=== PATIENT | female | born 1995 | race African-American/Black ===

== ENCOUNTER → 2024-01-22 | Outpatient (CLI) | payer MEDICAID, SELFPAY ==
[2024-01-22 17:54] LABS: Bacteria 0 SEEN /hpf (None Seen); Red Blood Cells-Urine 0 SEEN /hpf (0-5)
[2024-01-22 18:07] LABS: Color, Urine Yellow (Yellow); Glucose, Dipstick Normal (Normal); Ketone-Dipstick Negative (Negative); Leukocyte Esterase-Dipstick 25 /ul (Negative); Nitrite-Dipstick Negative (Negative); Occult Blood-Urine Negative /ul (Negative); Protein-Dipstick 15 mg/dl (Negative); Urine Bilirubin Dipstick Negative (Negative); Urine Clarity Clear (Clear); Urine Urobilinogen Normal (Normal)
[2024-01-22 18:15] LABS: Mucous, Urine 2+ /hpf (<or=2+); Squamous Epithelial Cells - UA 0-5 SEEN /hpf (5-10); White Blood Cells 0-5 SEEN /hpf (0-5)
== END | disposition home or self-care (01) ==
PROVIDERS: Visit Provider Physician Assistant
DX: R30.0 Dysuria (principal)
CPT/HCPCS: 81001; 87086; 87088

== ENCOUNTER 2025-06-19 15:16 | Outpatient (CLI) | payer MEDICAID, SELFPAY ==
--- OUTSIDE RECORDS SUMMARY | 2025-06-19 15:30 | XMS RPT_ITS | CCD ---
Author Organization [facility] Care Team Providers Care Forensic Investigator Name Role Phone Timothy Bajwa MD Primary Care Provider Joe Franklin Attending Unavailable Joe Franklin Attending Unavailable Timothy Bajwa MD Primary Care Provider Podlogar [employer].Char TOMPKINS Unavailable Jeevan Lopez MD Primary Care Provider Haagen [employer].Valerie TOMPKINS Unavailable Suppan [employer].Michelle TOMPKINS Unavailable Podlogar [employer].Char TOMPKINS Unavailable JEEVAN LOPEZ Primary Care Unavailable MIKALA BAEZ Referring Unavailable JEEVAN LOPEZ Primary Care Unavailable SELF Referring Unavailable VALORIE MEZA Attending Unavail able JEEVAN LOPEZ Primary Care Unavailable KAVYA AMEZQUITA Attending Unavailable MIKALA BAEZ Referring Unavailable JEEVAN LOPEZ Primary Care Unavailable MIKALA BAEZ Referring Unavailable JEEVAN LOPEZ Primary Care Unavailable KAVYA AMEZQUITA Referring Unavailable JEEVAN LOPEZ Primary Care Unavailable MIKALA BAEZ Referring Unavailable JEEVAN LOPEZ Primary Care Unavailable MIKALA BAEZ Referring Unavailable JEEVAN LOPEZ Primary Care Unavailable MIKALA BAEZ Attending Unavailable JEEVAN LOPEZ Primary Care Unavailable KAVYA AMEZQUITA Attending Unavailable MIKALA BAEZ Referring Unavailable JEEVAN LOPEZ Attending Unavailable TIMOTHY BAJWA Primary Care Unavailab GIANA Watts Attending Unavailable TIMOTHY BAJWA Primary Care Unavailab le VALORIE MEZA Referring Unavail able JEEVAN LOPEZ Attending Unavailable TIMOTHY BAJWA Primary Care Unavailab JEEVAN Serrano J Primary Care Unavailable JEEVAN LOPEZ Referring Unavailable JEEVAN LOPEZ Primary Care Unavailable MIKALA BAEZ Referring Unavailable JEEVAN LOPEZ Primary Care Unavailable KAVYA AMEZQUITA Referring Unavailable JOHNJEEVAN Denton Primary Care Unavailable MIKALA BAEZ Referring Unavailable TENA CRUZ Attending Unavailable JEEVAN LOPEZ Primary Care Unavailable JAXON MIKALA Referring Unavailable JEEVAN LOPEZ Primary Care Unavailable MIKALA BAEZ Referring Unavailable TIMOTHY BAJWA Attending Unavailab TIMOTHY Ramey Primary Care Unavailab TIMOTHY Ramey Primary Care Unavailab KACIE Estes Referring Unavailable TIMOTHY BAJWA Primary Care Unavailab TIMOTHY Ramey Primary Care Unavailab olson Allergies Allergy Classification Reported Allergen(s) Allergy Type Date of Onset Reaction(s) Facility (20 sources) Melon; Translations: [MELON] Drug Allergy 05-09-2016 Itching [facility] Work Phone: (20 sources) Tomatoes; Translations: [TOMATOES] Food Allergy 05-09-2016 Itching [facility] Work Phone: (1 source) Melon Drug allergy (disorder) 01-22-2024 [facility] Repository (1 source) tomato allergenic extract Drug Allergy 01-22-2024 [facility] Repository Medications Current Medications Medication Drug Class(es) Dates Sig (Normalized) Sig (Original) acyclovir 400 mg oral tablet (20 sources) Herpesvirus Nucleoside Analog DNA Polymerase Inhibitor, Herpes Simplex Virus Nucleoside Analog DNA Polymerase Inhibitor, Herpes Zoster Virus Nucleoside Analog DNA Polymerase Inhibitor Start: 01-09-2022 End: 12-19-2024 take 1 tablet by mouth twice daily acyclovir (ZOVIRAX) 400 mg tablet Indications: Recurrent cold sores Take 1 tablet by mouth two times a day. 60 tablet 11 12/19/2024 Active Comment on above: Take 1 tablet by elidia twice daily. amoxicillin 875 mg / clavulanate 125 mg oral tablet (2 sources) Penicillin-class Antibacterial Start: 01-23-2025 End: 02-02-2025 take 1 tablet by mouth twice daily amoxicillin-clavu lanate potassium (AUGMENTIN) 875-125 mg per tablet Take 1 tablet by mouth two times a day for 10 days. 20 tablet 01/23/2025 02/02/2025 Active aspirin 81 mg delayed release oral tablet (12 sources) Platelet Aggregation Inhibitor, Nonsteroidal Anti-inflammatory Drug Start: 03-15-2025 take 1 tablet by mouth once daily aspirin, enteric coated (ECOTRIN LOW STRENGTH) 81 mg EC tablet Indications: Less than 8 weeks gestation of (HCC) Take 1 tablet by mouth once daily. 90 tablet 3 03/15/2025 Active betamethasone 0.5 mg/ml / clotrimazole 10 mg/ml topical cream (2 sources) Azole Antifungal, Corticosteroid Start: 02-09-2025 End: 03-11-2025 clotrimazole-beta methasone (LOTRISONE) cream Indications: Vaginal irritation Apply 1 application to affected area two times a day. 30 g 1 02/09/2025 03/11/2025 Active doxycycline monohydrate 100 mg oral tablet (3 sources) Tetracycline-class Drug Start: 01-31-2025 End: 02-10-2025 take 1 tablet by mouth twice daily doxycycline monohydrate 100 mg tablet Indications: Bronchitis Take 1 tablet by mouth two times a day for 10 days. 20 tablet 01/31/2025 02/10/2025 Active Start: 12-19-2024 End: 12-26-2024 take 1 tablet by mouth twice daily doxycycline monohydrate 100 mg tablet Indications: Bronchitis Take 1 tablet by mouth two times a day for 7 days. 14 tablet 12/19/2024 12/26/2024 Active fluconazole 150 mg oral tablet (1 source) Azole Antifungal Start: 02-12-2025 End: 02-13-2025 take 1 tablet by mouth once daily fluconazole (DIFLUCAN) 150 mg tablet Take 1 tablet by mouth once daily for 1 day. 1 tablet 02/12/2025 02/13/2025 Active Inhalational Spacing Device (1 source) Start: 12-03-2024 End: 12-03-2024 Inhalational Spacing Device Indications: Acute cough 1 Device one time only for 1 dose. 1 Each 12/03/2024 12/03/2024 Active loratadine 10 mg oral tablet (5 sources) loratadine (CLAR ITIN) 10 mg tablet Take 10 mg by mouth as needed. Active magnesium oxide 420 mg oral tablet (2 sources) Start: 06-15-2025 take 1 tablet by mouth once daily magnesium oxide 420 mg tablet Take 1 tablet by mouth once daily. 100 tablet 1 06/15/2025 Active PNV no.95/ferrous fum/folic ac ( ORAL) (12 sources) PNV no.95/ferrou s fum/folic ac ( ORAL) Take by mouth. Active predniSONE 20 mg oral tablet (2 sources) Start: 01-27-2025 End: 02-01-2025 take 1 tablet by mouth once daily predniSONE (DELTASONE) 20 mg tablet Take 1 tablet by mouth once daily for 5 days. 5 tablet 01/27/2025 02/01/2025 Active prochlorperazine 10 mg oral tablet (4 sources) Phenothiazine Start: 05-19-2025 take 1 tablet by mouth every six hours as needed prochlorperazine (COMPAZINE) 10 mg tablet Take 1 tablet by mouth every 6 hours as needed (nausea). 30 tablet 1 05/19/2025 Active Completed/Discontinued Medications Medication Drug Class(es) Dates Sig (Normalized) Sig (Original) [id number] 200 actuat albuterol 0.09 mg/actuat metered dose inhaler (11 sources) beta2-Adrenergic Agonist Start: 12-03-2024 End: 03-15-2025 take 2 puff(s) by inhalation every six hours as needed for wheezing albuterol HFA (PROVENTIL HFA, VENTOLIN HFA) 90 mcg/actuation inhaler Indications: Acute cough Inhale 2 Puffs as instructed every 6 hours as needed for wheezing/shortness of breath. 1 Each 12/03/2024 03/15/2025 Discontinued (Course of therapy completed) benzonatate 100 mg oral capsule (2 sources) Non-narcotic Antitussive Start: 12-07-2024 End: 12-22-2024 take 1 capsule by mouth every eight hours as needed for cough benzonatate (TESSALON PERLE) 100 mg capsule Indications: Bronchitis Take 1 capsule by mouth every 8 hours as needed for cough for up to 15 days. 30 capsule 12/07/2024 12/10/2024 Discontinued (Course of therapy completed) brompheniramine maleate 0.4 mg/ml / dextromethorphan hydrobromide 2 mg/ml / pseudoephedrine hydrochloride 6 mg/ml oral solution (4 sources) alpha-Adrenergic Agonist, Uncompetitive [id number]-Z-asparta te Receptor Antagonist, Sigma-1 Agonist Start: 12-03-2024 End: 12-19-2024 take 5 mL by mouth four times daily as needed Brompheniramine-Pse udoeph-DM (BROMFED DM) 2-30-10 mg/5 mL syrup Indications: Acute cough Take 5 mL by mouth four times a day as needed. 120 mL 12/03/2024 12/19/2024 Discontinued (Other) drospirenone / Ethinyl Estradiol (20 sources) Progestin, Estrogen Start: 12-05-2022 End: 03-15-2025 take 1 tablet by mouth once daily in the evening Drospirenone-Ethiny l Estradiol (NADER, 28,) 3-0.02 mg per tablet Indications: Surveillance for control, oral contraceptives TAKE 1 TABLET BY MOUTH ONCE DAILY. 84 tablet 4 05/17/2023 2:02 PM EDT 12/05/2022 03/15/2025 Discontinued (Discontinued by Patient) Start: 12-05-2022 take 1 tablet by elidia th once daily in the evening Drospirenone-Ethinyl Estradiol (NADER, 28,) 3-0.02 mg per tablet Indications: Surveillance for control, oral contraceptives TAKE 1 TABLET BY MOUTH ONCE DAILY. 84 tablet 4 05/17/2023 2:02 PM EDT 12/05/2022 Active Start: 12-05-2022 take 1 tablet by elidia th once daily Drospirenone-Ethinyl Estradiol (NADER, 28,) 3-0.02 mg per tablet Indications: Surveillance for control, oral contraceptives TAKE 1 TABLET BY MOUTH ONCE DAILY. 84 tablet 4 12/05/2022 Active Start: 12-05-2022 End: 12-05-2023 take 1 tablet by mouth once daily Drospirenone-Ethinyl Estradiol (NADER, 28,) 3-0.02 mg per tablet Indications: Surveillance for control, oral contraceptives TAKE 1 TABLET BY MOUTH ONCE DAILY. 84 tablet 4 12/05/2022 12/05/2023 Active Start: 11-23-2022 End: 12-04-2022 take 1 tablet by mouth once daily Drospirenone-Ethinyl Estradiol (NADER, 28,) 3-0.02 mg per tablet Indications: Surveillance for control, oral contraceptives TAKE 1 TABLET BY MOUTH ONCE DAILY. 84 tablet 4 11/23/2022 12/04/2022 Discontinued Start: 11-23-2022 End: 11-23-2023 take 1 tablet by mouth once daily Drospirenone-Ethinyl Estradiol (NADER, 28,) 3-0.02 mg per tablet Indications: Surveillance for control, oral contraceptives TAKE 1 TABLET BY MOUTH ONCE DAILY. 84 tablet 4 11/23/2022 11/23/2023 Active Start: 11-14-2021 End: 11-23-2022 take 1 tablet by mouth once daily Drospirenone-Ethinyl Estradiol (Nimesh DOE,) 3-0.02 mg per tablet Indications: Surveillance for control, oral contraceptives TAKE 1 TABLET BY MOUTH ONCE DAILY. 84 tablet 4 11/14/2021 11/23/2022 Discontinued Start: 11-14-2021 End: 11-28-2022 take 1 tablet by mouth once daily Drospirenone-Ethinyl Estradiol (Nimesh DOE,) 3-0.02 mg per tablet Indications: Surveillance for control, oral contraceptives TAKE 1 TABLET BY MOUTH ONCE DAILY. 84 tablet 4 11/14/2021 11/28/2022 Active Start: 11-14-2021 End: 11-14-2022 take 1 tablet by mouth once daily Drospirenone-Ethinyl Estradiol (Nimesh DOE,) 3-0.02 mg per tablet Indications: Surveillance for control, oral contraceptives TAKE 1 TABLET BY MOUTH ONCE DAILY. 84 tablet 4 11/14/2021 11/14/2022 Active Comment on above: TAKE 1 TABLET BY ELIDIA TH ONCE DAILY. Problems Active Problems Problem Classification Problem Date Documented Date Episodic/Chronic Anxiety disorders (20 sources) Mixed anxiety and depressive disorder; Translations: [Other specified anxiety disorders] Onset: 01-09-2022 Chronic Contraceptive and procreative management (2 sources) Oral contraception; Translations: [Encounter for surveillance of contraceptive pills] Episodic Immunizations and screening for infectious disease (5 sources) Needs influenza immunization; Translations: [Encounter for immunization] Episodic Other female genital disorders (1 source) Vaginal irritation; Translations: [Other specified noninflammatory disorders of vagina] 02-09-2025 Episodic Other injuries and conditions due to external causes (2 sources) Injury of right knee; Translations: [Unspecified injury of right lower leg, initial encounter] Episodic Other injuries and conditions due to external causes (3 sources) Closed injury of head; Translations: [Unspecified injury of head, initial encounter] Episodic Other lower respiratory disease (2 sources) Cough; Translations: [Acute cough] 12-03-2024 Episodic Other and delivery including normal (20 sources) Normal ; Translations: [Encounter for supervision of normal first , first trimester] Onset: 03-15-2025 03-15-2025 Episodic Other screening for suspected conditions (not mental disorders or infectious disease) (3 sources) Cancer cervix screening status; Translations: [Encounter for screening for malignant neoplasm of cervix] Episodic Other upper respiratory infections (3 sources) Sore throat symptom; Translations: [Acute pharyngitis, unspecified] Episodic Residual codes; unclassified (1 source) Other specified personal risk factors, not elsewhere classified; Translations: [Other specified personal history presenting hazards to health] Episodic Residual codes; unclassified (3 sources) Gestation period, 8 weeks 03-15-2025 Episodic Residual codes; unclassified (2 sources) First trimester ; Translations: [Less than 8 weeks gestation of ] 03-15-2025 Episodic Residual codes; unclassified (2 sources) Gestation period, 12 weeks; Translations: [12 weeks gestation of ] 04-19-2025 Episodic Residual codes; unclassified (1 source) Gestation period, 16 weeks; Translations: [16 weeks gestation of ] 05-19-2025 Episodic Residual codes; unclassified (1 source) Gestation period, 20 weeks; Translations: [20 weeks gestation of ] 06-15-2025 Episodic Residual codes; unclassified (1 source) 20 weeks gestation of ; Translations: [20 weeks gestation of (HCC)] Onset: 06-15-2025 Episodic Residual codes; unclassified (1 source) Less than 8 weeks gestation of ; Translations: [Less than 8 weeks gestation of (HCC)] Onset: 06-15-2025 Episodic Residual codes; unclassified (1 source) 16 weeks gestation of ; Translations: [16 weeks gestation of (HCC)] Onset: 05-19-2025 Episodic Residual codes; unclassified (1 source) 12 weeks gestation of ; Translations: [12 weeks gestation of ([facility])] Onset: 04-19-2025 Episodic Residual codes; unclassified (1 source) 8 weeks gestation of ; Translations: [8 weeks gestation of ([facility])] Onset: 03-23-2025 Episodic Spondylosis; intervertebral disc disorders; other back problems (5 sources) Neck pain; Translations: [Cervicalgia] Episodic Unclassified (1 source) Acute candidiasis of vulva and vagina; Translations: [Acute candidiasis of vulva and vagina] Onset: 01-30-2024 Unclassified (1 source) Acute cough; Translations: [Acute cough] Onset: 12-03-2024 Past or Other Problems Problem Classification Problem Date Documented Date Episodic/Chronic Chronic obstructive pulmonary disease and bronchiectasis (3 sources) Bronchitis; Translations: [Bronchitis, not specified as acute or chronic] Onset: 12-19-2024 12-07-2024 Episodic Fever of unknown origin (2 sources) Fever; Translations: [Fever, unspecified] Onset: 02-08-2025 02-08-2025 Episodic Genitourinary symptoms and ill-defined conditions (17 sources) Dysuria; Translations: [Bacteriuria] Onset: 01-30-2024 03-17-2025 Episodic Hemorrhage during ; abruptio placenta; placenta previa (16 sources) Threatened miscarriage; Translations: [Threatened ] Onset: 03-15-2025 Resolved: 04-19-2025 03-15-2025 Episodic Mood disorders (20 sources) Recurrent major depression in partial remission; Translations: [Major depressive disorder, recurrent, in partial remission] Onset: 04-17-2019 Resolved: 03-15-2025 04-17-2019 Chronic Other infections; including parasitic (14 sources) H/O: viral illness; Translations: [Personal history of other infectious and parasitic diseases] Onset: 03-15-2025 03-15-2025 Episodic Residual codes; unclassified (14 sources) History of induced termination of ; Translations: [Other specified postprocedural states] Onset: 03-15-2025 03-15-2025 Episodic Viral infection (20 sources) Recurrent herpes simplex labialis; Translations: [Herpesviral vesicular dermatitis] Onset: 12-19-2024 Episodic Results Test Name Value Interpretation Reference Range Facil ity Examination level ultrasound on 06-15-2025 Indication Standard anatomic survey Impression The patient is referred for a standard anatomic survey. - Single, live, intrauterine . - biometry is consistent with the established gestational age. - No malformations were visualized on a complete standard anatomic survey. - The amniotic fluid volume is normal amount. - The placenta is anterior, fundal. - The Transabdominal cervical length measures 34.6 mm with no evidence of funneling or other dynamic changes. - Not all structural malformations can be detected by ultrasound examination. Recommendations Additional follow-up as clinically indicated. Maternal Assessment Height 165 cm Height (ft) 5 ft Height (in) 5 in Physical Exam Initial weight (lb) 135 lb Initial BMI 22.47 kg/m Maternal assessment other: 2 Para 0 REMOTE READ Method Transabdominal ultrasound examination. View: Suboptimal view: limited by position Wong . Number of fetuses: 1 Dating LMP on: 01/13/2025 GA by LMP 21 w + 6 d ESPERANZA by LMP: 10/20/2025 GA by prior assessment 20 w + 1 d ESPERANZA by prior assessment: 11/01/2025 Ultrasound examination on: 06/15/2025 GA by U/S based upon: AC, BPD, Femur, HC GA by U/S 20 w + 2 d ESPERANZA by U/S: 10/31/2025 Assigned: based on stated ESPERANZA, selected on 06/15/2025 Assigned GA 20 w + 1 d Assigned ESPERANZA: 11/01/2025 General Evaluation Cardiac activity present. FHR 149 bpm. movements: present. Presentation: breech Placenta: Placental site: anterior, fundal Umbilical cord: Cord vessels: 3 vessel cord Amniotic fluid: Amount of AF: normal amount. MVP 5.0 cm Growth Overview Exam date GA BPD (mm) HC (mm) AC (mm) FL (mm) HL (mm) EFW (g) 06/15/2025 20w 1d 45 27% 175.2 46% 157.5 69% 33.8 79% 31.7 70% 366 71% Biometry Standard BPD 45.0 mm 19w 4d 27% Hadlock OFD 63.6 mm 20w 2d 81% Nicolaides HC 175.2 mm 20w 0d 46% Felisa Cerebellum tr 21.9 mm 20w 4d 86% Hill Nuchal fold 3.3 mm AC 157.5 mm 20w 6d 69% Hadlock Femur 33.8 mm 20w 6d 79% Felisa Humerus 31.7 mm 20w 4d 70% Felisa EFW 366 g 20w 4d 71% Hadlock EFW (lb) 0 lb EFW (oz) 13 oz EFW by: Hadlock (HC-AC-FL) Extended Buckle Assembler 7.0 mm CM 4.3 mm 26% Nicolaides Extremities / Bony Struc FL / HC 0.19 61% Hadlock Other Structures FHR 149 bpm Anatomy Cranium: normal Lateral ventricles: normal Choroid plexus: normal Midline falx: normal Cavum septi pellucidi: normal Cerebellum: normal Cisterna magna: normal Head / Neck Vermis: Normal but not required for a standard anatomy exam Neck: Normal but not required for a standard anatomy exam Nuchal fold: Normal but not required for a standard anatomy exam Lips: normal Profile: Normal but not required for a standard anatomy exam Nose: Normal but not required for a standard anatomy exam Face Maxilla: Normal but not required for a standard anatomy exam Mandible: Normal but not required for a standard anatomy exam Orbits: Normal but not required for a standard anatomy exam Lens: Normal but not required for a standard anatomy exam 4-chamber view: normal RVOT view: normal LVOT view: normal 3-vessel view: normal 2-[id number] view: normal Heart / Thorax Situs: situs solitus (normal) Aortic arch view: Normal but not required for a standard anatomy exam SVC: Normal but not required for a standard anatomy exam IVC: Normal but not required for a standard anatomy exam Cardiac axis: normal Rt lung: Normal but not required for a standard anatomy exam Lt lung: Normal but not required for a standard anatomy exam Diaphragm: normal Cord insertion: normal Stomach: normal Kidneys: normal Bladder: normal Genitals: normal Abdomen Abdom. wall: normal Cervical spine: normal Thoracic spine: normal Lumbar spine: normal Sacral spine: normal Arms: normal Legs: normal Rt upper arm: normal Rt forearm: normal Rt hand: normal Rt fingers: normal Lt upper arm: normal Lt forearm: normal Lt hand: normal Lt fingers: normal Rt upper leg: normal Rt lower leg: normal Rt foot: normal Lt upper leg: normal Lt lower leg: normal Lt foot: normal sex: female Wants to know sex: yes Maternal Structures Uterus / Cervix Uterus: Visualized Cervix: Visualized Approach: Transabdominal Cervical length 34.6 mm Other: Patient declined transvaginal ultrasound for cervical length. Ovaries / Tubes / Adnexa Rt ovary: Not visualized Lt ovary: Visualized Performed By: Leida Alvarado RDMS, RVT Read By: Tiffanie Dyson M.D. MATERNAL MEDICINE [facility] Radiology Study observation (narrative) [facility] Examination level ultrasound on 04-19-2025 Indication First trimester anatomic survey Impression The patient is referred for a first trimester anatomy scan including nuchal translucency measurement as clinically indicated. - Single, live, intrauterine . - [place] rump length measurement is consistent with the established gestational age. - A qualitative screen of the nuchal translucency and other anatomic structures was unremarkable on a complete first trimester anatomic assessment. - Not all structural malformations can be detected by ultrasound examination. Maternal Structures: Right Ovary: Size 21 mm x 19 mm x 11 mm Left Ovary: Size 20 mm x 19 mm x 16 mm Recommendations - An anatomic survey at 18-20 weeks is recommended given no identified risk factors. Maternal Assessment Height 165 cm Height (ft) 5 ft Height (in) 5 in Physical Exam Initial weight (lb) 135 lb Initial BMI 22.47 kg/m Maternal assessment other: 2 Para 0 REMOTE READ Method Transabdominal ultrasound examination Wong . Number of fetuses: 1 Dating LMP on: 01/13/2025 GA by LMP 13 w + 5 d ESPERANZA by LMP: 10/20/2025 GA by prior assessment 12 w + 0 d ESPERANZA by prior assessment: 11/01/2025 Ultrasound examination on: 04/19/2025 GA by U/S based upon: CRL GA by U/S 12 w + 4 d ESPERANZA by U/S: 10/28/2025 Assigned: based on stated ESPERANZA, selected on 04/19/2025 Assigned GA 12 w + 0 d Assigned ESPERANZA: 11/01/2025 General Evaluation Cardiac activity present Placenta: anterior Cord vessels: 3 vessel cord Amniotic fluid: normal amount Biometry Standard FHR 148 bpm CRL 61.8 mm 12w 4d 83% Hadlock First Trimester Anatomy Calvarium: normal Falx cerebri: normal Choroid plexus: normal Profile: normal Nasal bone: normal Retronasal triangle: normal Maxilla: normal Mandible: normal Nuchal translucency: Unremarkable Situs: normal Cardiac position: normal Cardiac axis: normal 4-chamber view: normal 4-chamber view with color: normal [id number] view: normal Abdominal cord insertion: normal Stomach: normal Kidneys: normal Bladder: normal Color doppler of perivesical umbilical arteries: normal Vertebral alignment: normal Arms: normal Hands: normal Legs: normal Feet: normal Maternal Structures Uterus / Cervix Uterus: Visualized Uterus length 105 mm Uterus width 111 mm Uterus height 94 mm Uterus Vol 577.1 cm Ovaries / Tubes / Adnexa Rt ovary: Visualized Rt ovary D1 21 mm Rt ovary D2 19 mm Rt ovary D3 11 mm Rt ovary Vol 2.3 cm Lt ovary: Visualized Lt ovary D1 20 mm Lt ovary D2 19 mm Lt ovary D3 16 mm Lt ovary Vol 3.3 cm Performed By: Leida Alvarado RDMS, RVT Read By: Nanci Anthony M.D. MATERNAL MEDICINE [facility] Radiology Study observation (narrative) [facility] HGB ELECTROPHORESIS FOR EVAL (LAB ORDER)on 04-19-2025 Hemoglobin A (Bld) [Mass fraction] 96.9 % Normal 96.2-98.0 [facility] Comment on above: Order Comment: Speci men Type: SWAB Ordering Facility: [facility] Address: [address] [place] [address] Performed By: #### T RVAMP, 45309-2 #### [facility] CLIA [id number] [address] [place] [address] [place] Hemoglobin A2 (Bld) [Mass fraction] 3.1 % Normal 2.0-3.1 [facility] Comment on above: Order Comment: Speci men Type: SWAB Ordering Facility: [facility] Address: [address] [place] [address] Performed By: #### T RVAMP, [id number] #### [facility] CLIA [id number] [address] [place] [address] [place] Hemoglobin Unsp Elph (Bld) [Mass fraction] Normal [facility] Comment on above: Order Comment: Speci men Type: SWAB Ordering Facility: [facility] Address: [address] [place] [address] Performed By: #### T RVAMP, 10441-8 #### [facility] CLIA [id number] [address] [place] [address] [place] HGB EVALUATION CASCADE INTER John 04-19-2025 Hemoglobin pattern (Bld) [Interp] Reviewed by Christopher Coello MD Normal [facility] Comment on above: Order Comment: Speci men Type: SWAB Ordering Facility: [facility] Address: [address] [place] [address] Performed By: #### T RVAMP, 66106-6 #### [facility] CLIA [id number] [address] [place] [address] [place] INTERPRETATION (HGB EVAL) Normal [facility] Comment on above: Order Comment: Speci men Type: SWAB Ordering Facility: [facility] Address: [address] [place] [address] Result Comment: Hemo globins were analyzed by capillary electrophoresis and CBC red cell parameters were reviewed. No abnormal hemoglobin is identified. There is normal hemoglobin capillary electrophoresis pattern. Performed By: #### T RVAMP, 48884-7 #### [facility] CLIA [id number] [address] [place] [address] [place] [id number] PLUSon 04-19-2025 Cell-free DNA./Cell-free DNA.total Dosage of chromosome-specific cfDNA (cfDNA) [Molar fraction] 30% Normal [facility] Comment on above: Order Comment: Speci men Type: SWAB Ordering Facility: [facility] Address: [address] [place] [address] Performed By: #### T RVAMP, 03279-1 #### [facility] CLIA [id number] [address] [place] [address] [place] Chr 13+18+21+X+Y aneuploidy Dosage of chromosome-specific cfDNA Ql (cfDNA) Negative Normal [facility] Comment on above: Order Comment: Speci men Type: SWAB Ordering Facility: [facility] Address: [address] [place] [address] Performed By: #### T RVAMP, 73874-1 #### [facility] CLIA [id number] [address] [place] [address] OF [place] Chr 21 trisomy Dosage of chromosome-specific cfDNA Ql (cfDNA) Negative Normal [facility] Comment on above: Order Comment: Speci men Type: SWAB Ordering Facility: [facility] Address: [address] [place] [address] Performed By: #### T RVAMP, 20969-9 #### [facility] CLIA [id number] [address] [place] [address] [place] Chr X and Y aneuploidy risk Sequencing Ql (cfDNA) [Interp] Not detected Normal [facility] Comment on above: Order Comment: Speci men Type: SWAB Ordering Facility: [facility] Address: [address] [place] [address] Result Comment: Not Detected Not Detected Performed By: #### T RVAMP, 38291-3 #### [facility] CLIA [id number] [address] [place] [address] [place] Citation David (Reference lab test) Comment Normal [facility] Comment on above: Order Comment: Speci men Type: SWAB Ordering Facility: [facility] Address: [address] [place] [address] Result Comment: 1. P jamel VALDES, et al. Chandrika Med. 2012;14(3):296-305. 2. Ryan RICE et al. Prenat Diag. 2013;33(6):591-597. 3. Boubacar C, et al. Clin Chem. 2015 Apr;61(4):608-616. 4. Gary VALDES et al. Chandrika Med. 2011;13(11):913-920. 5. ACOG/SM[facility] Practice Bulletin No. 226, Sep 2020. Performed By: #### T RVAMP, 54915-1 #### [facility] CLIA [id number] [address] [place], [place] [address] [place] Gestational age Estimated from conception date Wong Normal [facility] Comment on above: Order Comment: Speci men Type: SWAB Ordering Facility: [facility] Address: [address] [place] [address] Performed By: #### T RVAMP, 06489-4 #### [facility] CLIA [id number] [address] [place] [address] [place] GESTATIONALAGE AGE > OR = 9W Yes Normal [facility] Comment on above: Order Comment: Speci men Type: SWAB Ordering Facility: [facility] Address: [address] [place] [address] Performed By: #### T RVAMP, 16591-0 #### [facility] CLIA [id number] [address] [place] [address] [place] Laboratory comment David (Report) Comment Normal [facility] Comment on above: Order Comment: Speci men Type: SWAB Ordering Facility: [facility] Address: [address] [place] [address] Result Comment: The MaterniT(R) 21 PLUS laboratory-developed test (LDT) analyzes circulating cell-free DNA from a maternal blood sample. This test is used for screening purposes and not diagnostic. Clinical correlation is recommended. Validation data on twin pregnancies is limited and the ability of this test to detect aneuploidy in higher multiple gestations has not yet been validated. Performed By: #### T RVAMP, 08049-7 #### [facility] CLIA [id number] [address] [place], [place] [address] [place] director of financial planning name Nom (Provider) Comment Normal [facility] Comment on above: Order Comment: Speci men Type: SWAB Ordering Facility: [facility] Address: [address] [place] [address] Result Comment: This specimen showed an expected representation of chromosome 21, 18 and 13 material. Clinical correlation is suggested. Comment Wesley Elizabeth MD, PhD, Director, [employer] Performed By: #### T RVAMP, 31801-3 #### [facility] CLIA [id number] [address] [place], [place] [address] [place] LIMITATIONS OF THE TEST Comment Normal [facility] Comment on above: Order Comment: Speci men Type: SWAB Ordering Facility: [facility] Address: [address] [place] [address] Result Comment: Bradford stephen the results of these tests are highly reliable, discordant results, including inaccurate sex prediction, may occur due to placental, maternal, or mosaicism or neoplasm; vanishing twin; prior maternal organ transplant; or other causes. These tests are screening tests and not diagnostic; they do not replace the accuracy and precision of diagnosis with CVS or amniocentesis. A patient with a positive test result should be referred for genetic counseling and offered invasive diagnosis for confirmation of test results.[5] The results of this testing, including the benefits and limitations, should be discussed with a qualified healthcare provider. management decisions, including termination of the , should not be based on the results of these tests alone. The healthcare provider is responsible for the use of this information in the management of their patient. Sex chromosomal aneuploidies are not reportable for known multiple gestations. A negative result does not ensure an unaffected nor does it exclude the possibility of other chromosomal abnormalities or defects which are not a part of these tests. An uninformative result may be reported, the causes of which may include, but are not limited to, insufficient sequencing coverage, noise or artifacts in the region, amplification or sequencing bias, or insufficient fraction. These tests are not intended to identify pregnancies at risk for neural tube defects or ventral wall defects. Testing for whole chromosome abnormalities (including sex chromosomes) and for subchromosomal abnormalities could lead to the potential discovery of both and maternal genomic abnormalities that could have major, minor, or no, clinical significance. Evaluating the significance of a positive or a non-reportable result may involve both invasive testing and additional studies on the mother. Such investigations may lead to a diagnosis of maternal chromosomal or subchromosomal abnormalities, which on occasion may be associated with benign or malignant maternal neoplasms. These tests may not accurately identify triploidy, balanced rearrangements, or the precise location of subchromosomal duplications or deletions; these may be detected by diagnosis with CVS or amniocentesis. The ability to report results may be impacted by maternal BMI, maternal weight, maternal systemic lupus erythematosus (SLE) and/or by certain pharmaceutical agents such as low molecular weight heparin (for example: Lovenox(R), Xaparin(R), Clexane(R) and Fragmin(R)). Performed By: #### T RVAMP, 55384-1 #### [facility] CLIA [id number] [address] [place] [address] Monosomy X risk Dosage of chromosome-specific cfDNA Ql (Plasma cell-free+WBC DNA) [Interp] Not detected Normal [facility] Comment on above: Order Comment: Kris means Type: SWAB Ordering Facility: [facility] Address: [address] [place] [address] Performed By: #### T RVAMP, 48352-1 #### [facility] CLIA [id number] [address] [place] [address] NEGATIVE PREDICTIVE VALUE Note Normal [facility] Comment on above: Order Comment: Kris means Type: SWAB Ordering Facility: [facility] Address: [address] [place] [address] Result Comment: The Negative Predictive Value (NPV) for trisomy 21, 18, and 13 is greater than 99%. The NPV for SCA and ESS cannot be calculated as SCA and ESS are only reported when an abnormality is detected. Performed By: #### T RVAMP, 71090-7 #### [facility] CLIA [id number] [address] [place] [address] PERFORMANCE CHARACTERISTICS Note Normal [facility] Comment on above: Order Comment: Kris means Type: SWAB Ordering Facility: [facility] Address: [address] [place] [address] Result Comment: ! Sex ! Accuracy: 99.4% ! ! ! ! Region (associated syndrome) ! Est. Sens# ! Est. Spec ! ! ! ! Trisomy 21 (Down Syndrome) ! 99.1% ! 99.9% ! ! ! ! Trisomy 18 (Hickey Syndrome) ! >99.9% ! 99.6% ! ! ! ! Trisomy 13 (Patau Syndrome) ! 91.7% ! 99.7% ! ! ! ! Sex Chromosome Aneuploidies## ! 96.2% ! 99.7% ! ! ! * As reported in [facility] database nstd37 [https://www.ncbi.nlm.nih.gov/dbvar/studies/nstd37/ ] # Estimated Sensitivity. Sensitivity estimated across the observed size distribution of each syndrome [per [employer] database nstd37] and across the range of fractions observed in routine clinical NIPT. Actual sensitivity can also be influenced by other factors such as the size of the event, total sequence counts, amplification bias, or sequence bias. ## Wong gestation only. Performed By: #### T RVAMP, 46859-5 #### [facility] CLIA [id number] [address] [place] [address] [place] [facility] POSITIVE PREDICTIVE VALUE N/A Normal [facility] Comment on above: Order Comment: Speci men Type: SWAB Ordering Facility: [facility] Address: [address] [place] [address] Performed By: #### T RVAMP, 15517-8 #### [facility] CLIA [id number] [address] [place] [address] Reference Lab Test Method Comment Normal [facility] Comment on above: Order Comment: Speci men Type: SWAB Ordering Facility: [facility] Address: [address] [place] [address] Result Comment: See Notes Circulating cell-free DNA was purified from the plasma component of maternal blood. The extracted DNA was then converted into a genomic DNA library for aneuploidy analysis of chromosomes 21, 18, and 13 via next generation sequencing.[1] Optional findings based on the test order include sex chromosome aneuploidy (SCA)[2], and enhanced sequencing series (ESS)[3], which will only be reported on as an additional finding when an abnormality is detected. SCA testing includes information on X and Y representation, while ESS testing includes deletions in selected regions (22q, 15q, 11q, 8q, 5p, 4p, 1p) and trisomy of chromosomes 16 and 22. Performed By: #### T RVAMP, 26418-7 #### [facility] CLIA [id number] [address] [place], [place] [address] [place] Service comment (Unsp spec) [Interp] Comment Normal [facility] Comment on above: Order Comment: Speci men Type: SWAB Ordering Facility: [facility] Address: [address] [place] [address] Result Comment: See Notes [employer] is a subsidiary of [email or web address], using the brand [employer]. This test was developed and its performance characteristics determined by [employer]. It has not been cleared or approved by the Food and Drug Administration. This laboratory is certified under the Clinical Laboratory Improvement Amendments (CLIA) as qualified to perform high complexity clinical laboratory testing and accredited by the [employer] (CAP). If there is future clinical need for adding MaterniT GENOME testing, this specimen will be available until term. [facility] samples will not be retained beyond [address] [facility] patients will have to send a new sample for re-sequencing ([facility] Test Code: [id number]). Performed By: #### T RVAMP, 72420-1 #### [facility] CLIA [id number] [address] [place] [address] [place] Sex Dosage of chromosome-specific cfDNA Nom (cfDNA) Comment Normal [facility] Comment on above: Order Comment: Speci men Type: SWAB Ordering Facility: [facility] Address: [address] [place] [address] Result Comment: Cons istent with Female Performed By: #### T RVAMP, 38767-6 #### [facility] CLIA [id number] [address] [place] [address] [place] Test performance information David (Unsp spec) Comment Normal [facility] Comment on above: Order Comment: Speci men Type: SWAB Ordering Facility: [facility] Address: [address] [place] [address] Result Comment: The performance characteristics of the MaterniT(R) 21 PLUS laboratory-developed test (LDT) have been determined in a clinical validation study with women at increased risk for chromosomal aneuploidy.[1-4] Performed By: #### T RVAMP, 51751-6 #### [facility] CLIA [id number] [address] [place], [place] [address] [place] Trisomy 13 risk Dosage of chromosome-specific cfDNA Ql (cfDNA) [Interp] Negative Normal [facility] Comment on above: Order Comment: Speci men Type: SWAB Ordering Facility: [facility] Address: [address] [place] [address] Performed By: #### T RVAMP, 81961-0 #### [facility] CLIA [id number] [address] [place] [address] [place] Trisomy 18 risk Dosage of chromosome-specific cfDNA Ql (Plasma cell-free+WBC DNA) [Interp] Negative Normal [facility] Comment on above: Order Comment: Speci men Type: SWAB Ordering Facility: [facility] Address: [address] [place] [address] Performed By: #### T RVJEAN PAUL, 12957-8 #### [facility] CLIA [id number] [address] [place] [address] [place] RBC PARAMETERS FOR HB IDon 0 - Erythrocyte distribution width (RBC) [Ratio] 12.7 % Normal 11.5-15.0 [facility] Comment on above: Order Comment: Speci men Type: SWAB Ordering Facility: [facility] Address: [address] [place] [address] Performed By: #### T RVAMP, 34302-0 #### [facility] CLIA [id number] [address] [place] [address] [place] Hematocrit (Bld) [Volume fraction] 39.4 % Normal 36.0-46.0 [facility] Comment on above: Order Comment: Speci men Type: SWAB Ordering Facility: [facility] Address: [address] [place] [address] Performed By: #### T RVAMP, 61846-5 #### [facility] CLIA [id number] [address] [place] [address] [place] Hemoglobin (Bld) [Mass/Vol] 13.3 g/dL Normal 11.5-15.5 [facility] Comment on above: Order Comment: Speci men Type: SWAB Ordering Facility: [facility] Address: [address] [place] [address] Performed By: #### T RVAMP, 09075-3 #### [facility] CLIA [id number] [address] [place] [address] [place] MCH (RBC) [Entitic mass] 33.2 pg Normal 26.0-34.0 [facility] Comment on above: Order Comment: Speci men Type: SWAB Ordering Facility: [facility] Address: [address] [place] [address] Performed By: #### T RVAMP, 14571-6 #### [facility] CLIA [id number] [address] [place] [address] [place] MCHC (RBC) [Mass/Vol] 33.8 g/dL Normal 30.5-36.0 [facility] Comment on above: Order Comment: Speci men Type: SWAB Ordering Facility: [facility] Address: [address] [place] [address] Performed By: #### T RVAMP, 03000-4 #### [facility] CLIA [id number] [address] [place] [address] [place] MCV (RBC) [Entitic vol] 98.3 fL Normal 80.0-100.0 [facility] Comment on above: Order Comment: Speci men Type: SWAB Ordering Facility: [facility] Address: [address] [place] [address] Performed By: #### T RVAMP, 01189-8 #### [facility] CLIA [id number] [address] [place] [address] [place] RBC (Bld) [#/Vol] 4.01 10*6/uL Normal 3.90-5.20 [facility] Comment on above: Order Comment: Speci men Type: SWAB Ordering Facility: [facility] Address: [address] [place], [place] [address] Performed By: #### T RVAMP, 41372-1 #### [facility] CLIA [id number] [facility] [place] [address] [place] HGB ELECTROPHORESIS FOR EVAL (LAB ORDER)on 03-29-2025 Hemoglobin A (Bld) [Mass fraction] 97.0 % Normal 96.2-98.0 [facility] Comment on above: Order Comment: Speci men Type: BLOOD SPECIMENOrdering Facility: [facility] Address: [address] [place] [address] Performed By: #### L [id number], HGBELEV ####[facility] [id number] [place] [address] [place] Hemoglobin A2 (Bld) [Mass fraction] 3.0 % Normal 2.0-3.1 [facility] Comment on above: Order Comment: Speci men Type: BLOOD SPECIMENOrdering Facility: [facility] Address: [address] [place] [address] Performed By: #### L [id number], HGBELEV ####[facility] [id number] [place] [address] [place] Hemoglobin Unsp Elph (Bld) [Mass fraction] No abnormal hemoglobin identified. Normal No abnormal hemoglobin identified. [facility] Comment on above: Order Comment: Speci men Type: BLOOD SPECIMENOrdering Facility: [facility] Address: [address] [place] [address] Performed By: #### L [id number], HGBELEV ####[facility] [id number] [place] [address] [place] HGB EVALUATION CASCADE INTER John 03-29-2025 Hemoglobin pattern (Bld) [Interp] Reviewed by Cornelio Stephenson MD [facility] Comment on above: Order Comment: Speci men Type: BLOOD SPECIMENOrdering Facility: [facility] Address: [address] [place] [address] Performed By: #### L [id number], HGBELEV ####[facility] [id number] [place] [address] [place] INTERPRETATION (HGB EVAL) Hemoglobins were analyzed by capillary electrophoresis and CBC red cell parameters were reviewed. No abnormal hemoglobin is identified. There is a normal hemoglobin capillary electrophoresis pattern. Normal [facility] Comment on above: Order Comment: Speci men Type: BLOOD SPECIMENOrdering Facility: [facility] Address: [address] [place] [address] Performed By: #### L [id number], HGBELEV ####[facility] [id number] [place] [address] [place] RBC PARAMETERS FOR HB IDon 0 - Erythrocyte distribution width (RBC) [Ratio] 13.1 % Normal 11.5-15.0 [facility] Comment on above: Order Comment: Speci men Type: BLOOD SPECIMENOrdering Facility: [facility] Address: [address] [place] [address] Performed By: #### L [id number] ####[facility] [id number] [place] [address] [place] Hematocrit (Bld) [Volume fraction] 34.9 % Low 36.0-46.0 [facility] Comment on above: Order Comment: Speci men Type: BLOOD SPECIMENOrdering Facility: [facility] Address: [address] [place] [address] Performed By: #### L [id number] ####[facility] [id number] [place] [id number] [place] Hemoglobin (Bld) [Mass/Vol] 11.8 g/dL Normal 11.5-15.5 [facility] Comment on above: Order Comment: Speci men Type: BLOOD SPECIMENOrdering Facility: [facility] Address: [address] [place] [address] Performed By: #### L [id number] ####[facility] [id number] [place] [address] [place] MCH (RBC) [Entitic mass] 32.9 pg Normal 26.0-34.0 [facility] Comment on above: Order Comment: Speci men Type: BLOOD SPECIMENOrdering Facility: [facility] Address: [address] [place] [address] Performed By: #### L [id number] ####[facility] [id number] [place] [address] [place] MCHC (RBC) [Mass/Vol] 33.8 g/dL Normal 30.5-36.0 [facility] Comment on above: Order Comment: Speci men Type: BLOOD SPECIMENOrdering Facility: [facility] Address: [address] [place] [address] Performed By: #### L [id number] ####[facility] [id number] [place] [address] [place] MCV (RBC) [Entitic vol] 97.2 fL Normal 80.0-100.0 [facility] Comment on above: Order Comment: Speci men Type: BLOOD SPECIMENOrdering Facility: [facility] Address: [address] [place] [address] Performed By: #### L [id number] ####[facility] [id number] [place] [address] [place] RBC (Bld) [#/Vol] 3.59 10*6/uL Low 3.90-5.20 [facility] Comment on above: Order Comment: Speci men Type: BLOOD SPECIMENOrdering Facility: [facility] Address: [address] [place] [address] Performed By: #### L [id number] ####[facility] [id number] [place] [address] [place] B-HCG SerPl-aCncon 5 HCG.beta subunit Qn 831197.0 m[IU]/mL High <5.0 [facility] Comment on above: Order Comment: Speci men Type: SWAB Ordering Facility: [facility] Address: [address] [place] [address] Result Comment: KAMILA TITATIVE HCG NORMAL RANGES Weeks of Gestation (Weeks Since LMP) 3 Weeks (5.8-71.2 mIU/mL) 4 Weeks (9.5-750 mIU/mL) 5 Weeks (217-7138 mIU/mL) 6 Weeks (158-88870 mIU/mL) 7 Weeks (3697-377139 mIU/mL) 8 Weeks (56658-344089 mIU/mL) 9 Weeks (22178-691724 mIU/mL) 10 Weeks (73635-183847 mIU/mL) 12 Weeks (88276-618117 mIU/mL) Referenced to 4th IS of NIBSC Performed By: #### T RVAMP, 44413-0 #### [facility] CLIA [id number] [address] [place] [address] [place] B-HCG SerPl-aCncon 5 HCG.beta subunit Qn 500944.0 m[IU]/mL High <5.0 [facility] Comment on above: Order Comment: Speci men Type: SWAB Ordering Facility: [facility] Address: [address] [place] [address] Result Comment: KAMILA TITATIVE HCG NORMAL RANGES Weeks of Gestation (Weeks Since LMP) 3 Weeks (5.8-71.2 mIU/mL) 4 Weeks (9.5-750 mIU/mL) 5 Weeks (217-7138 mIU/mL) 6 Weeks (158-81321 mIU/mL) 7 Weeks (3697-365976 mIU/mL) 8 Weeks (21849-539946 mIU/mL) 9 Weeks (99088-248403 mIU/mL) 10 Weeks (51421-077267 mIU/mL) 12 Weeks (49696-514633 mIU/mL) Referenced to 4th IS of NIBSC Performed By: #### 3 6902-5 #### [facility] CLIA [id number] [address] [place] [address] [place] B-HCG SerPl-aCncon 5 HCG.beta subunit Qn 181746.0 m[IU]/mL High <5.0 [facility] Comment on above: Order Comment: Speci men Type: SWAB [facility]: [facility] [facility] Address: [address] [place] [address] Result Comment: KAMILA TITATIVE HCG NORMAL RANGES Weeks of Gestation (Weeks Since LMP) 3 Weeks (5.8-71.2 mIU/mL) 4 Weeks (9.5-750 mIU/mL) 5 Weeks (217-7138 mIU/mL) 6 Weeks (158-86743 mIU/mL) 7 Weeks (3697-063979 mIU/mL) 8 Weeks (77730-992216 mIU/mL) 9 Weeks (02275-060467 mIU/mL) 10 Weeks (16789-279469 mIU/mL) 12 Weeks (70508-625882 mIU/mL) Referenced to 4th IS of [facility] Performed By: #### 3 6902-5 #### [facility] CLIA [id number] [address] [place] [address] [place] B-HCG SerPl-aCncon 5 HCG.beta subunit Qn 928944.0 m[IU]/mL High <5.0 [facility] [place] [facility] Comment on above: Order Comment: Speci men Type: SWAB Ordering Facility: [facility] Address: [address] [place] [address] Result Comment: KAMILA TITATIVE HCG NORMAL RANGES Weeks of Gestation (Weeks Since LMP) 3 Weeks (5.8-71.2 mIU/mL) 4 Weeks (9.5-750 mIU/mL) 5 Weeks (217-7138 mIU/mL) 6 Weeks (158-58770 mIU/mL) 7 Weeks (3697-044557 mIU/mL) 8 Weeks (06980-287188 mIU/mL) 9 Weeks (04415-194882 mIU/mL) 10 Weeks (24449-607099 mIU/mL) 12 Weeks (97504-067228 mIU/mL) Referenced to 4th IS of [facility] Performed By: #### 3 6902-5 #### [facility] CLIA [id number] [address] [place] [address] [place] Bacteria Ur Culton Bacteria identified Cx Nom (U) ORGANISM ID: 1 <10,000 CFU/ml Streptococcus agalactiae (group b streptococcus) Insignificant colony count. No further workup. Normal [facility] [place] [facility] Comment on above: Performed By: #### 6 30-4 ####[facility] [id number] [address] [place] C. trachomatis+N. gonorrhoea e DNA ARIANA+probe Ql (Unsp spec)on 03-15-2025 C. trachomatis rRNA ARIANA+probe Ql (Unsp spec) Not detected Normal Not detected [facility] [place] [facility] Comment on above: Order Comment: Speci men Type: SWAB [facility]ing Facility: [facility] Address: [address] [place] [address] Performed By: #### T SALO, 23908-0 #### [facility] CLIA [id number] [address] [place] [address] OF [place] N. gonorrhoeae rRNA ARIANA+probe Ql (Unsp spec) Not detected Normal Not detected [facility] [place] [facility] Comment on above: Order Comment: Speci men Type: SWAB [facility]ing Facility: [facility] Address: [address] [place] [address] Performed By: #### T RVAMP, 61025-0 #### [facility] CLIA [id number] [address] [place] [address] [place] CBC W Auto Differential pane l (Bld)on 03-15-2025 Basophils (Bld) [#/Vol] 0.05 10*3/uL Normal <0.11 [facility] [place] [facility] Comment on above: Order Comment: Speci men Type: SWAB [facility]ing Facility: [facility] Address: [address] [place] [address] Performed By: #### T RVAMP, 97761-1 #### [facility] CLIA [id number] [address] [place] [address] [place] Basophils/100 WBC (Bld) 0.6 % Normal [facility] [place] [facility] Comment on above: Order Comment: Speci men Type: SWAB [facility]ing Facility: [facility] Address: [address] [place] [address] Performed By: #### T RVAMP, 44251-1 #### [facility] CLIA [id number] [address] [place] [address] [place] Differential cell count method Nom (Bld) Auto Normal [facility] [place] [facility] Comment on above: Order Comment: Speci men Type: SWAB [facility]ing Facility: [facility] Address: [address] [place] [address] Performed By: #### T RVAMP, 29922-2 #### [facility] CLIA [id number] [address] [place] [address] [place] Eosinophils (Bld) [#/Vol] 10*3/uL Normal <0.46 [facility] [place] [facility] Comment on above: Order Comment: Speci men Type: SWAB [facility]ing Facility: [facility] Address: [address] [place] [address] Performed By: #### T RVAMP, 22848-8 #### [facility] CLIA [id number] [address] [place] [address] [place] Eosinophils/100 WBC (Bld) 0.2 % Normal [facility] [place] [facility] Comment on above: Order Comment: Speci men Type: SWAB Ordering Facility: [facility] Address: [address] [place] [address] Performed By: #### T RVAMP, 43236-9 #### [facility] CLIA [id number] [address] [place] [address] [place] Erythrocyte distribution width (RBC) [Ratio] 13.3 % Normal 11.5-15.0 [facility] [place] [facility] Comment on above: Order Comment: Speci men Type: SWAB Ordering Facility: [facility] Address: [address] [place] [address] Performed By: #### T RVAMP, 85844-8 #### [facility] CLIA [id number] [address] [place] [address] [place] Hematocrit (Bld) [Volume fraction] 40.0 % Normal 36.0-46.0 [facility] Comment on above: Order Comment: Speci men Type: SWAB Ordering Facility: [facility] Address: [address] [place] [address] Performed By: #### T RVAMP, 05472-8 #### [facility] CLIA [id number] [address] [place] [address] [place] Hemoglobin (Bld) [Mass/Vol] 13.7 g/dL Normal 11.5-15.5 [facility] [place] [facility] Comment on above: Order Comment: Speci men Type: SWAB [facility]ing Facility: [facility] Address: [address] [place] [address] Performed By: #### T RVAMP, 36697-0 #### [facility] CLIA [id number] [address] [place] [address] [place] Immature granulocytes (Bld) [#/Vol] 10*3/uL Normal <0.10 [facility] [place] [facility] Comment on above: Order Comment: Speci men Type: SWAB [facility]ing Facility[facility] Address: [address] [place] [address] Performed By: #### T RVAMP, 64164-0 #### [facility] CLIA [id number] [address] [place] [address] [place] Immature granulocytes/100 WBC (Bld) 0.2 % Normal [facility] [place] [facility] Comment on above: Order Comment: Speci men Type: SWAB Ordering Facility: [facility] Address: [address] [place] [address] Performed By: #### T RVAMP, 43294-7 #### [facility] CLIA [id number] [address] [place] [address] [place] Lymphocytes (Bld) [#/Vol] 2.97 10*3/uL Normal 1.00-4.00 [facility] [place] [facility] Comment on above: Order Comment: Speci men Type: SWAB Ordering Facility: [facility] Address: [address] [place] [address] Performed By: #### T RVAMP, 33604-6 #### [facility] CLIA [id number] [address] [place] [address] [place] Lymphocytes/100 WBC (Bld) 33.6 % Normal [facility] [place] [facility] Comment on above: Order Comment: Speci men Type: SWAB Ordering Facility: [facility] Address: [address] [place] [address] Performed By: #### T RVAMP, 63841-7 #### [facility] CLIA [id number] [address] [place] [address] [place] MCH (RBC) [Entitic mass] 32.4 pg Normal 26.0-34.0 [facility] [place] [facility] Comment on above: Order Comment: Speci men Type: SWAB [facility] Facility: [facility] Address: [address] [place] [address] Performed By: #### T RVAMP, 06566-8 #### [facility] CLIA [id number] [address] [place] [address] [place] MCHC (RBC) [Mass/Vol] 34.3 g/dL Normal 30.5-36.0 [facility] Comment on above: Order Comment: Speci men Type: SWAB Ordering Facility: [facility] Address: [address] [place] [address] Performed By: #### T RVAMP, 67699-1 #### [facility] CLIA [id number] [address] [place] [address] [place] MCV (RBC) [Entitic vol] 94.6 fL Normal 80.0-100.0 [facility] [place] [facility] Comment on above: Order Comment: Speci men Type: SWAB [facility]ing Facility[facility] Address: [address] [place] [address] Performed By: #### T RVAMP, 57521-5 #### [facility] CLIA [id number] [address] [place] [address] [place] Monocytes (Bld) [#/Vol] 0.56 10*3/uL Normal <0.87 [facility] [place] [facility] Comment on above: Order Comment: Speci men Type: SWAB Ordering Facility: [facility] Address: [address] [place] [address] Performed By: #### T RVAMP, 68164-5 #### [facility] CLIA [id number] [address] [place] [address] [place] Monocytes/100 WBC (Bld) 6.3 % Normal [facility] [place] [facility] Comment on above: Order Comment: Speci men Type: SWAB Ordering Facility: [facility] Address: [address] [place] [address] Performed By: #### T RVAMP, 17423-8 #### [facility] CLIA [id number] [address] [place] [address] [place] Neutrophils (Bld) [#/Vol] 5.23 10*3/uL Normal 1.45-7.50 [facility] [place] [facility] Comment on above: Order Comment: Speci men Type: SWAB Ordering Facility: [facility] Address: [address] [place] [address] Performed By: #### T RVAMP, 82384-6 #### [facility] CLIA [id number] [address] [place] [address] [place] Neutrophils/100 WBC (Bld) 59.1 % Normal [facility] [place] [facility] Comment on above: Order Comment: Speci men Type: SWAB Ordering Facility: [facility] Address: [address] [place] [address] Performed By: #### T RVAMP, 54459-7 #### [facility] CLIA [id number] [address] [place] [address] [place] Nucleated RBC (Bld) [#/Vol] 10*3/uL Normal <0.01 [facility] [place] [facility] Comment on above: Order Comment: Speci men Type: SWAB Ordering Facility: [facility] Address: [address] [place] [address] Performed By: #### T RVAMP, 79239-5 #### [facility] CLIA [id number] [address] [place] [address] [place] Nucleated RBC/100 WBC (Bld) [Ratio] 0.0 /100 WBC Normal [facility] [place] [facility] Comment on above: Order Comment: Speci men Type: SWAB Ordering Facility: [facility] Address: [address] [place] [address] Performed By: #### T RVAMP, 54031-4 #### [facility] CLIA [id number] [address] [place] [address] [place] Platelet mean volume (Bld) [Entitic vol] 9.4 fL Normal 9.0-12.7 [facility] [place] [facility] Comment on above: Order Comment: Speci men Type: SWAB [facility] Address: [address] [place] [address] Performed By: #### T RVAMP, 26514-3 #### [facility] CLIA [id number] [address] [place] [address] [place] Platelets (Bld) [#/Vol] 308 10*3/uL Normal 150-400 [facility] [place] [facility] Comment on above: Order Comment: Speci men Type: SWAB Ordering Facility: [facility] Address: [address] [place] [address] Performed By: #### T RVAMP, 28711-7 #### [facility] CLIA [id number] [address] [place] [address] [place] RBC (Bld) [#/Vol] 4.23 10*6/uL Normal 3.90-5.20 [facility] Comment on above: Order Comment: Speci men Type: SWAB [facility]ing Facility: [facility] Address: [address] [place] [address] Performed By: #### T RVAMP, 82182-5 #### [facility] CLIA [id number] [address] [place] [address] [place] WBC (Bld) [#/Vol] 8.85 10*3/uL Normal 3.70-11.00 [facility] Comment on above: Order Comment: Speci men Type: SWAB Ordering Facility: [facility] Address: [address] [place] [address] Performed By: #### T RVAMP, 58672-3 #### [facility] CLIA [id number] [address] [place] [address] [place] HBV surface Ag Ql (S)on 03-02 Interpretation and review of laboratory results Normal [facility] HBV surface Ag Ser Qlon 03-02 HBV surface Ag Ql (S) Negative Normal Negative [facility] Comment on above: Order Comment: Speci men Type: BLOOD SPECIMENOrdering Facility: [facility] Address: [address] [place] [address] Performed By: #### 5 195-3, 32324-2, 67104-5 ####[facility] [id number] [place] [address] [place] HCV Ab Ql (S)on 03-15-2025 Interpretation and review of laboratory results Normal [facility] HCV Ab Ser Qlon 03-15-2025 HCV Ab Ql (S) Negative Normal Negative [facility] [place] [facility] Comment on above: Order Comment: Speci men Type: SWAB [facility]ing Facility: [facility] Address: [address] [place] [address] Result Comment: The result suggests no evidence of infection with Hepatitis C virus. Should recent infection be suspected, repeat testing may be considered 4-6 weeks after this draw. Performed By: #### 3 6902-5 #### [facility] CLIA [id number] [address] [place], [place] [address] [address] [place] HEPATITIS B SURFACE ANTIGENo n 03-15-2025 HBV surface Ag Ql (S) Negative Negative [facility] [place] [facility] HEPATITIS C ANTIBODY IA WITH CONFIRMATIONon 03-15-2025 HCV Ab Ql (S) Negative Negative [facility] Comment on above: The result suggests no evidence of infection with Hepatitis C virus. Should recent infection be suspected, repeat testing may be considered 4-6 weeks after this draw. HIV 1+2 Ab IA Qlon HIV 1 and 2 Ab IA.rapid Nom (S/P/Bld) [facility] Comment on above: Test not indicated. HIV 1+2 Ab+HIV1 p24 Ag IA Ql Non-Reactive Nonreactive [facility] HIV immunoassay testing algorithm interpretation (S/P/Bld) [Interp] [facility] Comment on above: No evidence of HIV-1 or HIV-2 infection. Should recent infection be suspected, repeat testing may be considered 2-3 weeks after this draw. [facility] Rev. Code 3701.243(E): This information has been disclosed to you from confidential records protected from disclosure by state law. You shall make no further disclosure of this information without the specific, written, and informed release of the individual to whom it pertains or as otherwise permitted by state law. A general authorization for the release of medical or other information is not sufficient for the purpose of the release of HIV test results or diagnoses. [facility] HIV 1 and 2 Ab IA.rapid Nom (S/P/Bld) Normal [facility] [place] [facility] Comment on above: Order Comment: Speci men Type: BLOOD SPECIMENOrdering Facility: [facility] Address: [address] [place] [address] Result Comment: Test not indicated. Performed By: #### 5 195-3, 72402-9, 68545-5 ####[facility] [id number] [place] [address] [place] HIV 1+2 Ab+HIV1 p24 Ag IA Ql Non-Reactive Normal Nonreactive [facility] [place] [facility] Comment on above: Order Comment: Speci men Type: BLOOD SPECIMENOrdering Facility: [facility] Address: [address] [place] [address] Performed By: #### 5 195-3, 94729-6, 90282-4 ####[facility] [id number] [place] [address] [place] HIV immunoassay testing algorithm interpretation (S/P/Bld) [Interp] Normal [facility] [place] [facility] Comment on above: Order Comment: Speci men Type: BLOOD SPECIMENOrdering Facility: [facility] Address: [address] [place] [address] Result Comment: No e vidence of HIV-1 or HIV-2 infection. Should recent infection be suspected, repeat testing may be considered 2-3 weeks after this draw. [place] Rev. Code 3701.243(E): This information has been disclosed to you from confidential records protected from disclosure by state law. ???You shall make no further disclosure of this information without the specific, written, and informed release of the individual to whom it pertains or as otherwise permitted by state law. A general authorization for the release of medical or other information is not sufficient for the purpose of the release of HIV test results or diagnoses. Performed By: #### 5 195-3, 33496-2, 38567-6 ####[facility] [id number] [place] [address] [place] HbA1c (Bld)on 03-15-2025 Average glucose Estimated from glycated hemoglobin (Bld) [Mass/Vol] 91 mg/dL Normal [facility] [place] [facility] Comment on above: Order Comment: Speci men Type: SWAB Ordering Facility: [facility] Address: [address] [place] [address] Result Comment: eAG: (Estimated average glucose) is a calculated value from HgbA1c and is nutrition representative of the average blood glucose level in the last 2-3 month period. Performed By: #### 3 6902-5 #### [facility] CLIA [id number] [address] [place] [address] [place] HbA1c (Bld) [Mass fraction] 4.8 % Normal 4.3-5.6 [facility] [place] [facility] Comment on above: Order Comment: Speci men Type: SWAB Ordering Facility: [facility] Address: [address] [place] [address] Result Comment: Amer [place] Diabetes Association guidelines indicate that patients with HgbA1c in the range 5.7-6.4% are at increased risk for development of diabetes, and intervention by lifestyle modification may be beneficial. HgbA1c greater or equal to 6.5% is considered diagnostic of diabetes. Performed By: #### 3 6902-5 #### [facility] CLIA [id number] [address] [place] [address] [place] PAP TESTon 03-15-2025 ADEQUACY Normal [facility] [place] [facility] Comment on above: Order Comment: Speci men Type: SWAB Ordering Facility[facility] Address: [address] [place] [address] Result Comment: Sati sfactory for interpretation. Transformation zone present Performed By: #### 3 6902-5 #### [facility] CLIA [id number] [address] [place] [address] [place] CASE REPORT Normal [facility] Comment on above: Order Comment: Speci men Type: SWAB Ordering Facility: [facility] Address: [address] [place] [address] Result Comment: Gyne cologic Cytology Report Case: [id number] Authorizing Provider: Mikala Baez APRN.CNM Collected: 03/15/2025 10:04 AM Ordering Location: OB/Gynecology Received: 03/15/2025 11:46 AM First Screen: Gmitro, Albaro, CT, ASCP Rescreen: Rachel Spicer, CT, ASCP Specimen: Pap Test, ThinPrep, Cervix Performed By: #### 3 6902-5 #### [facility] CLIA [id number] [address] [place] [address] [place] CLINICAL HISTORY, CYTOLOGY, EARLY YEARS TEACHER Routine Exam Normal [facility] Comment on above: Order Comment: Speci men Type: SWAB [facility]ing [facility] Address: [address] [place] [address] Performed By: #### 3 6902-5 #### [facility] CLIA [id number] [address] [place] [address] [place] FINAL PERFORMING LAB Normal [facility] Comment on above: Order Comment: Speci men Type: SWAB Ordering Facility: [facility] Address: [address] [place] [address] Result Comment: Tech nical component, beehive kiln charcoal burner screening performed at [facility], [address] [place] [address] CLIA# [id number] Diagnostic interpretation performed at [facility], [address] [place] [address] CLIA# [id number] Quality Associate: Isaias Elena M.D. Performed By: #### 3 6902-5 #### [facility] CLIA [id number] [address] [place] [address] [place] INTERPRETATION, CYTOLOGY, EARLY YEARS TEACHER Normal [facility] Comment on above: Order Comment: Speci men Type: SWAB [facility]ing Facility[facility] Address: [address] [place] [address] Result Comment: Nega tive for intraepithelial lesion or malignancy. at 1058 EDT Performed By: #### 3 6902-5 #### [facility] CLIA [id number] [address] [place] LMP 01/13/2025 Normal [facility] [place] [facility] Comment on above: Order Comment: Speci men Type: SWAB [facility]ing Facility[facility] Address: [address] [place] [address] Performed By: #### 3 6902-5 #### [facility] CLIA [id number] [address] [place] [address] [place] PAP DISCLAIMER COMMENT The Pap Smear is a screening test for cervical cancer. False negative results occur with all screening tests, emphasizing the need for rescreening at recommended intervals, and clinical correlation. Normal [facility] [place] [facility] Comment on above: Order Comment: Speci men Type: SWAB Ordering Facility: [facility] Address: [address] [place] [address] Performed By: #### 3 6902-5 #### [facility] CLIA [id number] [address] [place] [address] [place] PAP SHELL SIEVE OPERATOR COMMENT This specimen has been analyzed by the ThinPrep Imaging System, an automated imaging and review system, which assists the laboratory in evaluating cells on ThinPrep Pap tests. Following automated imaging, selected alvarenga from every slide are reviewed by a beehive kiln charcoal burner. Normal [facility] Comment on above: Order Comment: Speci men Type: SWAB Ordering Facility: [facility] Address: [address] [place] [address] Performed By: #### 3 6902-5 #### [facility] CLIA [id number] [address] [place] [address] [place] POC SENIOR INFORMATION SECURITY ARCHITECT ULTRASOUNDon 03-15-20 25 Indication Viability; confirm cardiac activity, Uncertain dates Impression Single intrauterine gestational sac, CRL indicates discrepancy from clinical dates, ESPERANZA based on today's ultrasound, cardiac activity is visualized Recommendations Follow up for repeat ultrasound in at least days to confirm viability Method Transvaginal ultrasound examination Wong . Number of embryos: 1 Dating LMP on: 01/13/2025 GA by LMP 8 w + 5 d ESPERANZA by LMP: 10/20/2025 Ultrasound examination on: 03/15/2025 GA by U/S based upon: CRL GA by U/S 7 w + 0 d ESPERANZA by U/S: 11/01/2025 Assigned: based on ultrasound (CRL), selected on 03/15/2025 Assigned GA 7 w + 0 d Assigned ESPERANZA: 11/01/2025 Biometry Standard CRL 9.3 mm 7w 0d 81% Hadlock Assessment Gestational sac: visualized Location: intrauterine Yolk sac: visualized Embryo: visualized CRL 9.3 mm 7w 0d 81% [place]lock Performed By: Mikala Baez CNM Read By: Mikala Baez CNM MATERNAL MEDICINE [facility] Radiology Study observation (narrative) [facility] RUBELLA IGG ANTIBODYOrdered By: Eva Hwang on 03-15-2025 Interpretation and review of laboratory results Normal [facility] Rubella IgG, Qual Positive Positive [facility] Comment on above: The result suggests recent or past exposure to Rubella virus or history of Rubella vaccination. Positive result may also be seen due to presence of passively-transferred antibodies. Please correlate with patient's history. [facility] RUBELLA IGG ANTIBODYon 03-15 RUBELLA IGG AB, QUAL Positive Normal Positive [facility] Comment on above: Order Comment: Speci men Type: SWAB [facility]ing Facility[facility] Address: [address] [place] [address] Result Comment: The result suggests recent or past exposure to Rubella virus or history of Rubella vaccination. Positive result may also be seen due to presence of passively-transferred antibodies. Please correlate with patient's history. Performed By: #### T RVAMP, 10793-3 #### [facility] CLIA [id number] [address] [place] [address] [place] Reagin and Treponema pallidu m IgG and IgM [Interp]on 03-15-2025 T. pallidum IgG+IgM IA Ql (S) Non-Reactive Nonreactive [facility] T. pallidum IgG+IgM IA Ql (S) Non-Reactive Normal Nonreactive [facility] Comment on above: Order Comment: Speci men Type: BLOOD SPECIMENOrdering Facility: [facility] Address: [address] [place] [address] Performed By: #### 5 195-3, 52522-8, 03031-5 ####[facility] [id number] [place] [address] [place] Reagin+T pallidum IgG+IgM Se rPl-Impon 03-15-2025 Reagin and Treponema pallidum IgG and IgM [Interp] Cannot exclude recent Treponemal infection if specimen collected within 7-10 days after appearance of suspect lesions or 2-3 weeks after an exposure. Clinical correlation is required. Normal [facility] Comment on above: Order Comment: Speci men Type: BLOOD SPECIMENOrdering Facility: [facility] Address: [address] [place] [address] Performed By: #### 5 195-3, 10720-0, 60471-0 ####[facility] [id number] [place] [address] [place] SYPHILIS TREPONEMAL W/REFLEX on 03-15-2025 Reagin and Treponema pallidum IgG and IgM [Interp] Cannot exclude recent Treponemal infection if specimen collected within 7-10 days after appearance of suspect lesions or 2-3 weeks after an exposure. Clinical correlation is required. [facility] TRICHOMONAS VAGINALIS NAATon 03-15-2025 T. vaginalis DNA ARIANA+probe Ql (Unsp spec) Not detected Normal Not detected [facility] Comment on above: Order Comment: Speci men Type: SWAB [facility] Address: [address] [place] [address] Performed By: #### T RVAMP, 79341-1 #### [facility] CLIA [id number] [address] [place] [address] [place] TYPE + SCREEN PRENATALon ABO group Nom (Bld) O [facility] Blood group antibody screen Ql Negative [facility] Rh Nom (Bld) Negative [facility] Type and Screen Expiration 03/18/2025 23:59 [facility] ABO O Normal [facility] Comment on above: Order Comment: Speci men Type: SWAB [facility] Address: [address] [place] [address] Performed By: #### 3 6902-5 #### [facility] CLIA [id number] [address] [place] [address] [place] Rh Nom (Bld) Negative Normal [facility] Comment on above: Order Comment: Speci men Type: SWAB [facility] Address: [address] [place] [address] Performed By: #### 3 6902-5 #### [facility] CLIA [id number] [address] [place] [address] [place] TYPE AND SCREEN EXPIRATION 03/18/2025 23:59 Normal [facility] Comment on above: Order Comment: Speci men Type: SWAB [facility] Address: [address] [place] [address] Performed By: #### 3 6902-5 #### [facility] CLIA [id number] [address] [place] [address] [place] CBC W Auto Differential pane l (Bld)on 02-08-2025 Basophils (Bld) [#/Vol] 10*3/uL Normal <0.11 [facility] Comment on above: Order Comment: Speci men Type: BLOOD SPECIMENOrdering Facility: [facility] Address: [address] [place] [address] Performed By: #### 5 7021-8 ####[facility] [id number] [place] [address] [place] Basophils/100 WBC (Bld) 0.4 % Normal [facility] Comment on above: Order Comment: Speci men Type: BLOOD SPECIMENOrdering Facility: [facility] Address: [address] [place] [address] Performed By: #### 5 7021-8 ####[facility] [id number] [address], [place] [address] [place] Differential cell count method Nom (Bld) Auto Normal [facility] Comment on above: Order Comment: Speci men Type: BLOOD SPECIMENOrdering Facility: [facility] Address: [address] [place] [address] Performed By: #### 5 7021-8 ####[facility] [id number] [address], [place] [address] [place] Eosinophils (Bld) [#/Vol] 0.08 10*3/uL Normal <0.46 [facility] Comment on above: Order Comment: Speci men Type: BLOOD SPECIMENOrdering Facility: [facility] Address: [address] [place] [address] Performed By: #### 5 7021-8 ####[facility] [id number] [address], [place] [address] [place] Eosinophils/100 WBC (Bld) 1.7 % Normal [facility] Comment on above: Order Comment: Speci men Type: BLOOD SPECIMENOrdering Facility: [facility] Address: [address] [place] [address] Performed By: #### 5 7021-8 ####[facility] [id number] [place] [address] [place] Erythrocyte distribution width (RBC) [Ratio] 12.6 % Normal 11.5-15.0 [facility] Comment on above: Order Comment: Speci men Type: BLOOD SPECIMENOrdering Facility: [facility] Address: [address] [place] [address] Performed By: #### 5 7021-8 ####[facility] [id number] [address], [facility] [place] Hematocrit (Bld) [Volume fraction] 41.0 % Normal 36.0-46.0 [facility] Comment on above: Order Comment: Speci men Type: BLOOD SPECIMENOrdering Facility: [facility] Address: [address] [place] [address] Performed By: #### 5 7021-8 ####[facility] [id number] [place] [id number] [place] Hemoglobin (Bld) [Mass/Vol] 13.5 g/dL Normal 11.5-15.5 [facility] Comment on above: Order Comment: Speci men Type: BLOOD SPECIMENOrdering Facility: [facility] Address: [address] [place] [address] Performed By: #### 5 7021-8 ####[facility] [id number] [place] [address] [place] Immature granulocytes (Bld) [#/Vol] 10*3/uL Normal <0.10 [facility] Comment on above: Order Comment: Speci men Type: BLOOD SPECIMENOrdering Facility: [facility] Address: [address] [place] [address] Performed By: #### 5 7021-8 ####[facility] [id number] [place] [address] [place] Immature granulocytes/100 WBC (Bld) 0.4 % Normal [facility] Comment on above: Order Comment: Speci men Type: BLOOD SPECIMENOrdering Facility: [facility] Address: [address] [place] [address] Performed By: #### 5 7021-8 ####[facility]IA [id number] [place] [id number] [place] Lymphocytes (Bld) [#/Vol] 2.06 10*3/uL Normal 1.00-4.00 [facility] Comment on above: Order Comment: Speci men Type: BLOOD SPECIMENOrdering Facility: [facility] Address: [address] [place] [address] Performed By: #### 5 7021-8 ####[facility]IA [id number] [place] [address] [place] Lymphocytes/100 WBC (Bld) 43.4 % Normal [facility] Comment on above: Order Comment: Speci men Type: BLOOD SPECIMENOrdering Facility: [facility] Address: [address] [place] [address] Performed By: #### 5 7021-8 ####[facility]IA [id number] [place] [address] [place] MCH (RBC) [Entitic mass] 31.6 pg Normal 26.0-34.0 [facility] Comment on above: Order Comment: Speci men Type: BLOOD SPECIMENOrdering Facility: [facility] Address: [address] [place] [address] Performed By: #### 5 7021-8 ####[facility]IA [id number] [place] [address] [place] MCHC (RBC) [Mass/Vol] 32.9 g/dL Normal 30.5-36.0 [facility] Comment on above: Order Comment: Speci men Type: BLOOD SPECIMENOrdering Facility: [facility] Address: [address] [place] [address] Performed By: #### 5 7021-8 ####[facility]IA [id number] [place] [address] [place] MCV (RBC) [Entitic vol] 96.0 fL Normal 80.0-100.0 [facility] Comment on above: Order Comment: Speci men Type: BLOOD SPECIMENOrdering Facility: [facility] Address: [address] [place] [address] Performed By: #### 5 7021-8 ####[facility]IA [id number] [place] [id number] [place] Monocytes (Bld) [#/Vol] 0.84 10*3/uL Normal <0.87 [facility] Comment on above: Order Comment: Speci men Type: BLOOD SPECIMENOrdering Facility: [facility] Address: [address] [place] [address] Performed By: #### 5 7021-8 ####[facility] [id number] [place] [id number] [place] Monocytes/100 WBC (Bld) 17.7 % Normal [facility] Comment on above: Order Comment: Speci men Type: BLOOD SPECIMENOrdering Facility: [facility] Address: [address] [place] [address] Performed By: #### 5 7021-8 ####[facility]IA [id number] [place] [address] [place] Neutrophils (Bld) [#/Vol] 1.73 10*3/uL Normal 1.45-7.50 [facility] Comment on above: Order Comment: Speci men Type: BLOOD SPECIMENOrdering Facility: [facility] Address: [address] [place] [address] Performed By: #### 5 7021-8 ####[facility] [id number] [place] [address] [place] Neutrophils/100 WBC (Bld) 36.4 % Normal [facility] Comment on above: Order Comment: Speci men Type: BLOOD SPECIMENOrdering Facility: [facility] Address: [address] [place] [address] Performed By: #### 5 7021-8 ####[facility] [id number] [place] [id number] [place] Nucleated RBC (Bld) [#/Vol] 10*3/uL Normal <0.01 [facility] Comment on above: Order Comment: Speci men Type: BLOOD SPECIMENOrdering Facility: [facility] Address: [address] [place] [address] Performed By: #### 5 7021-8 ####[facility]IA [id number] [address] [place] [address] [place] Nucleated RBC/100 WBC (Bld) [Ratio] 0.0 /100 WBC Normal [facility] Comment on above: Order Comment: Speci men Type: BLOOD SPECIMENOrdering Facility: [facility] Address: [address] [place] [address] Performed By: #### 5 7021-8 ####[facility]IA [id number] [address] [place] [address] [place] Platelet mean volume (Bld) [Entitic vol] 10.7 fL Normal 9.0-12.7 [facility] Comment on above: Order Comment: Speci men Type: BLOOD SPECIMENOrdering Facility: [facility] Address: [address] [place] [address] Performed By: #### 5 7021-8 ####[facility]IA [id number] [address], [place] [address] [place] Platelets (Bld) [#/Vol] 258 10*3/uL Normal 150-400 [facility] Comment on above: Order Comment: Speci men Type: BLOOD SPECIMENOrdering Facility: [facility] Address: [address] [place] [address] Performed By: #### 5 7021-8 ####[facility]IA [id number] [address] [place] [address] [place] RBC (Bld) [#/Vol] 4.27 10*6/uL Normal 3.90-5.20 [facility] Comment on above: Order Comment: Speci men Type: BLOOD SPECIMENOrdering Facility: [facility] Address: [address] [place] [address] Performed By: #### 5 7021-8 ####[facility] [id number] [address] [place] [address] [place] WBC (Bld) [#/Vol] 4.75 10*3/uL Normal 3.70-11.00 [facility] Comment on above: Order Comment: Speci men Type: BLOOD SPECIMENOrdering Facility: [facility] Address: [facility] [place] [address] Performed By: #### 5 7021-8 ####[facility]IA [id number] MICHAEL BARROW [address] [facility] CNPNon 02-08-2025 CNPN Telephone (FAMWS) MI ORTEZ ([id number]) 1995 F Date Time Provider Department 02/08/25 JEEVAN LOPEZ [facility] During your visit today, we recorded the following information about you: Jeevan Lopez MD 02/08/2025 9:48 AM Signed Was sick again over weekend. Will get labs. Allergies As of Date: 02/08/2025 Noted Allergy Reaction MELON 05/09/2016 9 - Itching TOMATOES 05/09/2016 9 - Itching Date Reviewed: 01/29/2025 Reviewed by: Leida Santo MA - Fully Assessed Reason for Visit: Patient Update [1234] Orders [681] Primary Visit Diagnosis:Fever, unspecified fever cause [R50.9] Order(s):COMPLETE BLOOD COUNT AND DIFFERENTIAL [SQCBCDIF] Order #: [id number] FUTURE COMPREHENSIVE METABOLIC PANEL [SQCMP] Order #: [id number] FUTURE Prescriptions as of 02/08/2025 - doxycycline monohydrate 100 mg tablet Take 1 tablet by mouth two times a day for 10 days. - acyclovir (ZOVIRAX) 400 mg tablet Take 1 tablet by mouth two times a day. - albuterol HFA (PROVENTIL HFA, VENTOLIN HFA) 90 mcg/actuation inhaler Inhale 2 Puffs as instructed every 6 hours as needed for wheezing/shortness of breath. - Drospirenone-Ethinyl Estradiol (NADER, Nimesh,) 3-0.02 mg per tablet TAKE 1 TABLET BY MOUTH ONCE DAILY. Problem List As Of Date 02/08/2025 Noted Resolved Depression, major, recurrent, in partial remiss*04/17/2019 Herpes labialis [B00.1] Generalized anxiety disorder [F41.1] 01/09/2022 Encounter Status:Closed by JEEVAN LOPEZ on 02/08/25 Normal [facility] Comprehensive metabolic 2000 panelon 02-08-2025 Albumin [Mass/Vol] 4.0 g/dL Normal 3.9-4.9 [facility] Comment on above: Order Comment: Speci men Type: SWAB [facility] Address: [address] [place] [address] Performed By: #### 3 6902-5 #### [facility] CLIA [id number] [address] [place] [address] [place] ALP [Catalytic activity/Vol] 108 U/L Normal 34-123 [facility] Comment on above: Order Comment: Speci men Type: SWAB [facility] Address: [address] [place] [address] Performed By: #### 3 6902-5 #### [facility] CLIA [id number] [address] [place] [address] [place] ALT [Catalytic activity/Vol] 15 U/L Normal 7-38 [facility] Comment on above: Order Comment: Speci men Type: SWAB [facility] Address: [address] [place] [address] Performed By: #### 3 6902-5 #### [facility] CLIA [id number] [address] [place] [address] [place] Anion gap [Moles/Vol] 9 mmol/L Normal 8-15 [facility] Comment on above: Order Comment: Speci men Type: SWAB [facility] Address: [address] [place] [address] Performed By: #### 3 6902-5 #### [facility] CLIA [id number] [address] [place] [address] [place] AST [Catalytic activity/Vol] 22 U/L Normal 13-35 [facility] Comment on above: Order Comment: Speci men Type: SWAB [facility] Address: [address] [place] [address] Performed By: #### 3 6902-5 #### [facility] CLIA [id number] [address] [place] [address] [place] Bilirubin [Mass/Vol] 0.4 mg/dL Normal 0.2-1.3 [facility] Comment on above: Order Comment: Speci men Type: SWAB [facility] Address: [address] [place] [address] Performed By: #### 3 6902-5 #### [facility] CLIA [id number] [address] [place] [address] [place] Calcium [Mass/Vol] 8.9 mg/dL Normal 8.5-10.2 [facility] Comment on above: Order Comment: Speci men Type: SWAB [facility] Address: [address] [place] [address] Performed By: #### 3 6902-5 #### [facility] CLIA [id number] [address] [place] [address] [place] Chloride [Moles/Vol] 105 mmol/L Normal 98-107 [facility] Comment on above: Order Comment: Speci men Type: SWAB [facility] Address: [address] [place] [address] Performed By: #### 3 6902-5 #### [facility] CLIA [id number] [address] [place] [address] [place] CO2 [Moles/Vol] 25 mmol/L Normal 22-30 [facility] Comment on above: Order Comment: Speci men Type: SWAB [facility] Address: [address] [place] [address] Performed By: #### 3 6902-5 #### [facility] CLIA [id number] [address] [place] [address] [place] Creatinine [Mass/Vol] 0.88 mg/dL Normal 0.58-0.96 [facility] Comment on above: Order Comment: Speci men Type: SWAB [facility] Address: [address] [place] [address] Performed By: #### 3 6902-5 #### [facility] CLIA [id number] [address] [place] [address] [place] Creatinine and Glomerular filtration rate.predicted panel (S/P/Bld) 93 mL/min/1.73m??? Normal >=60 [facility] Comment on above: Order Comment: Speci men Type: SWAB [facility] Address: [address] [place] [address] Result Comment: Francie mated Glomerular Filtration Rate (eGFR) is calculated using the 2020 CKD-EPI creatinine equation. This equation utilizes serum creatinine, sex, and age as parameters. The creatinine assay has traceable calibration to isotope dilution-mass spectrometry. Refer to KDIGO guidelines for clinical interpretation. In patients with unstable renal function, e.g. those with acute kidney injury, the eGFR may not accurately reflect actual GFR. Performed By: #### 3 6902-5 #### [facility] CLIA [id number] [address] [place] [address] [place] Glucose [Mass/Vol] 76 mg/dL Normal 74-99 [facility] Comment on above: Order Comment: Speci men Type: SWAB [facility] Address: [address] [place] [address] Result Comment: The [place] [employer] (ADA) provides guidance for cutoff values for fasting glucose and random glucose. The ADA defines fasting as no caloric intake for at least 8 hours. Fasting plasma glucose results between 100 to 125 mg/dL indicate increased risk for diabetes (prediabetes). Fasting plasma glucose results greater than or equal to 126 mg/dL meet the criteria for diagnosis of diabetes. In the absence of unequivocal hyperglycemia, results should be confirmed by repeat testing. In a patient with classic symptoms of hyperglycemia or hyperglycemic crisis, random plasma glucose results greater than or equal to 200 mg/dL meet the criteria for diagnosis of diabetes. Reference: Standards of Medical Care in Diabetes 2016, [place] [employer]. Diabetes Care. 2016.39(Suppl 1). Performed By: #### 3 6902-5 #### [facility] CLIA [id number] [address] [place] [address] [place] Potassium [Moles/Vol] 3.8 mmol/L Normal 3.7-5.1 [facility] Comment on above: Order Comment: Speci men Type: SWAB [facility] Address: [address] [place] [address] Performed By: #### 3 6902-5 #### [facility] CLIA [id number] [address] [place] [address] [place] Protein [Mass/Vol] 7.0 g/dL Normal 6.3-8.0 [facility] Comment on above: Order Comment: Speci men Type: SWAB [facility] Address: [address] [place] [address] Performed By: #### 3 6902-5 #### [facility] CLIA [id number] [address] [place] [address] [place] Sodium [Moles/Vol] 139 mmol/L Normal 136-144 [facility] Comment on above: Order Comment: Speci men Type: SWAB [facility] Address: [address] [place] [address] Performed By: #### 3 6902-5 #### [facility] CLIA [id number] [address] [place] [address] [place] Urea nitrogen [Mass/Vol] 15 mg/dL Normal 7-21 [facility] Comment on above: Order Comment: Speci men Type: SWAB [facility] Address: [address] [place] [address] Performed By: #### 3 6902-5 #### [facility] CLIA [id number] [address] [place] [address] [place] CNOVon 01-29-2025 CNOV Office Visit (FAMPWS) MI ORTEZ ([id number]) 1995 F Date Time Provider Department 01/29/25 3:40 PM [facility] your visit today, we recorded the following information about you: Temperature Pulse Blood pressure Weight 97.6 degrees 56/minute 112/72 59.9 kg Height 1.588 m Jeevan Lopez MD 01/29/2025 3:56 PM Signed Patient presents with: Illness HPI: Patient presents today for office visit for acute illness. Starting getting ill again on 01/14/25. Started out with tickle in throat. By next day 01/15/25 was super congested and coughing. Progressed with fever and body aches. Was given Augmentin on 01/21/25 Caused GI distress, stopped taking after about 3 days. Currently on Prednisone. Still coughing and congested but is significantly better. Ears feel plugged. Denies chest pain and shortness of breath. No wheezing. Discussed we could check for influenza but will not change course. Seen back in December for cough. See note: HPI: Patient presents today for office visit for cough. Has been sick with a cough since 11/27/24. Her parents tested positive for COVID over . Her covid test was negative. She got sick later but had stayed away from everyone who was ill. CXR was negative 12/03/24 Denies any other symptoms. Cough was dry at first then became productive. Is clear mucous. Has been green at times. Voice was hoarse from coughing. Caused a sore throat. No fever. Cough has been persistent since November. Has not lessened. Refers to her chest sounding wet when she coughs but not getting much mucus up. Has been taking OTC Delsym to suppress her cough because she coughs so hard she complains of rib pain. Taking Nyquil so she can sleep. Did have diarrhea but is now better. Failed bromphed and tessalon MEDICATIONS: Current Outpatient Medications Medication Sig predniSONE (DELTASONE) 20 mg tablet Take 1 tablet by mouth once daily for 5 days. amoxicillin-clavulan ate potassium (AUGMENTIN) 875-125 mg per tablet Take 1 tablet by mouth two times a day for 10 days. (Patient not taking: Reported on 01/29/2025) acyclovir (ZOVIRAX) 400 mg tablet Take 1 tablet by mouth two times a day. albuterol HFA (PROVENTIL HFA, VENTOLIN HFA) 90 mcg/actuation inhaler Inhale 2 Puffs as instructed every 6 hours as needed for wheezing/shortness of breath. (Patient not taking: Reported on 01/29/2025) Drospirenone-Ethinyl Estradiol (NADER, 28,) 3-0.02 mg per tablet TAKE 1 TABLET BY MOUTH ONCE DAILY. No current facility-administere d medications for this visit. ALLERGIES: ALLERGIES Allergen Reactions Melon Itching Tomatoes Itching PAST MEDICAL HISTORY Diagnosis Date Depressive disorder Generalized anxiety disorder Herpes labialis LGSIL on Pap smear of cervix 2017, 2018. Multiple joint pain Paronychia of toe Scoliosis mild PAST SURGICAL HISTORY Procedure Laterality Date TOOTH EXTRACTION 04/2019 FAMILY HISTORY Problem Relation Age of Onset No Known Problems Mother No Known Problems Father No Known Problems Brother No Known Problems Brother Ataxia Maternal Grandmother other (aortic aneurysm) Maternal Grandfather Diabetes Paternal Grandmother Hypertension Paternal Grandmother Diabetes Paternal Uncle Autism Brother Social History Tobacco Use Smoking status: Never Smokeless tobacco: Never Vaping Use Vaping status: Never Used Substance Use Topics Alcohol use: Yes Comment: rarely Drug use: No Reviewed current medications, allergies, past medical history, surgical history, family history and social history today. REVIEW OF SYSTEMS All other reviewed and negative other than HPI. VITALS: BP 112/72 Pulse (!) 56 Temp 36.4 ?C (97.6 ?F) Ht 158.8 cm (5' 2.5) Wt 59.9 kg (132 lb) LMP 12/04/2024 (Exact Date) SpO2 99% BMI 23.76 kg/m? Last 4 Encounter Wt Readings: Date: Wt: 01/29/2025 59.9 kg (132 lb) 12/31/2024 62.6 kg (138 lb) 12/19/2024 62.1 kg (137 lb) 12/07/2024 62.8 kg (138 lb 7.2 oz) PHYSICAL EXAMINATION: General appearance: Well appearing, alert, in no acute distress, well-hydrated, well nourished. Skin: Skin color, texture, turgor normal, no suspicious rashes or lesions Head: Normocephalic, no masses, lesions, tenderness or abnormalities Eyes: Anicteric sclera. Pupils are equally round and reactive to light. Extraocular movements are intact. Ears: External ears normal, canals clear Nose/Sinuses: Nares normal, septum midline, mucosa normal, no drainage or sinus tenderness Oropharynx: Lips, mucosa, and tongue normal, teeth and gums normal, oropharynx normal Neck: Negative findings: no adenopathy Lungs: Lungs clear to auscultation. No wheezing, rhonchi, rales Heart: RRR without murmur, gallop, or rubs. No ectopy Abdomen: Normal abdominal exam, Abdomen soft, non-tender. (more content not included)... Normal [facility] 01-27-2025 [facility] Telephone ([facility]) MI ORTEZ ([id number]) 1995 F Date Time Provider Department 01/27/25 JEEVAN LOPEZ During your visit today, we recorded the following information about you: Jeevan Lopez MD 01/27/2025 9:25 AM Signed Has been ill again. Had augmentin that she was using but is giving diarrhea. Likely may have been exposed to flu. Sees me Saturday. Will call in prednisone to cover units until then. Allergies As of Date: 01/27/2025 Noted Allergy Reaction MELON 05/09/2016 9 - Itching TOMATOES 05/09/2016 9 - Itching Date Reviewed: 12/31/2024 Reviewed by: Giana Arboleda MD - Fully Assessed Reason for Visit: Patient Update [1234] Order(s):predniSONE (DELTASONE) 20 mg tabletTake 1 tablet by mouth once daily for 5 days.Disp: 5 tabletRfl: 0 Prescriptions as of 01/27/2025 - predniSONE (DELTASONE) 20 mg tablet Take 1 tablet by mouth once daily for 5 days. - amoxicillin-clavulan ate potassium (AUGMENTIN) 875-125 mg per tablet Take 1 tablet by mouth two times a day for 10 days. - acyclovir (ZOVIRAX) 400 mg tablet Take 1 tablet by mouth two times a day. - albuterol HFA (PROVENTIL HFA, VENTOLIN HFA) 90 mcg/actuation inhaler Inhale 2 Puffs as instructed every 6 hours as needed for wheezing/shortness of breath. - Drospirenone-Ethinyl Estradiol (NADER, 28,) 3-0.02 mg per tablet TAKE 1 TABLET BY MOUTH ONCE DAILY. Problem List As Of Date 01/27/2025 Noted Resolved Depression, major, recurrent, in partial remiss*04/17/2019 Herpes labialis [B00.1] Generalized anxiety disorder [F41.1] 01/09/2022 Prescriptions ordered this encounter Disp Refills Start End PREDNISONE 20 MG TABLET 5 ta* 0 01/27/2025 02/01/2025 Route: ORAL Sig: Take 1 tablet by mouth once daily for 5 days. Encounter Status:Closed by JEEVAN LOPEZ on 01/27/25 [facility] C. trachomatis+N. gonorrhoea e DNA ARIANA+probe Ql (Unsp spec)on 12-31-2024 C. trachomatis rRNA ARIANA+probe Ql (Unsp spec) Not detected Normal Not detected [facility] Comment on above: Order Comment: Speci men Type: SWAB Ordering Facility: [facility] Address: [address] [place] [address] Performed By: #### 3 [id number] #### [facility] CLIA [id number] [address] [place] [address] OF [facility] N. gonorrhoeae rRNA ARIANA+probe Ql (Unsp spec) Not detected Normal Not detected [facility] Comment on above: Order Comment: Speci men Type: SWAB Ordering Facility: [facility] Address: [address] [place] [address] Performed By: #### 3 [id number] #### [facility] CLIA [id number] [address] [place] [address] OF [facility] CNOVon 12-31-2024 CNOV Office Visit (OBGYWM) ORTEZMI KUO ([id number]) 1995 F Date Time Provider Department 12/31/24 1:20 PM GIANA ARBOLEDA During your visit today, we recorded the following information about you: Blood pressure Weight Height Last Period 118/78 62.6 kg 1.588 m 12/04/24 Giana Arboleda MD 12/31/2024 3:07 PM Signed Mi is a 29 year old who presents for an annual gynecologic exam without complaints. 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 Declines BC. Still get period: Yes Bleeding amount bothersome: No Bleeding between periods: Yes Period symptoms: Acne; Cramps; Mood change; Pelvic pain Time with current partner: A year. control frequency: Never HPV vaccine: Yes; HPV:N/A Last pap smear: 11/23/2022 Normal History of abnormal pap: Yes, history of abnormal PAP smears Bothersome pelvic pain: No Last mammogram: never OB History T0 L0 SAB0 IAB0 Ectopic0 Multiple0 Live Births0 Comprehensive Advisor History LMP: 12/04/2024 (Exact Date), Having periods Age at Menarche: 16 Age at First : Age at Menopause: Comprehensive Advisor History Comments: Sexual Activity: Yes; Male Contraception: None Menstrual Tracking History Flowsheet Row Office Visit from 12/31/2024 in OB/Gynecology Appointment from 12/08/2024 in OB/Gynecology Period Cycle (Days) 5 5 Period Duration (Days) 5 5 Menstrual Flow Moderate Moderate PAST MEDICAL HISTORY Diagnosis Date Depressive disorder Generalized anxiety disorder Herpes labialis LGSIL on Pap smear of cervix 2018. Multiple joint pain Paronychia of toe Scoliosis mild PAST SURGICAL HISTORY Procedure Laterality Date TOOTH EXTRACTION 04/2019 FAMILY HISTORY Problem Relation Age of Onset No Known Problems Mother No Known Problems Father No Known Problems Brother No Known Problems Brother Ataxia Maternal Grandmother other (aortic aneurysm) Maternal Grandfather Diabetes Paternal Grandmother Hypertension Paternal Grandmother Diabetes Paternal Uncle Autism Brother SOCIAL HISTORY Social History Tobacco Use Smoking status: Never Smokeless tobacco: Never Vaping Use Vaping status: Never Used Substance Use Topics Alcohol use: Yes Comment: rarely Drug use: No REVIEW OF SYSTEMS Abdomen: No abdominal pain, nausea, vomiting, diarrhea, or constipation. No bloating, early satiety, indigestion, or increased flatulence. Bladder: No dysuria, gross hematuria, urinary frequency, urinary urgency, or incontinence. Breast: No breast lumps, nipple d/c, overlying skin changes, redness or skin retraction. Allergies and current medication updated:Yes SENSITIVE EXAM: The sensitive examination was discussed with the Patient or Patient's Authorized Architecture Analyst. As applicable, any other physician, advance practice provider, medical student, or other health professional student that will be observing or involved in the sensitive examination for educational or training purposes was discussed with the Patient or Authorized Architecture Analyst. The Patient or Authorized Architecture Analyst has agreed to proceed with the sensitive examination. (Sensitive examination includes inspection and/or palpation of the breasts, pelvis, prostate and anorectal regions). EXAM: BP 118/78 Ht 5' 2.5 (1.59m) Wt 138 lb (62.6kg) LMP 12/04/2024 BMI 24.82 kg/(m2). GENERAL: pleasant, female in no apparent distress HEENT: Normocephalic, atraumatic, mucus membranes moist, and no lesions NECK: Supple, full range of motion, no adenopathy, and thyroid normal DERMATOLOGY: Normal, without lesions, non-icteric, and non-hirsute BREAST: soft, non-tender, symmetric, no dominant mass, normal nipple-areolar complex, no lymphadenopathy, and no nipple discharge CHEST: Normal inspiratory effort ABDOMEN: soft, non-tender, and no masses PELVIC: external genitalia normal, normal Bartholin's glands, urethra, [place]'s glands, no vulvar lesions, no cervical lesions, good vaginal support, physiologic discharge present, normal appearing perineal body and perianal region BIMANUAL: uterus normal size, shape and consistency, no adnexal masses, and non-tender RECTOVAGINAL: deferred. NEURO: alert and oriented x3,exam grossly non-focal EXTREMITIES: normal ASSESSMENT/PLAN: 1) Health maintenance: Pap/HPV up to date. 2) Contraception: natural family planning. Contraceptive options reviewed and information provided. 3) STD screening: Accepted STD check for Gonorrhea and Chlamydia. 4) Follow up one year or sooner as needed Giana Arboleda MD Referring Provider: VALORIE MEZA [[id number]] Allergies As of Date: 12/31/2024 Noted Allergy Reaction MELON 05/09/2016 9 - Itching TOMATOES 05/09/2016 9 - Itching Date Reviewed: 12/31/2024 Reviewed by: Giana Arboleda MD - Fully Assessed Reason for Visit: Well Woman [[id number]] Primary Visi (more content not included)... Normal [facility] CNOVon 12-19-2024 CNOV Office Visit (FAMPWS) MI ORTEZ ([id number]) 1995 F Date Time Provider Department 12/19/24 11:40 AM JEEVAN LOPEZWS During your visit today, we recorded the following information about you: Temperature Pulse Blood pressure Weight 97.4 degrees 58/minute 104/62 62.1 kg Height 1.613 m Jeevan Lopez MD 12/19/2024 12:23 PM Signed Patient presents with: Cough HPI: Patient presents today for office visit for cough. Has been sick with a cough since 11/27/24. Her parents tested positive for COVID over darryl. Her covid test was negative. She got sick later but had stayed away from everyone who was ill. CXR was negative 12/03/24 Denies any other symptoms. Cough was dry at first then became productive. Is clear mucous. Has been green at times. Voice was hoarse from coughing. Caused a sore throat. No fever. Cough has been persistent since November. Has not lessened. Refers to her chest sounding wet when she coughs but not getting much mucus up. Has been taking OTC Delsym to suppress her cough because she coughs so hard she complains of rib pain. Taking Nyquil so she can sleep. Did have diarrhea but is now better. Failed bromphed and tessalon MEDICATIONS: Current Outpatient Medications Medication Sig albuterol HFA (PROVENTIL HFA, VENTOLIN HFA) 90 mcg/actuation inhaler Inhale 2 Puffs as instructed every 6 hours as needed for wheezing/shortness of breath. Drospirenone-Ethinyl Estradiol (NADER, 28,) 3-0.02 mg per tablet TAKE 1 TABLET BY MOUTH ONCE DAILY. acyclovir (ZOVIRAX) 400 mg tablet Take 1 tablet by mouth twice daily. Brompheniramine-Pseu doeph-DM (BROMFED DM) 2-30-10 mg/5 mL syrup Take 5 mL by mouth four times a day as needed. (Patient not taking: Reported on 12/19/2024) No current facility-administere d medications for this visit. ALLERGIES: ALLERGIES Allergen Reactions Melon Itching Tomatoes Itching PAST MEDICAL HISTORY Diagnosis Date Depressive disorder Generalized anxiety disorder Herpes labialis LGSIL on Pap smear of cervix 2017, 2018. Multiple joint pain Paronychia of toe Scoliosis mild PAST SURGICAL HISTORY Procedure Laterality Date TOOTH EXTRACTION 04/2019 FAMILY HISTORY Problem Relation Age of Onset No Known Problems Mother No Known Problems Father No Known Problems Brother No Known Problems Brother Ataxia Maternal Grandmother other (aortic aneurysm) Maternal Grandfather Diabetes Paternal Grandmother Hypertension Paternal Grandmother Diabetes Paternal Uncle Autism Brother Social History Tobacco Use Smoking status: Never Smokeless tobacco: Never Vaping Use Vaping status: Never Used Substance Use Topics Alcohol use: Yes Comment: rarely Drug use: No Reviewed current medications, allergies, past medical history, surgical history, family history and social history today. REVIEW OF SYSTEMS All other reviewed and negative other than HPI. VITALS: BP 104/62 Pulse (!) 58 Temp 36.3 ?C (97.4 ?F) Ht 161.3 cm (5' 3.5) Wt 62.1 kg (137 lb) LMP 12/04/2024 BMI 23.89 kg/m? Last 4 Encounter Wt Readings: Date: Wt: 12/19/2024 62.1 kg (137 lb) 12/07/2024 62.8 kg (138 lb 7.2 oz) 12/03/2024 63.4 kg (139 lb 12.4 oz) 11/23/2022 61.2 kg (135 lb) PHYSICAL EXAMINATION: General appearance: Well appearing, alert, in no acute distress, well-hydrated, well nourished. Skin: Skin color, texture, turgor normal, no suspicious rashes or lesions Head: Normocephalic, no masses, lesions, tenderness or abnormalities Eyes: Anicteric sclera. Pupils are equally round and reactive to light. Extraocular movements are intact. Ears: External ears normal, canals clear Nose/Sinuses: Nares normal, septum midline, mucosa normal, no drainage or sinus tenderness Oropharynx: Lips, mucosa, and tongue normal, teeth and gums normal, oropharynx normal Neck: Supple, no adenopath Lungs: Lungs clear to auscultation. No wheezing, rhonchi, rales Heart: RRR without murmur, gallop, or rubs. No ectopy Abdomen: Normal abdominal exam, Abdomen soft, non-tender. Bowel sounds normal. No masses, organomegaly Extremities: No deformities, edema, skin discoloration, clubbing or cyanosis. Good capillary refill. ASSESSMENT/PLAN: 1. Bronchitis - ICD9: 490, ICD10: J40 (primary diagnosis) - hold on further imaging. Continue delsym. Add doxycycline. Discussed risks and benefits of new medication with the patient. Advised them to call if any side effects or questions. Red flags for re-assessment reviewed with patient in detail. Call if symptoms worsen at all or if not better in one to two weeks Reviewed diagnosis and treatment options in detail. Questions were answered. Patient expressed understanding of treatment plan. 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 (more content not included)... Normal [facility] CNOVon 12-10-2024 CNOV Office Visit (FAMPWS) MI ORTEZ ([id number]) 1995 F Date Time Provider Department 12/10/24 11:20 AM TIMOTHY BAJWA During your visit today, we recorded the following information about you: Temperature Pulse Respiration Blood pressure 97.7 degrees 62/minute 16/minute 104/70 Timothy Bajwa MD 12/10/2024 1:41 PM Signed Chief Complaint Patient presents with: Cough: Over 2 weeks with difficulty expectorating phlegm. Reports green tinged when able to get it up. Chest Congestion Head Congestion: No sinus pain HPI Mi Ortez is a 29 year old female who presents here today for Above Complaints.. Patient evaluated in on 12/03 and 12/07 for complaint of acute cough, chest congestion, headache, and scratchy throat which staretd about 1 1/2-2 weeks ago. CXR negative on 12/03. Given rx for albuterol and bromfed at that appointment. Given rx for tessalon on 12/07. Today, she states that she no longer has a headache, but still has productive cough which is waking her up at night, chest congestion, chest pain with coughing, fatigue, and scratchy throat. Coughing still triggered with deep breaths and lying down. Tried the tessalon for cough without improvement. Still using bromfed occasionally and takes nyquil, mucinex and sudafed over the counter. Nothing seems to work better than another. Admits to post nasal drainage as well as nasal congestion, rhinorrhea which started yesterday. Had episode of post tussive emesis yesterday with mucous as well. Denies fever/chills, SOB, wheezing, myalgias, new loss of taste/smell, nausea, diarrhea. Mother and step dad were positive for COVID on darryl. Patient's initial COVID test was negative. Past medical history, appointments, medications, allergies reviewed. Previous Medical History PAST MEDICAL HISTORY Diagnosis Date Depressive disorder Generalized anxiety disorder Herpes labialis LGSIL on Pap smear of cervix 2017, 2018. Multiple joint pain Paronychia of toe Scoliosis mild Previous Surgical History PAST SURGICAL HISTORY Procedure Laterality Date TOOTH EXTRACTION 04/2019 Family History FAMILY HISTORY Problem Relation Age of Onset No Known Problems Mother No Known Problems Father No Known Problems Brother No Known Problems Brother Ataxia Maternal Grandmother other (aortic aneurysm) Maternal Grandfather Diabetes Paternal Grandmother Hypertension Paternal Grandmother Diabetes Paternal Uncle Autism Brother Patient Allergies ALLERGIES Allergen Reactions Melon Itching Tomatoes Itching Current Medications Current Outpatient Medications on File Prior to Visit Medication Sig Brompheniramine-Pseu doeph-DM (BROMFED DM) 2-30-10 mg/5 mL syrup Take 5 mL by mouth four times a day as needed. acyclovir (ZOVIRAX) 400 mg tablet Take 1 tablet by mouth twice daily. benzonatate (TESSALON PERLE) 100 mg capsule Take 1 capsule by mouth every 8 hours as needed for cough for up to 15 days. (Patient not taking: Reported on 12/10/2024) albuterol HFA (PROVENTIL HFA, VENTOLIN HFA) 90 mcg/actuation inhaler Inhale 2 Puffs as instructed every 6 hours as needed for wheezing/shortness of breath. Drospirenone-Ethinyl Estradiol (NADER, 28,) 3-0.02 mg per tablet TAKE 1 TABLET BY MOUTH ONCE DAILY. No current facility-administere d medications on file prior to visit. Social History Social History Tobacco Use Smoking status: Never Smokeless tobacco: Never Vaping Use Vaping status: Never Used Substance Use Topics Alcohol use: Yes Comment: rarely Drug use: No Review of Symptoms REVIEW OF SYSTEMS See HPI EXAM: BP 104/70 Pulse 62 Temp 36.5 ?C (97.7 ?F) Resp 16 LMP 12/04/2024 SpO2 99% General Appearance: Ill appearing, non toxic. Able to talk in complete sentences without SOB, wheezing or frequent coughing. Skin: Skin color, texture, turgor normal, no suspicious rashes or lesions. Head: Normocephalic, no masses, lesions, tenderness or abnormalities. Eyes: Anicteric sclera. Pupils are equally round and reactive to light. Extraocular movements are intact. . Ears: External ears normal, canals clear. Nose/Sinuses: Nares normal, septum midline, mucosa normal, no drainage or sinus tenderness. Oropharynx: Lips, mucosa, and tongue normal, teeth and gums normal, oropharynx normal. Neck: Supple, no adenopathy; thyroid symmetric, normal size, no bruits. Lungs: Lungs clear to auscultation. No wheezing, rhonchi, rales.. Heart: RRR without murmur, gallop, or rubs. No ectopy. Health Maintenance List Influenza Vaccine(1) due on 08/02/2024 Covid-19 Vaccine( season) due on 08/02/2024 Cervical Cancer Screening due on 11/23/2025 DTaP,Tdap,Td Vaccine(8 - Td or Tdap) due on 12/07/2030 Hepatitis B Vaccine Completed HPV Vaccine Completed Hepatitis C Screening Completed HIV Screening Co (more content not included)... Normal [facility] CNOVon 12-07-2024 CNOV Office Visit (UCTR) MI ORTEZ ([id number]) 1995 F Date Time Provider Department 12/07/24 10:30 AM JONNY IBARRA [facility] During your visit today, we recorded the following information about you: Temperature Pulse Respiration Blood pressure 98.2 degrees 66/minute 18/minute 122/80 Weight 62.8 kg Jonny Ibarra MD 12/07/2024 10:59 AM Signed Patient presents with: Cough: Cough, chest congestion, HEATH and scratchy throat x 10 days HPI: Feeling sick for 1 1/2 weeks. Negative CXR here 12/03/24. Her cough has not improved. Positive symptoms: Cough, deep breaths trigger coughing, Scratchy throat, Headache from coughing, some Nasal Congestion/Rhinorrhe a Negative symptoms: Wheezing, Sinus pressure, Fever, Chills, Body Aches, Nausea, Vomiting, Diarrhea, , OTC: Mucinex, Nyquil. Prescribed Bromfed and albuterol 12/03/2024. Negative home COVID test early in the illness. No past history of asthma. PAST MEDICAL HISTORY Diagnosis Date Depressive disorder Generalized anxiety disorder Herpes labialis LGSIL on Pap smear of cervix 2017, 2019. Multiple joint pain Paronychia of toe Scoliosis mild MEDICATIONS: Current Outpatient Medications Medication Sig Brompheniramine-Pseu doeph-DM (BROMFED DM) 2-30-10 mg/5 mL syrup Take 5 mL by mouth four times a day as needed. albuterol HFA (PROVENTIL HFA, VENTOLIN HFA) 90 mcg/actuation inhaler Inhale 2 Puffs as instructed every 6 hours as needed for wheezing/shortness of breath. Drospirenone-Ethinyl Estradiol (NADER, 28,) 3-0.02 mg per tablet TAKE 1 TABLET BY MOUTH ONCE DAILY. acyclovir (ZOVIRAX) 400 mg tablet Take 1 tablet by mouth twice daily. No current facility-administere d medications for this visit. ALLERGIES: ALLERGIES Allergen Reactions Melon Itching Tomatoes Itching VITALS: BP 122/80 Pulse 66 Temp 36.8 ?C (98.2 ?F) (Tympanic) Resp 18 Wt 62.8 kg (138 lb 7.2 oz) LMP 11/20/2022 SpO2 98% BMI 24.14 kg/m? PHYSICAL EXAM: GEN: mildly ill appearing HEENT: PERRL, EOMI, conjunctiva clear Ears: canals clear. TMs without erythema, bulge, or effusion Sinuses: non-tender frontal sinus, non-tender maxillary sinuses Throat: moist mucous membranes, mild erythema, no exudate Neck: supple, no thyromegaly, no lymphadenopathy HEART: regular rate, regular rhythm, no murmurs LUNGS: clear to auscultation, no wheezes or crackles, no increased WOB; tickling cough ASSESSMENT/PLAN: 1. Bronchitis - ICD9: 490, ICD10: J40 - suspect viral bronchitis. She is beyond the therapeutic window for antiviral treatment; viral testing deferred. - Discussed supportive care treatment with rest, cough medicine, and analgesia. Add - BENZONATATE 100 MG CAPSULE Follow up with worsening cough, worsening shortness of breath, increasing chest pain, or late onset fever. Jonny Ibarra MD Allergies As of Date: 12/07/2024 Noted Allergy Reaction MELON 05/09/2016 9 - Itching TOMATOES 05/09/2016 9 - Itching Date Reviewed: 12/07/2024 Reviewed by: Re Song LPN - Fully Assessed Reason for Visit: Cough [28] Cmt: Cough, chest congestion, HEATH and scratchy throat x 10 days Primary Visit Diagnosis:Bronchitis [J40] Order(s):benzonatate (TESSALON PERLE) 100 mg capsuleTake 1 capsule by mouth every 8 hours as needed for cough for up to 15 days.Disp: 30 capsuleRfl: 0 Prescriptions as of 12/07/2024 - benzonatate (TESSALON PERLE) 100 mg capsule Take 1 capsule by mouth every 8 hours as needed for cough for up to 15 days. - Brompheniramine-Pseu doeph-DM (BROMFED DM) 2-30-10 mg/5 mL syrup Take 5 mL by mouth four times a day as needed. - albuterol HFA (PROVENTIL HFA, VENTOLIN HFA) 90 mcg/actuation inhaler Inhale 2 Puffs as instructed every 6 hours as needed for wheezing/shortness of breath. - Drospirenone-Ethinyl Estradiol (NADER, 28,) 3-0.02 mg per tablet TAKE 1 TABLET BY MOUTH ONCE DAILY. - acyclovir (ZOVIRAX) 400 mg tablet Take 1 tablet by mouth twice daily. Problem List As Of Date 12/07/2024 Noted Resolved Depression, major, recurrent, in partial remiss*04/17/2019 Herpes labialis [B00.1] Generalized anxiety disorder [F41.1] 01/09/2022 Prescriptions ordered this encounter Disp Refills Start End BENZONATATE 100 MG CAPSULE 30 c* 0 12/07/2024 12/22/2024 Route: ORAL Sig: Take 1 capsule by mouth every 8 hours as needed for cough for up to 15 days. Level of Service: OFFICE/OUTPATIENT ESTABLISHED LOW MDM 20 MIN [07565] Encounter Status:Closed by JONNY IBARRA on 12/07/24 [facility] CNOVon 12-03-2024 CNOV Office Visit (UCWSTR) ORTEZRADHA KUOFARRAH Weaver ([id number]) 1995 F Date Time Provider Department 12/03/24 9:45 AM KACIE CRUZ [facility] During your visit today, we recorded the following information about you: Temperature Pulse Respiration Blood pressure 97.9 degrees 56/minute 18/minute 119/79 Weight 63.4 kg Kacie Cruz APRN.[employer]INGO CALLER 12/03/2024 10:59 AM Signed CC: Patient presents with: Cough: Chest congestion, HEATH x1 week HPI: Mi Ortez is a 29 year old female who presents to the office with complaint of chest congestion and cough, nonproductive for a week. Symptoms are staying the same. Associated symptoms includes headache. Denies fever, nausea, vomiting , and diarrhea. Treatments tried include nothing so far. with no relief of symptoms. Sick contacts: unknown. History of asthma, frequent episodes of bronchitis, chronic bronchitis, bronchiectasis or COPD: No Smoker: No Seasonal/environment al allergies: No The ROS is otherwise negative. The patient's pmh, medications, allergies, and past visits are reviewed. PHYSICAL EXAM: BP 119/79 Pulse (!) 56 Temp 36.6 ?C (97.9 ?F) Resp 18 Wt 63.4 kg (139 lb 12.4 oz) LMP 11/20/2022 SpO2 99% BMI 24.37 kg/m? General appearance: alert, cooperative, pleasant, in no acute distress Head: Normocephalic Eyes: EOM's intact, conjunctiva pink and moist, no icterus, sclera white, non-injected Ears: Right ear: External ear/canal- Normal, TM - clear with good landmarks. Left ear: External ear/canal- Normal, TM - clear with good landmarks Oropharynx:moist without lesions, No erythema, exudates or tonsillar hypertrophy. Heart: Negative. RRR without obvious murmur, gallop, or rubs. No ectopy. Lungs: clear to auscultation, without rales or wheeze, good air exchange PAST MEDICAL HISTORY Diagnosis Date Depressive disorder Generalized anxiety disorder Herpes labialis LGSIL on Pap smear of cervix 2017, 2018. Multiple joint pain Paronychia of toe Scoliosis mild PAST SURGICAL HISTORY Procedure Laterality Date TOOTH EXTRACTION 04/2019 ALLERGIES Melon and Tomatoes MEDICATIONS acyclovir (ZOVIRAX) 400 mg tablet Take 1 tablet by mouth twice daily. Drospirenone-Ethinyl Estradiol (NADER, 28,) 3-0.02 mg per tablet TAKE 1 TABLET BY MOUTH ONCE DAILY. FAMILY HISTORY Problem Relation Age of Onset No Known Problems Mother No Known Problems Father No Known Problems Brother No Known Problems Brother Ataxia Maternal Grandmother other (aortic aneurysm) Maternal Grandfather Diabetes Paternal Grandmother Hypertension Paternal Grandmother Diabetes Paternal Uncle Autism Brother Social History Tobacco Use Smoking status: Never Smokeless tobacco: Never Vaping Use Vaping status: Never Used Substance Use Topics Alcohol use: Yes Comment: rarely Drug use: No ASSESSMENT/PLAN: 1. Acute cough - ICD9: 786.2, ICD10: R05.1 - XR CHEST 2V FRONTAL/LAT * * * * Physician Interpretation * * * * EXAMINATION: CHEST RADIOGRAPH (2 VIEW FRONTAL AND LATERAL) CLINICAL HISTORY: Acute cough MQ: XC2_6 EXAM DATE/TIME: 12/03/2024 10:32 AM COMPARISON: No relevant prior studies available. RESULT: Lines, tubes, and devices: None. Lungs and pleura: No consolidation. No lung mass. No pleural effusion. No pneumothorax. Cardiomediastinal silhouette: Normal cardiomediastinal silhouette. Bones and soft tissues: Unremarkable. IMPRESSION IMPRESSION: No acute radiographic abnormality. Field Support Representative: SHARITA Transcribe Date/Time: Dec 03 2024 10:36A Dictated by : MUKUND WEBSTER MD ASSESSMENT/PLAN: 1. Acute cough - ICD9: 786.2, ICD10: R05.1 - XR CHEST 2V FRONTAL/LAT * * * * Physician Interpretation * * * * EXAMINATION: CHEST RADIOGRAPH (2 VIEW FRONTAL AND LATERAL) CLINICAL HISTORY: Acute cough MQ: XC2_6 EXAM DATE/TIME: 12/03/2024 10:32 AM COMPARISON: No relevant prior studies available. RESULT: Lines, tubes, and devices: None. Lungs and pleura: No consolidation. No lung mass. No pleural effusion. No pneumothorax. Cardiomediastinal silhouette: Normal cardiomediastinal silhouette. Bones and soft tissues: Unremarkable. IMPRESSION IMPRESSION: No acute radiographic abnormality. Field Support Representative: [facility] Transcribe Date/Time: Dec 03 2024 10:36A Dictated by : MUKUND WEBSTER MD - BROMPHENIRAMINE-PSEU DOEPHEDRINE-DM 2 MG-30 MG-10 MG/5 ML ORAL SYRUP - ALBUTEROL SULFATE HFA 90 MCG/ACTUATION AEROSOL INHALER - INHALATIONAL SPACING DEVICE Prescription instructions reviewed with patient as applicable. Potential red flag symptoms discussed with the patient. Reviewed appropriate action plan to take if red flag symptoms occur. Patient agreeable to treatment plan. Kacie Cruz APRN.BINGO CALLER Allergies As of Date: 12/03/2024 Noted Allergy Reaction MELON 05/09/2016 9 - Itching TOMATOES 05/09/2016 9 - Itching Date Reviewed: (more content not included)... Normal [facility] XR CHEST 2V FRONTAL/LATon XR CHEST 2V FRONTAL/LAT * * *Final Report* * * DATE OF EXAM: Dec 03 2024 10:32AM WOX [id number] - XR CHEST 2V FRONTAL/LAT / PROCEDURE REASON: Acute cough * * * * Physician Interpretation * * * * EXAMINATION: CHEST RADIOGRAPH (2 VIEW FRONTAL and LATERAL) CLINICAL HISTORY: Acute cough MQ: XC2_6 EXAM DATE/TIME: 12/03/2024 10:32 AM COMPARISON: No relevant prior studies available. RESULT: Lines, tubes, and devices: None. Lungs and pleura: No consolidation. No lung mass. No pleural effusion. No pneumothorax. Cardiomediastinal silhouette: Normal cardiomediastinal silhouette. Bones and soft tissues: Unremarkable. IMPRESSION: No acute radiographic abnormality. Field Support Representative: [facility] Transcribe Date/Time: Dec 03 2024 10:36A Dictated by : MUKUND WEBSTER MD This examination was interpreted and the report reviewed and electronically signed by: MUKUND WEBSTER MD on Dec 03 2024 10:36AM EST [id number] CN Normal [facility] XR Chest PA and Lateralon IMPRESSION: No acute radiographic abnormality. Field Support Representative: [facility] Transcribe Date/Time: Dec 03 2024 10:36A Dictated by : MUKUND WEBSTER MD This examination was interpreted and the report reviewed and electronically signed by: MUKUND WEBSTER MD on Dec 03 2024 10:36AM EST DIVISION OF RADIOLOGY * * *Final Report* * * DATE OF EXAM: Dec 03 2024 10:32AM WOX 5291 - XR CHEST 2V FRONTAL/LAT / PROCEDURE REASON: Acute cough * * * * Physician Interpretation * * * * EXAMINATION: CHEST RADIOGRAPH (2 VIEW FRONTAL & LATERAL) CLINICAL HISTORY: Acute cough MQ: XC2_6 EXAM DATE/TIME: 12/03/2024 10:32 AM COMPARISON: No relevant prior studies available. RESULT: Lines, tubes, and devices: None. Lungs and pleura: No consolidation. No lung mass. No pleural effusion. No pneumothorax. Cardiomediastinal silhouette: Normal cardiomediastinal silhouette. Bones and soft tissues: Unremarkable. DIVISION OF RADIOLOGY Provider, [facility] [place] - 12/03/2024 * * *Final Report* * * DATE OF EXAM: Dec 03 2024 10:32AM WOX 5291 - XR CHEST 2V FRONTAL/LAT / PROCEDURE REASON: Acute cough * * * * Physician Interpretation * * * * EXAMINATION: CHEST RADIOGRAPH (2 VIEW FRONTAL & LATERAL) CLINICAL HISTORY: Acute cough MQ: XC2_6 EXAM DATE/TIME: 12/03/2024 10:32 AM COMPARISON: No relevant prior studies available. RESULT: Lines, tubes, and devices: None. Lungs and pleura: No consolidation. No lung mass. No pleural effusion. No pneumothorax. Cardiomediastinal silhouette: Normal cardiomediastinal silhouette. Bones and soft tissues: Unremarkable. IMPRESSION IMPRESSION: No acute radiographic abnormality. Field Support Representative: [facility] Transcribe Date/Time: Dec 03 2024 10:36A Dictated by : MUKUND WEBSTER MD This examination was interpreted and the report reviewed and electronically signed by: MUKUND WEBSTER MD on Dec 03 2024 10:36AM EST [facility] Radiology Study observation (narrative) [facility] XR Chest PA and LateralOrder ed By: [facility]cf Provider on 12-03-2024 [facility] Urine Cultureon 01-24-2024 [facility] Mixed Gram Positive Organisms [place] Count 11,000-25,000 MIXC Mixed contaminants. Submit a new specimen if indicated. Normal [facility] Comment on above: Performed By: #### M 100.2200, L400.0001 #### [facility] [address] [place], [place], [address] Urgent Care Visit Reporton 0 01-22-2024 Urgent Care Visit Report [facility] [address], [address] [place], [place] [address] OFFICE VISIT Date of Service: 01/22/24 MR#: [id number] Acct: [id number] Name: MI ORTEZ Rep #: [id number] : 1995 Provider: DENA Agrawal Age/Sex: 28/F Location: [facility] Status: Signed Intake Vital Signs 01/22/24 15:10 Height 5 ft 4 in Weight: 141 lb BMI 24.2 BP 124/80 H Blood Pressure Location Lt brachial Position Sitting Respiration 16 Pulse 64 Pulse Source Monitor Temp 98.4 F Temp Source Temporal Pulse Oximetry (%) 98 Oxygen Delivery Method room air Intake Visit Reasons: CONCERN FOR YEAST INFECTION Chief Complaint: Vaginal area discharge, itcing; dysuria Onion Tier Required: No Accompanied by: Self Allergies melon Allergy (Verified 01/22/24 15:12) Itching tomato Allergy (Verified 01/22/24 15:12) Itching Medications Lactobacillus acidophilus (Acidophilus capsule) 10 mg PO DAILY 01/22/24 [History Confirmed 01/22/24] acyclovir 200 mg capsule 200 mg PO TID PRN 01/22/24 [History Confirmed 01/22/24] fluconazole 200 mg tablet 200 mg PO DAILY #1 TAB 01/22/24 [Rx Confirmed 01/22/24] PFSH Medical History (Updated 01/22/24 @ 15:35 by Joe Lindo PA, PA) Vaginal candidiasis Social History (Updated 01/22/24 @ 15:10 by Kavya Penaloza) Smoking Status: Never smoker alcohol intake: never HPI HPI Chief Complaint: Vaginal area discharge, itcing; dysuria Details: MI ORTEZ, is a 28 F who presents to the office today for initial evaluation 3 to 4-day history of progressive worsening vaginal pruritus with thick curdy white discharge. Patient notes using new soap for YOVANNY care stating she feels as what exacerbated her symptoms. She has had several vaginal Namrata episodes in the past and feels this is the same. No complaints of fever, chills, sweats, changes in color/character/odor of urine and no urinary frequency or dysuria. No dncz-gwy-twxeahv products taken to assist. No other associated symptoms and no other alleviating/aggravat ing factors. ROS Const Constitutional: No other (As above) Exam Const General: cooperative, healthy appearing and no acute distress Nutritional Appearance: average body habitus Orientation: alert, awake and oriented x3 Resp Effort Inspection: normal respiratory effort and able to speak in complete sentences Cardio Rate: regular rate Pulses: radial pulses present GI Inspection: normal to inspection Palpation: not firm, no guarding and tender not suprapubicly (Nontender upon self palpation) Skin General: no rashes or lesions noted Neuro General: patient alert, patient awake and patient oriented x3 Cognition: normal cognition Speech: speech normal Psych Appearance: grossly normal Mental Status: mental status grossly normal Mood: congruent mood Affect: normal affect Speech and Movement: speech and movement normal Attitude: cooperative Results POC Urinalysis Dip (Clinic) Office Urine Color YELLOW Last Edit by Kavya Penaloza on 01/22/24 15:22 Office Urine Clarity Cloudy Last Edit by Kavya Penaloza on 01/22/24 15:22 Office Urine Glucose Last Edit by Kavya Penaloza on 01/22/24 15:22 Office Urine Ketones Negative Last Edit by Kavya Penaloza on 01/22/24 15:22 Off Ur Spec Clarks 1.025 Last Edit by Kavya Razoetler on 01/22/24 15:22 Office Urine pH 5.0 Last Edit by Kavya Razoetler on 01/22/24 15:22 Office Urine Bilirubin Negative Last Edit by Kavya Razoetler on 01/22/24 15:22 Office Urine Urobilinogen 0.2 mg/dL Last Edit by Kavya Razoetler on 01/22/24 15:22 Office Urine Blood Negative Last Edit by Kavya Razoetler on 01/22/24 15:22 Office Urine Blood Hemolyzed NA Last Edit by Kavya Razoetler on 01/22/24 15:22 Office Urine Protein Trace Last Edit by Kavya Razoetler on 01/22/24 15:22 Office Urine Nitrate Negative Last Edit by Kavya Razoetler on 01/22/24 15:22 Off Ur Leukocytes Negatve Last Edit by Kavya Razoetler on 01/22/24 15:22 POC Urine Office , Urine Negative Last Edit by Kavya Razoetler on 01/22/24 15:22 Coding Level of Care Code Off vis,new,level 3 Diagnoses Vaginal candidiasis B37.31 Assessment and Plan Assessment and Plan (1) Vaginal candidiasis: Status: Acute Plan: - by history Fluconazole as prescribed today. Reinforce appropriate hygiene care. Follow-up with PCP in 3 to 5 days should symptoms not improve, sooner should symptoms worsen or any other concerns develop. Patient states acknowledging understanding all the above. This note was generated with Graze dictation software. It may contain incorrect words, spelling, and punctuation that were not noted in checking the note before signing. Orders: Orders Culture, (more content not included)... Normal [facility] Urinalysis, Completeon 01-22 EPI,SQUAMOUS 0-5 SEEN Normal 5-10 [facility] Comment on above: Order Comment: CLEAN CATCH Performed By: #### M 100.2200, L400.0001 #### [facility] [address] [place], [place], [id number] Mucus Ql (Urine sed) 2+ /hpf Normal [facility] Comment on above: Order Comment: CLEAN CATCH Performed By: #### M 100.2200, [id number] #### [facility] [address] [place], [address] WBC 0-5 SEEN Normal 0-5 [facility] Comment on above: Order Comment: CLEAN CATCH Performed By: #### M 100.2200, [id number] #### [facility] [address] [place], [address] BACTERIA 0 SEEN Normal None Seen [facility] Comment on above: Order Comment: CLEAN CATCH Performed By: #### M 100.2200, [id number] #### [facility] [address] [place], [address] RBC 0 SEEN Normal 0-5 [facility] Comment on above: Order Comment: CLEAN CATCH Performed By: #### M 100.2200, [id number] #### [facility] [address] [place], [address] C. trachomatis+N. gonorrhoea e DNA ARIANA+probe Ql (Unsp spec)on 11-23-2022 C. trachomatis DNA ARIANA+probe Ql (Unsp spec) Negative Negative for Chlamydia trachomatis by amplificaton [facility] N. gonorrhoeae DNA ARIANA+probe Ql (Unsp spec) Negative Negative for Neisseria gonorrhoeae by amplification [facility] Comprehensive metabolic 2000 panelon 10-13-2022 Albumin [Mass/Vol] 4.2 g/dL 3.9 - 4.9 g/dL [facility] ALP [Catalytic activity/Vol] 79 U/L 34 - 123 U/L [facility] ALT [Catalytic activity/Vol] 19 U/L 7 - 38 U/L [facility] Anion gap [Moles/Vol] 11 mmol/L 9 - 18 mmol/L [facility] AST [Catalytic activity/Vol] 25 U/L 13 - 35 U/L [facility] Bilirubin [Mass/Vol] 0.4 mg/dL 0.2 - 1.3 mg/dL [facility] Calcium [Mass/Vol] 9.8 mg/dL 8.5 - 10.2 mg/dL [facility] Chloride [Moles/Vol] 105 mmol/L 97 - 105 mmol/L [facility] CO2 [Moles/Vol] 21 mmol/L Low 22 - 30 mmol/L [facility] Creatinine [Mass/Vol] 0.95 mg/dL 0.58 - 0.96 mg/dL [facility] Estimated Glomerular Filtration Rate 85 mL/min/1.73m >=60 mL/min/1.73m [facility] Glucose [Mass/Vol] 82 mg/dL 74 - 99 mg/dL [facility] Potassium [Moles/Vol] 5.1 mmol/L 3.7 - 5.1 mmol /L [facility] Protein [Mass/Vol] 6.9 g/dL 6.3 - 8.0 g/dL [facility] Sodium [Moles/Vol] 137 mmol/L 136 - 144 mmol/L [facility] Urea nitrogen [Mass/Vol] 15 mg/dL 7 - 21 mg/dL [facility] LIPID PANEL, NONFASTINGon Cholesterol [Mass/Vol] 177 mg/dL <200 mg/dL [facility] HDL Cholesterol, Nonfasting 71 mg/dL >39 mg/dL [facility] LDL Cholesterol, Nonfasting 93 mg/dL <100 mg/dL [facility] LDL/HDL Ratio, Nonfasting 1.31 mg/dL <2.54 mg/dL [facility] Non HDL Cholesterol, Nonfasting 106 mg/dL <130 mg/dL [facility] Total Chol/HDL Ratio, Nonfasting 2.49 mg/dL <5.10 mg/dL [facility] Triglycerides, Nonfasting 66 mg/dL <150 mg/dL [facility] VLDL Cholesterol, Nonfasting 13 mg/dL <30 mg/dL [facility] CBC panel Auto (Bld)on 10-12 Erythrocyte distribution width (RBC) [Ratio] 12.0 % 11.5 - 15.0 % [facility] Hematocrit (Bld) [Volume fraction] 41.5 % 36.0 - 46.0 % [facility] Hemoglobin (Bld) [Mass/Vol] 13.5 g/dL 11.5 - 15.5 g/dL [facility] MCH (RBC) [Entitic mass] 31.9 pg 26.0 - 34.0 pg [facility] MCHC (RBC) [Mass/Vol] 32.5 g/dL 30.5 - 36.0 g/ dL [facility] MCV (RBC) [Entitic vol] 98.1 fL 80.0 - 100.0 fL [facility] Nucleated RBC (Bld) [#/Vol] <0.01 k/uL [facility] Platelet mean volume (Bld) [Entitic vol] 10.6 fL 9.0 - 12.7 fL [facility] Platelets (Bld) [#/Vol] 287 10*3/uL 150 - 400 k/uL [facility] RBC (Bld) [#/Vol] 4.23 10*6/uL 3.90 - 5.20 m/uL [facility] WBC (Bld) [#/Vol] 8.45 10*3/uL 3.70 - 11. 00 k/uL [facility] STREP A MOLECULAR (POC)on Procedural Control Valid [facility] Strep A (POCT) Negative Negative [facility] No Panel InformationOrdered By: Ccf Provider on 06-22-2022 [facility] No Panel Informationon 06-22 Radiology Study observation (narrative) [facility] XR Cervical spine AP and Lat eral and obliqueon 06-22-2022 IMPRESSION: NO ACUTE VERTEBRAL BODY FRACTURE OR TRAUMATIC SUBLUXATION Field Support Representative: [facility] Transcribe Date/Time: Jun 22 2022 12:25P Dictated by : CONSTANCE NICHOLS MD This examination was interpreted and the report reviewed and electronically signed by: CONSTANCE NICHOLS MD on Jun 22 2022 12:28PM EST [email or web address]_U SE_DIVISION OF RADIOLOGY * * *Final Report* * * DATE OF EXAM: Jun 22 2022 12:20PM WOX 5311 - XR CERVICAL 4V AP/LAT/OBL / PROCEDURE REASON: Cervical pain (neck) * * * * Physician Interpretation * * * * EXAMINATION: XR CERVICAL 4V AP/LAT/OBL HISTORY: pt fell while doing a headstand pushup, pain in thoracic spine and neck. Cervical pain (neck). TECHNIQUE: XR CERVICAL 4V AP/LAT/OBL Laterality: NOT APPLICABLE Number of different views (projections): 4 M: XB_1 COMPARISON: There are no prior relevant examinations available for comparison within the [facility]. RESULT: 4views of the cervical spine demonstrate all seven cervical vertebral bodies. The vertebral body heights and intervertebral disc spaces are well maintained with normal alignment. Bilateral oblique views demonstrate the neural foramina widely patent. The atlantoaxial interval and craniocervical junction are intact. The prevertebral soft tissues are unremarkable. [id number]_NOT_U SE_DIVISION OF RADIOLOGY Provider, [facility] [place] - 06/22/2022 * * *Final Report* * * DATE OF EXAM: Jun 22 2022 12:20PM WOX 5311 - XR CERVICAL 4V AP/LAT/OBL / PROCEDURE REASON: Cervical pain (neck) * * * * Physician Interpretation * * * * EXAMINATION: XR CERVICAL 4V AP/LAT/OBL HISTORY: pt fell while doing a headstand pushup, pain in thoracic spine and neck. Cervical pain (neck). TECHNIQUE: XR CERVICAL 4V AP/LAT/OBL Laterality: NOT APPLICABLE Number of different views (projections): 4 M: XB_1 COMPARISON: There are no prior relevant examinations available for comparison within the [facility]. RESULT: 4views of the cervical spine demonstrate all seven cervical vertebral bodies. The vertebral body heights and intervertebral disc spaces are well maintained with normal alignment. Bilateral oblique views demonstrate the neural foramina widely patent. The atlantoaxial interval and craniocervical junction are intact. The prevertebral soft tissues are unremarkable. IMPRESSION IMPRESSION: NO ACUTE VERTEBRAL BODY FRACTURE OR TRAUMATIC SUBLUXATION Field Support Representative: [facility] Transcribe Date/Time: Jun 22 2022 12:25P Dictated by : CONSTANCE NICHOLS MD This examination was interpreted and the report reviewed and electronically signed by: CONSTANCE NICHOLS MD on Jun 22 2022 12:28PM EST [facility] XR Thoracic spine AP and Lat eral and [place] 06-22-2022 IMPRESSION: MILD SCOLIOSIS. OTHERWISE NORMAL Field Support Representative: [facility] Transcribe Date/Time: Jun 22 2022 12:27P Dictated by : JOSE A MARIE MD This examination was interpreted and the report reviewed and electronically signed by: JOSE A MARIE MD on Jun 22 2022 12:28PM EST [email or web address]_U SE_DIVISION OF RADIOLOGY * * *Final Report* * * DATE OF EXAM: Jun 22 2022 12:20PM WOX 5261 - XR THORACIC 3V AP/LAT/SWIMMERS / PROCEDURE REASON: Acute bilateral thoracic back pain * * * * Physician Interpretation * * * * Examination: XR THORACIC 3V AP/LAT/SWIMMERS History: Acute bilateral thoracic back pain Technique: XR THORACIC 3V AP/LAT/SWIMMERS Comparison: None RESULT: Vertebral bodies are well aligned and the disc spaces are maintained. Pedicles appear intact. No fracture or focal bony abnormality. There are 12 pairs of ribs. Mild dextroscoliosis of 7 degrees as measured from inferior T8 to superior L1 [id number]_NOT_U SE_DIVISION OF RADIOLOGY Provider, [facility] - 06/22/2022 * * *Final Report* * * DATE OF EXAM: Jun 22 2022 12:20PM WOX 5261 - XR THORACIC 3V AP/LAT/SWIMMERS / PROCEDURE REASON: Acute bilateral thoracic back pain * * * * Physician Interpretation * * * * Examination: XR THORACIC 3V AP/LAT/SWIMMERS History: Acute bilateral thoracic back pain Technique: XR THORACIC 3V AP/LAT/SWIMMERS Comparison: None RESULT: Vertebral bodies are well aligned and the disc spaces are maintained. Pedicles appear intact. No fracture or focal bony abnormality. There are 12 pairs of ribs. Mild dextroscoliosis of 7 degrees as measured from inferior T8 to superior L1 IMPRESSION IMPRESSION: MILD SCOLIOSIS. OTHERWISE NORMAL Field Support Representative: [facility] Transcribe Date/Time: Jun 22 2022 12:27P Dictated by : JOSE A MARIE MD This examination was interpreted and the report reviewed and electronically signed by: JOSE A MARIE MD on Jun 22 2022 12:28PM EST [facility] XR KNEE GENERAL 4V AP BOTH/P A BOTH/LAT/MERC RIGHTon 05-30-2022 [facility] XR Knee - right 4 Viewson IMPRESSION: No acute osseous abnormality. Field Support Representative: [facility] Transcribe Date/Time: May 30 2022 2:36P Dictated by : GEORGETTE PANTOJA DO This examination was interpreted and the report reviewed and electronically signed by: GEORGETTE PANTOJA DO on May 30 2022 2:37PM EST [id number]_NOT_U SE_DIVISION OF RADIOLOGY * * *Final Report* * * DATE OF EXAM: May 30 2022 2:35PM WOX 5203 - XR KNEE 4V AP/PA BOTH+LAT/CRAIG RT / PROCEDURE REASON: Injury of right knee, initial encounter * * * * Physician Interpretation * * * * EXAMINATION: XR KNEE 4V AP/PA BOTH+LAT/CRAIG RT PATIENT/TECHNOLOGIST PROVIDED HISTORY: Right medial knee pain x 3 days after doing crossfit and jumping up on a box CLINICAL INFORMATION: 27 years old Female with Injury of right knee, initial encounter TECHNIQUE: XR KNEE 4V AP/PA BOTH+LAT/CRAIG RT Laterality: RIGHT Number of different views (projections): 4 COMPARISON: None RESULT: No fracture. No joint effusion. Joint spaces are maintained. ZZZ_DO_NOT_U SE_DIVISION OF RADIOLOGY Provider, [facility] [place] - 05/30/2022 * * *Final Report* * * DATE OF EXAM: May 30 2022 2:35PM WOX 5203 - XR KNEE 4V AP/PA BOTH+LAT/CRAIG RT / PROCEDURE REASON: Injury of right knee, initial encounter * * * * Physician Interpretation * * * * EXAMINATION: XR KNEE 4V AP/PA BOTH+LAT/CRAIG RT PATIENT/TECHNOLOGIST PROVIDED HISTORY: Right medial knee pain x 3 days after doing crossfit and jumping up on a box CLINICAL INFORMATION: 27 years old Female with Injury of right knee, initial encounter TECHNIQUE: XR KNEE 4V AP/PA BOTH+LAT/CRAIG RT Laterality: RIGHT Number of different views (projections): 4 COMPARISON: None RESULT: No fracture. No joint effusion. Joint spaces are maintained. IMPRESSION IMPRESSION: No acute osseous abnormality. Field Support Representative: [facility] Transcribe Date/Time: May 30 2022 2:36P Dictated by : GEORGETTE PANTOJA DO This examination was interpreted and the report reviewed and electronically signed by: GEORGETTE PANTOJA DO on May 30 2022 2:37PM EST [facility] Radiology Study observation (narrative) [facility] XR Knee - right 4 ViewsOrder ed By: Cc Provider on 05-30-2022 [facility] Vital Signs Date Time Vital Sign Value Performing Clinician Yaneth hernandez 06-15-2025 11:08-0400 Body mass index (BMI) [Ratio] 24.79 kg/m2 Tena Cruz MD Work Phone: [facility] 06-15-2025 11:08-0400 Body weight 66.68 kg Tena Cruz MD Work Phone: [facility] 06-15-2025 11:08-0400 Diastolic blood pressure 60 mm[Hg] Tena Cruz MD Work Phone: [facility] 06-15-2025 11:08-0400 Systolic blood pressure 110 mm[Hg] Tena Curz MD Work Phone: [facility] 05-19-2025 08:04-0400 Body mass index (BMI) [Ratio] 24.45 kg/m2 Valorie Ventura MD Work Phone: [facility] 05-19-2025 08:04-0400 Body weight 65.77 kg Valorie Ventura MD Work Phone: [facility] 05-19-2025 08:04-0400 Diastolic blood pressure 64 mm[Hg] Valorie Ventura MD Work Phone: [facility] 05-19-2025 08:04-0400 Systolic blood pressure 100 mm[Hg] Valorie Vnetura MD Work Phone: [facility] 04-19-2025 14:45-0400 Body mass index (BMI) [Ratio] 23.61 kg/m2 Kavyamay Amezquita APRN.CNM Work Phone: [facility] 04-19-2025 14:45-0400 Body weight 63.5 kg Kavya Amezquita FISHER LAMPARA NET.CNM Work Phone: [facility] 04-19-2025 14:45-0400 Diastolic blood pressure 62 mm[Hg] Kavya Amezquita FISHER LAMPARA NET.CNM Work Phone: [facility] 04-19-2025 14:45-0400 Systolic blood pressure 96 mm[Hg] Kavya Amezquita FISHER LAMPARA NET.CNM Work Phone: [facility] 03-15-2025 08:50-0400 Body height 164 cm Mikala Hernandezts FISHER LAMPARA NET.CNM Work Phone: [facility] 03-15-2025 08:50-0400 Body mass index (BMI) [Ratio] 22.77 kg/m2 Mikala Hernandezts FISHER LAMPARA NET.CNM Work Phone: [facility] 03-15-2025 08:50-0400 Body weight 61.24 kg Mikala Hernandezts FISHER LAMPARA NET.CNM Work Phone: [facility] 03-15-2025 08:50-0400 Diastolic blood pressure 60 mm[Hg] Mikala Hernandezts FISHER LAMPARA NET.CNM Work Phone: [facility] 03-15-2025 08:50-0400 Systolic blood pressure 114 mm[Hg] Mikala Hernandezts FISHER LAMPARA NET.CNM Work Phone: [facility] 01-29-2025 15:38-0500 Body height 158.8 cm Jeevan Lopez MD Work Phone: [facility] 01-29-2025 15:38-0500 Body mass index (BMI) [Ratio] 23.76 kg/m2 Jeevan Lopez MD Work Phone: [facility] 01-29-2025 15:38-0500 Body temperature 97.59 [degF] Jeevan Lopez MD Work Phone: [facility] 01-29-2025 15:38-0500 Body weight 59.88 kg Jeevan Lopez MD Work Phone: [facility] 01-29-2025 15:38-0500 Diastolic blood pressure 72 mm[Hg] Jeevan Lopez MD Work Phone: [facility] 01-29-2025 15:38-0500 Heart rate 56 /min Jeevan Lopez MD Work Phone: [facility] 01-29-2025 15:38-0500 SaO2% (BldA) [Mass fraction] 99 % Jeevan Lopez MD Work Phone: [facility] 01-29-2025 15:38-0500 Systolic blood pressure 112 mm[Hg] Jeevan Lopez MD Work Phone: [facility] 12-31-2024 13:23-0500 Body height 158.8 cm Giana Arboleda MD Work Phone: [facility] 12-31-2024 13:23-0500 Body mass index (BMI) [Ratio] 24.84 kg/m2 Giana Arboleda MD Work Phone: [facility] 12-31-2024 13:23-0500 Body weight 62.6 kg Giana Arboleda MD Work Phone: [facility] 12-31-2024 13:23-0500 Diastolic blood pressure 78 mm[Hg] Giana Arboleda MD Work Phone: [facility] 12-31-2024 13:23-0500 Systolic blood pressure 118 mm[Hg] Giana Arboleda MD Work Phone: [facility] 12-19-2024 11:41-0500 Body height 161.3 cm Jeevan Lopez MD Work Phone: [facility] 12-19-2024 11:41-0500 Body mass index (BMI) [Ratio] 23.89 kg/m2 Jeevan Lopez MD Work Phone: [facility] 12-19-2024 11:41-0500 Body temperature 97.39 [degF] Jeevan Lopez MD Work Phone: [facility] 12-19-2024 11:41-0500 Body weight 62.14 kg Jeevan Lopez MD Work Phone: [facility] 12-19-2024 11:41-0500 Diastolic blood pressure 62 mm[Hg] Jeevan Lopez MD Work Phone: [facility] 12-19-2024 11:41-0500 Heart rate 58 /min Jeevan Lopez MD Work Phone: [facility] 12-19-2024 11:41-0500 Systolic blood pressure 104 mm[Hg] Jeevan Lopez MD Work Phone: [facility] 12-10-2024 11:19-0500 Body temperature 97.7 [degF] Timothy Bajwa MD Work Phone: [facility] 12-10-2024 11:19-0500 Diastolic blood pressure 70 mm[Hg] Timothy Bajwa MD Work Phone: [facility] 12-10-2024 11:19-0500 Heart rate 62 /min Timothy Bajwa MD Work Phone: [facility] 12-10-2024 11:19-0500 Respiratory rate 16 /min Timothy Bajwa MD Work Phone: [facility] 12-10-2024 11:19-0500 SaO2% (BldA) [Mass fraction] 99 % Timothy Bajwa MD Work Phone: [facility] 12-10-2024 11:19-0500 Systolic blood pressure 104 mm[Hg] Timothy Bajwa MD Work Phone: [facility] 12-07-2024 10:35-0500 Body mass index (BMI) [Ratio] 24.14 kg/m2 Jonny Ibarra MD Work Phone: [facility] 12-07-2024 10:35-0500 Body temperature 98.2 [degF] Jonny Ibarra MD Work Phone: [facility] 12-07-2024 10:35-0500 Body weight 62.8 kg Jonny Ibarra MD Work Phone: [facility] 12-07-2024 10:35-0500 Diastolic blood pressure 80 mm[Hg] Jonny Ibarra MD Work Phone: [facility] 12-07-2024 10:35-0500 Heart rate 66 /min Jonny Ibarra MD Work Phone: [facility] 12-07-2024 10:35-0500 Respiratory rate 18 /min Jonny Ibarra MD Work Phone: [facility] 12-07-2024 10:35-0500 SaO2% (BldA) [Mass fraction] 98 % Jonny Ibarra MD Work Phone: [facility] 12-07-2024 10:35-0500 Systolic blood pressure 122 mm[Hg] Jonny Ibarra MD Work Phone: [facility] 12-03-2024 10:01-0500 Body mass index (BMI) [Ratio] 24.37 kg/m2 Kacei Cruz APRN.BINGO CALLER Work Phone: [facility] 12-03-2024 10:01-0500 Body temperature 97.9 [degF] Kacie Cruz APRN.BINGO CALLER Work Phone: [facility] 12-03-2024 10:01-0500 Body weight 63.4 kg Kacie Cruz APRN.BINGO CALLER Work Phone: [facility] 12-03-2024 10:01-0500 Diastolic blood pressure 79 mm[Hg] Kacie Cruz APRN.BINGO CALLER Work Phone: [facility] 12-03-2024 10:01-0500 Heart rate 56 /min Kacie Cruz APRN.BINGO CALLER Work Phone: [facility] 12-03-2024 10:01-0500 Respiratory rate 18 /min Kacie Cruz APRN.BINGO CALLER Work Phone: [facility] 12-03-2024 10:01-0500 SaO2% (BldA) [Mass fraction] 99 % Kacie Cruz APRN.BINGO CALLER Work Phone: [facility] 12-03-2024 10:01-0500 Systolic blood pressure 119 mm[Hg] Kacie Cruz APRN.BINGO CALLER Work Phone: [facility] 11-23-2022 11:08-0500 Body height 161.3 cm Valorie Ventura MD Work Phone: [facility] 11-23-2022 11:08-0500 Body weight 61.24 kg Valorie Ventura MD Work Phone: [facility] 11-23-2022 11:08-0500 Diastolic blood pressure 64 mm[Hg] Valorie Ventura MD Work Phone: [facility] 11-23-2022 11:08-0500 Systolic blood pressure 104 mm[Hg] Valorie Ventura MD Work Phone: [facility] 10-12-2022 10:46-0500 Body height 162.1 cm Timothy Bajwa MD Work Phone: [facility] 10-12-2022 10:46-0500 Body weight 62.78 kg Timothy Bajwa MD Work Phone: [facility] 10-12-2022 10:46-0500 Diastolic blood pressure 66 mm[Hg] Timothy Bajwa MD Work Phone: [facility] 10-12-2022 10:46-0500 Heart rate 77 /min Timothy Bajwa MD Work Phone: [facility] 10-12-2022 10:46-0500 Respiratory rate 16 /min Timothy Bajwa MD Work Phone: [facility] 10-12-2022 10:46-0500 SaO2% (BldA) [Mass fraction] 98 % Timothy Bajwa MD Work Phone: [facility] 10-12-2022 10:46-0500 Systolic blood pressure 104 mm[Hg] Timothy Bajwa MD Work Phone: [facility] 09-16-2022 08:45-0400 Body temperature 97.39 [degF] Kacie Cruz APRN.BINGO CALLER Work Phone: [facility] 09-16-2022 08:45-0400 Body weight 64.41 kg Kacie Cruz APRN.BINGO CALLER Work Phone: [facility] 09-16-2022 08:45-0400 Diastolic blood pressure 88 mm[Hg] Kacie Cruz APRN.BINGO CALLER Work Phone: [facility] 09-16-2022 08:45-0400 Heart rate 75 /min Kacie Cruz FISHER LAMPARA NET.BINGO CALLER Work Phone: [facility] 09-16-2022 08:45-0400 Respiratory rate 20 /min Kacie Cruz FISHER LAMPARA NET.BINGO CALLER Work Phone: [facility] 09-16-2022 08:45-0400 SaO2% (BldA) [Mass fraction] 99 % Kacie Cruz FISHER LAMPARA NET.BINGO CALLER Work Phone: [facility] 09-16-2022 08:45-0400 Systolic blood pressure 128 mm[Hg] Kacie Cruz FISHER LAMPARA NET.BINGO CALLER Work Phone: [facility] 06-22-2022 11:22-0400 Body weight 63.32 kg Char Podlogar FISHER LAMPARA NET.BINGO CALLER Work Phone: [facility] 06-22-2022 11:22-0400 Diastolic blood pressure 64 mm[Hg] Char Podlogar FISHER LAMPARA NET.BINGO CALLER Work Phone: [facility] 06-22-2022 11:22-0400 Heart rate 69 /min Char Podlogar FISHER LAMPARA NET.BINGO CALLER Work Phone: [facility] 06-22-2022 11:22-0400 Respiratory rate 18 /min Char Podlogar FISHER LAMPARA NET.BINGO CALLER Work Phone: [facility] 06-22-2022 11:22-0400 SaO2% (BldA) [Mass fraction] 99 % Char Podlogar FISHER LAMPARA NET.BINGO CALLER Work Phone: [facility] 06-22-2022 11:22-0400 Systolic blood pressure 116 mm[Hg] Char Podlogar FISHER LAMPARA NET.BINGO CALLER Work Phone: [facility] 05-30-2022 14:02-0400 Body temperature 98.01 [degF] Heron Choudhury FISHER LAMPARA NET.BINGO CALLER Work Phone: [facility] 05-30-2022 14:02-0400 Body weight 62.14 kg Heron Choudhury FISHER LAMPARA NET.BINGO CALLER Work Phone: [facility] 05-30-2022 14:02-0400 Diastolic blood pressure 64 mm[Hg] Heron Pendlebury FISHER LAMPARA NET.BINGO CALLER Work Phone: [facility] 05-30-2022 14:02-0400 Heart rate 70 /min Heron Pendlebury FISHER LAMPARA NET.BINGO CALLER Work Phone: [facility] 05-30-2022 14:02-0400 Respiratory rate 16 /min Heron Pendlebury FISHER LAMPARA NET.BINGO CALLER Work Phone: [facility] 05-30-2022 14:02-0400 SaO2% (BldA) [Mass fraction] 99 % Heron Kahnlebury FISHER LAMPARA NET.BINGO CALLER Work Phone: [facility] 05-30-2022 14:02-0400 Systolic blood pressure 90 mm[Hg] Heron Pendlebury FISHER LAMPARA NET.BINGO CALLER Work Phone: [facility] 04-10-2022 16:57-0400 Body weight 59.24 kg Timothy Bajwa MD Work Phone: [facility] 04-10-2022 16:57-0400 Diastolic blood pressure 68 mm[Hg] Timothy Bajwa MD Work Phone: [facility] 04-10-2022 16:57-0400 Heart rate 67 /min Timothy Bajwa MD Work Phone: [facility] 04-10-2022 16:57-0400 Respiratory rate 20 /min Timothy Bajwa MD Work Phone: [facility] 04-10-2022 16:57-0400 SaO2% (BldA) [Mass fraction] 98 % Timothy Bajwa MD Work Phone: [facility] 04-10-2022 16:57-0400 Systolic blood pressure 116 mm[Hg] Timothy Bajwa MD Work Phone: [facility] Encounters Encounter Date Encounter Type Care Provider Facility Start: 06-15-2025 End: 06-15-2025 Patient encounter procedure Tena Cruz MD Work Phone: OB/Gynecology Comment on above: Encounter for superv ision of normal first in second trimester (HCC) (Primary Dx); GBS bacteriuria; 20 weeks gestation of ([facility]) Encounter for superv ision of normal first in first trimester (HCC) (Primary Dx); Less than 8 weeks gestation of (HCC) Start: 06-15-2025 End: 06-15-2025 ambulatory [facility] Facility:[facility] Start: 05-30-2025 End: 06-08-2025 ambulatory Mikala Baez APRN.CNM Work Phone: OB/Gynecology Comment on above: Discharge Start: 05-19-2025 End: 05-19-2025 Patient encounter procedure Valorie Ventura MD Work Phone: OB/Gynecology Comment on above: Encounter for superv ision of normal first in second trimester (HCC) (Primary Dx); 16 weeks gestation of ([facility]) Start: 05-19-2025 End: 05-19-2025 ambulatory Valorie Ventura MD Work Phone: OB/Gynecology Comment on above: Motion Sickness Start: 04-19-2025 End: 04-19-2025 ambulatory [facility] Facility:[facility] Start: 04-19-2025 End: 04-19-2025 Patient encounter procedure Kavya Amezquita APRN.CNM Work Phone: OB/Gynecology Comment on above: Encounter for superv ision of normal first in first trimester (HCC) (Primary Dx); 12 weeks gestation of ([facility]); GBS bacteriuria Encounter for antena tonio screening for malformation using ultrasound ([facility]) (Primary Dx); 12 weeks gestation of ([facility]) Start: 04-19-2025 End: 04-19-2025 ambulatory [facility] Facility:[facility] Start: 04-18-2025 End: 04-18-2025 ambulatory Lala Franks RN NURSE POINTER MACHINE OPERATOR Comment on above: Patient Update Start: 04-05-2025 End: 06-05-2025 Follow-up encounter Lala Qureshi APRN.BINGO CALLER Work Phone: OB/Gynecology Start: 03-29-2025 End: 03-29-2025 ambulatory [facility] Start: 03-23-2025 End: 03-23-2025 ambulatory JEEVAN Soraida [facility] Facility:[facility] Start: 03-22-2025 End: 03-22-2025 ambulatory [facility] Facility:[facility] Start: 03-19-2025 End: 03-19-2025 ambulatory JEEVAN Quigley [facility] Facility:[facility] Start: 03-17-2025 End: 03-17-2025 ambulatory [facility] Facility:[facility] Start: 03-17-2025 End: 05-17-2025 Follow-up encounter Mikala Baez APRN.CNM Work Phone: OB/Gynecology Start: 03-16-2025 End: 03-18-2025 ambulatory Mikala Baez APRN.CNM Work Phone: OB/Gynecology Comment on above: Abnormal HCG Start: 03-15-2025 End: 03-15-2025 ambulatory [facility] Facility:[facility] Start: 03-15-2025 End: 03-15-2025 Patient encounter procedure Mikala Baez APRN.SCARLETT Work Phone: OB/Gynecology Comment on above: Less than 8 weeks [place] station of (HCC) (Primary Dx); Screening for cervical cancer; Screen for STD (sexually transmitted disease); H/O cold sores; Threatened (HCC); Generalized anxiety disorder; Encounter for supervision of normal first in first trimester (HCC); History of induced Start: 02-12-2025 End: 02-12-2025 ambulatory Jeevan Lopez MD Work Phone: [facility] Comment on above: Yeast Infection from antibiotic Start: 02-09-2025 End: 02-09-2025 ambulatory Jeevan Lopez MD Work Phone: [facility] Comment on above: Clotrimazole and Bet amethasone Cream Start: 02-09-2025 End: 04-11-2025 Follow-up encounter Jeevan Lopez MD Work Phone: [facility] Start: 02-08-2025 End: 02-08-2025 ambulatory JEEVAN LOPEZ Facility:[facility] Start: 02-08-2025 End: 02-08-2025 Telephone encounter Jeevan Lopez MD Work Phone: [facility] [place] Comment on above: Patient Update; Erik carlisle Start: 01-29-2025 End: 01-29-2025 ambulatory JEEVAN LOPEZ Facility:[facility] Start: 01-29-2025 End: 01-29-2025 Patient encounter procedure Jeevan Lopez MD Work Phone: [facility] Comment on above: URI, acute (Primary Dx) Start: 01-27-2025 End: 01-27-2025 Telephone encounter Jeevan Lopez MD Work Phone: [facility] Comment on above: Patient Update Start: 12-31-2024 End: 12-31-2024 ambulatory GIANA ARBOLEDA Facility:[facility] Start: 12-31-2024 End: 12-31-2024 Patient encounter status Giana Arboleda MD Work Phone: [facility] Start: 12-31-2024 End: 12-31-2024 Periodic preventive med est patient 18-39 yrs Giana Arboleda MD Work Phone: OB/Gynecology Comment on above: Encounter for gyneco logical examination (general) (routine) without abnormal findings (Primary Dx); Screening for STD (sexually transmitted disease) Start: 12-19-2024 End: 12-19-2024 Patient encounter procedure Jeevan Lopez MD Work Phone: [facility] Comment on above: Bronchitis (Primary Dx); Recurrent cold sores Start: 12-19-2024 End: 12-19-2024 ambulatory JEEVAN LOPEZ Facility:[facility] Start: 12-10-2024 End: 12-10-2024 ambulatory TIMOTHY BAJWA Facility:[facility] Start: 12-10-2024 End: 12-10-2024 Patient encounter procedure Timothy Bajwa MD Work Phone: [facility] [place] Comment on above: Viral URI with cough (Primary Dx) Start: 12-07-2024 End: 12-07-2024 ambulatory [facility] Facility:[facility] Start: 12-07-2024 End: 12-07-2024 Office outpatient visit 15 minutes Jonny Ibarra MD Work Phone: [facility] Comment on above: Bronchitis (Primary Dx) Start: 12-03-2024 End: 12-03-2024 Subsequent hospital visit by physician Xr [facility] Work Phone: Radiology Comment on above: Acute cough [R05.1] Start: 12-03-2024 End: 12-03-2024 ambulatory [facility] Facility:[facility] Start: 12-03-2024 End: 12-03-2024 Patient encounter procedure Kacie Cruz APRN.CNP Work Phone: [facility] Comment on above: Acute cough (Primary Dx) Start: 01-22-2024 End: 01-22-2024 ambulatory Joe FERNANDES Facility:[facility] Start: 02-25-2023 Patient Update Ariane Allen [facility] Comment on above: Medication Update (R efill Auth Consent/ ) Start: 12-04-2022 Refill Valorie Ventura MD Work Phone: OB/Gynecology Comment on above: Refill Request Start: 11-23-2022 End: 11-23-2022 Patient encounter procedure Valorie Ventura MD Work Phone: OB/Gynecology Comment on above: Encounter for gyneco logical examination (general) (routine) without abnormal findings (Primary Dx); Surveillance for control, oral contraceptives; Screening for cervical cancer; Screen for STD (sexually transmitted disease) Start: 11-23-2022 End: 11-23-2022 Patient encounter status Valorie Ventura MD Work Phone: OB/Gynecology Start: 10-19-2022 Chart abstracting Gracia Wylie Work Phone: Adult Psychology Comment on above: Behavioral Health So cial Work Start: 10-19-2022 E-mail encounter fro m caregiver Gracia GONZALEZ Work Phone: [facility] MARIANO [facility] Start: 10-19-2022 Follow-up encounter Gracia lucio CANNERY TENDER ENGINEER Work Phone: Adult Psychology Comment on above: Behavioral Health Fo llow Up Start: 10-12-2022 Telephone encounter Gracia lucio CANNERY TENDER ENGINEER Work Phone: Adult Psychology Comment on above: Behavioral Health So cial Work Start: 10-12-2022 End: 10-12-2022 Patient encounter procedure Timothy Bajwa MD Work Phone: [facility] Comment on above: Annual physical exam (Primary Dx); Anxiety with depression; Herpes labialis; Cervical pain (neck); Closed head injury, initial encounter; Need for influenza vaccination; Need for COVID-19 vaccine Start: 09-16-2022 End: 09-16-2022 Patient encounter procedure Kacie Cruz APRN.BINGO CALLER Work Phone: [facility] Comment on above: Sore throat (Primary Dx); At increased risk of exposure to COVID-19 virus Start: 06-22-2022 Telephone encounter Char corley APRN.BINGO CALLER Work Phone: [facility] Comment on above: Results Start: 06-22-2022 End: 06-22-2022 Subsequent hospital visit by physician Sejal [facility] Work Phone: Radiology Comment on above: Acute bilateral thor acic back pain [M54.6] Start: 06-22-2022 End: 06-22-2022 Patient encounter procedure Char Barrett APRN.BINGO CALLER Work Phone: [facility] Comment on above: Closed head injury, initial encounter (Primary Dx); Cervical pain (neck); Acute bilateral thoracic back pain Start: 06-21-2022 End: 06-21-2022 Patient encounter procedure Selam Jauregui PA-C Work Phone: [facility] Comment on above: Closed head injury, initial encounter (Primary Dx) Start: 05-30-2022 End: 05-30-2022 Subsequent hospital visit by physician Sejal [facility] [place] Work Phone: Radiology Comment on above: Injury of right knee , initial encounter [S89.91XA] Start: 05-30-2022 End: 05-30-2022 Patient encounter procedure Heron Choudhury FISHER LAMPARA NET.BINGO CALLER Work Phone: [facility] Comment on above: Injury of right knee , initial encounter (Primary Dx) Start: 04-10-2022 End: 04-10-2022 Patient encounter procedure Timothy Bajwa MD Work Phone: [facility] [place] Comment on above: Anxiety with depress ion (Primary Dx); Recurrent cold sores Procedures Date Procedure Procedure Detail Performing Clinician Start: 06-15-2025 Us preg uterus after 1st trimest 1/1st gestation Mikala Baez FISHER LAMPARA NET.CNM Work Phone: Start: 04-19-2025 Us preg uterus after 1st trimest 1/1st gestation Mikala Baez FISHER LAMPARA NET.CNM Work Phone: Start: 03-15-2025 Antibody screen JEEVAN JOHN Comment on above: Order Comment: Speci men Type: SWAB Ordering Facility: [facility] Address: [address] [place] [address] Performed By: #### [id number] #### [facility] CLIA [id number] [address] [place] [address] [place] [address] [place] Start: 03-15-2025 Us uterus l imited 1/> fetuses Mikala Baez FISHER LAMPARA NET.CNM Work Phone: Start: 12-03-2024 Radiologic exam ches t 2 views Kacie Cruz FISHER LAMPARA NET.BINGO CALLER Work Phone: Start: 11-23-2022 Iadna chlamydia trachomatis amplified probe tq Valorie Ventura MD Work Phone: Start: 10-12-2022 [employer] COVI D-19 BIVALENT BOOSTER VACCINE, AGE 12+ YR Timothy Bajwa MD Work Phone: Start: 10-12-2022 INFLUENZA VACCINE QUADRIVALENT 6 MO - 64 YRS IM Timothy Bajwa MD Work Phone: Start: 09-16-2022 STREP A MOLECULAR (POC) Kacie Cruz APRN.BINGO CALLER Work Phone: Start: 06-22-2022 Radex spine cervical 4 or 5 views Char Barrett APRN.BINGO CALLER Work Phone: Start: 05-30-2022 Radiologic exam knee complete 4/more views Heron Choudhury FISHER LAMPARA NET.BINGO CALLER Work Phone: Start: 01-09-2022 Adult depression scr eening assessment Timothy Bajwa MD Work Phone: Plan of Treatment Date Care Activity Detail Author Start: 12-07-2030 Urine microalbumin profile [facility] Start: 03-15-2028 Screening for malign ant neoplasm of cervix Cervical Cancer Screening [facility] Start: 01-03-2026 End: 01-03-2026 Patient encounter procedure 01/03/2026 4:00 PM EST Office Visit OB/Gynecology [address] [place] [place] [id number] Valorie Meza MD [address] [place] [id number] Annual OB/Gynecology Comment on above: Annual Start: 11-23-2025 PAP TESTING PAP TESTING [facility] Start: 11-23-2025 Screening for malign ant neoplasm of cervix Cervical Cancer Screening [facility] Start: 09-06-2025 RSV Vaccine (1 - Ris k 1-dose series) RSV Vaccine (1 - Risk 1-dose series) [facility] Start: 09-05-2025 RSV Vaccine (1 - Ris k 1-dose series) RSV Vaccine (1 - Risk 1-dose series) [facility] Start: 08-02-2025 Influenza vaccination C [facility] Start: 07-14-2025 End: 07-14-2025 Patient encounter procedure 07/14/2025 8:45 AM EDT Routine Office Visit OB/Gynecology [address] [place] [id number] Lala Qursehi APRN.BINGO CALLER [address] [place] [address] OB OB/Gynecology Comment on above: OB Start: 06-15-2025 End: 06-15-2025 Patient encounter procedure [facility]aternal [facility] Comment on above: Anatomy Anatomy/OB Start: 05-18-2025 End: 05-18-2025 Patient encounter procedure 05/18/2025 10:10 AM EDT Routine Office Visit OB/Gynecology [address] [place] [address] Varsha Houston MD [address] [place] [address] OB OB/Gynecology Comment on above: OB Start: 04-19-2025 End: 07-19-2025 Chromosome 21 trisomy [Presence] in Blood or Tissue by Cytogenetics [facility] Work Phone: Comment on above: Expected: 04/19/2025 , Expires: 07/19/2025 Start: 04-19-2025 End: 07-19-2025 HEMOGLOBIN EVALUATION CASCADE [facility] Comment on above: Expected: 04/19/2025 , Expires: 07/19/2025 Start: 04-19-2025 End: 04-19-2025 Patient encounter procedure Maternal Medicine Comment on above: Nuchal Nuchal/OB - discuss GBS in urine Start: 04-14-2025 End: 04-14-2025 Patient encounter procedure 04/14/2025 10:20 AM EDT Routine Office Visit OB/Gynecology [address] [place] [address] Valorie Meza MD [address] [place] [address] initial , lmp 2/12, cramping and pink discharage OB/Gynecology Comment on above: initial , l mp 2/12, cramping and pink discharage Start: 03-30-2025 End: 03-30-2025 Patient encounter procedure Maternal Medicine Comment on above: Dating Dating/OB Start: 03-23-2025 End: 03-23-2025 Patient encounter procedure 03/23/2025 9:00 AM EDT Routine Office Visit OB/Gynecology [address] [place] [address] Dating OB/Gynecology Comment on above: Dating Start: 03-22-2025 End: 03-22-2025 ambulatory 03/22/2025 2:45 PM EDT Results Only [place] [address] [place] [address] [place] [facility] Start: 03-19-2025 End: 03-19-2025 ambulatory 03/19/2025 10:15 AM EDT Results Only [place] Burn[facility] [address] [place] [address] [place] [facility] Start: 03-17-2025 End: 03-17-2025 ambulatory 03/17/2025 2:30 PM EDT Results Only [place] [facility] [address] [place] [address] [place] [facility] Start: 03-15-2025 End: 06-14-2025 ANEMIA REFLEX PANEL [facility] Work Phone: Comment on above: Expected: 03/15/2025 , Expires: 06/14/2025 Start: 03-15-2025 End: 06-14-2025 Choriogonadotropin.beta subunit [Units/volume] in Serum or Plasma [facility] Comment on above: Expected: 03/15/2025 , Expires: 06/14/2025 Start: 03-15-2025 End: 06-14-2025 Hemoglobin A1c in Blood [facility] Comment on above: Expected: 03/15/2025 , Expires: 06/14/2025 Start: 03-15-2025 End: 03-15-2026 OBSTETRIC ULTRASOUND [facility] Comment on above: Expected: 03/15/2025 , Expires: 03/15/2026 Start: 02-08-2025 End: 05-10-2025 CBC W Auto Differential panel - Blood [facility] Work Phone: Comment on above: Expected: 02/08/2025 , Expires: 05/10/2025 Start: 02-08-2025 End: 05-10-2025 Comprehensive metabolic 2000 panel - Serum or Plasma [facility] Comment on above: Expected: 02/08/2025 , Expires: 05/10/2025 Start: 01-29-2025 End: 01-29-2025 Patient encounter procedure 01/29/2025 3:40 PM EST Office Visit Family Medicine [place] [address] [place], [place] [address] Jeevan Lopez MD [address] [place], [place] [id number] On going congestion/head cold. Family Medicine [place] Comment on above: On going congestion/ head cold. Start: 12-31-2024 End: 12-31-2024 Patient encounter procedure 12/31/2024 1:20 PM EST Office Visit OB/Gynecology [address] [place] [address] Giana Arboleda MD [address] [place] [address] ANNUAL OB/Gynecology Comment on above: ANNUAL Start: 12-08-2024 End: 12-08-2024 Patient encounter procedure 12/08/2024 1:20 PM EST Office Visit OB/Gynecology [address] [place] [address] Giana Arboleda MD [address] [place] [address] ANNUAL OB/Gynecology Comment on above: ANNUAL Start: 11-14-2024 PAP TESTING PAP TESTING [facility] Start: 08-02-2024 Covid-19 Vaccine () Covid-19 Vaccine () [facility] Start: 08-02-2024 Influenza vaccination Influenza Vacc ine (#1) [facility] Start: 11-23-2023 Screening for malign ant neoplasm of cervix Cervical Cancer Screening [facility] Start: 01-09-2023 Adult depression screening assessment DEPRESSION SCREENING [facility] Start: 09-16-2022 End: 09-30-2022 Influenza virus A and B RNA and SARS-CoV-2 (COVID-19) N gene panel - Respiratory specimen by ARIANA with probe detection COVID WITH FLUA+B, ROUTINE Microbiology Routine Sore throat At increased risk of exposure to COVID-19 virus Expected: 09/16/2022, Expires: 09/30/2022 [facility] Work Phone: Comment on above: Expected: 09/16/2022 , Expires: 09/30/2022 Start: 08-02-2022 Influenza vaccination INFLUENZA (#1) [facility] Start: 12-19-2021 COVID-19 VACCINE (4 - Booster for Moderna series) COVID-19 VACCINE (4 - Booster for Moderna series) [facility] Start: 2015 Depression Screening Depression Scre ening [facility] Start: 2013 MENINGOCOCCAL B: Consider based on risk (2 of 2 - Risk Bexsero 2-dose series) MENINGOCOCCAL B: Consider based on risk (2 of 2 - Risk Bexsero 2-dose series) [facility] Start: 2011 PEDS TO ADULT TRANSI TION ANNUAL ASSESSMENT PEDS TO ADULT TRANSITION ANNUAL ASSESSMENT [facility] Start: 2009 PEDS TO ADULT TRANSI TION INITIAL DISCUSSION PEDS TO ADULT TRANSITION INITIAL DISCUSSION [facility] Bacteria identified in Urine by Culture BACTERIAL CULTURE, URINE Microbiology Routine Less than 8 weeks gestation of (HCC) 03/15/2025 10:04 AM EDT [facility] Chlamydia trachomatis+Neisseria gonorrhoeae DNA [Presence] in Unspecified specimen by ARIANA with probe detection GONORRHEA/CHLAMYDIA NAAT Lab Routine Encounter for gynecological examination (general) (routine) without abnormal findings Screening for STD (sexually transmitted disease) 12/31/2024 3:05 PM EST [facility] Work Phone: Chlamydia trachomatis+Neisseria gonorrhoeae DNA [Presence] in Unspecified specimen by ARIANA with probe detection GONORRHEA/CHLAMYDIA NAAT Lab Routine Less than 8 weeks gestation of (HCC) Screen for STD (sexually transmitted disease) 03/15/2025 10:04 AM EDT [facility] End: 03-15-2026 Choriogonadotropin.beta subunit [Units/volume] in Serum or Plasma HCG QUANTITATIVE Lab Routine Less than 8 weeks gestation of (HCC) Threatened (HCC) 2x per week for 8 Occurrences starting 03/15/2025 until 03/15/2026 [facility] Comment on above: 2x per week for 8 Oc currences starting 03/15/2025 until 03/15/2026 PAP FLUID CERVICAL SCREENING PAP FLUID CERVICAL SCREENING Lab Routine Screening for cervical cancer 11/23/2022 12:02 PM EST [facility] Work Phone: PAP TEST PAP TEST Lab Rou jered Less than 8 weeks gestation of (HCC) Screening for cervical cancer 03/15/2025 10:04 AM T [facility] TRICHOMONAS VAGINALI S NAAT TRICHOMONAS VAGINALIS NAAT Lab Routine Less than 8 weeks gestation of (HCC) Screen for STD (sexually transmitted disease) 03/15/2025 10:04 AM EDT [facility] Immunizations Immunization Date Immunization Notes Care Provider [facility] 10-12-2022 COVID-19 booster vaccine, age 12+ yr, bivalent (Travelmenu-BIONTMobim) Gracia Liu [facility] Work Phone: [facility] 10-12-2022 influenza, injectabl e, quadrivalent, contains preservative Gracia Liu [facility] Work Phone: [facility] 10-12-2022 influenza virus vaccine, unspecified formulation Xr [place] Work Phone: [facility] 10-24-2021 COVID-19 vaccine, fu ll dose (MODERNA) Timothy Bajwa MD Work Phone: [facility] 10-03-2021 Influenza, injectabl e, [place] Canine Kidney, preservative free, quadrivalent Jeevan Lopez MD Work Phone: [facility] 12-07-2020 tetanus and diphther ia toxoids, adsorbed, preservative free, for adult use (5 Lf of tetanus toxoid and 2 Lf of diphtheria toxoid) Timothy Bajwa MD Work Phone: [facility] 10-01-2020 influenza, injectabl e, quadrivalent, preservative free Timothy Bajwa MD Work Phone: [facility] 12-30-2009 human papilloma viru s vaccine, quadrivalent Timothy Bajwa MD Work Phone: [facility] 12-30-2009 Human Papillomavirus 9-valent vaccine Timothy Bajwa MD Work Phone: [facility] Work Phone: 08-31-2009 human papilloma viru s vaccine, quadrivalent Timothy Bajwa MD Work Phone: [facility] 08-31-2009 Human Papillomavirus 9-valent vaccine Timothy Bajwa MD Work Phone: [facility] Work Phone: 07-01-2009 meningococcal ACWY vaccine, unspecified formulation Timothy Bajwa MD Work Phone: [facility] 07-01-2009 Meningococcal, MCV4, unspecified conjugate formulation(groups A, C, Y and W-135) Timothy Bajwa MD Work Phone: [facility] Work Phone: 06-29-2009 human papilloma viru s vaccine, quadrivalent Timothy Bajwa MD Work Phone: [facility] 06-29-2009 Human Papillomavirus 9-valent vaccine Timothy Bajwa MD Work Phone: [facility] Work Phone: 06-29-2009 tetanus toxoid, reduced diphtheria toxoid, and acellular pertussis vaccine, adsorbed Timothy Bajwa MD Work Phone: [facility] 08-17-2002 poliovirus vaccine, inactivated Timothy Bajwa MD Work Phone: [facility] 07-17-2002 diphtheria, tetanus toxoids and acellular pertussis vaccine, unspecified formulation Timothy Bajwa MD Work Phone: [facility] 07-17-2002 measles, mumps and rubella virus vaccine Timothy Bajwa MD Work Phone: [facility] 07-17-2002 poliovirus vaccine, inactivated Timothy Bajwa MD Work Phone: [facility] 1999 diphtheria, tetanus toxoids and acellular pertussis vaccine, 5 pertussis antigens Timothy Bajwa MD Work Phone: [facility] Work Phone: 1999 diphtheria, tetanus toxoids and acellular pertussis vaccine, unspecified formulation Timothy Bajwa MD Work Phone: [facility] 1999 hepatitis B vaccine, pediatric or pediatric/adolescent dosage Timothy Bajwa MD Work Phone: [facility] 1999 poliovirus vaccine, inactivated Timothy Bajwa MD Work Phone: [facility] 08-17-1998 measles, mumps and rubella virus vaccine Timothy Bajwa MD Work Phone: [facility] 05-14-1998 haemophilus influenz ae type b vaccine, conjugate unspecified formulation Timothy Bajwa MD Work Phone: [facility] 05-03-1998 diphtheria, tetanus toxoids and acellular pertussis vaccine, 5 pertussis antigens Timothy Bajwa MD Work Phone: [facility] Work Phone: 05-03-1998 diphtheria, tetanus toxoids and acellular pertussis vaccine, unspecified formulation Timothy Bajwa MD Work Phone: [facility] 05-03-1998 haemophilus influenz ae type b vaccine, HbOC conjugate Timothy Bajwa MD Work Phone: [facility] 05-03-1998 hepatitis B vaccine, pediatric or pediatric/adolescent dosage Timothy Bajwa MD Work Phone: [facility] 01-14-1998 diphtheria, tetanus toxoids and acellular pertussis vaccine, 5 pertussis antigens Timothy Bajwa MD Work Phone: [facility] Work Phone: 01-14-1998 diphtheria, tetanus toxoids and acellular pertussis vaccine, unspecified formulation Timothy Bajwa MD Work Phone: [facility] 01-14-1998 haemophilus influenz ae type b vaccine, HbOC conjugate Timothy Bajwa MD Work Phone: [facility] 01-14-1998 hepatitis B vaccine, pediatric or pediatric/adolescent dosage Timothy Bajwa MD Work Phone: [facility] 01-14-1998 poliovirus vaccine, inactivated Timothy Bajwa MD Work Phone: [facility] 1997 diphtheria, tetanus toxoids and acellular pertussis vaccine, 5 pertussis antigens Timothy Bajwa MD Work Phone: [facility] Work Phone: 1997 diphtheria, tetanus toxoids and acellular pertussis vaccine, unspecified formulation Timothy Bajwa MD Work Phone: [facility] 1997 haemophilus influenz ae type b vaccine, conjugate unspecified formulation Timothy Bajwa MD Work Phone: [facility] Work Phone: 1997 haemophilus influenz ae type b vaccine, HbOC conjugate Timothy Bajwa MD Work Phone: [facility] 1997 hepatitis B vaccine, pediatric or pediatric/adolescent dosage Timothy Bajwa MD Work Phone: [facility] 1997 poliovirus vaccine, inactivated Timothy Bajwa MD Work Phone: [facility] 1997 hepatitis B vaccine, pediatric or pediatric/adolescent dosage Timothy Bajwa MD Work Phone: [facility] Payers Date Payer Category Payer Unknown [id number] 2025 Medicaid [id number] 2025 Medicaid [id number] 2024 Unknown MMO MMO [employer]PER[employer] PPO [id number] 2024-Present [phone] [address] [place] [address] PPO [id number] 2024 Unknown [id number] 2024 Self-pay 2024 Unknown [id number] 2021 Private Health Insurance EHP AET NA EHP STAFF/NON STAFF / EHP [facility] [id number] 2021-[address] [place] [address] EPO [id number] 2021 Private Health Insurance [id number] Unknown [id number] Unknown [id number] Social History Date Type Detail Facility Start: 03-22-2015 End: 09-16-2022 Tobacco smoking status NHIS Never smoked tobacco [facility] Start: 03-22-2015 End: 09-16-2022 Tobacco use and exposure Smokeless tobacco non-user [facility] Start: 04-10-2022 End: 01-29-2025 Alcohol intake Current drinker of alcohol (finding) [facility] Start: 01-08-2022 History SDOH Alcohol Frequency 2 [facility] Start: 01-08-2022 History SDOH Alcohol Std Drinks 1 [facility] Start: 12-07-2020 History SDOH Alcohol Comment rarely [facility] Start: 01-08-2022 History SDOH Social Connections Phone 5 [facility] Start: 01-08-2022 History SDOH Social Connections Get Together 4 [facility] Start: 01-08-2022 History SDOH Social Connections Meetings 3 [facility] Start: 01-08-2022 History SDOH Social Connections Living 7 [facility] Start: 01-08-2022 History SDOH Physica l Activity DPW 6 [facility] Start: 1997 Sex Assigned At Female C [facility] Start: 04-22-2022 End: 10-12-2022 Exposure to SARS-CoV-2 (event) Not sure [facility] Start: 01-07-2022 End: 12-08-2024 History of Social function [facility] Start: 01-07-2022 End: 12-08-2024 Social connection and isolation panel [facility] Do you belong to any clubs or organizations such as denominational groups, unions, fraternal or athletic groups, or school groups? Yes [facility] Are you now , , , , never or living with a partner? Never [facility] How often to you hav e a drink containing alcohol? Monthly or less [facility] How many standard dr inks containing alcohol do you have on a typical day? 1 or 2 [facility] How often do you hav e 6 or more drinks on 1 occasion? Never [facility] How hard is it for y ou to pay for the very basics like food, housing, medical care, and heating Not hard at all [facility] Do you feel stress - tense, restless, nervous, or anxious, or unable to sleep at night because your mind is troubled all the time - these days [OSQ] To some extent [facility] (I/We) worried jenn er (my/our) food would run out before (I/we) got money to buy more. Never true [facility] In the past 12 month s, was there a time when you were not able to pay the mortgage or rent on time? No [facility] Start: 11-13-2021 Gender identity Identifies as female gender (finding) [facility] Start: 11-13-2021 Sexual orientation Heterosexual (kehinde gallardo) [facility] Do you feel stress - tense, restless, nervous, or anxious, or unable to sleep at night because your mind is troubled all the time - these days [OSQ] Not at all [facility] Start: 03-15-2025 Alcoholic beverage intake Ex-drinker (finding) [facility] Start: 02-07-2025 [facility] Functional Status Date Assessment Result Facility 03-22-2015 Are you deaf, or do you have serious difficulty hearing No 03/22/2015 4:20 PM EDT Gabriela Peralta LPN No [facility] 03-22-2015 Are you blind, or do you have serious difficulty seeing, even when wearing glasses No 03/22/2015 4:20 PM EDT Gabriela Peralta LPN No [facility] 03-22-2015 Do you have serious difficulty walking or climbing stairs No 03/22/2015 4:20 PM EDT Gabriela Peralta LPN No [facility] 03-22-2015 Do you have difficul ty dressing or bathing No 03/22/2015 4:20 PM EDT Gabriela Peralta LPN No [facility] 03-22-2015 Because of a physica l, mental, or emotional condition, do you have difficulty doing errands alone such as visiting a physician's office or shopping No 03/22/2015 4:20 PM EDT Gabriela Peralta LPN No [facility] Mental Status Date Assessment Result Facility 03-22-2015 Because of a physica l, mental, or emotional condition, do you have serious difficulty concentrating, remembering, or making decisions No 03/22/2015 4:20 PM EDT Gabriela Peralta LPN No [facility] Clinical Notes 04-10-2022 to 06-15-2025 Quick Notes - Tena Cruz MD - 06/15/2025 11:19 AM EDTPrenatal Quick Notes - Tena Cruz MD - 06/15/2025 11:19 AM EDTPatient InstructionsPatient InstructionsPatient Instructions Note Date & Type Note Facility 06-15-2025 Progress note Formatting of t his note might be different from the original. KJ - S: Mi denies LOF, contractions or vaginal bleeding. She reports increased headaches. O: 20w1d, see flow sheet SENSITIVE EXAM: Sensitive exam not performed. A/P: Assessment & Plan Encounter for supervision of normal first in second trimester ([facility]) GBS bacteriuria 20 weeks gestation of ([facility]) Anatomy US today Headaches - advised on magnesium & hydration. Tena Cruz MD [facility] 06-15-2025 Miscellaneous Notes KJ - S: Mi denies LOF, contractions or vaginal bleeding. She reports increased headaches. O: 20w1d, see flow sheet SENSITIVE EXAM: Sensitive exam not performed. A/P: Assessment & Plan Encounter for supervision of normal first in second trimester (HCC) GBS bacteriuria 20 weeks gestation of ([facility]) Anatomy US today Headaches - advised on magnesium & hydration. Tena Cruz MD documented in this encounter [facility] 06-15-2025 Instructions Deborah Brand MA - 06/15/2025 11:06 AM EDT SEQUENTIAL SCREENINGS The [facility] offers sequential screenings for women who are interested in screenings for chromosomal abnormalities and certain defects during a . The sequential screen combines ultrasound and blood tests to determine the risk of chromosomal abnormalities, including Down's Syndrome (Trisomy 21) and Trisomy 18, as well as open neural tube defects including spina bifida. Ultrasound examination is performed between 11 weeks and 13 weeks gestational age. Blood tests are drawn after the ultrasound and again later in the between 15 and 21 weeks gestational age. Please let your physician know if you are interested in this testing. It will require an appointment with our tv technician. This is not an ultrasound performed by a physician in our office during a routine visit. SIGNS AND SYMPTOMS OF LABOR 1. Contractions every 10 minutes or more often 2. Clear, pink, or brownish fluid (water) leaking from vagina 3. Feeling that baby is pushing down, pressure 4. Low, dull backache 5. Cramps that feel like a period 6. Cramps with or without diarrhea If you notice any of the above symptoms, contact our office at [phone] and ask to speak with a nurse. After hours, you can call doctors registry at [phone] OR call [facility] at [phone] and ask to have the doctor emd special education teacher paged. If you consider this an emergency, dial 9-1-1 or go to your nearest emergency department. NEED HELP? Are you dealing with a violent or abusive relationship? Are you a victim of rape or sexual assult? Call [facility] ([place]) 24 hour Crisis Hotline: 438.118.1208 or 103-251-3046. MANUAL Your Guide to a Healthy manual is now on-line. Visit [email or web address] ancyGuide to download your free copy documented in this encounter [facility] 05-19-2025 Telephone encounter Note Please advise. Planned to recommend [employer]. Other options? Thank you. [facility] 05-19-2025 Miscellaneous Notes Please advise. Planned to recommend [employer]. Other options? Thank you. documented in this encounter [facility] 05-19-2025 Progress note Formatting of t his note might be different from the original. DM-Pt doing well. Denies vaginal Bleeding, Leaking fluid, or regular Contractions. Pt reports good movement Physical Exam: Gen: female in no apparent distress Abd: soft, Gravid. Non tender to palpation. See flow sheet @ 16.2 weeks Assessment & Plan Encounter for supervision of normal first in second trimester (HCC) 16 weeks gestation of (HCC) RTO 4 wks Anatomy us scheduled Continue MARLENE Luna MD [facility] 05-19-2025 Miscellaneous Notes DM-Pt doing well. Denies vaginal Bleeding, Leaking fluid, or regular Contractions. Pt reports good movement Physical Exam: Gen: female in no apparent distress Abd: soft, Gravid. Non tender to palpation. See flow sheet @ 16.2 weeks Assessment & Plan Encounter for supervision of normal first in second trimester (HCC) 16 weeks gestation of (HCC) RTO 4 wks Anatomy us scheduled Continue ASA Valorie Neyhart-Ventura, MD documented in this encounter [facility] 05-19-2025 Instructions Lori Lloyd MA - 05/19/2025 8:03 AM EDT SEQUENTIAL SCREENINGS The [facility] offers sequential screenings for women who are interested in screenings for chromosomal abnormalities and certain defects during a . The sequential screen combines ultrasound and blood tests to determine the risk of chromosomal abnormalities, including Down's Syndrome (Trisomy 21) and Trisomy 18, as well as open neural tube defects including spina bifida. Ultrasound examination is performed between 11 weeks and 13 weeks gestational age. Blood tests are drawn after the ultrasound and again later in the between 15 and 21 weeks gestational age. Please let your physician know if you are interested in this testing. It will require an appointment with our tv technician. This is not an ultrasound performed by a physician in our office during a routine visit. SIGNS AND SYMPTOMS OF LABOR 1. Contractions every 10 minutes or more often 2. Clear, pink, or brownish fluid (water) leaking from vagina 3. Feeling that baby is pushing down, pressure 4. Low, dull backache 5. Cramps that feel like a period 6. Cramps with or without diarrhea If you notice any of the above symptoms, contact our office at [phone] and ask to speak with a nurse. After hours, you can call doctors registry at [phone] OR call [facility] at [phone] and ask to have the doctor emd special education teacher paged. If you consider this an emergency, dial 9-1-8 or go to your nearest emergency department. NEED HELP? Are you dealing with a violent or abusive relationship? Are you a victim of rape or sexual assult? Call [facility] ([facility] 24 hour Crisis Hotline: 986.486.7560 or 794-329-7845. MANUAL Your Guide to a Healthy manual is now on-line. Visit [email or web address] ancyGuide to download your free copy documented in this encounter [facility] 04-19-2025 Progress note Formatting of t his note might be different from the original. STEPHIE-S: Mi Ortez is a 29 year old female who presents at 12w0d with ESPERANZA:11/01/2025, by Ultrasound for a routine visit. Denies headache, visual changes, chest pain, shortness of breath, vaginal bleeding, leakage of fluid, or dysuria. Feeling well, no complaints. NT US today O: See flow sheet Gen: No apparent distress Abd: nontender ASSESSMENT/PLAN: 1. Encounter for supervision of normal first in first trimester - [id number] PLUS - HEMOGLOBIN EVALUATION CASCADE - PN labs reviewed - Declines carrier screening today - Anatomy US at 20wk 2. 12 weeks gestation of 3. GBS bacteriuria -Reviewed treatment during labor PTL precautions reviewed and when to call RTO in 4 weeks Kavya Amezquita APRN.CNM [facility] 04-19-2025 Miscellaneous Notes STEPHIE-S: Mi Ortez is a 29 year old female who presents at 12w0d with ESPERANZA:11/01/2025, by Ultrasound for a routine visit. Denies headache, visual changes, chest pain, shortness of breath, vaginal bleeding, leakage of fluid, or dysuria. Feeling well, no complaints. NT US today O: See flow sheet Gen: No apparent distress Abd: nontender ASSESSMENT/PLAN: 1. Encounter for supervision of normal first in first trimester - [id number] PLUS - HEMOGLOBIN EVALUATION CASCADE - PN labs reviewed - Declines carrier screening today - Anatomy US at 20wk 2. 12 weeks gestation of 3. GBS bacteriuria -Reviewed treatment during labor PTL precautions reviewed and when to call RTO in 4 weeks Kavya Amezquita APRN.CNM documented in this encounter [facility] 04-19-2025 René Barnard MA - 04/19/2025 2:43 PM EDT SEQUENTIAL SCREENINGS The [facility] offers sequential screenings for women who are interested in screenings for chromosomal abnormalities and certain defects during a . The sequential screen combines ultrasound and blood tests to determine the risk of chromosomal abnormalities, including Down's Syndrome (Trisomy 21) and Trisomy 18, as well as open neural tube defects including spina bifida. Ultrasound examination is performed between 11 weeks and 13 weeks gestational age. Blood tests are drawn after the ultrasound and again later in the between 15 and 21 weeks gestational age. Please let your physician know if you are interested in this testing. It will require an appointment with our tv technician. This is not an ultrasound performed by a physician in our office during a routine visit. SIGNS AND SYMPTOMS OF LABOR 1. Contractions every 10 minutes or more often 2. Clear, pink, or brownish fluid (water) leaking from vagina 3. Feeling that baby is pushing down, pressure 4. Low, dull backache 5. Cramps that feel like a period 6. Cramps with or without diarrhea If you notice any of the above symptoms, contact our office at [phone] and ask to speak with a nurse. After hours, you can call doctors registry at [phone] OR call [facility] at [phone] and ask to have the doctor emd special education teacher paged. If you consider this an emergency, dial 1-4-9 or go to your nearest emergency department. NEED HELP? Are you dealing with a violent or abusive relationship? Are you a victim of rape or sexual assult? Call [facility] ([place]) 24 hour Crisis Hotline: 412.242.8836 or 726-711-3094. MANUAL Your Guide to a Healthy manual is now on-line. Visit [email or web address] to download your free copy documented in this encounter [facility] 04-18-2025 Telephone encounter Note Patient calling regarding having constipation for 3 days, took metamucil this morning and noticed blood when she urinated a few minutes ago. Patient is 11 weeks .Conferenced to Answering Service [phone] to speak with provider emd special education teacher for Dr. Baez. GO TO THE EMERGENCY ROOM OR CALL 911 IF: * You develop any new symptoms * Your condition worsens * You are concerned or anxious about your condition for any other reason. If you have any questions, you can call Nurse educational technician back. [facility] 04-18-2025 Miscellaneous Notes Patient calling regarding having constipation for 3 days, took metamucil this morning and noticed blood when she urinated a few minutes ago. Patient is 11 weeks .Conferenced to Answering Service [phone] to speak with provider emd special education teacher for Dr. Baez. GO TO THE EMERGENCY ROOM OR CALL 911 IF: * You develop any new symptoms * Your condition worsens * You are concerned or anxious about your condition for any other reason. If you have any questions, you can call Nurse educational technician back. documented in this encounter [facility] 03-25-2025 Note HNO ID: [id number] Author: SHANAE FLORES MD Service: ? Author Type: Physician Type: Progress Notes Filed: 03/25/2025 08:15 Note Text: Mi Ortez is a 29 year old female who presented for caseworker protective services ultrasound today. Encounter Diagnosis ICD-10-CM 1. Less than 8 weeks gestation of (HCC) Z3A.01 2. Threatened (HCC) O20.0 Please see report under imaging tab. Shanae Flores MD March 25, 2025 8:10 AM [facility] 03-23-2025 Note HNO ID: [id number] Author: KAVYA AMEZQUITA APRN.CNM Service: ? Author Type: Senior Strategy Manager Type: Progress Notes Filed: 03/29/2025 08:40 Note Text: STEPHIE-Presents today for follow up visit after US to confirm dating of . US today showing ESPERANZA: 11/01/25 by US on 03/15/25 and confirmed today, dating updated. Reviewed previously labs and normal. Reviewed NIPT and carrier screening, will check with insurance. Return for routine visit and NT US. No further serum quants needed. Kavya Amezquita APRN.CNM [facility] 03-18-2025 Telephone encounter Note Patient called and notified of information below. Ultrasound rescheduled for early next week. Leida Restrepo RN [facility] 03-18-2025 Miscellaneous Notes Patient called and notified of information below. Ultrasound rescheduled for early next week. Leida Restrepo RN HCG levels slight decrease. I would recommend she have another level drawn tomorrow. If possible, can we get her scheduled for ultrasound early next week instead of visit on 03/30/25. Thank you. Mikala Baez APRN.CNM hCG Quantitative, Blood (mIU/mL) Date Value 03/17/2025 106,048.0 03/15/2025 112,042.0 Please review. Patient 7w4d, seen in office on 03/15 for New OB. Leida Restrepo RN hCG Quantitative, Blood (mIU/mL) Date Value 03/15/2025 112,042.0 documented in this encounter [facility] 03-18-2025 Telephone encounter Note HCG levels slight decrease. I would recommend she have another level drawn tomorrow. If possible, can we get her scheduled for ultrasound early next week instead of visit on 03/30/25. Thank you. Mikala Baez APRN.CNM [facility] 03-18-2025 Telephone encounter Note hCG Quantitative, Blood (mIU/mL) Date Value 03/17/2025 106,048.0 03/15/2025 112,042.0 Please review. Patient 7w4d, seen in office on 03/15 for New OB. Leida Restrepo RN [facility] 03-16-2025 Telephone encounter Note hCG Quantitative, Blood (mIU/mL) Date Value 03/15/2025 112,042.0 [facility] 03-15-2025 Progress note Formatting of t his note might be different from the original. Patient is here for NOB. LMP 01/13/25 which makes gestational age at 8 weeks. [facility] and [facility] confirmed IUP but measurements were 1 week earlier. TVUS today shows IUP measurements of 7 weeks 1 day. Positive cardiac activity. Mikala Baez APRN.CNM [facility] 03-15-2025 Miscellaneous Notes Patient is here for NOB. LMP 01/13/25 which makes gestational age at 8 weeks. She was seen [facility] last week and TVUS confirmed IUP but measurements were 1 week earlier. TVUS today shows IUP measurements of 7 weeks 1 day. Positive cardiac activity. Mikala Baez APRN.CNM documented in this encounter [facility] 03-15-2025 Instructions Deborah Brand MA - 03/15/2025 8:21 AM EDT Please select the following link to access the [facility] Your Guide to a Healthy . [email or web address] documented in this encounter [facility] 03-15-2025 Note HNO ID: [id number] Author: MIKALA BAEZ APRN.CNM Service: ? Author Type: Senior Strategy Manager Type: Progress Notes Filed: 03/15/2025 10:56 Note Text: Sew On Operator offered: Patient declines. INITIAL OB ASSESSMENT HPI: Mi is a 29 year old /Multicultural Female here to establish Obstetrical Care. Patient's last menstrual period was 01/13/2025. from OB Dating Form. was unplanned but accepted Complaints: (!) Abdominal pain; Blood in stool or urine OB History Gravida1 Para0 Term0 Preterm0 AB1 Living0 SAB0 IAB1 Ectopic0 Multiple0 Live Births0 Previous history: Prior : No History of 4th degree laceration: No History of shoulder dystocia: No History of Hypertensive disorders including pre-eclampsia or gestational hypertension: No History of gestational diabetes: No Patient's Risk Screening for delivery: Have you had a prior wong between 20w and 36w6d? No How many pregnancies have you had before? 1 Did you have a previous baby with a GBS Infection? No Please select all that apply for any prior : N/A MEDICAL/PSYCHOSOCIAL HISTORY: History of hemorrhage or bleeding concerns: No Thyroid Disease: No History of chronic hypertension: No History of pre-existing diabetes: No No results found for: ABORHD BMI 22.77 kg/(m2) Last Pap: 11/23/2022 normal History of abnormal pap: Yes Prior treatment for cervical dysplasia: none. Last HPV: 11/14/2021 negative History of STDs: none Partner History of STDs: None Did you have a partner with Herpes? No Tobacco use: No E-Cigarette/Vaping Use: No Caffeine use: No Drug use: No Alcohol use: No Multivitamin with Folic acid: Yes Would refuse blood transfusion if medically necessary: No Social Needs: How often does this describe you? I don't have enough money to pay my bills: Never Within the past 12 months, have you worried that your food would run out before you had money to buy more? Never In the past 12 months, has lack of reliable transportation kept you from going to medical appointments or work, or from getting things needed for daily living? Never In the past 12 months, have you had any concerns about having a place to live, or about the condition or quality of your housing? Never Would you like more information on any of the following (please check all that apply)? Senior Strategy Manager care Social History: Do you have any history of depression, anxiety, PTSD, or other mood problems? Yes Do you have a history of abuse or trauma that may impact your experience? No Are you currently employed? Yes Depression/Anxiety Screening: denies symptoms of depression. OB Depression and Anxiety Screening- This Encounter (since 03/14/2025) None Genetic Screening: Partner present: No Patient verbalized knowledge of partner family health history: Yes Do you or your partner have any personal or family history of defects not previously discussed: No Do you have history of a complicated by anomaly, genetic condition, or demise: No Preeclampsia Risk Screening: Screening for prevention of preeclampsia: High risk factors: None Moderate risk ractors: Nulliparity OB Risk Screening: Completed, no positive findings documented. Marital Status:Single Partner: Name: Nick harry Age: 32 Occupation: [employer] Gender: Male Does patient have penicillin allergy: No REVIEW OF SYSTEMS: GENERAL: Negative for: Fever or Chills and Positive for: Fatigue HEENT: Negative for: Headache, Impaired Vision, Ringing in Ears, Nosebleeds NECK: Negative for: Swelling, Pain, Stiffness RESPIRATORY: Negative for: Cough, Shortness of breath, Wheezing GASTROINTESTINAL: Positive for: Constipation MUSCULOSKELETAL: Negative for: Muscle or joint pain, stiffness, Joint swelling NEUROLOGIC/PSYCHIATRIC: Negative for: Weakness, Paralysis, Numbness, Tingling, Tremor, Memory loss Hx of anxiety/ no medications SKIN: Negative for: Rash, Itching GENITOURINARY: Negative for: vaginal itching, vaginal discharge, hematuria or dysuria and Positive for: urinary frequency SENSITIVE EXAM: The sensitive examination was discussed with the Patient or Patient's Authorized Architecture Analyst. As applicable, any other physician, advance practice provider, medical student, or other health professional student that will be observing or involved in the sensitive examination for educational or training purposes was discussed with the Patient or Authorized Architecture Analyst. The Patient or Authorized Architecture Analyst has agreed to proceed with the sensitive examination. (Sensitive examination includes inspection and/or palpation of the breasts, pelvis, prostate and anorectal regions). PHYSICAL EXAM: BP 114/60 Ht 5' 4.567 (1.64m) Wt 135 lb (61.2kg) LMP 01/13/2025 BMI 22.77 kg/(m2). GENERAL: pleasant in no apparent distress DERMATOLOGY: No (more content not included)... [facility] 03-15-2025 History of Presen t illness Narrative Sew On Operator offered: Patient declines. INITIAL OB ASSESSMENT HPI: Mi is a 29 year old /Multicultural Female here to establish Obstetrical Care. Patient's last menstrual period was 01/13/2025. from OB Dating Form. was unplanned but accepted Complaints: (!) Abdominal pain; Blood in stool or urine OB History Gravida1 Para0 Term0 Preterm0 AB1 Living0 SAB0 IAB1 Ectopic0 Multiple0 Live Births0 Previous history: Prior : No History of 4th degree laceration: No History of shoulder dystocia: No History of Hypertensive disorders including pre-eclampsia or gestational hypertension: No History of gestational diabetes: No Patient's Risk Screening for delivery: Have you had a prior wong between 20w and 36w6d? No How many pregnancies have you had before? 1 Did you have a previous baby with a GBS Infection? No Please select all that apply for any prior : N/A MEDICAL/PSYCHOSOCIAL HISTORY: History of hemorrhage or bleeding concerns: No Thyroid Disease: No History of chronic hypertension: No History of pre-existing diabetes: No No results found for: ABORHD BMI 22.77 kg/(m^2) Last Pap: 11/23/2022 normal History of abnormal pap: Yes Prior treatment for cervical dysplasia: none. Last HPV: 11/14/2021 negative History of STDs: none Partner History of STDs: None Did you have a partner with Herpes? No Tobacco use: No E-Cigarette/Vaping Use: No Caffeine use: No Drug use: No Alcohol use: No Multivitamin with Folic acid: Yes Would refuse blood transfusion if medically necessary: No Social Needs: How often does this describe you? I don't have enough money to pay my bills: Never Within the past 12 months, have you worried that your food would run out before you had money to buy more? Never In the past 12 months, has lack of reliable transportation kept you from going to medical appointments or work, or from getting things needed for daily living? Never In the past 12 months, have you had any concerns about having a place to live, or about the condition or quality of your housing? Never Would you like more information on any of the following (please check all that apply)? Senior Strategy Manager care Social History: Do you have any history of depression, anxiety, PTSD, or other mood problems? Yes Do you have a history of abuse or trauma that may impact your experience? No Are you currently employed? Yes Depression/Anxiety Screening: denies symptoms of depression. OB Depression and Anxiety Screening- This Encounter (since 03/14/2025) None Genetic Screening: Partner present: No Patient verbalized knowledge of partner family health history: Yes Do you or your partner have any personal or family history of defects not previously discussed: No Do you have history of a complicated by anomaly, genetic condition, or demise: No Preeclampsia Risk Screening: Screening for prevention of preeclampsia: High risk factors: None Moderate risk ractors: Nulliparity OB Risk Screening: Completed, no positive findings documented. 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 Gender: Male Does patient have penicillin allergy: No REVIEW OF SYSTEMS: GENERAL: Negative for: Fever or Chills and Positive for: Fatigue HEENT: Negative for: Headache, Impaired Vision, Ringing in Ears, Nosebleeds NECK: Negative for: Swelling, Pain, Stiffness RESPIRATORY: Negative for: Cough, Shortness of breath, Wheezing GASTROINTESTINAL: Positive for: Constipation MUSCULOSKELETAL: Negative for: Muscle or joint pain, stiffness, Joint swelling NEUROLOGIC/PSYCHIATRIC: Negative for: Weakness, Paralysis, Numbness, Tingling, Tremor, Memory loss Hx of anxiety/ no medications SKIN: Negative for: Rash, Itching GENITOURINARY: Negative for: vaginal itching, vaginal discharge, hematuria or dysuria and Positive for: urinary frequency SENSITIVE EXAM: The sensitive examination was discussed with the Patient or Patient's Authorized Architecture Analyst. As applicable, any other physician, advance practice provider, medical student, or other health professional student that will be observing or involved in the sensitive examination for educational or training purposes was discussed with the Patient or Authorized Architecture Analyst. The Patient or Authorized Architecture Analyst has agreed to proceed with the sensitive examination. (Sensitive examination includes inspection and/or palpation of the breasts, pelvis, prostate and anorectal regions). PHYSICAL EXAM: BP 114/60 Ht 5' 4.567 (1.64m) Wt 135 lb (61.2kg) LMP 01/13/2025 BMI 22.77 kg/(m^2). GENERAL: pleasant in no apparent distress DERMATOLOGY: Normal and without lesions NECK: Supple and full range of motion CHEST: Normal inspiratory effort BREAST: soft, non-tender, symmetric, no dominant mass, normal nipple-areolar complex, no lymphadenopathy, and no nipple discharge ABDOMEN: soft, non-tender, and no masses NEURO: alert and oriented x3,exam grossly non-focal PELVIS: External genitalia normal without lesions. Perineal body intact. No vaginal or cervical lesions. Scant bleeding with exam. Cervix closed. Clinical Pelvimetry: Pelvimetry clinically assessed as adequate Limited OB ultrasound exam: single intrauterine , positive cardiac activity, and crown-rump length 7w1d ASSESSMENT/PLAN: 1. Less than 8 weeks gestation of 2. Screening for cervical cancer - ICD9: V76.2, ICD10: 3. Screen for STD 4. H/O cold sores 5. Threatened 6. Generalized anxiety disorder 7. Encounter for supervision of normal first in first trimester PLAN: 1) Patient oriented to practice. Patient given new OB orientation folder. Discussed nutrition, folic acid supplementation, dietary guidelines, exercise, smoking, alcohol, caffeine, and drug use. Discussed routine OB labs including STD/HIV. Discussed how to access Your guide to a health and the Program Or Project Administrator. Reviewed midwifery and geospatial program management officer services that are available. 2) Screening: Hemoglobin A1C: ordered Baby Aspirin: The patient has been counseled about the potential benefits of low dose aspirin in and our recommendation that this be offered to all patients, regardless of whether they meet the high risk criteria specified above. She Accepts Aneuploidy Screening: Discussed aneuploidy screening, nuchal translucency/first trimester early anatomy ultrasound and NIPT. The risks/benefits and limitations of NIPT/aneuploidy screening were reviewed including the potential for false negative and false positive results. The availability of genetic counseling was reviewed. Information on aneuploidy screening was provided. The patient is uncertain. She will call back if she wants to proceed with screening. Pt aware of timing. Myriad Carrier Screening: Discussed myriad carrier screening. We discussed the availability of professional-society guided carrier screening and reviewed the conditions screened and limitations of screening. The availability of genetic counseling was reviewed. Information on carrier screening was provided. The patient Declines 3) Patient offered option of Virtual Visits. Patient prefers in person visits. Follow up in 2 weeks for dating US or sooner prmoiz. Mikala Baez APRN.CNM documented in this encounter [facility] 02-12-2025 Telephone encounter Note Please see pt message. Can you give her Diflucan for a yeast infection. Please advise. Cheryl Steel MA [facility] 02-12-2025 Miscellaneous Notes Please see pt message. Can you give her Diflucan for a yeast infection. Please advise. Cheryl Steel MA documented in this encounter [facility] 02-08-2025 Telephone encounter Note Was sick again over weekend. Will get labs. [facility] 02-08-2025 Miscellaneous Notes Was sick again over weekend. Will get labs. documented in this encounter [facility] 01-29-2025 Note HNO ID: [id number] Author: JEEVAN LOPEZ MD Service: ? Author Type: Physician Type: Progress Notes Filed: 01/29/2025 15:56 Note Text: Patient presents with: Illness HPI: Patient presents today for office visit for acute illness. Starting getting ill again on 01/14/25. Started out with tickle in throat. By next day 01/15/25 was super congested and coughing. Progressed with fever and body aches. Was given Augmentin on 01/21/25 Caused GI distress, stopped taking after about 3 days. Currently on Prednisone. Still coughing and congested but is significantly better. Ears feel plugged. Denies chest pain and shortness of breath. No wheezing. Discussed we could check for influenza but will not change course. Seen back in December for cough. See note: HPI: Patient presents today for office visit for cough. Has been sick with a cough since 11/27/24. Her parents tested positive for COVID over darryl. Her covid test was negative. She got sick later but had stayed away from everyone who was ill. CXR was negative 12/03/24 Denies any other symptoms. Cough was dry at first then became productive. Is clear mucous. Has been green at times. Voice was hoarse from coughing. Caused a sore throat. No fever. Cough has been persistent since November. Has not lessened. Refers to her chest sounding wet when she coughs but not getting much mucus up. Has been taking OTC Delsym to suppress her cough because she coughs so hard she complains of rib pain. Taking Nyquil so she can sleep. Did have diarrhea but is now better. Failed bromphed and tessalon MEDICATIONS: Current Outpatient Medications Medication Sig predniSONE (DELTASONE) 20 mg tablet Take 1 tablet by mouth once daily for 5 days. amoxicillin-clavulanate potassium (AUGMENTIN) 875-125 mg per tablet Take 1 tablet by mouth two times a day for 10 days. (Patient not taking: Reported on 01/29/2025) acyclovir (ZOVIRAX) 400 mg tablet Take 1 tablet by mouth two times a day. albuterol HFA (PROVENTIL HFA, VENTOLIN HFA) 90 mcg/actuation inhaler Inhale 2 Puffs as instructed every 6 hours as needed for wheezing/shortness of breath. (Patient not taking: Reported on 01/29/2025) Drospirenone-Ethinyl Estradiol (NADER, 28,) 3-0.02 mg per tablet TAKE 1 TABLET BY MOUTH ONCE DAILY. No current facility-administered medications for this visit. ALLERGIES: ALLERGIES Allergen Reactions Melon Itching Tomatoes Itching PAST MEDICAL HISTORY Diagnosis Date Depressive disorder Generalized anxiety disorder Herpes labialis LGSIL on Pap smear of cervix 2017, 2018. Multiple joint pain Paronychia of toe Scoliosis mild PAST SURGICAL HISTORY Procedure Laterality Date TOOTH EXTRACTION 04/2019 FAMILY HISTORY Problem Relation Age of Onset No Known Problems Mother No Known Problems Father No Known Problems Brother No Known Problems Brother Ataxia Maternal Grandmother other (aortic aneurysm) Maternal Grandfather Diabetes Paternal Grandmother Hypertension Paternal Grandmother Diabetes Paternal Uncle Autism Brother Social History Tobacco Use Smoking status: Never Smokeless tobacco: Never Vaping Use Vaping status: Never Used Substance Use Topics Alcohol use: Yes Comment: rarely Drug use: No Reviewed current medications, allergies, past medical history, surgical history, family history and social history today. REVIEW OF SYSTEMS All other reviewed and negative other than HPI. VITALS: BP 112/72 Pulse (!) 56 Temp 36.4 ?C (97.6 ?F) Ht 158.8 cm (5' 2.5) Wt 59.9 kg (132 lb) LMP 12/04/2024 (Exact Date) SpO2 99% BMI 23.76 kg/m? Last 4 Encounter Wt Readings: Date: Wt: 01/29/2025 59.9 kg (132 lb) 12/31/2024 62.6 kg (138 lb) 12/19/2024 62.1 kg (137 lb) 12/07/2024 62.8 kg (138 lb 7.2 oz) PHYSICAL EXAMINATION: General appearance: Well appearing, alert, in no acute distress, well-hydrated, well nourished. Skin: Skin color, texture, turgor normal, no suspicious rashes or lesions Head: Normocephalic, no masses, lesions, tenderness or abnormalities Eyes: Anicteric sclera. Pupils are equally round and reactive to light. Extraocular movements are intact. Ears: External ears normal, canals clear Nose/Sinuses: Nares normal, septum midline, mucosa normal, no drainage or sinus tenderness Oropharynx: Lips, mucosa, and tongue normal, teeth and gums normal, oropharynx normal Neck: Negative findings: no adenopathy Lungs: Lungs clear to auscultation. No wheezing, rhonchi, rales Heart: RRR without murmur, gallop, or rubs. No ectopy Abdomen: Normal abdominal exam, Abdomen soft, non-tender. Bowel sounds normal. No masses, organomegaly Extremities: No deformities, edema, skin discoloration, clubbing or cyanosis. Good capillary refill. ASSESSMENT/PLAN: 1. URI, acute - ICD9: 465.9, ICD10: J06.9 - Discussed viral etiology and rationale for treatment. - Symptomatic treatme (more content not included)... [facility] 01-29-2025 History of Presen t illness Narrative Patient presents with: Illness HPI: Patient presents today for office visit for acute illness. Starting getting ill again on 01/14/25. Started out with tickle in throat. By next day 01/15/25 was super congested and coughing. Progressed with fever and body aches. Was given Augmentin on 01/21/25 Caused GI distress, stopped taking after about 3 days. Currently on Prednisone. Still coughing and congested but is significantly better. Ears feel plugged. Denies chest pain and shortness of breath. No wheezing. Discussed we could check for influenza but will not change course. Seen back in December for cough. See note: HPI: Patient presents today for office visit for cough. Has been sick with a cough since 11/27/24. Her parents tested positive for COVID over darryl. Her covid test was negative. She got sick later but had stayed away from everyone who was ill. CXR was negative 12/03/24 Denies any other symptoms. Cough was dry at first then became productive. Is clear mucous. Has been green at times. Voice was hoarse from coughing. Caused a sore throat. No fever. Cough has been persistent since November. Has not lessened. Refers to her chest sounding wet when she coughs but not getting much mucus up. Has been taking OTC Delsym to suppress her cough because she coughs so hard she complains of rib pain. Taking Nyquil so she can sleep. Did have diarrhea but is now better. Failed bromphed and tessalon MEDICATIONS: Current Outpatient Medications Medication Sig predniSONE (DELTASONE) 20 mg tablet Take 1 tablet by mouth once daily for 5 days. amoxicillin-clavulanate potassium (AUGMENTIN) 875-125 mg per tablet Take 1 tablet by mouth two times a day for 10 days. (Patient not taking: Reported on 01/29/2025) acyclovir (ZOVIRAX) 400 mg tablet Take 1 tablet by mouth two times a day. albuterol HFA (PROVENTIL HFA, VENTOLIN HFA) 90 mcg/actuation inhaler Inhale 2 Puffs as instructed every 6 hours as needed for wheezing/shortness of breath. (Patient not taking: Reported on 01/29/2025) Drospirenone-Ethinyl Estradiol (NADER, 28,) 3-0.02 mg per tablet TAKE 1 TABLET BY MOUTH ONCE DAILY. No current facility-administered medications for this visit. ALLERGIES: ALLERGIES Allergen Reactions Melon Itching Tomatoes Itching PAST MEDICAL HISTORY Diagnosis Date Depressive disorder Generalized anxiety disorder Herpes labialis LGSIL on Pap smear of cervix 2017, 2018. Multiple joint pain Paronychia of toe Scoliosis mild PAST SURGICAL HISTORY Procedure Laterality Date TOOTH EXTRACTION 04/2019 FAMILY HISTORY Problem Relation Age of Onset No Known Problems Mother No Known Problems Father No Known Problems Brother No Known Problems Brother Ataxia Maternal Grandmother other (aortic aneurysm) Maternal Grandfather Diabetes Paternal Grandmother Hypertension Paternal Grandmother Diabetes Paternal Uncle Autism Brother Social History Tobacco Use Smoking status: Never Smokeless tobacco: Never Vaping Use Vaping status: Never Used Substance Use Topics Alcohol use: Yes Comment: rarely Drug use: No Reviewed current medications, allergies, past medical history, surgical history, family history and social history today. REVIEW OF SYSTEMS All other reviewed and negative other than HPI. VITALS: BP 112/72 Pulse (!) 56 Temp 36.4 C (97.6 F) Ht 158.8 cm (5' 2.5) Wt 59.9 kg (132 lb) LMP 12/04/2024 (Exact Date) SpO2 99% BMI 23.76 kg/m Last 4 Encounter Wt Readings: Date: Wt: 01/29/2025 59.9 kg (132 lb) 12/31/2024 62.6 kg (138 lb) 12/19/2024 62.1 kg (137 lb) 12/07/2024 62.8 kg (138 lb 7.2 oz) PHYSICAL EXAMINATION: General appearance: Well appearing, alert, in no acute distress, well-hydrated, well nourished. Skin: Skin color, texture, turgor normal, no suspicious rashes or lesions Head: Normocephalic, no masses, lesions, tenderness or abnormalities Eyes: Anicteric sclera. Pupils are equally round and reactive to light. Extraocular movements are intact. Ears: External ears normal, canals clear Nose/Sinuses: Nares normal, septum midline, mucosa normal, no drainage or sinus tenderness Oropharynx: Lips, mucosa, and tongue normal, teeth and gums normal, oropharynx normal Neck: Negative findings: no adenopathy Lungs: Lungs clear to auscultation. No wheezing, rhonchi, rales Heart: RRR without murmur, gallop, or rubs. No ectopy Abdomen: Normal abdominal exam, Abdomen soft, non-tender. Bowel sounds normal. No masses, organomegaly Extremities: No deformities, edema, skin discoloration, clubbing or cyanosis. Good capillary refill. ASSESSMENT/PLAN: 1. URI, acute - ICD9: 465.9, ICD10: J06.9 - Discussed viral etiology and rationale for treatment. - Symptomatic treatment with prn analgesia - Supportive care with fluids and rest - call with update if not better early next week and consider doxycycline. - push fluids and stay on prednisone. Jeevan Lopez MD documented in this encounter [facility] 01-27-2025 Telephone encounter Note Has been ill again. Had augmentin that she was using but is giving diarrhea. Likely may have been exposed to flu. Sees me Saturday. Will call in prednisone to cover units until then. [facility] 01-27-2025 Miscellaneous Notes Has been ill again. Had augmentin that she was using but is giving diarrhea. Likely may have been exposed to flu. Sees me Saturday. Will call in prednisone to cover units until then. documented in this encounter [facility] 12-31-2024 Note HNO ID: [id number] Author: GIANA ARBOLEDA MD Service: ? Author Type: Physician Type: Progress Notes Filed: 12/31/2024 15:07 Note Text: Mi is a 29 year old who presents for an annual gynecologic exam without complaints. 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 Declines BC. Still get period: Yes Bleeding amount bothersome: No Bleeding between periods: Yes Period symptoms: Acne; Cramps; Mood change; Pelvic pain Time with current partner: A year. control frequency: Never HPV vaccine: Yes; HPV:N/A Last pap smear: 11/23/2022 Normal History of abnormal pap: Yes, history of abnormal PAP smears Bothersome pelvic pain: No Last mammogram: never OB History T0 L0 SAB0 IAB0 Ectopic0 Multiple0 Live Births0 Comprehensive Advisor History LMP: 12/04/2024 (Exact Date), Having periods Age at Menarche: 16 Age at First : Age at Menopause: Comprehensive Advisor History Comments: Sexual Activity: Yes; Male Contraception: None Menstrual Tracking History Flowsheet Row Office Visit from 12/31/2024 in OB/Gynecology Appointment from 12/08/2024 in OB/Gynecology Period Cycle (Days) 5 5 Period Duration (Days) 5 5 Menstrual Flow Moderate Moderate PAST MEDICAL HISTORY Diagnosis Date Depressive disorder Generalized anxiety disorder Herpes labialis LGSIL on Pap smear of cervix 2018. Multiple joint pain Paronychia of toe Scoliosis mild PAST SURGICAL HISTORY Procedure Laterality Date TOOTH EXTRACTION 04/2019 FAMILY HISTORY Problem Relation Age of Onset No Known Problems Mother No Known Problems Father No Known Problems Brother No Known Problems Brother Ataxia Maternal Grandmother other (aortic aneurysm) Maternal Grandfather Diabetes Paternal Grandmother Hypertension Paternal Grandmother Diabetes Paternal Uncle Autism Brother SOCIAL HISTORY Social History Tobacco Use Smoking status: Never Smokeless tobacco: Never Vaping Use Vaping status: Never Used Substance Use Topics Alcohol use: Yes Comment: rarely Drug use: No REVIEW OF SYSTEMS Abdomen: No abdominal pain, nausea, vomiting, diarrhea, or constipation. No bloating, early satiety, indigestion, or increased flatulence. Bladder: No dysuria, gross hematuria, urinary frequency, urinary urgency, or incontinence. Breast: No breast lumps, nipple d/c, overlying skin changes, redness or skin retraction. Allergies and current medication updated:Yes SENSITIVE EXAM: The sensitive examination was discussed with the Patient or Patient's Authorized Architecture Analyst. As applicable, any other physician, advance practice provider, medical student, or other health professional student that will be observing or involved in the sensitive examination for educational or training purposes was discussed with the Patient or Authorized Architecture Analyst. The Patient or Authorized Architecture Analyst has agreed to proceed with the sensitive examination. (Sensitive examination includes inspection and/or palpation of the breasts, pelvis, prostate and anorectal regions). EXAM: BP 118/78 Ht 5' 2.5 (1.59m) Wt 138 lb (62.6kg) LMP 12/04/2024 BMI 24.82 kg/(m2). GENERAL: pleasant, female in no apparent distress HEENT: Normocephalic, atraumatic, mucus membranes moist, and no lesions NECK: Supple, full range of motion, no adenopathy, and thyroid normal DERMATOLOGY: Normal, without lesions, non-icteric, and non-hirsute BREAST: soft, non-tender, symmetric, no dominant mass, normal nipple-areolar complex, no lymphadenopathy, and no nipple discharge CHEST: Normal inspiratory effort ABDOMEN: soft, non-tender, and no masses PELVIC: external genitalia normal, normal Bartholin's glands, urethra, [place]'s glands, no vulvar lesions, no cervical lesions, good vaginal support, physiologic discharge present, normal appearing perineal body and perianal region BIMANUAL: uterus normal size, shape and consistency, no adnexal masses, and non-tender RECTOVAGINAL: deferred. NEURO: alert and oriented x3,exam grossly non-focal EXTREMITIES: normal ASSESSMENT/PLAN: 1) Health maintenance: Pap/HPV up to date. 2) Contraception: natural family planning. Contraceptive options reviewed and information provided. 3) STD screening: Accepted STD check for Gonorrhea and Chlamydia. 4) Follow up one year or sooner as needed Giana Arboleda MD [facility] 12-31-2024 History of Presen t illness Narrative Mi is a 29 year old who presents for an annual gynecologic exam without complaints. 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 Declines BC. Still get period: Yes Bleeding amount bothersome: No Bleeding between periods: Yes Period symptoms: Acne; Cramps; Mood change; Pelvic pain Time with current partner: A year. control frequency: Never HPV vaccine: Yes; HPV:N/A Last pap smear: 11/23/2022 Normal History of abnormal pap: Yes, history of abnormal PAP smears Bothersome pelvic pain: No Last mammogram: never OB History T0 L0 SAB0 IAB0 Ectopic0 Multiple0 Live Births0 Comprehensive Advisor History LMP: 12/04/2024 (Exact Date), Having periods Age at Menarche: 16 Age at First : Age at Menopause: Comprehensive Advisor History Comments: Sexual Activity: Yes; Male Contraception: None Menstrual Tracking History Flowsheet Row Office Visit from 12/31/2024 in OB/Gynecology Appointment from 12/08/2024 in OB/Gynecology Period Cycle (Days) 5 5 Period Duration (Days) 5 5 Menstrual Flow Moderate Moderate PAST MEDICAL HISTORY Diagnosis Date Depressive disorder Generalized anxiety disorder Herpes labialis LGSIL on Pap smear of cervix 2018. Multiple joint pain Paronychia of toe Scoliosis mild PAST SURGICAL HISTORY Procedure Laterality Date TOOTH EXTRACTION 04/2019 FAMILY HISTORY Problem Relation Age of Onset No Known Problems Mother No Known Problems Father No Known Problems Brother No Known Problems Brother Ataxia Maternal Grandmother other (aortic aneurysm) Maternal Grandfather Diabetes Paternal Grandmother Hypertension Paternal Grandmother Diabetes Paternal Uncle Autism Brother SOCIAL HISTORY Social History Tobacco Use Smoking status: Never Smokeless tobacco: Never Vaping Use Vaping status: Never Used Substance Use Topics Alcohol use: Yes Comment: rarely Drug use: No REVIEW OF SYSTEMS Abdomen: No abdominal pain, nausea, vomiting, diarrhea, or constipation. No bloating, early satiety, indigestion, or increased flatulence. Bladder: No dysuria, gross hematuria, urinary frequency, urinary urgency, or incontinence. Breast: No breast lumps, nipple d/c, overlying skin changes, redness or skin retraction. Allergies and current medication updated:Yes SENSITIVE EXAM: The sensitive examination was discussed with the Patient or Patient's Authorized Architecture Analyst. As applicable, any other physician, advance practice provider, medical student, or other health professional student that will be observing or involved in the sensitive examination for educational or training purposes was discussed with the Patient or Authorized Architecture Analyst. The Patient or Authorized Architecture Analyst has agreed to proceed with the sensitive examination. (Sensitive examination includes inspection and/or palpation of the breasts, pelvis, prostate and anorectal regions). EXAM: BP 118/78 Ht 5' 2.5 (1.59m) Wt 138 lb (62.6kg) LMP 12/04/2024 BMI 24.82 kg/(m^2). GENERAL: pleasant, female in no apparent distress HEENT: Normocephalic, atraumatic, mucus membranes moist, and no lesions NECK: Supple, full range of motion, no adenopathy, and thyroid normal DERMATOLOGY: Normal, without lesions, non-icteric, and non-hirsute BREAST: soft, non-tender, symmetric, no dominant mass, normal nipple-areolar complex, no lymphadenopathy, and no nipple discharge CHEST: Normal inspiratory effort ABDOMEN: soft, non-tender, and no masses PELVIC: external genitalia normal, normal Bartholin's glands, urethra, [place]'s glands, no vulvar lesions, no cervical lesions, good vaginal support, physiologic discharge present, normal appearing perineal body and perianal region BIMANUAL: uterus normal size, shape and consistency, no adnexal masses, and non-tender RECTOVAGINAL: deferred. NEURO: alert and oriented x3,exam grossly non-focal EXTREMITIES: normal ASSESSMENT/PLAN: 1) Health maintenance: Pap/HPV up to date. 2) Contraception: natural family planning. Contraceptive options reviewed and information provided. 3) STD screening: Accepted STD check for Gonorrhea and Chlamydia. 4) Follow up one year or sooner as needed Giana Arboleda MD documented in this encounter [facility] 12-19-2024 Note HNO ID: [id number] Author: JEEVAN LOPEZ MD Service: ? Author Type: Physician Type: Progress Notes Filed: 12/19/2024 12:23 Note Text: Patient presents with: Cough HPI: Patient presents today for office visit for cough. Has been sick with a cough since 11/27/24. Her parents tested positive for COVID over darryl. Her covid test was negative. She got sick later but had stayed away from everyone who was ill. CXR was negative 12/03/24 Denies any other symptoms. Cough was dry at first then became productive. Is clear mucous. Has been green at times. Voice was hoarse from coughing. Caused a sore throat. No fever. Cough has been persistent since November. Has not lessened. Refers to her chest sounding wet when she coughs but not getting much mucus up. Has been taking OTC Delsym to suppress her cough because she coughs so hard she complains of rib pain. Taking Nyquil so she can sleep. Did have diarrhea but is now better. Failed bromphed and tessalon MEDICATIONS: Current Outpatient Medications Medication Sig albuterol HFA (PROVENTIL HFA, VENTOLIN HFA) 90 mcg/actuation inhaler Inhale 2 Puffs as instructed every 6 hours as needed for wheezing/shortness of breath. Drospirenone-Ethinyl Estradiol (NADER, 28,) 3-0.02 mg per tablet TAKE 1 TABLET BY MOUTH ONCE DAILY. acyclovir (ZOVIRAX) 400 mg tablet Take 1 tablet by mouth twice daily. Zumygglikmbunra-Bovrychla-TU (BROMFED DM) 2-30-10 mg/5 mL syrup Take 5 mL by mouth four times a day as needed. (Patient not taking: Reported on 12/19/2024) No current facility-administered medications for this visit. ALLERGIES: ALLERGIES Allergen Reactions Melon Itching Tomatoes Itching PAST MEDICAL HISTORY Diagnosis Date Depressive disorder Generalized anxiety disorder Herpes labialis LGSIL on Pap smear of cervix 2017, 2018. Multiple joint pain Paronychia of toe Scoliosis mild PAST SURGICAL HISTORY Procedure Laterality Date TOOTH EXTRACTION 04/2019 FAMILY HISTORY Problem Relation Age of Onset No Known Problems Mother No Known Problems Father No Known Problems Brother No Known Problems Brother Ataxia Maternal Grandmother other (aortic aneurysm) Maternal Grandfather Diabetes Paternal Grandmother Hypertension Paternal Grandmother Diabetes Paternal Uncle Autism Brother Social History Tobacco Use Smoking status: Never Smokeless tobacco: Never Vaping Use Vaping status: Never Used Substance Use Topics Alcohol use: Yes Comment: rarely Drug use: No Reviewed current medications, allergies, past medical history, surgical history, family history and social history today. REVIEW OF SYSTEMS All other reviewed and negative other than HPI. VITALS: BP 104/62 Pulse (!) 58 Temp 36.3 ?C (97.4 ?F) Ht 161.3 cm (5' 3.5) Wt 62.1 kg (137 lb) LMP 12/04/2024 BMI 23.89 kg/m? Last 4 Encounter Wt Readings: Date: Wt: 12/19/2024 62.1 kg (137 lb) 12/07/2024 62.8 kg (138 lb 7.2 oz) 12/03/2024 63.4 kg (139 lb 12.4 oz) 11/23/2022 61.2 kg (135 lb) PHYSICAL EXAMINATION: General appearance: Well appearing, alert, in no acute distress, well-hydrated, well nourished. Skin: Skin color, texture, turgor normal, no suspicious rashes or lesions Head: Normocephalic, no masses, lesions, tenderness or abnormalities Eyes: Anicteric sclera. Pupils are equally round and reactive to light. Extraocular movements are intact. Ears: External ears normal, canals clear Nose/Sinuses: Nares normal, septum midline, mucosa normal, no drainage or sinus tenderness Oropharynx: Lips, mucosa, and tongue normal, teeth and gums normal, oropharynx normal Neck: Supple, no adenopath Lungs: Lungs clear to auscultation. No wheezing, rhonchi, rales Heart: RRR without murmur, gallop, or rubs. No ectopy Abdomen: Normal abdominal exam, Abdomen soft, non-tender. Bowel sounds normal. No masses, organomegaly Extremities: No deformities, edema, skin discoloration, clubbing or cyanosis. Good capillary refill. ASSESSMENT/PLAN: 1. Bronchitis - ICD9: 490, ICD10: J40 (primary diagnosis) - hold on further imaging. Continue delsym. Add doxycycline. Discussed risks and benefits of new medication with the patient. Advised them to call if any side effects or questions. Red flags for re-assessment reviewed with patient in detail. Call if symptoms worsen at all or if not better in one to two weeks Reviewed diagnosis and treatment options in detail. Questions were answered. Patient expressed understanding of treatment plan. 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 - ACYCLOVIR 400 MG TABLET Jeevan Lopez MD [facility] 12-19-2024 History of Presen t illness Narrative Patient presents with: Cough HPI: Patient presents today for office visit for cough. Has been sick with a cough since 11/27/24. Her parents tested positive for COVID over darryl. Her covid test was negative. She got sick later but had stayed away from everyone who was ill. CXR was negative 12/03/24 Denies any other symptoms. Cough was dry at first then became productive. Is clear mucous. Has been green at times. Voice was hoarse from coughing. Caused a sore throat. No fever. Cough has been persistent since November. Has not lessened. Refers to her chest sounding wet when she coughs but not getting much mucus up. Has been taking OTC Delsym to suppress her cough because she coughs so hard she complains of rib pain. Taking Nyquil so she can sleep. Did have diarrhea but is now better. Failed bromphed and tessalon MEDICATIONS: Current Outpatient Medications Medication Sig albuterol HFA (PROVENTIL HFA, VENTOLIN HFA) 90 mcg/actuation inhaler Inhale 2 Puffs as instructed every 6 hours as needed for wheezing/shortness of breath. Drospirenone-Ethinyl Estradiol (NADER, 28,) 3-0.02 mg per tablet TAKE 1 TABLET BY MOUTH ONCE DAILY. acyclovir (ZOVIRAX) 400 mg tablet Take 1 tablet by mouth twice daily. Jfkoejccpiwlwcp-Iyoxwehal-MS (BROMFED DM) 2-30-10 mg/5 mL syrup Take 5 mL by mouth four times a day as needed. (Patient not taking: Reported on 12/19/2024) No current facility-administered medications for this visit. ALLERGIES: ALLERGIES Allergen Reactions Melon Itching Tomatoes Itching PAST MEDICAL HISTORY Diagnosis Date Depressive disorder Generalized anxiety disorder Herpes labialis LGSIL on Pap smear of cervix 2017, 2018. Multiple joint pain Paronychia of toe Scoliosis mild PAST SURGICAL HISTORY Procedure Laterality Date TOOTH EXTRACTION 04/2019 FAMILY HISTORY Problem Relation Age of Onset No Known Problems Mother No Known Problems Father No Known Problems Brother No Known Problems Brother Ataxia Maternal Grandmother other (aortic aneurysm) Maternal Grandfather Diabetes Paternal Grandmother Hypertension Paternal Grandmother Diabetes Paternal Uncle Autism Brother Social History Tobacco Use Smoking status: Never Smokeless tobacco: Never Vaping Use Vaping status: Never Used Substance Use Topics Alcohol use: Yes Comment: rarely Drug use: No Reviewed current medications, allergies, past medical history, surgical history, family history and social history today. REVIEW OF SYSTEMS All other reviewed and negative other than HPI. VITALS: BP 104/62 Pulse (!) 58 Temp 36.3 C (97.4 F) Ht 161.3 cm (5' 3.5) Wt 62.1 kg (137 lb) LMP 12/04/2024 BMI 23.89 kg/m Last 4 Encounter Wt Readings: Date: Wt: 12/19/2024 62.1 kg (137 lb) 12/07/2024 62.8 kg (138 lb 7.2 oz) 12/03/2024 63.4 kg (139 lb 12.4 oz) 11/23/2022 61.2 kg (135 lb) PHYSICAL EXAMINATION: General appearance: Well appearing, alert, in no acute distress, well-hydrated, well nourished. Skin: Skin color, texture, turgor normal, no suspicious rashes or lesions Head: Normocephalic, no masses, lesions, tenderness or abnormalities Eyes: Anicteric sclera. Pupils are equally round and reactive to light. Extraocular movements are intact. Ears: External ears normal, canals clear Nose/Sinuses: Nares normal, septum midline, mucosa normal, no drainage or sinus tenderness Oropharynx: Lips, mucosa, and tongue normal, teeth and gums normal, oropharynx normal Neck: Supple, no adenopath Lungs: Lungs clear to auscultation. No wheezing, rhonchi, rales Heart: RRR without murmur, gallop, or rubs. No ectopy Abdomen: Normal abdominal exam, Abdomen soft, non-tender. Bowel sounds normal. No masses, organomegaly Extremities: No deformities, edema, skin discoloration, clubbing or cyanosis. Good capillary refill. ASSESSMENT/PLAN: 1. Bronchitis - ICD9: 490, ICD10: J40 (primary diagnosis) - hold on further imaging. Continue delsym. Add doxycycline. Discussed risks and benefits of new medication with the patient. Advised them to call if any side effects or questions. Red flags for re-assessment reviewed with patient in detail. Call if symptoms worsen at all or if not better in one to two weeks Reviewed diagnosis and treatment options in detail. Questions were answered. Patient expressed understanding of treatment plan. 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 - ACYCLOVIR 400 MG TABLET Jeevan Lopez MD documented in this encounter [facility] 12-10-2024 Note HNO ID: [id number] Author: TIMOTHY BAJWA MD Service: ? Author Type: Physician Type: Progress Notes Filed: 12/10/2024 13:41 Note Text: Chief Complaint Patient presents with: Cough: Over 2 weeks with difficulty expectorating phlegm. Reports green tinged when able to get it up. Chest Congestion Head Congestion: No sinus pain HPI Mi Ortez is a 29 year old female who presents here today for Above Complaints.. Patient evaluated in on 12/03 and 12/07 for complaint of acute cough, chest congestion, headache, and scratchy throat which staretd about 1 1/2-2 weeks ago. CXR negative on 12/03. Given rx for albuterol and bromfed at that appointment. Given rx for tessalon on 12/07. Today, she states that she no longer has a headache, but still has productive cough which is waking her up at night, chest congestion, chest pain with coughing, fatigue, and scratchy throat. Coughing still triggered with deep breaths and lying down. Tried the tessalon for cough without improvement. Still using bromfed occasionally and takes nyquil, mucinex and sudafed over the counter. Nothing seems to work better than another. Admits to post nasal drainage as well as nasal congestion, rhinorrhea which started yesterday. Had episode of post tussive emesis yesterday with mucous as well. Denies fever/chills, SOB, wheezing, myalgias, new loss of taste/smell, nausea, diarrhea. Mother and step dad were positive for COVID on lothian. Patient's initial COVID test was negative. Past medical history, appointments, medications, allergies reviewed. Previous Medical History PAST MEDICAL HISTORY Diagnosis Date Depressive disorder Generalized anxiety disorder Herpes labialis LGSIL on Pap smear of cervix 2017, 2018. Multiple joint pain Paronychia of toe Scoliosis mild Previous Surgical History PAST SURGICAL HISTORY Procedure Laterality Date TOOTH EXTRACTION 04/2019 Family History FAMILY HISTORY Problem Relation Age of Onset No Known Problems Mother No Known Problems Father No Known Problems Brother No Known Problems Brother Ataxia Maternal Grandmother other (aortic aneurysm) Maternal Grandfather Diabetes Paternal Grandmother Hypertension Paternal Grandmother Diabetes Paternal Uncle Autism Brother Patient Allergies ALLERGIES Allergen Reactions Melon Itching Tomatoes Itching Current Medications Current Outpatient Medications on File Prior to Visit Medication Sig Rzrsgvlcaoqocnx-Yryjiheed-WN (BROMFED DM) 2-30-10 mg/5 mL syrup Take 5 mL by mouth four times a day as needed. acyclovir (ZOVIRAX) 400 mg tablet Take 1 tablet by mouth twice daily. benzonatate (TESSALON PERLE) 100 mg capsule Take 1 capsule by mouth every 8 hours as needed for cough for up to 15 days. (Patient not taking: Reported on 12/10/2024) albuterol HFA (PROVENTIL HFA, VENTOLIN HFA) 90 mcg/actuation inhaler Inhale 2 Puffs as instructed every 6 hours as needed for wheezing/shortness of breath. Drospirenone-Ethinyl Estradiol (NADER, 28,) 3-0.02 mg per tablet TAKE 1 TABLET BY MOUTH ONCE DAILY. No current facility-administered medications on file prior to visit. Social History Social History Tobacco Use Smoking status: Never Smokeless tobacco: Never Vaping Use Vaping status: Never Used Substance Use Topics Alcohol use: Yes Comment: rarely Drug use: No Review of Symptoms REVIEW OF SYSTEMS See HPI EXAM: BP 104/70 Pulse 62 Temp 36.5 ?C (97.7 ?F) Resp 16 LMP 12/04/2024 SpO2 99% General Appearance: Ill appearing, non toxic. Able to talk in complete sentences without SOB, wheezing or frequent coughing. Skin: Skin color, texture, turgor normal, no suspicious rashes or lesions. Head: Normocephalic, no masses, lesions, tenderness or abnormalities. Eyes: Anicteric sclera. Pupils are equally round and reactive to light. Extraocular movements are intact. . Ears: External ears normal, canals clear. Nose/Sinuses: Nares normal, septum midline, mucosa normal, no drainage or sinus tenderness. Oropharynx: Lips, mucosa, and tongue normal, teeth and gums normal, oropharynx normal. Neck: Supple, no adenopathy; thyroid symmetric, normal size, no bruits. Lungs: Lungs clear to auscultation. No wheezing, rhonchi, rales.. Heart: RRR without murmur, gallop, or rubs. No ectopy. Health Maintenance List Influenza Vaccine(1) due on 08/02/2024 Covid-19 Vaccine( season) due on 08/02/2024 Cervical Cancer Screening due on 11/23/2025 DTaP,Tdap,Td Vaccine(8 - Td or Tdap) due on 12/07/2030 Hepatitis B Vaccine Completed HPV Vaccine Completed Hepatitis C Screening Completed HIV Screening Completed ASSESSMENT/PLAN: 1. Viral URI with cough - ICD9: 465.9, ICD10: J06.9 - Discussed viral etiology and rationale for treatment. - Symptomatic treatment with prn analgesia - Supportive care with fluids and rest - The patient may also use OTC cough and cold meds as needed, w (more content not included)... [facility] 12-10-2024 History of Presen t illness Narrative Chief Complaint Patient presents with: Cough: Over 2 weeks with difficulty expectorating phlegm. Reports green tinged when able to get it up. Chest Congestion Head Congestion: No sinus pain HPI Mi Ortez is a 29 year old female who presents here today for Above Complaints.. Patient evaluated in on 12/03 and 12/07 for complaint of acute cough, chest congestion, headache, and scratchy throat which staretd about 1 1/2-2 weeks ago. CXR negative on 12/03. Given rx for albuterol and bromfed at that appointment. Given rx for tessalon on 12/07. Today, she states that she no longer has a headache, but still has productive cough which is waking her up at night, chest congestion, chest pain with coughing, fatigue, and scratchy throat. Coughing still triggered with deep breaths and lying down. Tried the tessalon for cough without improvement. Still using bromfed occasionally and takes nyquil, mucinex and sudafed over the counter. Nothing seems to work better than another. Admits to post nasal drainage as well as nasal congestion, rhinorrhea which started yesterday. Had episode of post tussive emesis yesterday with mucous as well. Denies fever/chills, SOB, wheezing, myalgias, new loss of taste/smell, nausea, diarrhea. Mother and step dad were positive for COVID on darryl. Patient's initial COVID test was negative. Past medical history, appointments, medications, allergies reviewed. Previous Medical History PAST MEDICAL HISTORY Diagnosis Date Depressive disorder Generalized anxiety disorder Herpes labialis LGSIL on Pap smear of cervix 2017, 2018. Multiple joint pain Paronychia of toe Scoliosis mild Previous Surgical History PAST SURGICAL HISTORY Procedure Laterality Date TOOTH EXTRACTION 04/2019 Family History FAMILY HISTORY Problem Relation Age of Onset No Known Problems Mother No Known Problems Father No Known Problems Brother No Known Problems Brother Ataxia Maternal Grandmother other (aortic aneurysm) Maternal Grandfather Diabetes Paternal Grandmother Hypertension Paternal Grandmother Diabetes Paternal Uncle Autism Brother Patient Allergies ALLERGIES Allergen Reactions Melon Itching Tomatoes Itching Current Medications Current Outpatient Medications on File Prior to Visit Medication Sig Ugbuwekypvesakv-Ybewuyvat-IV (BROMFED DM) 2-30-10 mg/5 mL syrup Take 5 mL by mouth four times a day as needed. acyclovir (ZOVIRAX) 400 mg tablet Take 1 tablet by mouth twice daily. benzonatate (TESSALON PERLE) 100 mg capsule Take 1 capsule by mouth every 8 hours as needed for cough for up to 15 days. (Patient not taking: Reported on 12/10/2024) albuterol HFA (PROVENTIL HFA, VENTOLIN HFA) 90 mcg/actuation inhaler Inhale 2 Puffs as instructed every 6 hours as needed for wheezing/shortness of breath. Drospirenone-Ethinyl Estradiol (NADER, 28,) 3-0.02 mg per tablet TAKE 1 TABLET BY MOUTH ONCE DAILY. No current facility-administered medications on file prior to visit. Social History Social History Tobacco Use Smoking status: Never Smokeless tobacco: Never Vaping Use Vaping status: Never Used Substance Use Topics Alcohol use: Yes Comment: rarely Drug use: No Review of Symptoms REVIEW OF SYSTEMS See HPI EXAM: BP 104/70 Pulse 62 Temp 36.5 C (97.7 F) Resp 16 LMP 12/04/2024 SpO2 99% General Appearance: Ill appearing, non toxic. Able to talk in complete sentences without SOB, wheezing or frequent coughing. Skin: Skin color, texture, turgor normal, no suspicious rashes or lesions. Head: Normocephalic, no masses, lesions, tenderness or abnormalities. Eyes: Anicteric sclera. Pupils are equally round and reactive to light. Extraocular movements are intact. . Ears: External ears normal, canals clear. Nose/Sinuses: Nares normal, septum midline, mucosa normal, no drainage or sinus tenderness. Oropharynx: Lips, mucosa, and tongue normal, teeth and gums normal, oropharynx normal. Neck: Supple, no adenopathy; thyroid symmetric, normal size, no bruits. Lungs: Lungs clear to auscultation. No wheezing, rhonchi, rales.. Heart: RRR without murmur, gallop, or rubs. No ectopy. Health Maintenance List Influenza Vaccine(1) due on 08/02/2024 Covid-19 Vaccine( season) due on 08/02/2024 Cervical Cancer Screening due on 11/23/2025 DTaP,Tdap,Td Vaccine(8 - Td or Tdap) due on 12/07/2030 Hepatitis B Vaccine Completed HPV Vaccine Completed Hepatitis C Screening Completed HIV Screening Completed ASSESSMENT/PLAN: 1. Viral URI with cough - ICD9: 465.9, ICD10: J06.9 - Discussed viral etiology and rationale for treatment. - Symptomatic treatment with prn analgesia - Supportive care with fluids and rest - The patient may also use OTC cough and cold meds as needed, warm salt water gargles, throat lozenges and/or OTC throat spray as needed, and nasal saline gtts and suction prn. - Follow up in one week if symptoms persist or sooner if worsening of symptoms Timothy Bajwa MD documented in this encounter [facility] 12-07-2024 Note HNO ID: [id number] Author: JONNY IBARRA MD Service: ? Author Type: Physician Type: Progress Notes Filed: 12/07/2024 10:59 Note Text: Patient presents with: Cough: Cough, chest congestion, HEATH and scratchy throat x 10 days HPI: Feeling sick for 1 1/2 weeks. Negative CXR here 12/03/24. Her cough has not improved. Positive symptoms: Cough, deep breaths trigger coughing, Scratchy throat, Headache from coughing, some Nasal Congestion/Rhinorrhea Negative symptoms: Wheezing, Sinus pressure, Fever, Chills, Body Aches, Nausea, Vomiting, Diarrhea, , OTC: Mucinex, Nyquil. Prescribed Bromfed and albuterol 12/03/2024. Negative home COVID test early in the illness. No past history of asthma. PAST MEDICAL HISTORY Diagnosis Date Depressive disorder Generalized anxiety disorder Herpes labialis LGSIL on Pap smear of cervix 2018, 2019. Multiple joint pain Paronychia of toe Scoliosis mild MEDICATIONS: Current Outpatient Medications Medication Sig Asxxmvrhotwlsff-Gxyzeiwtu-GN (BROMFED DM) 2-30-10 mg/5 mL syrup Take 5 mL by mouth four times a day as needed. albuterol HFA (PROVENTIL HFA, VENTOLIN HFA) 90 mcg/actuation inhaler Inhale 2 Puffs as instructed every 6 hours as needed for wheezing/shortness of breath. Drospirenone-Ethinyl Estradiol (NADER, 28,) 3-0.02 mg per tablet TAKE 1 TABLET BY MOUTH ONCE DAILY. acyclovir (ZOVIRAX) 400 mg tablet Take 1 tablet by mouth twice daily. No current facility-administered medications for this visit. ALLERGIES: ALLERGIES Allergen Reactions Melon Itching Tomatoes Itching VITALS: BP 122/80 Pulse 66 Temp 36.8 ?C (98.2 ?F) (Tympanic) Resp 18 Wt 62.8 kg (138 lb 7.2 oz) LMP 11/20/2022 SpO2 98% BMI 24.14 kg/m? PHYSICAL EXAM: GEN: mildly ill appearing HEENT: PERRL, EOMI, conjunctiva clear Ears: canals clear. TMs without erythema, bulge, or effusion Sinuses: non-tender frontal sinus, non-tender maxillary sinuses Throat: moist mucous membranes, mild erythema, no exudate Neck: supple, no thyromegaly, no lymphadenopathy HEART: regular rate, regular rhythm, no murmurs LUNGS: clear to auscultation, no wheezes or crackles, no increased WOB; tickling cough ASSESSMENT/PLAN: 1. Bronchitis - ICD9: 490, ICD10: J40 - suspect viral bronchitis. She is beyond the therapeutic window for antiviral treatment; viral testing deferred. - Discussed supportive care treatment with rest, cough medicine, and analgesia. Add - BENZONATATE 100 MG CAPSULE Follow up with worsening cough, worsening shortness of breath, increasing chest pain, or late onset fever. Jonny Ibarra MD [facility] 01-06-2025 History of Presen t illness Narrative Patient presents with: Cough: Cough, chest congestion, HEATH and scratchy throat x 10 days HPI: Feeling sick for 1 1/2 weeks. Negative CXR here 12/03/24. Her cough has not improved. Positive symptoms: Cough, deep breaths trigger coughing, Scratchy throat, Headache from coughing, some Nasal Congestion/Rhinorrhea Negative symptoms: Wheezing, Sinus pressure, Fever, Chills, Body Aches, Nausea, Vomiting, Diarrhea, , OTC: Mucinex, Nyquil. Prescribed Bromfed and albuterol 12/03/2024. Negative home COVID test early in the illness. No past history of asthma. PAST MEDICAL HISTORY Diagnosis Date Depressive disorder Generalized anxiety disorder Herpes labialis LGSIL on Pap smear of cervix 2017, 2019. Multiple joint pain Paronychia of toe Scoliosis mild MEDICATIONS: Current Outpatient Medications Medication Sig Qywwbswzmsxicgy-Uvwqurzzd-IJ (BROMFED DM) 2-30-10 mg/5 mL syrup Take 5 mL by mouth four times a day as needed. albuterol HFA (PROVENTIL HFA, VENTOLIN HFA) 90 mcg/actuation inhaler Inhale 2 Puffs as instructed every 6 hours as needed for wheezing/shortness of breath. Drospirenone-Ethinyl Estradiol (NADER, 28,) 3-0.02 mg per tablet TAKE 1 TABLET BY MOUTH ONCE DAILY. acyclovir (ZOVIRAX) 400 mg tablet Take 1 tablet by mouth twice daily. No current facility-administered medications for this visit. ALLERGIES: ALLERGIES Allergen Reactions Melon Itching Tomatoes Itching VITALS: BP 122/80 Pulse 66 Temp 36.8 C (98.2 F) (Tympanic) Resp 18 Wt 62.8 kg (138 lb 7.2 oz) LMP 11/20/2022 SpO2 98% BMI 24.14 kg/m PHYSICAL EXAM: GEN: mildly ill appearing HEENT: PERRL, EOMI, conjunctiva clear Ears: canals clear. TMs without erythema, bulge, or effusion Sinuses: non-tender frontal sinus, non-tender maxillary sinuses Throat: moist mucous membranes, mild erythema, no exudate Neck: supple, no thyromegaly, no lymphadenopathy HEART: regular rate, regular rhythm, no murmurs LUNGS: clear to auscultation, no wheezes or crackles, no increased WOB; tickling cough ASSESSMENT/PLAN: 1. Bronchitis - ICD9: 490, ICD10: J40 - suspect viral bronchitis. She is beyond the therapeutic window for antiviral treatment; viral testing deferred. - Discussed supportive care treatment with rest, cough medicine, and analgesia. Add - BENZONATATE 100 MG CAPSULE Follow up with worsening cough, worsening shortness of breath, increasing chest pain, or late onset fever. Jonny Ibarra MD documented in this encounter [facility] 12-03-2024 History of Presen t illness Narrative Radiology Service Progress Note PATIENT NAME: Mi Ortez DATE OF SERVICE: December 03, 2024 TIME: 10:22 AM PATIENT IDENTITY VERIFICATION COMPLETED USING TWO (2) IDENTIFIERS: Name and Date of confirmed by patient verbally. FALL SCREENING: Has the patient had 2 falls in the last year or 1 fall with injury or currently using an Ambulatory Assistive Device (Walker, Cane, Wheelchair, Crutches, etc.)? No PATIENT GENDER DATA: Female. status: : No status: NO. PATIENT RELEVANT IMPLANT DATA REVIEWED: Not Applicable PATIENT PRESENTS WITH AN IMPLANTABLE OR ATTACHED INTERVENTION TEACHER: No RADIOLOGY DEPARTMENT: General X-ray: Exam(s) Completed: Chest X-Ray PERIPHERAL IV DATA: Not applicable SIGNED BY: INESSA Steele) December 03, 2024 10:22 AM documented in this encounter [facility] 12-03-2024 Note HNO ID: [id number] Author: LINA CRUZ RT(R) Service: Radiology Author Type: Technologist Type: Progress Notes Filed: 12/03/2024 10:32 Note Text: Radiology Service Progress Note PATIENT NAME: Mi Ortez DATE OF SERVICE: December 03, 2024 TIME: 10:22 AM PATIENT IDENTITY VERIFICATION COMPLETED USING TWO (2) IDENTIFIERS: Name and Date of confirmed by patient verbally. FALL SCREENING: Has the patient had 2 falls in the last year or 1 fall with injury or currently using an Ambulatory Assistive Device (Walker, Cane, Wheelchair, Crutches, etc.)? No PATIENT GENDER DATA: Female. status: : No status: NO. PATIENT RELEVANT IMPLANT DATA REVIEWED: Not Applicable PATIENT PRESENTS WITH AN IMPLANTABLE OR ATTACHED INTERVENTION TEACHER: No RADIOLOGY DEPARTMENT: General X-ray: Exam(s) Completed: Chest X-Ray PERIPHERAL IV DATA: Not applicable SIGNED BY: RT Cedric(R) December 03, 2024 10:22 AM [facility] 12-03-2024 Note HNO ID: [id number] Author: KACIE CRUZ APRN.[employer]ING[employer] CALLER Service: ? Author Type: Nurse Practitioner Type: Progress Notes Filed: 12/03/2024 10:59 Note Text: CC: Patient presents with: Cough: Chest congestion, HEATH x1 week HPI: Mi Ortez is a 29 year old female who presents to the office with complaint of chest congestion and cough, nonproductive for a week. Symptoms are staying the same. Associated symptoms includes headache. Denies fever, nausea, vomiting , and diarrhea. Treatments tried include nothing so far. with no relief of symptoms. Sick contacts: unknown. History of asthma, frequent episodes of bronchitis, chronic bronchitis, bronchiectasis or COPD: No Smoker: No Seasonal/environmental allergies: No The ROS is otherwise negative. The patient's pmh, medications, allergies, and past visits are reviewed. PHYSICAL EXAM: BP 119/79 Pulse (!) 56 Temp 36.6 ?C (97.9 ?F) Resp 18 Wt 63.4 kg (139 lb 12.4 oz) LMP 11/20/2022 SpO2 99% BMI 24.37 kg/m? General appearance: alert, cooperative, pleasant, in no acute distress Head: Normocephalic Eyes: EOM's intact, conjunctiva pink and moist, no icterus, sclera white, non-injected Ears: Right ear: External ear/canal- Normal, TM - clear with good landmarks. Left ear: External ear/canal- Normal, TM - clear with good landmarks Oropharynx:moist without lesions, No erythema, exudates or tonsillar hypertrophy. Heart: Negative. RRR without obvious murmur, gallop, or rubs. No ectopy. Lungs: clear to auscultation, without rales or wheeze, good air exchange PAST MEDICAL HISTORY Diagnosis Date Depressive disorder Generalized anxiety disorder Herpes labialis LGSIL on Pap smear of cervix 2017, 2018. Multiple joint pain Paronychia of toe Scoliosis mild PAST SURGICAL HISTORY Procedure Laterality Date TOOTH EXTRACTION 04/2019 ALLERGIES Melon and Tomatoes MEDICATIONS acyclovir (ZOVIRAX) 400 mg tablet Take 1 tablet by mouth twice daily. Drospirenone-Ethinyl Estradiol (NADER, 28,) 3-0.02 mg per tablet TAKE 1 TABLET BY MOUTH ONCE DAILY. FAMILY HISTORY Problem Relation Age of Onset No Known Problems Mother No Known Problems Father No Known Problems Brother No Known Problems Brother Ataxia Maternal Grandmother other (aortic aneurysm) Maternal Grandfather Diabetes Paternal Grandmother Hypertension Paternal Grandmother Diabetes Paternal Uncle Autism Brother Social History Tobacco Use Smoking status: Never Smokeless tobacco: Never Vaping Use Vaping status: Never Used Substance Use Topics Alcohol use: Yes Comment: rarely Drug use: No ASSESSMENT/PLAN: 1. Acute cough - ICD9: 786.2, ICD10: R05.1 - XR CHEST 2V FRONTAL/LAT * * * * Physician Interpretation * * * * EXAMINATION: CHEST RADIOGRAPH (2 VIEW FRONTAL AND LATERAL) CLINICAL HISTORY: Acute cough MQ: XC2_6 EXAM DATE/TIME: 12/03/2024 10:32 AM COMPARISON: No relevant prior studies available. RESULT: Lines, tubes, and devices: None. Lungs and pleura: No consolidation. No lung mass. No pleural effusion. No pneumothorax. Cardiomediastinal silhouette: Normal cardiomediastinal silhouette. Bones and soft tissues: Unremarkable. IMPRESSION IMPRESSION: No acute radiographic abnormality. Field Support Representative: SHARITA Transcribe Date/Time: Dec 03 2024 10:36A Dictated by : MUKUND WEBSTER MD ASSESSMENT/PLAN: 1. Acute cough - ICD9: 786.2, ICD10: R05.1 - XR CHEST 2V FRONTAL/LAT * * * * Physician Interpretation * * * * EXAMINATION: CHEST RADIOGRAPH (2 VIEW FRONTAL AND LATERAL) CLINICAL HISTORY: Acute cough MQ: XC2_6 EXAM DATE/TIME: 12/03/2024 10:32 AM COMPARISON: No relevant prior studies available. RESULT: Lines, tubes, and devices: None. Lungs and pleura: No consolidation. No lung mass. No pleural effusion. No pneumothorax. Cardiomediastinal silhouette: Normal cardiomediastinal silhouette. Bones and soft tissues: Unremarkable. IMPRESSION IMPRESSION: No acute radiographic abnormality. Field Support Representative: SHARITA Transcribe Date/Time: Dec 03 2024 10:36A Dictated by : MUKUND WEBSTER MD - BROMPHENIRAMINE-PSEUDOEPHEDRINE- DM 2 MG-30 MG-10 MG/5 ML ORAL SYRUP - ALBUTEROL SULFATE HFA 90 MCG/ACTUATION AEROSOL INHALER - INHALATIONAL SPACING DEVICE Prescription instructions reviewed with patient as applicable. Potential red flag symptoms discussed with the patient. Reviewed appropriate action plan to take if red flag symptoms occur. Patient agreeable to treatment plan. Kacie Cruz APRN.[facility] 12-03-2024 History of Presen t illness Narrative CC: Patient presents with: Cough: Chest congestion, HEATH x1 week HPI: Mi Ortez is a 29 year old female who presents to the office with complaint of chest congestion and cough, nonproductive for a week. Symptoms are staying the same. Associated symptoms includes headache. Denies fever, nausea, vomiting , and diarrhea. Treatments tried include nothing so far. with no relief of symptoms. Sick contacts: unknown. History of asthma, frequent episodes of bronchitis, chronic bronchitis, bronchiectasis or COPD: No Smoker: No Seasonal/environmental allergies: No The ROS is otherwise negative. The patient's pmh, medications, allergies, and past visits are reviewed. PHYSICAL EXAM: BP 119/79 Pulse (!) 56 Temp 36.6 C (97.9 F) Resp 18 Wt 63.4 kg (139 lb 12.4 oz) LMP 11/20/2022 SpO2 99% BMI 24.37 kg/m General appearance: alert, cooperative, pleasant, in no acute distress Head: Normocephalic Eyes: EOM's intact, conjunctiva pink and moist, no icterus, sclera white, non-injected Ears: Right ear: External ear/canal- Normal, TM - clear with good landmarks. Left ear: External ear/canal- Normal, TM - clear with good landmarks Oropharynx:moist without lesions, No erythema, exudates or tonsillar hypertrophy. Heart: Negative. RRR without obvious murmur, gallop, or rubs. No ectopy. Lungs: clear to auscultation, without rales or wheeze, good air exchange PAST MEDICAL HISTORY Diagnosis Date Depressive disorder Generalized anxiety disorder Herpes labialis LGSIL on Pap smear of cervix 2017, 2018. Multiple joint pain Paronychia of toe Scoliosis mild PAST SURGICAL HISTORY Procedure Laterality Date TOOTH EXTRACTION 04/2019 ALLERGIES Melon and Tomatoes MEDICATIONS acyclovir (ZOVIRAX) 400 mg tablet Take 1 tablet by mouth twice daily. Drospirenone-Ethinyl Estradiol (NADER, 28,) 3-0.02 mg per tablet TAKE 1 TABLET BY MOUTH ONCE DAILY. FAMILY HISTORY Problem Relation Age of Onset No Known Problems Mother No Known Problems Father No Known Problems Brother No Known Problems Brother Ataxia Maternal Grandmother other (aortic aneurysm) Maternal Grandfather Diabetes Paternal Grandmother Hypertension Paternal Grandmother Diabetes Paternal Uncle Autism Brother Social History Tobacco Use Smoking status: Never Smokeless tobacco: Never Vaping Use Vaping status: Never Used Substance Use Topics Alcohol use: Yes Comment: rarely Drug use: No ASSESSMENT/PLAN: 1. Acute cough - ICD9: 786.2, ICD10: R05.1 - XR CHEST 2V FRONTAL/LAT * * * * Physician Interpretation * * * * EXAMINATION: CHEST RADIOGRAPH (2 VIEW FRONTAL & LATERAL) CLINICAL HISTORY: Acute cough MQ: XC2_6 EXAM DATE/TIME: 12/03/2024 10:32 AM COMPARISON: No relevant prior studies available. RESULT: Lines, tubes, and devices: None. Lungs and pleura: No consolidation. No lung mass. No pleural effusion. No pneumothorax. Cardiomediastinal silhouette: Normal cardiomediastinal silhouette. Bones and soft tissues: Unremarkable. IMPRESSION IMPRESSION: No acute radiographic abnormality. Field Support Representative: SHARITA Transcribe Date/Time: Dec 03 2024 10:36A Dictated by : MUKUND WEBSTER MD ASSESSMENT/PLAN: 1. Acute cough - ICD9: 786.2, ICD10: R05.1 - XR CHEST 2V FRONTAL/LAT * * * * Physician Interpretation * * * * EXAMINATION: CHEST RADIOGRAPH (2 VIEW FRONTAL & LATERAL) CLINICAL HISTORY: Acute cough MQ: [id number] EXAM DATE/TIME: 12/03/2024 10:32 AM COMPARISON: No relevant prior studies available. RESULT: Lines, tubes, and devices: None. Lungs and pleura: No consolidation. No lung mass. No pleural effusion. No pneumothorax. Cardiomediastinal silhouette: Normal cardiomediastinal silhouette. Bones and soft tissues: Unremarkable. IMPRESSION IMPRESSION: No acute radiographic abnormality. Field Support Representative: SHARITA Transcribe Date/Time: Dec 03 2024 10:36A Dictated by : MUKUND WEBSTER MD - BROMPHENIRAMINE-PSEUDOEPHEDRINE- DM 2 MG-30 MG-10 MG/5 ML ORAL SYRUP - ALBUTEROL SULFATE HFA 90 MCG/ACTUATION AEROSOL INHALER - INHALATIONAL SPACING DEVICE Prescription instructions reviewed with patient as applicable. Potential red flag symptoms discussed with the patient. Reviewed appropriate action plan to take if red flag symptoms occur. Patient agreeable to treatment plan. Kacie Cruz APRN.LEDA documented in this encounter [facility] 02-25-2023 History of Presen t illness Narrative Refill Authorization Consent Mi Ortez was encountered by text or mychart message to obtain consent for pharmacist managed refill authorization. Patient gives consent to the authorization of prescriptions by a pharmacist. Brie Arana, FER 02/25/2023 documented in this encounter [facility] 12-04-2022 Miscellaneous Notes See pended medication order below. Pt calling and stated that this was sent to local pharmacy but it needs to be sent to [facility]. Call only if problems. Pooja Hidalgo LPN documented in this encounter [facility] 11-23-2022 History of Presen t illness Narrative Sew On Operator offered: Patient declines. Mi is a 27 year old who presents for an annual gynecologic exam without complaints. 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 Contraception: combined hormonal contraceptives HPV vaccine: Yes Last Pap: 11/27/2021 abnormal, ascus HPV: 11/29/2021 negative History of abnormal pap: Yes Last mammogram: never Sexually active: Yes History of STDS: None Patient concerns for STD exposure: No. Pain with intercourse: No Postcoital bleeding: No Exercise:active Diet: balanced OB History T0 L0 SAB0 IAB0 Ectopic0 Multiple0 Live Births0 Comprehensive Advisor History LMP: 11/20/2022, Having periods Age at Menarche: Age at First : Age at Menopause: Comprehensive Advisor History Comments: Sexual Activity: Not Currently; Male Contraception: Pill PAST MEDICAL HISTORY Diagnosis Date Depressive disorder Generalized anxiety disorder Herpes labialis LGSIL on Pap smear of cervix 2017, 2018. Multiple joint pain Paronychia of toe Scoliosis mild PAST SURGICAL HISTORY Procedure Laterality Date TOOTH EXTRACTION 04/2019 FAMILY HISTORY Problem Relation Age of Onset No Known Problems Mother No Known Problems Father No Known Problems Brother No Known Problems Brother Ataxia Maternal Grandmother other (aortic aneurysm) Maternal Grandfather Diabetes Paternal Grandmother Hypertension Paternal Grandmother Diabetes Paternal Uncle Autism Brother SOCIAL HISTORY Social History Tobacco Use Smoking status: Never Smokeless tobacco: Never Vaping Use Vaping Use: Never used Substance Use Topics Alcohol use: Yes Comment: rarely Drug use: No REVIEW OF SYSTEMS Abdomen: No abdominal pain, nausea, vomiting, diarrhea, or constipation. No bloating, early satiety, indigestion, or increased flatulence. Bladder: No dysuria, gross hematuria, urinary frequency, urinary urgency, or incontinence. Breast: No breast lumps, nipple d/c, overlying skin changes, redness or skin retraction. Allergies and current medication updated:Yes EXAM: BP 104/64 Ht 5' 3.5 (1.61m) Wt 135 lb (61.2kg) LMP 11/20/2022 BMI 23.54 kg/(m^2). GENERAL: pleasant, female in no apparent distress HEENT: Normocephalic, atraumatic, mucus membranes moist, and no lesions NECK: Supple, full range of motion, no adenopathy, and thyroid normal DERMATOLOGY: Normal, without lesions, non-icteric, and non-hirsute BREAST: soft, non-tender, symmetric, no dominant mass, normal nipple-areolar complex, no lymphadenopathy, and no nipple discharge ABDOMEN: soft, non-tender, and no masses PELVIC: external genitalia normal, normal Bartholin's glands, urethra, [place]'s glands, no vulvar lesions, no cervical lesions, good vaginal support, physiologic discharge present, normal appearing perineal body and perianal region BIMANUAL: uterus normal size, shape and consistency, no adnexal masses, and non-tender RECTOVAGINAL: deferred. NEURO: alert and oriented x3,exam grossly non-focal EXTREMITIES: normal ASSESSMENT/PLAN: 1) Health maintenance: Pap done with reflex HPV. Mammogram starting age 40. Nutrition, exercise and routine health maintenance exams reviewed. HPV vaccine: completed series 2) Contraception: combined hormonal contraceptives. Contraceptive options reviewed and information provided. 3) STD screening: Accepted STD check for Gonorrhea and Chlamydia. 4) Follow up one year or sooner as needed Valorie Luna MD documented in this encounter [facility] 10-19-2022 History of Presen t illness Narrative Behavioral Health Social Work Progress Note Patient identified for [facility] from: PCP Reason for referral: [facility] Behavioral Health Resources: Psychology - talk therapy [facility] encounter type: Goodybaghart Message Attempts to Outreach: 3 attempts Referral made: Psychology - Internal;Psychology - External Psychology-Internal referral type: Therapy;EAP Psychology-External referral type: Therapy Reason for external referral: Wait times at [facility] too long Final Disposition: Resources given Patient Discharged?: Yes Patient reported that caregiver was able to meet their needs today?: N/A Patient read [employer] message with requested resources by PCP. SW sent follow-up message to see if any additional questions or concerns exist. CARLOS Guerra October 19, 2022 documented in this encounter [facility] 10-12-2022 Miscellaneous Notes Reviewed. Behavioral Health Social Work Progress Note Patient identified for [facility] from: PCP Reason for referral: Resources Behavioral Health Resources: Psychology - talk therapy [facility] encounter type: Telephone Encounter Attempts to Outreach: 1 attempt Referral made: Psychology - Internal;Psychology - External Psychology-Internal referral type: Therapy;EAP Psychology-External referral type: Therapy Reason for external referral: Wait times at [facility] too long Final Disposition: Unable to reach Patient Discharged?: No Patient reported that caregiver was able to meet their needs today?: N/A Phone call placed today that went to [facility]. Left my contact information and brief nature of call. Initial outreach also completed via [employer] sending list of in network providers with insurance. These include: [facility] Caregivers Program: - Available for [facility] insurance card holders. - Includes 6 free sessions per calendar year- this is not billed through your insurance. - If you are interested these services, please call [phone] to schedule an appointment. [facility] [phone] *counseling and psychiatry [facility] [address] [place] [address] *counseling and psychiatry [facility] (MULTIPLE LOCATIONS AND VIRTUAL) [address] [place] [address] *counseling and psychiatry [facility] Psychiatry ([facility]) [address] [place] [address] *counseling and psychiatry [facility] [address] [place] [address] *counseling [facility] [address] [place] [address] *counseling and psychiatry [facility] [address] [place], [place] [phone] *counseling and psychiatry [facility] [address] [place] [address] *counseling and psychiatry [facility] [address] [place] [address] *counseling [facility] [address] [place] [address] *counseling CARLOS Guerra October 12, 2022 documented in this encounter [facility] 10-12-2022 History of Presen t illness Narrative Chief Complaint Patient presents with: Physical HPI Mi Ortez is a 27 year old female who presents here today for annual physical. Has been in good health without hospitalizations or ER visits. Depression/anxiety: Requesting new referral to counseling since she never followed up. Has had both good and bad stress lately. 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 Will be working in one of the [employer]. Feels like anxiety symptoms have worsened with occasional panic symptoms. Gets these about once per week on average and is able to calm herself down without rx. Anxiety: Admits to excess worrying, inability controlling her worry, agitation/irritability, decreased concentration.Depression: admits to feeling down/depressed, insomnia, feeling tired/no energy, feeling bad about herself, moving slowly or fidgeting. Denies SI/HI. Refusing rx. States that she still gets headaches while doing handstand pushups after her injury in August. Taking acyclovir on a PRN basis instead of BID for cold sores. Starts when she feels lips tingle like she is getting cold sore and works well for her. Going to the gym 4-5 days per week. Would like to get flu and COVID boosters today. Past medical history, appointments, medications, allergies reviewed. Previous Medical History PAST MEDICAL HISTORY Diagnosis Date Depressive disorder Generalized anxiety disorder Herpes labialis LGSIL on Pap smear of cervix 2017, 2018. Multiple joint pain Paronychia of toe Previous Surgical History PAST SURGICAL HISTORY Procedure Laterality Date TOOTH EXTRACTION 04/2019 Family History FAMILY HISTORY Problem Relation Age of Onset No Known Problems Mother No Known Problems Father No Known Problems Brother No Known Problems Brother Ataxia Maternal Grandmother other (aortic aneurysm) Maternal Grandfather Diabetes Paternal Grandmother Hypertension Paternal Grandmother Diabetes Paternal Uncle Autism Brother Patient Allergies ALLERGIES Allergen Reactions Melon Itching Tomatoes Itching Current Medications Current Outpatient Medications on File Prior to Visit Medication Sig acyclovir (ZOVIRAX) 400 mg tablet Take 1 tablet by mouth twice daily. Drospirenone-Ethinyl Estradiol (NADER, Nimesh,) 3-0.02 mg per tablet TAKE 1 TABLET BY MOUTH ONCE DAILY. No current facility-administered medications on file prior to visit. Social History Social History Tobacco Use Smoking status: Never Smokeless tobacco: Never Vaping Use Vaping Use: Never used Substance Use Topics Alcohol use: Yes Comment: rarely Drug use: No Review of Symptoms REVIEW OF SYSTEMS GENERAL: No weight loss, malaise or fevers HEENT: Negative for frequent or significant headaches, No changes in hearing or vision, no nose bleeds or other nasal problems NECK: Negative for lumps, goiter, pain and significant neck swelling RESPIRATORY: Negative for cough, hemoptysis, wheezing, COPD, dyspnea or shortness of breath CARDIOVASCULAR: Negative for chest pain, leg swelling, hypertension, CHF or palpitations GI: No nausea, vomiting, or diarrhea : No history of dysuria, frequency or incontinence 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 Skin: Skin color, texture, turgor normal, no suspicious rashes or lesions. Head: Normocephalic, no masses, lesions, tenderness or abnormalities. Eyes: Anicteric sclera. Pupils are equally round and reactive to light. Extraocular movements are intact. . Ears: External ears normal, canals clear. Nose/Sinuses: Nares normal, septum midline, mucosa normal, no drainage or sinus tenderness. Oropharynx: Lips, mucosa, and tongue normal, teeth and gums normal, oropharynx normal. Neck: Supple, no adenopathy; thyroid symmetric, normal size, no bruits. Lungs: Lungs clear to auscultation. No wheezing, rhonchi, rales.. Heart: RRR without murmur, gallop, or rubs. No ectopy. Abdomen: Normal abdominal exam, Abdomen soft, non-tender. Bowel sounds normal. No masses, organomegaly. Extremities: No deformities, edema, skin discoloration, clubbing or cyanosis. Good capillary refill. Health Maintenance List COVID-19 VACCINE(4 - Booster for Moderna series) due on 12/19/2021 INFLUENZA(1) due on 08/02/2022 PAP TESTING due on 11/14/2024 DTAP,TDAP,TD(8 - Td or Tdap) due on 12/07/2030 HEPATITIS B Completed HPV VACCINE Completed HEPATITIS C SCREENING Completed HIV SCREENING Completed Component Latest Ref Rng & Units 04/11/2022 Protein, Total 6.3 - 8.0 g/dL 7.0 Albumin 3.9 - 4.9 g/dL 4.1 Calcium 8.5 - 10.2 mg/dL 9.4 Bilirubin, Total 0.2 - 1.3 mg/dL 0.2 Alkaline Phosphatase 34 - 123 U/L 82 AST 13 - 35 U/L 22 ALT 7 - 38 U/L 15 Glucose 74 - 99 mg/dL 87 BUN 7 - 21 mg/dL 16 Creatinine 0.58 - 0.96 mg/dL 1.06 (H) Sodium 136 - 144 mmol/L 137 Potassium 3.7 - 5.1 mmol/L 4.4 Chloride 97 - 105 mmol/L 103 CO2 22 - 30 mmol/L 24 Anion Gap 9 - 18 mmol/L 10 eGFR >=60 mL/min/1.73m 75 TSH 0.270 - 4.200 mIU/L 1.630 Free T4 0.9 - 1.7 ng/dL 1.0 Vitamin D 25 Hydroxy 31.0 - 80.0 ng/mL 43.1 Vitamin B12 232-1,245 pg/mL 651 ASSESSMENT/PLAN: 1. Annual physical exam - ICD9: V70.0, ICD10: Z00.00 (primary diagnosis) - Counseled on healthy diet and regular exercise - Calcium intake with supplements or by diet of 1000 mg/day for under 50, 0620-8641 mg/day for 50+ - Follow up for annual exam in one year 2. Anxiety with depression - ICD9: 300.4, ICD10: F41.8 Refusing rx. Would like referral to counseling. Contracted for safety and discussed coping strategies. Red flags for re-assessment reviewed with patient in detail. - CONSULT TO PRIMARY CARE BEHAVIORAL HEALTH ADULT 3. Herpes labialis - ICD9: 054.9, ICD10: B00.1 No flare today. Will monitor. 4. Cervical pain (neck) - ICD9: 723.1, ICD10: M54.2 Still getting headaches with handstand pushups. Discussed modifying her exercise and working on seated shoulder presses for the next few weeks instead. Red flags for re-assessment reviewed with patient in detail. 5. Closed head injury, initial encounter - ICD9: 959.01, ICD10: S09.90XA See above. 6. Need for influenza vaccination - ICD9: V04.81, ICD10: Z23 - INFLUENZA VACCINE QUADRIVALENT 6 MO - 64 YRS IM 7. Need for COVID-19 vaccine - ICD9: V04.89, ICD10: Z23 - PFIZER-BIONTECH COVID-19 BIVALENT BOOSTER VACCINE, AGE 12+ YR Timothy Bajwa MD documented in this encounter [facility] 09-16-2022 History of Presen t illness Narrative CC: Patient presents with: Sore Throat: HEATH, stuffy nose x 1 day HPI: Mi Ortez is a 27 year old female who presents to the office with complaint of head congestion and sore throat for the past day. Symptoms are worsening Associated symptoms includes headache. Denies fever, nausea, vomiting , and diarrhea. Treatments tried include nothing so far. with no relief of symptoms. Sick contacts: unknown. History of asthma, frequent episodes of bronchitis, chronic bronchitis, bronchiectasis or COPD: No Smoker: No Seasonal/environmental allergies: No The ROS is otherwise negative. The patient's pmh, medications, allergies, and past visits are reviewed. PHYSICAL EXAM: BP 128/88 Pulse 75 Temp 36.3 C (97.4 F) Resp 20 Wt 64.4 kg (142 lb) LMP 12/30/2021 (Approximate) SpO2 99% BMI 24.85 kg/m General appearance: alert, cooperative, pleasant, in no acute distress Head: Normocephalic Eyes: EOM's intact, conjunctiva pink and moist, no icterus, sclera white, non-injected Ears: Right ear: External ear/canal- Normal, TM - clear with good landmarks. Left ear: External ear/canal- Normal, TM - clear with good landmarks Oropharynx:moderate erythema, without exudates present Heart: Negative. RRR without obvious murmur, gallop, or rubs. No ectopy. Lungs: clear to auscultation, without rales or wheeze, good air exchange PAST MEDICAL HISTORY Diagnosis Date Depressive disorder Generalized anxiety disorder Herpes labialis LGSIL on Pap smear of cervix 2017, 2018. Multiple joint pain Paronychia of toe PAST SURGICAL HISTORY Procedure Laterality Date TOOTH EXTRACTION 04/2019 ALLERGIES Melon and Tomatoes MEDICATIONS acyclovir (ZOVIRAX) 400 mg tablet Take 1 tablet by mouth twice daily. Drospirenone-Ethinyl Estradiol (NADER, 28,) 3-0.02 mg per tablet TAKE 1 TABLET BY MOUTH ONCE DAILY. FAMILY HISTORY Problem Relation Age of Onset No Known Problems Mother No Known Problems Father No Known Problems Brother No Known Problems Brother Ataxia Maternal Grandmother other (aortic aneurysm) Maternal Grandfather Diabetes Paternal Grandmother Hypertension Paternal Grandmother Diabetes Paternal Uncle Autism Brother Social History Tobacco Use Smoking status: Never Smokeless tobacco: Never Vaping Use Vaping Use: Never used Substance Use Topics Alcohol use: Yes Comment: rarely Drug use: No ASSESSMENT/PLAN: 1. Sore throat - ICD9: 462, ICD10: J02.9 - STREP A MOLECULAR (POC) - negative Covid test ordered. No treatment at this time. Prescription instructions reviewed with patient as applicable. Potential red flag symptoms discussed with the patient. Reviewed appropriate action plan to take if red flag symptoms occur. Patient agreeable to treatment plan. Kacie Cruz APRN.CNP documented in this encounter [facility] 06-22-2022 Miscellaneous Notes Phoned patient and updated her with results. Patient voiced understanding. Please call patient and let her know her xrays are normal. Char Barrett APRN.CNP documented in this encounter [facility] 06-22-2022 Nicki Barrett APRN.BINGO CALLER - 06/22/2022 11:50 AM EDT Concussion in children and adolescents (The Basics) Written by the doctors and editors at [facility] (Ammended by Dr. Davis 07/2016) What is a concussion? A concussion is a mild brain injury that commonly causes confusion, memory loss, and a headache. A concussion can happen as a result of a fall or other type of accident. But it can also happen during participation in sports. Among adolescents who play sports, concussion is one of the most common injuries. If your child gets a concussion either on or off the field it's very important that he or she stop playing sports until the doctor says it's safe to start again. Be aware that kids sometimes lie about their symptoms if they are afraid that they will not be allowed to play if they tell the truth. Among boys, the sports most often linked to concussions are [place] football, ice hockey, and lacrosse. Among girls, the sports most often linked to concussions are soccer, lacrosse, and field hockey. What are the symptoms of a concussion? Symptoms that can happen minutes to hours after a concussion include: ?Memory loss Kids sometimes forget what caused their injury, as well as what happened right before and after the injury. ?Confusion ?Headache ?Dizziness or trouble with balance ?Nausea or vomiting ?Feeling sleepy ?Acting cranky, strangely, or out of sorts ?Passing out (but this is not very common) Symptoms that can happen hours to days after a concussion include: ?Trouble walking or talking ?Memory problems or problems paying attention ?Trouble sleeping ?Mood or behavior changes ?Vision changes ?Being bothered by noise or light How is a concussion treated? The most important part of treatment is rest. Most concussions get better on their own, but it can take time. While your child is healing, it's important that he or she not do too much and not play any sports. Having a second injury while the brain is healing from a concussion can damage the brain. Your child's doctor will help you decide which activities are safe for your child. This is different for each child with a concussion. In general, a child or adolescent who is healing from a concussion should avoid activities which make their symptoms worse. These may include: 1. Exercise 2. Activity that requires a significant amount of concentration-such as reading, homework, video games, driving. When can my child play sports or do usual activities again? Not until all the child's symptoms have resolved. Once this has happened, we generally start a return to play program which usually takes between 3-10 days depending on the severity of the injury. This program is individualized for each patient. Do not ogden it. Your child's brain needs to heal completely after a concussion. If your child gets another concussion before his or her brain has healed, it could lead further issues. When your child does return to his or her usual activities, he or she might need to slowly ease into them. That might mean going for a half-day at school, or doing less schoolwork than the other kids at first. The same goes for going back to sports. He or she might need to start with just light jogging and slowly add in other activities. When should I call the doctor or nurse? Call the doctor or nurse if any of the following happen after a concussion: ?Your child vomits more than 3 times ?Your child has a severe headache, or a headache that gets worse ?Your child has a seizure ?Your child has trouble walking or talking ?Your child's vision changes ?Your child feels weak or numb in part of the body ?Your child loses bladder or bowel control ?You cannot wake your child documented in this encounter [facility] 06-22-2022 History of Presen t illness Narrative 06/22/2022 Patient presents with: Trauma SUBJECTIVE: This is a 27 year old that is here today for Above Complaints. 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 Lost control and came down on top of head really hard. Reports she had an immediate headache. Also notes ome pain to neck and upper back. Went to chiropractor yesterday and he did not want to adjust neck. Chiropractor asked her to have xray's completed. Denies past or present neck or back injury, visual changes, confusion, current headache, lethargy, extremity numbness, tingling, weakness, vomiting, saddle anaesthesia, urinary/bowel incontinence or inability. SCAT3 (Ages13 y/o and up) Sport Concussion Assessment Tool 3 How do you feel (right now)? none=0, mild=1-2, moderate=3-4, severe=5-6 Headache 0 Pressure in head 0 Neck Pain 2 Nausea or vomitting 3 Dizziness 0 Blurred Vision 0 Balance Problems 0 Sensitivity to light 2 Sensitivity to Noise 1 Feeling slowed down 3 Feeling like in a fog 1 Don't feel right 2 Difficulty concentrating 1 Difficulty remembering 5 Fatigue or low energy 6 Confusion 1 Drowsiness 4 Trouble falling asleep 0 More emotional 0 Irritability 4 Sadness 0 Nervous or Anxious 0 Do the symptoms get worse with physical activity? No Do the symptoms get worse with mental activity? No Symptom evaluation completed as self rated Overall rating: If you know the athlete well prior to the injury, how different is she acting compared to her usual self? n/a SAC (Ages13 y/o and up) Standardized Assessment of Concussion Orientation (1 point for each correct answer) What month is it? 1 What is the date today? 1 What is the day of the week? 1 What year is it? 1 What time is it right now? (within 1 hour) 1 Orientation Score 5 of 5 Immediate Memory (1 point for each correct answer) List Trial 1 Trial 2 Trial 3 Alternative Alternative Alternative elbow 1 1 1 candle baby finger apple 1 1 0 paper monkey darling carpet 1 1 0 sugar perfume blanket saddle 1 1 1 sandwich sunset lemon bubble 1 1 1 wagon iron insect Total 5 5 3 Immediate Memory Score Total 13 of 15 Concentration: Digits Backward (1 point for each correct answer) List Trial 1 Alternative Alternative Alternative 4-9-3 1 6-2-9 5-2-6 4-1-5 3-8-1-4 0 3-2-7-9 1-7-9-5 4-9-6-8 6-2-9-7-1 0 1-5-2-8-6 3-8-5-2-7 6-1-8-4-3 7-1-8-4-6-2 0 5-3-9-1-4-8 8-3-1-9-6-4 7-2-4-8-5-6 Total 1 of 4 Concentration: Month in Reverse Order (1 point for entire sequence correct) Xon-Ecm-Kak-Wljl-Brd-Onk-May-April -Ogn-Vxr-Zhb-Dec 1 Concentration Score 3 of 5 SAC Delayed Recall (Able to recall 5 serial words after delay) Delayed Recall Score 3 of 5 Headache yesterday but none today. Slo neck and upper spine hurting Reports headache instantly Saw jacob yesterday. But wouldn't adk=just neck because he wants to make sure no ffrature Headache yesterday not as bad today. Random pains behind eye. No current headache Has had some nausea, light sensativty, feels slowed down, Denies visual changes Taking Tylene twice yesterday PAST MEDICAL HISTORY Diagnosis Date Depressive disorder Generalized anxiety disorder Herpes labialis LGSIL on Pap smear of cervix 2017, 2018. Multiple joint pain Paronychia of toe ALLERGIES Melon and Tomatoes MEDICATIONS Current Outpatient Medications Medication Sig acyclovir (ZOVIRAX) 400 mg tablet Take 1 tablet by mouth twice daily. Drospirenone-Ethinyl Estradiol (NADER, 28,) 3-0.02 mg per tablet TAKE 1 TABLET BY MOUTH ONCE DAILY. No current facility-administered medications for this visit. Medications and allergies reviewed by this provider. SOCIAL HISTORY Social History Tobacco Use Smoking status: Never Smoker Smokeless tobacco: Never Used Vaping Use Vaping Use: Never used Substance Use Topics Alcohol use: Yes Comment: rarely Drug use: No REVIEW OF SYSTEMS All other reviewed and negative other than HPI. OBJECTIVE: BP 116/64 Pulse 69 Resp 18 Wt 63.3 kg (139 lb 9.6 oz) LMP 12/30/2021 (Approximate) SpO2 99% BMI 24.43 kg/m . Vital signs reviewed by this provider. APPEARANCE Well appearing, alert, in no acute distress, well-hydrated, well nourished. EYES PERRLA, conjunctiva and sclera normal. EARS External ears normal, canals clear NECK Supple,FROM with some discomfort with lateral rotation. TTP around C6. No swelling, obvious deformity or step offs. Mild purplish discoloration to left and right thoracic spine- patient reports she has scraping by chiropractor yesterday which is what caused this HEART RRR with normal S1 and S2, no murmurs, no gallops, no JVD appreciated LUNG clear to auscultation. No wheezes, rhonchi, or rales BACK: No obvious deformity or step-offs. Generalized TTP throughout thoracic spine EXTREMITIES Extremities normal, No deformities, No skin discoloration and No edema NEURO Awake, alert and oriented x 3, Cranial nerves II-XII grossly intact, Reflexes symmetrical, Normal gait, No involuntary motions. and negative findings: speech normal, mental status intact, cranial nerves 2-12 intact, Romberg negative, muscle tone normal, muscle strength normal, rapid alternating movements normal, finger to nose normal, reflexes normal and symmetric, plantar response downgoing bilaterally SKIN Skin color, texture, turgor normal, no suspicious rashes or lesions. No wheezes, rhonchi, or rales INFLUENZA(1) due on 08/02/2022 PAP TESTING due on 11/14/2024 DTAP,TDAP,TD(8 - Td or Tdap) due on 12/07/2030 HPV VACCINE Completed HEPATITIS C SCREENING Completed HIV SCREENING Completed COVID-19 VACCINE Completed ASSESSMENT/PLAN: 1. Closed head injury, initial encounter - ICD9: 959.01, ICD10: S09.90XA (primary diagnosis) - possible concussion - no red flag symptoms or exam findings - red flag symptoms discussed in detail, verbalizes understanding - course of concussion discussed - follow-up if symptoms fail to improve to ER with discussed red flag symptoms 2. Cervical pain (neck) - ICD9: 723.1, ICD10: M54.2 - no red flag symptoms or exam findings - red flag symptoms discussed, verbalizes understanding - recommend rest, ice, heat for 15 minutes at a time, may use OCT topical, lidocaine patches and pain relievers as indicated on packaging - XR CERV OTHER 4V AP/LAT/OBL - follow-up if symptoms fail to improve, to ER with red flag symptoms 3. Acute bilateral thoracic back pain - ICD9: 724.1, ICD10: M54.6 - plan as in #2 - XR THORACIC GENERAL 3V AP/LAT/SWIMMERS Char Barrett, [employer]ING[employer] CALLER Prescription instructions reviewed with patient as applicable. Patient advised if symptoms do not improve or if symptoms worsen sooner, to contact their primary care physician. Potential red flag symptoms discussed with the patient. Reviewed appropriate action plan to take if red flag symptoms occur. Patient agreeable to treatment plan. I spent a total of 34 minutes on the date of the service which included preparing to see the patient, [id number]-[id number] patient care, completing clinical documentation, performing a medically appropriate examination, counseling and educating the patient/family/caregiver and ordering medications, tests, or procedures. documented in this encounter [facility] 06-21-2022 History of Presen t illness Narrative Patient presents to [facility] triage with a head injury and mid back pain since yesterday. She was doing a head stand at [facility] when she slipped and fell straight down on her head. She states she has had a headache since then. Today she has been dizzy and lightheaded and felt nauseous. Headache is worsened. She also went to the chiropractor today who recommended she have imaging before he would adjust her. She is having mid back pain and felt a pop in her back after she fell. Discussed with patient that we do not evaluate head injuries at [facility] and would recommend being seen in the ER. I did check family medicine and there are no available visits today. She will talk to her mom and decide which er to go to. documented in this encounter [facility] 05-30-2022 Instructions Heron Choudhury APRN.LEDA - 05/30/2022 2:51 PM EDT R.I.C.E. The general care of your injury includes the following: Resting, Icing, Compressing and Elevating the injured area. Remember this as RICE. REST: Limit the use of the injured body part. ICE: By applying ice to the affected area, swelling and pain can be reduced. Place some ice cubes in a re-sealable (Ziploc) bag and add some water. Put a thin washcloth between the bag and your skin. Apply the ice bag to the area for at least 20 minutes. Do this at least 4 times per day. Using the ice for longer times and more frequently is OK. NEVER APPLY ICE DIRECTLY TO THE SKIN. COMPRESS: Compression means to apply pressure around the injured area such as with a splint, cast or an wesly bandage. Compression decreases swelling and improves comfort. Compression should be tight enough to relieve swelling but not so tight as to decrease circulation. Increasing pain, numbness, tingling, or change in skin color, are all signs of decreased circulation. ELEVATE: Elevate the injured part. For example, elevate your foot by placing it on a chair while sitting, or propping it up on pillows when lying down. documented in this encounter [facility] 05-30-2022 History of Presen t illness Narrative Radiology Service Progress Note PATIENT NAME: Mi Ortez DATE OF SERVICE: May 30, 2022 TIME: 2:23 PM PATIENT IDENTITY VERIFICATION COMPLETED USING TWO (2) IDENTIFIERS: Name and Date of confirmed by patient verbally. FALL SCREENING: Has the patient had 2 falls in the last year or 1 fall with injury or currently using an Ambulatory Assistive Device (Walker, Cane, Wheelchair, Crutches, etc.)? No PATIENT GENDER DATA: Female. status: : No status: NO. PATIENT RELEVANT IMPLANT DATA REVIEWED: Yes RADIOLOGY DEPARTMENT: General X-ray: Exam(s) Completed: Lower Extremity X-Ray(s): Knee, AP / Lat / Tunne / Merchant Right and Wt. Bearing PERIPHERAL IV DATA: Not applicable SIGNED BY: RT Keisha(R) May 30, 2022 2:23 PM documented in this encounter [facility] 05-30-2022 History of Presen t illness Narrative Subjective HPI Nontoxic-appearing female presents urgent care chief complaint right knee pain. Duration of symptoms 4 days. Associated symptoms right knee pain decreased range of motion due to discomfort. Patient states was doing box jumps at [email or web address] when she felt a pop in her right knee. Presents today for evaluation. [place] when she had to leave early due to discomfort. Patient states she was able to go to [employer] but was limited on her abilities. No numbness and tingling distal to injury. Denies history of surgeries or fractures to this knee ankle. Has not used any OTC medications. Denies any significant pain at rest. Denies fever body aches chills. Past medical history prescription medication use allergies reviewed. Denies chance of . .Patient presents with: Knee Pain: right x 4 days, doing box jumps PAST MEDICAL HISTORY Diagnosis Date Depressive disorder Generalized anxiety disorder Herpes labialis LGSIL on Pap smear of cervix 2017, 2018. Multiple joint pain Paronychia of toe PAST SURGICAL HISTORY Procedure Laterality Date TOOTH EXTRACTION 04/2019 ALLERGIES Melon and Tomatoes MEDICATIONS acyclovir (ZOVIRAX) 400 mg tablet Take 1 tablet by mouth twice daily. Drospirenone-Ethinyl Estradiol (NADER, 28,) 3-0.02 mg per tablet TAKE 1 TABLET BY MOUTH ONCE DAILY. FAMILY HISTORY Problem Relation Age of Onset No Known Problems Mother No Known Problems Father No Known Problems Brother No Known Problems Brother Ataxia Maternal Grandmother other (aortic aneurysm) Maternal Grandfather Diabetes Paternal Grandmother Hypertension Paternal Grandmother Diabetes Paternal Uncle Autism Brother Social History Tobacco Use Smoking status: Never Smoker Smokeless tobacco: Never Used Vaping Use Vaping Use: Never used Substance Use Topics Alcohol use: Yes Comment: rarely Drug use: No BP 90/64 Pulse 70 Temp 36.7 C (98 F) Resp 16 Wt 62.1 kg (137 lb) LMP 12/30/2021 (Approximate) SpO2 99% BMI 23.97 kg/m Review of Systems Constitutional: Negative for chills, fever and malaise/fatigue. HENT: Negative for congestion, ear discharge, ear pain, sinus pain and sore throat. Eyes: Negative for blurred vision, pain, discharge and redness. Respiratory: Negative for cough, hemoptysis, sputum production, shortness of breath, wheezing and stridor. Cardiovascular: Negative for chest pain. Gastrointestinal: Negative for abdominal pain, diarrhea, nausea and vomiting. Musculoskeletal: Positive for joint pain. Negative for back pain, falls, myalgias and neck pain. Skin: Negative for itching and rash. Neurological: Negative for dizziness and headaches. Objective Physical Exam Constitutional: General: She is not in acute distress. Appearance: She is not diaphoretic. HENT: Head: Normocephalic. Mouth/Throat: Mouth: Mucous membranes are moist. Pharynx: Oropharynx is clear. No oropharyngeal exudate or posterior oropharyngeal erythema. Eyes: Conjunctiva/sclera: Conjunctivae normal. Pupils: Pupils are equal, round, and reactive to light. Cardiovascular: Rate and Rhythm: Normal rate and regular rhythm. Heart sounds: Normal heart sounds. Pulmonary: Effort: Pulmonary effort is normal. No tachypnea, accessory muscle usage or respiratory distress. Breath sounds: Normal breath sounds. No stridor. Abdominal: Palpations: Abdomen is soft. Tenderness: There is no abdominal tenderness. Musculoskeletal: Cervical back: Normal range of motion and neck supple. No rigidity or tenderness. Right upper leg: Normal. Right knee: No swelling, deformity, effusion, erythema, ecchymosis, lacerations or bony tenderness. Normal range of motion. Tenderness present over the medial joint line. Right lower leg: Normal. Right ankle: Normal. Comments: Pain with valgus stress. No erythema no edema. Lymphadenopathy: Cervical: No cervical adenopathy. Skin: General: Skin is warm and dry. Neurological: Mental Status: She is alert and oriented to person, place, and time. ASSESSMENT/PLAN: 1. Injury of right knee, initial encounter - ICD9: 959.7, ICD10: S89.91XA - XR KNEE GENERAL 4V AP BOTH/PA BOTH/LAT/MERC RIGHT - KNEE IMMOBILIZER - CONSULT TO ORTHOPAEDICS Patient diagnosed with right knee injury. Suspicious of ligament tendon and/overuse injury. Will use knee immobilizer. Will gradually increase range of motion as tolerated. Orthopedic referral placed. Patient was educated on supportive therapies. Patient will follow up with primary care provider as needed. Patient was instructed to immediately proceed to emergency room for any new, worsening, or symptoms lasting longer than anticipated. The patient's clinical presentation is otherwise unremarkable at this time. Based on exam and clinical finding, the patient is stable for discharge. Plan of care was discussed with patient. Patient verbalizes understanding and agrees to plan of care. This note was generated using Graze software. It may contain errors in wording, punctuation, or spelling. Heron Choudhury APRN.LEDA documented in this encounter [facility] 04-10-2022 History of Presen t illness Narrative Chief Complaint Patient presents with: F/U 3 Month HPI Mi Ortez is a 26 year old female who presents here today for 3 month follow up on anxiety/depression. Previous HPI: States that she has had anxiety and depression symptoms which started back in September and have worsened with increased stress. Depression: admits to feeling down/depressed, insomnia, feeling tired/no energy, feeling bad about herself, moving slowly or fidgeting. Anxiety: Admits to excess worrying, inability controlling her worry, agitation/irritability, decreased concentration. Also notes panic symptoms with tachycardia and extreme anxiety. Has been on Celexa in the past and didn't like how it made her feel. Would like to try counseling instead of medication. Since last OV, patient states that she has not followed up with counseling because she didn't have time. States that her mood has improved since last OV, but still has occasional low energy. Anxiety symptoms are still present, but is better able to redirect her thoughts and has been going to the the gym more often to help with stress. Making more time to see her friends. Still not interested in medication at this time. Denies SI/HI, panic symptoms. No recurrent cold sores on Acyclovir. Past medical history, appointments, medications, allergies reviewed. Previous Medical History PAST MEDICAL HISTORY Diagnosis Date Depressive disorder Generalized anxiety disorder Herpes labialis LGSIL on Pap smear of cervix 2017, 2018. Multiple joint pain Paronychia of toe Previous Surgical History PAST SURGICAL HISTORY Procedure Laterality Date TOOTH EXTRACTION 04/2019 Family History FAMILY HISTORY Problem Relation Age of Onset No Known Problems Mother No Known Problems Father No Known Problems Brother No Known Problems Brother Ataxia Maternal Grandmother other (aortic aneurysm) Maternal Grandfather Diabetes Paternal Grandmother Hypertension Paternal Grandmother Diabetes Paternal Uncle Autism Brother Patient Allergies ALLERGIES Allergen Reactions Melon Itching Tomatoes Itching Current Medications Current Outpatient Medications on File Prior to Visit Medication Sig acyclovir (ZOVIRAX) 400 mg tablet Take 1 tablet by mouth twice daily. Drospirenone-Ethinyl Estradiol (NADER, 28,) 3-0.02 mg per tablet TAKE 1 TABLET BY MOUTH ONCE DAILY. No current facility-administered medications on file prior to visit. Social History Social History Tobacco Use Smoking status: Never Smoker Smokeless tobacco: Never Used Vaping Use Vaping Use: Never used Substance Use Topics Alcohol use: Yes Comment: rarely Drug use: No Review of Symptoms REVIEW OF SYSTEMS GENERAL: No weight loss, malaise or fevers RESPIRATORY: Negative for cough, hemoptysis, wheezing, COPD, dyspnea or shortness of breath CARDIOVASCULAR: Negative for chest pain, leg swelling, hypertension, CHF or palpitations GI: No nausea, vomiting, or diarrhea SKIN: Negative for lesions, rash, and itching EXAM: BP 116/68 Pulse 67 Resp 20 Wt 59.2 kg (130 lb 9.6 oz) LMP 12/30/2021 (Approximate) SpO2 98% BMI 22.85 kg/m General Appearance: Well appearing, alert, in no acute distress, well-hydrated, well nourished.. Skin: Skin color, texture, turgor normal, no suspicious rashes or lesions. Neck: Supple, no adenopathy; thyroid symmetric, normal size, no bruits. Lungs: Lungs clear to auscultation. No wheezing, rhonchi, rales.. Heart: RRR without murmur, gallop, or rubs. No ectopy. Health Maintenance List MENINGOCOCCAL B: Consider based on risk(2 of 2 - Risk Bexsero 2-dose series) due on 2013 DEPRESSION SCREENING due on 01/09/2023 PAP TESTING due on 11/14/2024 DTAP,TDAP,TD(8 - Td or Tdap) due on 12/07/2030 HPV VACCINE Completed INFLUENZA Completed HEPATITIS C SCREENING Completed HIV SCREENING Completed COVID-19 VACCINE Completed MENINGOCOCCAL CONJUGATE Aged Out ASSESSMENT/PLAN: 1. Anxiety with depression - ICD9: 300.4, ICD10: F41.8 (primary diagnosis) Improved with mild symptoms. Recommended she call for counseling appointment as she is refusing rx. Will recheck in 6 months. 2. 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 Timothy Bajwa MD documented in this encounter [facility] Evaluation note Diagnosis Anxiety with depression- Primary Recurrent cold sores Herpes simplex without mention of complication [facility] Injury of right knee, initial encounter- Primary [facility] Closed [facility], initial encounter- Primary [facility] Closed head injury, initial encounter- Primary Cervical pain (neck) Cervicalgia Acute bilateral thoracic back pain [facility] Diagnosis Sore throat- Primary Acute pharyngitis At increased risk of exposure to COVID-19 virus [facility]* Diagnosis Annual physical exam- Primary Routine general medical examination at a health care facility Anxiety with depression Herpes labialis Herpes simplex without mention of complication Cervical pain (neck) Cervicalgia Closed head injury, initial encounter Need for influenza vaccination Need for prophylactic vaccination and inoculation against influenza Need for COVID-19 vaccine [facility] Diagnosis Encounter for gynecological examination (general) (routine) without abnormal findings- Primary Surveillance for control, oral contraceptives Surveillance of previously prescribed contraceptive pill Screening for cervical cancer Screening for malignant neoplasm of the cervix Screen for STD (sexually transmitted disease) Screening examination for venereal disease [facility] Diagnosis Surveillance for control, oral contraceptives Surveillance of previously prescribed contraceptive pill [facility] Diagnosis Acute bilateral thoracic back pain Cervical pain (neck) Cervicalgia [facility]* Diagnosis Injury of right knee, initial encounter [facility]* Diagnosis Acute cough- Primary Acute cough [facility]* Diagnosis Acute cough [facility]* Diagnosis Bronchitis- Primary Bronchitis, not specified as acute or chronic [facility]* Diagnosis Viral URI with cough- Primary Acute upper respiratory infections of unspecified site [facility]* Diagnosis Bronchitis- Primary Bronchitis, not specified as acute or chronic Recurrent cold sores Herpes simplex without mention of complication [facility] Diagnosis Encounter for gynecological examination (general) (routine) without abnormal findings- Primary Screening for STD (sexually transmitted disease) Screening examination for venereal disease [facility]* Diagnosis URI, acute- Primary Acute upper respiratory infections of unspecified site [facility]* Diagnosis Fever, unspecified fever cause- Primary [facility]* Diagnosis Vaginal irritation Unspecified noninflammatory disorder of vagina documented in this encounter [facility] note* Diagnosis Less than 8 weeks gestation of (HCC)- Primary state, incidental Screening for cervical cancer Screening for malignant neoplasm of the cervix Screen for STD (sexually transmitted disease) Screening examination for venereal disease H/O cold sores Personal history of other infectious and parasitic disease Threatened ([facility]) Threatened , unspecified as to episode of care Generalized anxiety disorder Encounter for supervision of normal first in first trimester ([facility]) Supervision of normal first History of induced Personal history of other genital system and obstetric disorders documented in this encounter [facility] note* Diagnosis Encounter for supervision of normal first in first trimester ([facility])- Primary Supervision of normal first 12 weeks gestation of ([facility]) state, incidental GBS bacteriuria documented in this encounter [facility] note* Diagnosis Encounter for screening for malformation using ultrasound ([facility])- Primary 12 weeks gestation of ([facility]) state, incidental documented in this encounter [facility] note* Diagnosis GBS bacteriuria- Primary documented in this encounter [facility] note* Diagnosis Encounter for supervision of normal first in second trimester ([facility])- Primary Supervision of normal first 16 weeks gestation of ([facility]) state, incidental * Assessment & Plan Note - Valorie Meza MD - 05/19/2025 8:10 AM EDT Associated Problem(s): Encounter for supervision of normal first in first trimester ([facility]) documented in this encounter [facility] note* Diagnosis Encounter for supervision of normal first in second trimester ([facility])- Primary Supervision of normal first 16 weeks gestation of ([facility]) state, incidental Encounter for supervision of normal first in second trimester ([facility])- Primary Supervision of normal first GBS bacteriuria 20 weeks gestation of ([facility]) state, incidental * Assessment & Plan Note - Tena Cruz MD - 06/15/2025 11:25 AM EDTAssociated Problem(s): GBS bacteriuria [facility] Encounter for supervision of normal first in second trimester ([facility])- Primary Supervision of normal first 16 weeks gestation of ([facility]) state, incidental Encounter for supervision of normal first in first trimester ([facility])- Primary Supervision of normal first Less than 8 weeks gestation of ([facility]) state, incidental Encounter for supervision of normal first in second trimester ([facility])- Primary Supervision of normal first GBS bacteriuria 20 weeks gestation of ([facility]) state, incidental documented in this encounter [facility] for referral (narrative)* Diagnostic Procedure Only (Routine) - Closed Specialty Diagnoses / Procedures Referred By Contac t Referred To Contact XR IMAGING Diagnoses Acute bilateral thoracic back pain Procedures XR THORACIC GENERAL 3V AP/LAT/SWIMMERS RADEX SPINE THORACIC 3 VIEWS Char Barrett APRN.CNP [address] [id number] Xr Imaging Referral ID Status Reason Start Date Expiration Date V isits Requested Visits Authorized [id number] Closed Auto-Generate d Referral 06/22/2022 07/22/2023 1 1 * Diagnostic Procedure Only (Routine) - Closed Specialty Diagnoses / Procedures Referred By Contac t Referred To Contact XR IMAGING Diagnoses Cervical pain (neck) Procedures XR CERV OTHER 4V AP/LAT/OBL RADEX SPINE CERVICAL 4 OR 5 VIEWS PodlogChar rice APRN.BINGO CALLER [address] [place] [address] Xr Imaging Referral ID Status Reason Start Date Expiration Date V isits Requested Visits Authorized [id number] Closed Auto-Generate d Referral 06/22/2022 07/22/2023 1 1 [facility] for referral (narrative)* Diagnostic Procedure Only (Routine) - Closed Specialty Diagnoses / Procedures Referred By Contac t Referred To Contact XR IMAGING Diagnoses Cervical pain (neck) Procedures XR CERV OTHER 4V AP/LAT/OBL RADEX SPINE CERVICAL 4 OR 5 VIEWS PodlogChar rice APRN.BINGO CALLER [address] [place] [address] [place] [address] Referral ID Status Reason Start Date Expiration Date V isits Requested Visits Authorized [id number] Closed Auto-Generate d Referral 06/22/2022 07/22/2023 1 1 * Diagnostic Procedure Only (Routine) - Closed Specialty Diagnoses / Procedures Referred By Contac t Referred To Contact XR IMAGING Diagnoses Acute bilateral thoracic back pain Procedures XR THORACIC GENERAL 3V AP/LAT/SWIMMERS RADEX SPINE THORACIC 3 VIEWS PodlogChar rice APRN.BINGO CALLER [address] [place] [address] [place] [address] Referral ID Status Reason Start Date Expiration Date V isits Requested Visits Authorized [id number] Closed Auto-Generate d Referral 06/22/2022 07/22/2023 1 1 [facility] for referral (narrative)* Diagnostic Procedure Only (Urgent) - Closed Specialty Diagnoses / Procedures Referred By Contac t Referred To Contact XR IMAGING Diagnoses Injury of right knee, initial encounter Procedures XR KNEE GENERAL 4V AP BOTH/PA BOTH/LAT/MERC RIGHT RADIOLOGIC EXAM KNEE COMPLETE 4/MORE VIEWS Heron Choudhury APRN.BINGO CALLER [address] [place] [address] [place] [address] Referral ID Status Reason Start Date Expiration Date V isits Requested Visits Authorized [id number] Closed Auto-Generate d Referral 05/30/2022 06/29/2023 1 1 [facility] for visit Narrative* Diagnostic Procedure Only (Routine) - Closed Specialty Diagnoses / Procedures Referred By Contac t Referred To Contact XR IMAGING Diagnoses Acute bilateral thoracic back pain Procedures XR THORACIC GENERAL 3V AP/LAT/SWIMMERS RADEX SPINE THORACIC 3 VIEWS RojaslogChar rice APRN.BINGO CALLER [address] [place] [address] [place] [address] Referral ID Status Reason Start Date Expiration Date V isits Requested Visits Authorized [id number] Closed Auto-Generate d Referral 06/22/2022 07/22/2023 1 1 [facility] Diagnostic Procedure Only (Urgent) - Closed Specialty Diagnoses / Procedures Referred By Contac t Referred To Contact XR IMAGING Diagnoses Injury of right knee, initial encounter Procedures XR KNEE GENERAL 4V AP BOTH/PA BOTH/LAT/MERC RIGHT RADIOLOGIC EXAM KNEE COMPLETE 4/MORE VIEWS Heron Choudhury APRN.BINGO CALLER [address] [place] [address] [place] [address] Referral ID Status Reason Start Date Expiration Date V isits Requested Visits Authorized [id number] Closed Auto-Generate d Referral 05/30/2022 06/29/2023 1 1 [facility] Advance Directives No Advanced Directives Records FoundDocuments on File Type Date 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 60-74 MINUTES Heron Choudhury APRN.BINGO CALLER [address] [place] [address] Referral ID Status Reason Start Date Expiration Date Visits Requested Visits Authorized [id number] Authorized PCP Requested Referral 05/30/2022 05/30/2023 1 1 Specialty Diagnoses / Procedures Referred By Contac t Referred To Contact XR IMAGING Diagnoses Injury of right knee, initial encounter Procedures XR KNEE GENERAL 4V AP BOTH/PA BOTH/LAT/MERC RIGHT RADIOLOGIC EXAM KNEE COMPLETE 4/MORE VIEWS Heron Choudhury APRN.BINGO CALLER [address] [place] [address] Xr Imaging Referral ID Status Reason Start Date Expiration Date V isits Requested Visits Authorized [id number] Closed Auto-Generate d Referral 05/30/2022 06/29/2023 1 1 Health Concerns Infection Onset Date Last Indicated Resolved Time COVID-19 Rule-Out 09/16/2022 09/16/2022 Summary Purpose Family History No Family History Records FoundNo Family History Records Found Additional Source Comments Source Comments (unrecognize d section and content) In the event this informatio n is protected by the Federal Confidentiality of Alcohol and Drug Abuse Patient Records regulations: The Federal rules restrict any use of the information to criminally investigate or prosecute any alcohol or drug abuse patient.[facility] the event this information is protected by the Federal Confidentiality of Alcohol and Drug Abuse Patient Records regulations: The Federal rules restrict any use of the information to criminally investigate or prosecute any alcohol or drug abuse patient.[facility] Hospital[facility] the event this information is protected by the Federal Confidentiality of Alcohol and Drug Abuse Patient Records regulations: The Federal rules restrict any use of the information to criminally investigate or prosecute any alcohol or drug abuse patient.[facility] ClinicIn the event this information is protected by the Federal Confidentiality of Alcohol and Drug Abuse Patient Records regulations: The Federal rules restrict any use of the information to criminally investigate or prosecute any alcohol or drug abuse patient.[facility] HospitalIn the event this information is protected by the Federal Confidentiality of Alcohol and Drug Abuse Patient Records regulations: The Federal rules restrict any use of the information to criminally investigate or prosecute any alcohol or drug abuse patient.[facility] HospitalIn the event this information is protected by the Federal Confidentiality of Alcohol and Drug Abuse Patient Records regulations: The Federal rules restrict any use of the information to criminally investigate or prosecute any alcohol or drug abuse patient.[facility] HospitalIn the event this information is protected by the Federal Confidentiality of Alcohol and Drug Abuse Patient Records regulations: The Federal rules restrict any use of the information to criminally investigate or prosecute any alcohol or drug abuse patient.[facility] HospitalIn the event this information is protected by the Federal Confidentiality of Alcohol and Drug Abuse Patient Records regulations: The Federal rules restrict any use of the information to criminally investigate or prosecute any alcohol or drug abuse patient.[facility] HospitalIn the event this information is protected by the Federal Confidentiality of Alcohol and Drug Abuse Patient Records regulations: The Federal rules restrict any use of the information to criminally investigate or prosecute any alcohol or drug abuse patient.[facility] HospitalIn the event this information is protected by the Federal Confidentiality of Alcohol and Drug Abuse Patient Records regulations: The Federal rules restrict any use of the information to criminally investigate or prosecute any alcohol or drug abuse patient.[facility] HospitalIn the event this information is protected by the Federal Confidentiality of Alcohol and Drug Abuse Patient Records regulations: The Federal rules restrict any use of the information to criminally investigate or prosecute any alcohol or drug abuse patient.[facility] HospitalIn the event this information is protected by the Federal Confidentiality of Alcohol and Drug Abuse Patient Records regulations: The Federal rules restrict any use of the information to criminally investigate or prosecute any alcohol or drug abuse patient.[facility] HospitalIn the event this information is protected by the Federal Confidentiality of Alcohol and Drug Abuse Patient Records regulations: The Federal rules restrict any use of the information to criminally investigate or prosecute any alcohol or drug abuse patient.[facility] HospitalIn the event this information is protected by the Federal Confidentiality of Alcohol and Drug Abuse Patient Records regulations: The Federal rules restrict any use of the information to criminally investigate or prosecute any alcohol or drug abuse patient.[facility] HospitalIn the event this information is protected by the Federal Confidentiality of Alcohol and Drug Abuse Patient Records regulations: The Federal rules restrict any use of the information to criminally investigate or prosecute any alcohol or drug abuse patient.[facility] HospitalIn the event this information is protected by the Federal Confidentiality of Alcohol and Drug Abuse Patient Records regulations: The Federal rules restrict any use of the information to criminally investigate or prosecute any alcohol or drug abuse patient.[facility] HospitalIn the event this information is protected by the Federal Confidentiality of Alcohol and Drug Abuse Patient Records regulations: The Federal rules restrict any use of the information to criminally investigate or prosecute any alcohol or drug abuse patient.[facility] HospitalIn the event this information is protected by the Federal Confidentiality of Alcohol and Drug Abuse Patient Records regulations: The Federal rules restrict any use of the information to criminally investigate or prosecute any alcohol or drug abuse patient.[facility] HospitalIn the event this information is protected by the Federal Confidentiality of Alcohol and Drug Abuse Patient Records regulations: The Federal rules restrict any use of the information to criminally investigate or prosecute any alcohol or drug abuse patient.[facility] HospitalIn the event this information is protected by the Federal Confidentiality of Alcohol and Drug Abuse Patient Records regulations: The Federal rules restrict any use of the information to criminally investigate or prosecute any alcohol or drug abuse patient.[facility] HospitalIn the event this information is protected by the Federal Confidentiality of Alcohol and Drug Abuse Patient Records regulations: The Federal rules restrict any use of the information to criminally investigate or prosecute any alcohol or drug abuse patient.[facility] HospitalIn the event this information is protected by the Federal Confidentiality of Alcohol and Drug Abuse Patient Records regulations: The Federal rules restrict any use of the information to criminally investigate or prosecute any alcohol or drug abuse patient.[facility] HospitalIn the event this information is protected by the Federal Confidentiality of Alcohol and Drug Abuse Patient Records regulations: The Federal rules restrict any use of the information to criminally investigate or prosecute any alcohol or drug abuse patient.[facility] HospitalIn the event this information is protected by the Federal Confidentiality of Alcohol and Drug Abuse Patient Records regulations: The Federal rules restrict any use of the information to criminally investigate or prosecute any alcohol or drug abuse patient.[facility] HospitalIn the event this information is protected by the Federal Confidentiality of Alcohol and Drug Abuse Patient Records regulations: The Federal rules restrict any use of the information to criminally investigate or prosecute any alcohol or drug abuse patient.[facility] HospitalIn the event this information is protected by the Federal Confidentiality of Alcohol and Drug Abuse Patient Records regulations: The Federal rules restrict any use of the information to criminally investigate or prosecute any alcohol or drug abuse patient.[facility] HospitalIn the event this information is protected by the Federal Confidentiality of Alcohol and Drug Abuse Patient Records regulations: The Federal rules restrict any use of the information to criminally investigate or prosecute any alcohol or drug abuse patient.[facility] HospitalIn the event this information is protected by the Federal Confidentiality of Alcohol and Drug Abuse Patient Records regulations: The Federal rules restrict any use of the information to criminally investigate or prosecute any alcohol or drug abuse patient.[facility] HospitalIn the event this information is protected by the Federal Confidentiality of Alcohol and Drug Abuse Patient Records regulations: The Federal rules restrict any use of the information to criminally investigate or prosecute any alcohol or drug abuse patient.[facility] HospitalIn the event this information is protected by the Federal Confidentiality of Alcohol and Drug Abuse Patient Records regulations: The Federal rules restrict any use of the information to criminally investigate or prosecute any alcohol or drug abuse patient.[facility] HospitalIn the event this information is protected by the Federal Confidentiality of Alcohol and Drug Abuse Patient Records regulations: The Federal rules restrict any use of the information to criminally investigate or prosecute any alcohol or drug abuse patient.[facility] HospitalIn the event this information is protected by the Federal Confidentiality of Alcohol and Drug Abuse Patient Records regulations: The Federal rules restrict any use of the information to criminally investigate or prosecute any alcohol or drug abuse patient.[facility] HospitalIn the event this information is protected by the Federal Confidentiality of Alcohol and Drug Abuse Patient Records regulations: The Federal rules restrict any use of the information to criminally investigate or prosecute any alcohol or drug abuse patient.[facility] HospitalIn the event this information is protected by the Federal Confidentiality of Alcohol and Drug Abuse Patient Records regulations: The Federal rules restrict any use of the information to criminally investigate or prosecute any alcohol or drug abuse patient.[facility] HospitalIn the event this information is protected by the Federal Confidentiality of Alcohol and Drug Abuse Patient Records regulations: The Federal rules restrict any use of the information to criminally investigate or prosecute any alcohol or drug abuse patient.[facility] HospitalIn the event this information is protected by the Federal Confidentiality of Alcohol and Drug Abuse Patient Records regulations: The Federal rules restrict any use of the information to criminally investigate or prosecute any alcohol or drug abuse patient.[facility] HospitalIn the event this information is protected by the Federal Confidentiality of Alcohol and Drug Abuse Patient Records regulations: The Federal rules restrict any use of the information to criminally investigate or prosecute any alcohol or drug abuse patient.[facility] HospitalIn the event this information is protected by the Federal Confidentiality of Alcohol and Drug Abuse Patient Records regulations: The Federal rules restrict any use of the information to criminally investigate or prosecute any alcohol or drug abuse patient.[facility] HospitalIn the event this information is protected by the Federal Confidentiality of Alcohol and Drug Abuse Patient Records regulations: The Federal rules restrict any use of the information to criminally investigate or prosecute any alcohol or drug abuse patient.[facility] Reason for Visit (unrecogniz ed section and content) Reason Comments F/U 3 Month Reason Comments Knee Pain right x 4 days, doin g box jumps Reason Comments Trauma Reason Comments Results Reason Comments Sore Throat HEATH, stuffy nose x 1 day Reason Comments Behavioral Health Social Work Reason Onset Date Comments Physical Immunizations 10/12/2022 Flu vaccination Reason Onset Date Comments Refill Request 12/04/2022 Reason Comments Medication Update Refill Auth Consent Reason Comments Cough Chest congestion, HEATH x1 week Reason Comments Cough Cough, chest congest ion, HEATH and scratchy throat x 10 days Reason Comments Cough Over 2 weeks with di fficulty expectorating phlegm. Reports green tinged when able to get it up. Chest Congestion Head Congestion No sinus pain Reason Comments Cough Reason Comments Well Woman Reason Comments Patient Update Reason Comments Illness Reason Comments Patient Update Orders Reason Comments Initial OB Visit Reason Onset Date Comments Care 04/19/2025 Reason Comments US Specialty Diagnoses / Procedures Referred By Contac t Referred To Contact [facility] Diagnoses 8 weeks gestation of (HCC) Procedures OBSTETRIC ULTRASOUND WHI US PREG UTERUS AFTER 1ST TRIMEST GESTATION Mikala Baez APRN.SCARLETT [address] [place] [address] Phone: tel: fax: [facility] [address] [place] [address] Referral ID Status Reason Start Date Expiration Date V isits Requested Visits Authorized [id number] Closed Auto-Generate d Referral 03/15/2025 03/15/2026 1 1 Reason Onset Date Comments Care 05/19/2025 Specialty Diagnoses / Procedures Referred By Contac t Referred To Contact 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 Diagnoses Encounter for supervision of normal first in first trimester (HCC) OB Procedures OFFICE/OUTPATIENT ESTABLISHED MOD MDM 30 MIN EST WHI OB Self Varsha Houston MD [address] [place] [address] Phone: tel: fax: Referral ID Status Reason Start Date Expiration Date Visits Requested Visits Authorized [id number] Pending Review Financial Clearance Required - OON Payor OON Notification Letter Clearance Not Met - Pt Rescheduled/Canc elled/Chose Not to Proceed 5 08/16/2025 1 1 Reason Onset Date Comments Care 06/15/2025 Specialty Diagnoses / Procedures Referred By Contac t Referred To Contact 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 Diagnoses Less than 8 weeks gestation of (HCC) Anatomy/OB Procedures OFFICE/OUTPATIENT ESTABLISHED MOD MDM 30 MIN EST WHI OB Mikala Baez APRN.GODFREY [address] [place] [address] Phone: tel: fax: Tena Cruz MD [address] [place] [address] Phone: tel: fax: Referral ID Status Reason Start Date Expiration Date Visits Requested Visits Authorized [id number] Authorized Financial Clearance Required - OON Payor 06/01/2025 12/01/2025 99 99 Specialty Diagnoses / Procedures Referred By Contac t [facility] Diagnoses 8 weeks gestation of (HCC) Encounter for supervision of normal , unspecified, unspecified trimester (HCC) Procedures OBSTETRIC ULTRASOUND WHI US PREG UTERUS AFTER 1ST TRIMEST GESTATION Mikala Baez APRN.CN [address] [place] [address] Phone: tel: fax: [facility] [address] [place] [address] Referral ID Status Reason Start Date Expiration Date Visits Requested Visits Authorized [id number] Closed Auto-Generated Referral Financial Clearance Required - OON Payor OON Notification Letter 05/24/2025 12/01/2025 1 1 Care Teams (unrecognized sec tion and content) Forensic Investigator Relationship Specialty Start Date End Date Timothy Bajwa MD [address] [place] [address] PCP - General Family Practice 12/07/20 Forensic Investigator Relationship Specialty Start Date End Date Timothy Bajwa MD [address] [place] [id number] PCP - General Family Practice 12/07/20 Forensic Investigator Relationship Specialty Start Date End Date Timothy Bajwa MD [address] [place] [id number] PCP - General Family Practice 12/07/20 Forensic Investigator Relationship Specialty Start Date End Date Timothy Bajwa MD [address] [place] [address] PCP - General Family Practice 12/07/20 Forensic Investigator Relationship Specialty Start Date End Date Timothy Bajwa MD [facility] [place] [address] PCP - General Family Practice 12/07/20 Forensic Investigator Relationship Specialty Start Date End Date Timothy Bajwa MD [address] [place] [address] PCP - General Family Medicine 12/07/20 Forensic Investigator Relationship Specialty Start Date End Date Timothy Bajwa MD [facility] [place] [address] PCP - General Family Medicine 12/07/20 Forensic Investigator Relationship Specialty Start Date End Date Timothy Bajwa MD [address] [facility] [place] [address] PCP - General Family Medicine 12/07/20 Forensic Investigator Relationship Specialty Start Date End Date Timothy Bajwa MD [address] [facility] [place] [address] PCP - General Family Medicine 12/07/20 Forensic Investigator Relationship Specialty Start Date End Date Timothy Bajwa MD [address] [facility] [place] [address] PCP - General Family Medicine 12/07/20 Forensic Investigator Relationship Specialty Start Date End Date Timothy Bajwa MD [address] [facility] [place] [address] PCP - General Family Medicine 12/07/20 Forensic Investigator Relationship Specialty Start Date End Date Timothy Bajwa MD [address] [facility] [place] [address] PCP - General Family Medicine 12/07/20 Forensic Investigator Relationship Specialty Start Date End Date Timothy Bajwa MD [address] [place] [address] PCP - General Family Medicine 12/07/20 Forensic Investigator Relationship Specialty Start Date End Date Timothy Bajwa MD [address] [facility] [place] [address] PCP - General Family Medicine 12/07/20 Char Barrett APRN.CNP [address] [facility] [place] [address] Air Brush Decorator Family Medicine 11/07/24 Forensic Investigator Relationship Specialty Start Date End Date Timothy Bajwa MD [address] [place] [address] PCP - General Family Medicine 12/07/20 Podlogar, Char, SHANTAL.BINGO CALLER [address] [place] [address] Air Brush Decorator Family Medicine 11/07/24 Forensic Investigator Relationship Specialty Start Date End Date Timothy Bajwa MD [address] [place] [address] PCP - General Family Medicine 12/07/20 Podlogar, SHANTAL Pardo.BINGO CALLER [address] [place] [address] Air Brush Decorator Family Medicine 11/07/24 Forensic Investigator Relationship Specialty Start Date End Date Timothy Bajwa MD [address] [place] [address] PCP - General Family Medicine 12/07/20 PodlogarChar, FISHER LAMPARA NET.BINGO CALLER [address] [place] [address] Air Brush Decorator Family Medicine 11/07/24 Forensic Investigator Relationship Specialty Start Date End Date Timothy Bajwa MD [address] [place] [address] PCP - General Family Medicine 12/07/20 Podlogar, Char FISHER LAMPARA NET.BINGO CALLER [address] [place] [address] Air Brush Decorator Family Medicine 11/07/24 Forensic Investigator Relationship Specialty Start Date End Date Timothy Bajwa MD [address] [place] [address] PCP - General Family Medicine 12/07/20 PodlogarChar APRN.BINGO CALLER [address] [place] [address] Air Brush Decorator Family Medicine 11/07/24 Forensic Investigator Relationship Specialty Start Date End Date Timothy Bajwa MD [address] [place] [address] PCP - General Family Medicine 12/07/20 PodlogarChar APRN.BINGO CALLER [address] [place] [address] Air Brush Decorator Family Medicine 11/07/24 Forensic Investigator Relationship Specialty Start Date End Date Jeevan Lopez MD [address] [facility] [place] [address] PCP - General Family Medicine 01/29/25 PodlogarChar APRN.BINGO CALLER [address] [place] [address] Air Brush Decorator Family Medicine 11/07/24 Forensic Investigator Relationship Specialty Start Date End Date Jeevan Lopez MD [address] [place] [address] PCP - General Family Medicine 01/29/25 PodlogarChar APRN.BINGO CALLER [address] [place] [address] Air Brush Decorator Family Medicine 11/07/24 Forensic Investigator Relationship Specialty Start Date End Date Jeevan Lopez MD [address] [facility] [place] [address] PCP - General Family Medicine 01/29/25 Char Barrett APRN.BINGO CALLER [address] [facility] [place] [address] Air Brush Decorator Family Medicine 11/07/24 Forensic Investigator Relationship Specialty Start Date End Date Jeevan Lopez MD [address] [facility] [place] [address] PCP - General Family Medicine 01/29/25 PodlogarChar, FISHER LAMPARA NET.BINGO CALLER [address] [facility] [place] [address] Air Brush Decorator Family Medicine 11/07/24 Valerie Felix, FISHER LAMPARA NET.BINGO CALLER [address] [facility] [place] [address] Air Brush Decorator Family Medicine 02/12/25 Michelle Leos, FISHER LAMPARA NET.BINGO CALLER [address] [facility] [place] [address] [facility] 02/12/25 Forensic Investigator Relationship Specialty Start Date End Date Jeevan Lopez MD [address] [facility] [place] [address] PCP - General Family Medicine 01/29/25 Valerie Felix, FISHER LAMPARA NET.BINGO CALLER [address] [facility] [place] [address] Air Brush Decorator Family Medicine 02/12/25 Michelle Leos, FISHER LAMPARA NET.BINGO CALLER [address] [facility] [place] [address] Air Brush Decorator Family Medicine 02/12/25 Forensic Investigator Relationship Specialty Start Date End Date Jeevan Lopez MD [address] [facility] [place], [place] [address] PCP - General Family Medicine 01/29/25 Valerie Felix FISHER LAMPARA NET.BINGO CALLER [address] [facility] [place] [address] Air Brush Decorator Family Medicine 02/12/25 Michelle Leos FISHER LAMPARA NET.BINGO CALLER [address] [facility] [place] [address] Air Brush Decorator Family Medicine 02/12/25 Forensic Investigator Relationship Specialty Start Date End Date Jeevan Lopez MD [address] [facility] [place] [address] PCP - General Family Medicine 01/29/25 PodlogarChar FISHER LAMPARA NET.BINGO CALLER [address] [facility] [place] [address] Air Brush Decorator Family Medicine 11/07/24 02/19/25 Valerie Felix, FISHER LAMPARA NET.BINGO CALLER [address] [facility] [place] [address] Air Brush Decorator Family Medicine 02/12/25 Michelle Leos FISHER LAMPARA NET.BINGO CALLER [address] [facility] [place] [address] Air Brush Decorator Family Medicine 02/12/25 Forensic Investigator Relationship Specialty Start Date End Date Jeevan Lopez MD [address] [facility] [place] [address] PCP - General Family Medicine 01/29/25 Valerie Felix FISHER LAMPARA NET.BINGO CALLER [address] [facility] [place] [address] Air Brush Decorator Family Medicine 02/12/25 Michelle Leos APRN.BINGO CALLER [address] [facility] [place] [address] Air Brush Decorator Family Medicine 02/12/25 Forensic Investigator Relationship Specialty Start Date End Date Jeevan Lopez MD [address] [facility] [place] [address] PCP - General Family Medicine 01/29/25 Valerie Felix APRN.BINGO CALLER [address] [place] [address] Air Brush Decorator Family Medicine 02/12/25 Michelle Leos APRN.BINGO CALLER [address] [facility] [place] [address] Air Brush Decorator Family Medicine 02/12/25 Forensic Investigator Relationship Specialty Start Date End Date Jeevan Lopez MD [address] [place] [address] PCP - General Family Medicine 01/29/25 Valerie Felix APRN.BINGO CALLER [address] [facility] [place] [address] Air Brush Decorator Family Medicine 02/12/25 Michelle Leos APRN.BINGO CALLER [address] [facility] [place] [address] Air Brush Decorator Family Medicine 02/12/25 Forensic Investigator Relationship Specialty Start Date End Date Jeevan Lopez MD [address] [place] [address] PCP - General Family Medicine 01/29/25 Valerie Felix APRN.BINGO CALLER [address] [place] [address] Air Brush Decorator Family Medicine 02/12/25 Michelle Leos APRN.BINGO CALLER [address] [place] [address] Air Brush Decorator Family Medicine 02/12/25 Forensic Investigator Relationship Specialty Start Date End Date Jeevan Lopez MD [address] [place] [address] PCP - General Family Medicine 01/29/25 Valerie Felix APRN.BINGO CALLER [address] [place] [address] Air Brush Decorator Family Medicine 02/12/25 Michelle Leos APRN.BINGO CALLER [address] [place] [address] Air Brush Decorator Family Medicine 02/12/25 Forensic Investigator Relationship Specialty Start Date End Date Jeevan Lopez MD [address] [place] [address] PCP - General Family Medicine 01/29/25 Valerie Felix APRN.BINGO CALLER [address] [place] [address] Air Brush Decorator Family Medicine 02/12/25 Michelle Leos APRN.BINGO CALLER [address] [facility] [place] [address] Air Brush Decorator Family Medicine 02/12/25 Forensic Investigator Relationship Specialty Start Date End Date Jeevan Lopez MD [address] [facility] [address] PCP - General Family Medicine 01/29/25 Valerie Felix, FISHER LAMPARA NET.BINGO CALLER [address] [facility] [place] [address] 02/12/25 Michelle Leos, FISHER LAMPARA NET.BINGO CALLER [address] [facility] [place] [address] [facility] 02/12/25 Forensic Investigator Relationship Specialty Start Date End Date Jeevan Lopez MD [address] [facility] [place] [address] PCP - General Family Medicine 01/29/25 Valerie Felix, FISHER LAMPARA NET.BINGO CALLER [address] [facility] [place] [address] [facility] 02/12/25 Michelle Leos, FISHER LAMPARA NET.BINGO CALLER [address] [facility] [place] [address] [facility] 02/12/25 INFORMATION SOURCE (unrecogn ized section and content) DATE CREATED AUTHOR 01/30/2024 [facility] DATE CREATED AUTHOR AUTHOR'S ORGANIZ ATION 06/19/2025 [facility] FOR RECORDS PERTAINING TO PATIENTS WHO ARE OR HAVE BEEN ENROLLED IN A CHEMICAL DEPENDENCY/SUBSTANCEABUSE PROGRAM, SOME INFORMATION MAY BE OMITTED. This clinical summary was aggregated from multiple sources. Caution should be exercised in using it in the provision of clinical care. This summary normalizes information from multiple sources, and as a consequence, information in this document may materially change the coding, format and clinical context of patient data. In addition, data may be omitted in some cases. CLINICAL DECISIONS SHOULD BE BASED ON THE PRIMARY CLINICAL RECORDS. [facility] [facility]. provides no warranty or guarantee of the accuracy or completeness of information in this document.
[2025-06-19 15:41] VITALS: BP 117/66; PULSE 64; PULSE 68; RESP 14; TEMP 36.8; O2SAT 97
--- NOTE | 2025-06-19 16:17 | OB.TRI.HP_ITS ---
HPI - General General Date of Admission: 06/19/25 Date of Service: 06/19/25 Chief Complaint: s/p fall HPI Narrative ROMAN ORTEZ, is a 30 F who presents after a fall. No injuries. Has felt the baby move. No bleeding or contractions. Is known Rh negative. Maternal Data Information Final ESPERANZA: 11/01/25 Gestational age: 21 PFSH PFSH Medical History (Updated 06/20/25 @ 17:[address] Giana Arboleda MD) Vaginal candidiasis Home Medications ?Medication ?Instructions ?Recorded ?Last Taken ?Type Lactobacillus acidophilus 10 mg PO DAILY 01/22/24 Unkn own History (Acidophilus capsule) acyclovir 200 mg capsule 200 mg PO TID PRN 01/22/24 U nknown History fluconazole 200 mg tablet 200 mg PO DAILY #1 TAB 01/22 Unknown Rx Allergy/AdvReac Type Severity Reaction Status Date / Time melon Allergy Itching Verified 01/22/24 15:12 tomato Allergy Itching Verified 01/22/24 15:12 Social History (Updated 01/22/24 @ 15:10 by Kavya Penaloza) Smoking Status: Never smoker alcohol intake: never NST FHR Rate Baby A Baseline: FHR by stevener 140s Assessment & Plan (1) Status post fall: (2) 21 weeks gestation of : (3) Rh negative status during : QUALIFIERS: Trimester: second trimester Qualified Code(s): O26.892 - Other specified related conditions, second trimester; Z67.91 - Unspecified blood type, Rh negative PLAN: Plan No bleeding or pain. FHR confirmed. Rhogam given
[2025-06-19] MEDS: Rho(D) Immune Globulin 300 MCG (1500 Unit) Syringe IV (18:18)
== END 2025-06-19 18:22 | disposition home or self-care (01) ==
LOC: WPOUT 15:28 → WP 15:28
PROVIDERS: Referring Provider Obstetrics & Gynecology; Visit Provider Obstetrics & Gynecology
DX: O26.892 Other specified pregnancy related conditions, second trimester (principal); Z3A.21 21 weeks gestation of pregnancy; W19.XXXA Unspecified fall, initial encounter
CPT/HCPCS: 85461; 86850; 86900; 86901; 90384; 99221; G0378; J2790; J2791

== ENCOUNTER 2025-10-11 15:40 | Outpatient (CLI) | payer MEDICAID, SELFPAY ==
[2025-10-11 15:56] VITALS: BP 129/79; PULSE 53; RESP 16; TEMP 36.5
[2025-10-11 16:05] VITALS: BMI 29.0
--- NOTE | 2025-10-11 17:13 | OB.TRI.NOTE ---
HPI - General General Date of Service: 10/11/25 HPI Narrative ROMAN ORTEZ, is a 30 F @ 37 weeks who presents with decreased FM at home PFSH PFS Medical History (Updated 10/11/25 @ 17:[address] Valorie Luna MD) Vaginal candidiasis Home Medications ?Medication ?Instructions ?Recorded ?Last Taken ?Type acyclovir 200 mg capsule 200 mg PO TID PRN HSV 01/22/24 Unknown History aspirin 81 mg capsule 81 mg PO DAILY 10/11/25 Unknown History calcium carbonate (Esme-Parmele 300 mg PO PRN 10/11/25 Unknown History Heartburn Chew) magnesium oxide 400 mg PO DAILY 10/11/25 Unknown History vit no.95-ferrous 1 tab PO DAILY 10/11/25 Unknown History fumarate 28 mg-folic acid 800 mcg tablet () Allergy/AdvReac Type Severity Reaction Status Date / Time melon Allergy Itching Verified 10/11/25 16:00 tomato Allergy Itching Verified 10/11/25 16:00 Social History (Updated 01/22/24 @ 15:10 by Kavya Penaloza) Smoking Status: Never smoker alcohol intake: never NST FHR Rate Baby A Baseline: 130 Variability:: Moderate Accelerations:: 15 x 15 Decelerations:: None NST Reactive:: Yes FHR Category:: Category I Uterine Activity:: 2-5 min- mild cramping only Assessment & Plan (1) 37 weeks gestation of : (2) Decreased movement: PLAN: Plan @ 37 weeks- c/o decreased FM 1) NST reactive cat 1 - well being established- tn home
== END 2025-10-11 16:32 | disposition home or self-care (01) ==
LOC: WPOUT 15:47 → WP 15:49
PROVIDERS: Referring Provider Obstetrics & Gynecology; Visit Provider Obstetrics & Gynecology
DX: O36.8130 Decreased fetal movements, third trimester, not applicable or unspecified (principal); Z3A.37 37 weeks gestation of pregnancy
CPT/HCPCS: 59025; 59050; 99221; G0378

== ENCOUNTER 2025-10-21 23:52 | Inpatient (IN) | payer MEDICAID, SELFPAY ==
[2025-10-21 23:35] VITALS: BMI 29.4
--- OUTSIDE RECORDS SUMMARY | 2025-10-21 23:37 | XMS RPT_ITS | CCD ---
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 Faria Attending Provider Dr. Giana Arboleda MD Referring Provider DESIREE GREGG Attending Unavailable DESIREE GREGG Admitting Unavailable JEEVAN LOPEZ Primary Care Unavailable Valorie Luna Attending Unavail able Valorie Luna Referring Unavail able Giana Arboleda Referring Unavailable Giana Arboleda Attending Unavailable TIMOTHY BAJWA Primary Care Unavailab TIMOTHY Ramey Primary Care Unavailab KACIE Estes Referring Unavailable TIMOTHY BAJWA Primary Care Unavailab TIMOTHY Ramey Primary Care Unavailab TIMOTHY Ramey Attending Unavailab JEEVAN Serrano Primary Care Unavailable MIKALA BAEZ Attending Unavailable JEEVAN LOPEZ Primary Care Unavailable MIKALA BAEZ Referring Unavailable JEEVAN LOPEZ Primary Care Unavailable MIKALA BAEZ Referring Unavailable JEEVAN LOPEZ Primary Care Unavailable JEEVAN LOPEZ Referring Unavailable JEEVAN LOPEZ Primary Care Unavailable MIKALA BAEZ Referring Unavailable JOHN, JEEVAN Quigley Primary Care Unavailable GIANA ARBOLEDA Attending Unavailable JOHN, JEEVAN Quigley Primary Care Unavailable GIANA ARBOLEDA Referring Unavailable JOHN, JEEVAN Quigley Primary Care Unavailable ALEX QURESHI Attending Unavailable JOHN, JEEVAN Quigley Primary Care Unavailable SELF Referring Unavailable VALORIE MEZA Attending Unavail able JOHN, JEEVAN Quigley Primary Care Unavailable MIKALA BAEZ Referring Unavailable JOHN, JEEVAN Quigley Primary Care Unavailable MIKALA BAEZ Referring Unavailable TENA CRUZ Attending Unavailable JOHN, JEEVAN Quigley Primary Care Unavailable VALORIE MEZA Attending Unavail able JOHN, JEEVAN Quigley Primary Care Unavailable ALEX QURESHI Referring Unavailable JOHN, JEEVAN Quigley Primary Care Unavailable MIKALA BAEZ Attending Unavailable JOHN, JEEVAN Quigley Primary Care Unavailable ALEX QURESHI Referring Unavailable JOHN, JEEVAN Quigley Primary Care Unavailable GIANA ARBOLEDA Attending Unavailable JOHN, JEEVAN Quigley Primary Care Unavailable RONNIE WADE Attending Unavailable TIMOTHY BAJWA Primary Care Unavailab le JEEVAN LOPEZ Attending Unavailable JOHN, JEEVAN Quigley Primary Care Unavailable MIKALA BAEZ Referring Unavailable JOHN, JEEVAN Quigley Primary Care Unavailable KAVYA AMEZQUITA Referring Unavailable JOHN, JEEVAN Quigley Primary Care Unavailable MIKALA BAEZ Referring Unavailable JOHN, JEEVAN Quigley Primary Care Unavailable MIKALA BAEZ Referring Unavailable KAVYA AMEZQUITA Attending Unavailable TIMOTHY BAJWA Primary Care Unavailab le JEEVAN LOPEZ Attending Unavailable TIMOTHY BAJWA Primary Care Unavailab le VALORIE MEZA Referring Unavail able GIANA ARBOLEDA Attending Unavailable JOHN, JEEVAN Quigley Primary Care Unavailable MIKALA BAEZ Referring Unavailable JOHN, JEEVAN Quigley Primary Care Unavailable MIKALA BAEZ Referring Unavailable JOHN, JEEVAN Quigley Primary Care Unavailable KAVYA AMEZQUITA Referring Unavailable JOHN, JEEVAN Quigley Primary Care Unavailable MIKALA BAEZ Referring Unavailable KAVYA AMEZQUITA Attending Unavailable Allergies Allergy Classification Reported Allergen(s) Allergy Type Date of Onset Reaction(s) Facility (20 sources) Melon; Translations: [MELON] Drug Allergy 05-09-2016 Itching [facility] Work Phone: (20 sources) Tomatoes; Translations: [TOMATOES] Food Allergy 05-09-2016 [facility] Work Phone: (1 source) tomato allergenic extract Drug Allergy 01-22-2024 Itching [facility] (1 source) Melon Drug allergy (disorder) 10-11-2025 [facility] (1 source) tomato allergenic extract Drug Allergy 10-11-2025 [facility] Medications Current Medications Medication Drug Class(es) Dates Sig (Normalized) Sig (Original) acyclovir 400 mg oral tablet (20 sources) Herpesvirus Nucleoside Analog DNA Polymerase Inhibitor, Herpes Simplex Virus Nucleoside Analog DNA Polymerase Inhibitor, Herpes Zoster Virus Nucleoside Analog DNA Polymerase Inhibitor Start: 01-22-2024 take 1 capsule by mouth three times daily as needed Acyclovir 200 mg capsule Active 200 mg PO THREE TIMES A DAY as needed January 22, 2024 1:00am Start: 01-09-2022 End: 12-19-2024 take 1 tablet by mouth twice daily acyclovir (ZOVIRAX) 400 mg tablet Indications: Recurrent cold sores Take 1 tablet by mouth two times a day. 60 tablet 11 12/19/2024 Active Comment on above: Take 1 tablet by elidia twice daily. amoxicillin 875 mg / clavulanate 125 mg oral tablet (2 sources) Penicillin-class Antibacterial Start: 01-23-20 End: 02-03-20 take 1 tablet by mouth twice daily amoxicillin-clavula ivette potassium (AUGMENTIN) 875-125 mg per tablet Take 1 tablet by mouth two times a day for 10 days. 20 tablet 01/23/2025 02/02/2025 Active aspirin 81 mg delayed release oral tablet (19 sources) Platelet Aggregation Inhibitor, Nonsteroidal Anti-inflammatory Drug Start: 03-15-20 take 1 tablet by mouth once daily aspirin, enteric coated (ECOTRIN LOW STRENGTH) 81 mg EC tablet Indications: Less than 8 weeks gestation of (HCC) Take 1 tablet by mouth once daily. 90 tablet 3 03/15/2025 Active betamethasone 0.5 mg/ml / clotrimazole 10 mg/ml topical cream (2 sources) Azole Antifungal, Corticosteroid Start: 02-10-20 End: 03-11-20 clotrimazole-betame thasone (LOTRISONE) cream Indications: Vaginal irritation Apply 1 application to affected area two times a day. 30 g 1 02/09/2025 03/11/2025 Active Calcium Carbonate (2 sources) calcium carbonat e (TUMS 500 ORAL) Take by mouth as needed. Active doxycycline monohydrate 100 mg oral tablet (3 sources) Tetracycline-class Drug Start: 02-01-20 End: 02-11-20 take 1 tablet by mouth twice daily [...] 12/26/2024 Active fluconazole 150 mg oral tablet (2 sources) Azole Antifungal Start: 02-12-2025 End: 02-13-2025 take 1 tablet by mouth once daily fluconazole (DIFLUCAN) 150 mg tablet Take 1 tablet by mouth once daily for 1 day. 1 tablet 02/12/2025 02/13/2025 Active Start: 01-22-2024 take 1 tablet by elidia th once daily Fluconazole 200 mg tablet Active 200 mg PO DAILY 1 0 January 22, 2024 1:00am Inhalational Spacing Device (1 source) Start: 12-03-2024 End: 12-03-2024 Inhalational Spacing Device Indications: Acute cough 1 Device one time only for 1 dose. 1 Each 12/03/2024 12/03/2024 Active lactobacillus acidophilus [id number] unt oral capsule (1 source) Start: 01-22-2024 take 1 capsule by mouth once daily Lactobacillus Acidophilus (Acidophilus) capsule Active 10 mg PO DAILY January 22, 2024 1:00am magnesium oxide 420 mg oral tablet (8 sources) Start: 06-15-2025 take 1 tablet by mouth once daily magnesium oxide 420 mg tablet Take 1 tablet by mouth once daily. 100 tablet 1 06/15/2025 Active PNV no.95/ferrous fum/folic ac ( ORAL) (19 sources) PNV no.95/ferrou s fum/folic ac ( ORAL) Take by mouth. Active predniSONE 20 mg oral tablet (2 sources) Start: 01-27-2025 End: 02-01-2025 take 1 tablet by mouth once daily predniSONE (DELTASONE) 20 mg tablet Take 1 tablet by mouth once daily for 5 days. 5 tablet 01/27/2025 02/01/2025 Active Completed/Discontinued Medications Medication Drug Class(es) Dates Sig (Normalized) Sig (Original) [id number] 200 actuat albuterol 0.09 mg/actuat metered dose [...] oral solution (4 sources) alpha-Adrenergic Agonist, Uncompetitive R-svrlgf-H-asparta te Receptor Antagonist, Sigma-1 Agonist Start: 12-03-2024 [...] 1 TABLET BY ELIDIA TH ONCE DAILY. loratadine 10 mg oral tablet (10 sources) End: loratadine (CLARITIN) 10 mg tablet Take 10 mg by mouth as needed. 08/11/2025 Discontinued (Discontinued by Patient) prochlorperazine 10 mg oral tablet (9 sources) Phenothiazine Start: End: take 1 tablet by mouth every six hours as needed prochlorperazine (COMPAZINE) 10 mg tablet Take 1 tablet by mouth every 6 hours as needed (nausea). 30 tablet 1 05/19/2025 08/11/2025 Discontinued (Discontinued by Patient) Problems Active Problems Problem Classification Problem Date Documented Date Episodic/Chronic Anxiety disorders (20 sources) Mixed anxiety and depressive disorder; Translations: [Other specified anxiety disorders] Onset: 01-09-2022 Chronic Contraceptive and procreative management (2 sources) Oral contraception; Translations: [Encounter for surveillance of contraceptive pills] Episodic Diabetes mellitus without complication (1 source) Other abnormal glucose; Translations: [Elevated glucose level] Onset: 09-10-2025 Episodic Diabetes or abnormal glucose tolerance complicating ; childbirth; or the puerperium (3 sources) Abnormal glucose level; Translations: [Abnormal glucose complicating ] Onset: 08-12-2025 08-12-2025 Episodic Genitourinary symptoms and ill-defined conditions (20 sources) Bacteriuria; Translations: [Bacteriuria] Onset: 03-17-2025 03-17-2025 Episodic Hemorrhage during ; abruptio placenta; placenta previa (20 sources) Threatened miscarriage; Translations: [Threatened ] Onset: 03-15-2025 Resolved: 07-14-2025 03-15-2025 Episodic Immunizations and screening for infectious disease (7 sources) Needs influenza immunization; Translations: [Encounter for immunization] Onset: 08-11-2025 Episodic Mycoses (1 source) Candidiasis of vagina; Translations: [Candidiasis of vagina] 01-22-2024 Episodic Other complications of (6 sources) Abdominal pain in ; Translations: [Other specified related conditions, unspecified trimester] Onset: 07-02-2025 07-02-2025 Episodic Other complications of (7 sources) RhD negative; Translations: [Other specified related conditions, unspecified trimester] Onset: 07-14-2025 07-14-2025 Episodic Other complications of (1 source) Other specified related conditions, unspecified trimester; Translations: [Rh negative state in antepartum period (HCC)] Onset: 07-14-2025 Episodic Other female genital disorders (1 source) [...] conditions (not mental disorders or infectious disease) (5 sources) Cancer cervix screening status; Translations: [Encounter for screening for malignant neoplasm of cervix] Onset: 07-14-2025 Episodic Other upper respiratory infections (3 sources) [...] 06-15-2025 Episodic Residual codes; unclassified (1 source) Gestation period, 24 weeks; Translations: [24 weeks gestation of ] 07-14-2025 Episodic Residual codes; unclassified (1 source) Gestation period, 28 weeks; Translations: [28 weeks gestation of ] 08-11-2025 Episodic Residual codes; unclassified (1 source) 36 weeks gestation of ; Translations: [36 weeks gestation of (HCC)] Onset: 10-06-2025 Episodic Residual codes; unclassified (1 source) 34 weeks gestation of ; Translations: [34 weeks gestation of (HCC)] Onset: 09-22-2025 Episodic Residual codes; unclassified (1 source) 32 weeks gestation of ; Translations: [32 weeks gestation of (HCC)] Onset: 09-06-2025 Episodic Residual codes; unclassified (1 source) 30 weeks gestation of ; Translations: [30 weeks gestation of (HCC)] Onset: 08-25-2025 Episodic Residual codes; unclassified (1 source) 28 weeks gestation of ; Translations: [28 weeks gestation of (HCC)] Onset: 08-11-2025 Episodic Residual codes; unclassified (1 source) 24 weeks gestation of ; Translations: [24 weeks gestation of (HCC)] Onset: 07-14-2025 Episodic Residual codes; unclassified (1 source) Unspecified blood type, Rh negative; Translations: [Rh negative state in antepartum period (HCC)] Onset: 07-14-2025 Episodic Spondylosis; intervertebral disc disorders; other back problems (5 sources) Neck pain; Translations: [Cervicalgia] Episodic Unclassified (1 source) Acute cough; Translations: [Acute cough] Onset: 12-03-2024 Viral infection (20 sources) Recurrent herpes simplex labialis; Translations: [Herpesviral vesicular dermatitis] Onset: 12-19-2024 Episodic Past or Other Problems Problem Classification Problem Date Documented Date Episodic/Chronic Chronic obstructive pulmonary disease and bronchiectasis (3 sources) Bronchitis; Translations: [Bronchitis, not specified as acute or chronic] Onset: 12-19-2024 12-07-2024 Episodic Fever of unknown origin (2 sources) Fever; Translations: [Fever, unspecified] Onset: 02-08-2025 02-08-2025 Episodic Mood disorders (20 sources) Recurrent major depression in partial remission; Translations: [Major depressive disorder, recurrent, in partial remission] Onset: 04-17-2019 Resolved: 03-15-2025 04-17-2019 Chronic Other complications of (1 source) Other specified related conditions, second trimester; Translations: [Other specified related conditions, second trimester] Onset: 06-24-2025 Episodic Other infections; including parasitic (20 sources) H/O: viral illness; Translations: [Personal history of other infectious and parasitic diseases] Onset: 03-15-2025 03-15-2025 Episodic Residual codes; unclassified (20 sources) History of induced termination of ; Translations: [Other specified postprocedural states] Onset: 03-15-2025 03-15-2025 Episodic Residual codes; unclassified (1 source) 20 weeks gestation of ; Translations: [20 weeks gestation of ([facility])] Onset: 06-15-2025 Episodic Residual codes; unclassified (1 source) 16 weeks gestation of ; Translations: [16 weeks gestation of ([facility])] Onset: 05-19-2025 Episodic Residual codes; unclassified (1 source) 12 weeks gestation of ; Translations: [12 weeks gestation of ([facility])] Onset: 04-19-2025 Episodic Residual codes; unclassified (1 source) 8 weeks gestation of ; Translations: [8 weeks gestation of ([facility])] Onset: 03-29-2025 Episodic Residual codes; unclassified (1 source) Less than 8 weeks gestation of ; Translations: [Less than 8 weeks gestation of ([facility])] Onset: 03-15-2025 Episodic Results Test Name Value Interpretation Reference Range Lucy Serrato 10-11-2025 CNPN Telephone (OBGYWM) NEELIMAMI ([id number]) 1995 F Date Time Provider Department 10/11/25 VALORIE MEZA OBGYWM During your visit today, we recorded the following information about you: Leida George RN 10/11/2025 2:18 PM Signed Patient 37w0d calling with complaints of decreased movement. Patient states she has only felt the baby move 4 times today. Per patient she is having [place] aguilar contractions but nothing timeable. Denies any bleeding or leaking of fluid. Denies any urinary symptoms, headache, dizziness or blurred vision. Patient is having intermittent sharp pain in her left groin area that she rates at a 4-5 when it occurs. Patient is currently in [place] and would take her 25-30 minutes to get to office. Do you want to see her in office or have her go to [facility]? FER Carter Lindsey, RN 10/11/2025 2:41 PM Signed Called patient and instructed her to go to [facility] for decreased FM. [facility] FER Carter Deidre, MD 10/11/2025 3:02 PM Signed Noted Allergies As of Date: 10/11/2025 Noted Allergy Reaction MELON 05/09/2016 9 - Itching TOMATOES 05/09/2016 9 - Itching Date Reviewed: 10/06/2025 Reviewed by: Lori Lloyd MA - Fully Assessed Reason for Visit: Movement [4212] Prescriptions as of 10/11/2025 - magnesium oxide 420 mg tablet Take 1 tablet by mouth once daily. - calcium carbonate (TUMS 500 ORAL) Take by mouth as needed. - aspirin, enteric coated (ECOTRIN LOW STRENGTH) 81 mg EC tablet Take 1 tablet by mouth once daily. - PNV no.95/ferrous fum/folic ac ( ORAL) Take by mouth. - acyclovir (ZOVIRAX) 400 mg tablet Take 1 tablet by mouth two times a day. Problem List As Of Date 10/11/2025 Noted Resolved Depression, major, recurrent, in partial remiss*04/17/2019 03/15/2025 Herpes simplex virus infection [B00.9] Generalized anxiety disorder [F41.1] 01/09/2022 H/O cold sores [Z86.19] 03/15/2025 Encounter for supervision of normal first pregn*03/15/2025 Threatened (HCC) [O20.0] 03/15/2025 04/19/2025 History of induced [Z98.890] 03/15/2025 09/06/2025 GBS bacteriuria [R82.71] 03/17/2025 Vaginal bleeding during (HCC) [O46.90]07/01/2025 07/14/2025 Abdominal pain affecting (HCC) [O26.8*07/02/2025 Rh negative state in antepartum period (HCC) [O*07/14/2025 Abnormal glucose complicating (HCC) [*08/12/2025 Encounter Status:Closed by LEIDA GEORGE on 10/11/25 Normal [facility] OB Triage Physician Noteon 1 12-11-2024 OB Triage Physician Note [facility] Medical Records Department [address] [place] [address] OB Triage Physician Note 10/11/25 1713 MR#: [id number] Acct: [id number] Name: MI ORTEZ WILLARD Rep #: [id number] : 1995 30 From: Valorie Luna MD PCP: Status:DEP CLI Y Location: WPOUT HPI - General General Date of Service: 10/11/25 HPI Narrative MI ORTEZ, is a 30 F @ 37 weeks who presents with decreased FM at home [facility] Medical History (Updated 10/11/25 @ 17:[address] Valorie Luna MD) Vaginal candidiasis Home Medications ???Medication ???Instructions ???Recorded ???Last Taken ???Type acyclovir 200 mg capsule 200 mg PO TID PRN HSV 01/22/24 Unk nown History aspirin 81 mg capsule 81 mg PO DAILY 10/11/25 Unknown Hi story calcium carbonate ([place] 300 mg PO PRN 10/11/25 Unknown His tory Heartburn Chew) magnesium oxide 400 mg PO DAILY 10/11/25 Unknown H istory vit no.95-ferrous 1 tab PO DAILY 10/11/25 Unknown Hi story fumarate 28 mg-folic acid 800 mcg tablet () Allergy/AdvReac Type Severity Reaction Status Date / Time melon Allergy Itching Verified 10/11/25 16:00 tomato Allergy Itching Verified 10/11/25 16:00 Social History (Updated 01/22/24 @ 15:10 by Kavya Penaloza) Smoking Status: Never smoker alcohol intake: never NST FHR Rate Baby A Baseline: 130 Variability:: Moderate Accelerations:: 15 x 15 Decelerations:: None NST Reactive:: Yes FHR Category:: Category I Uterine Activity:: 2-5 min- mild cramping only Assessment Plan (1) 37 weeks gestation of : (2) Decreased movement: PLAN: Plan @ 37 weeks- c/o decreased FM 1) NST reactive cat 1 - well being established- mt home 10/11/25 1715 D> Date Valorie Luna MD Cosigner Signature (if applicable): Date _ CC: Dr Valorie Luna MD Signed Normal [facility] TYPE + SCREEN PRENATALon ABO O Normal [facility] Comment on above: Order Comment: Speci men Type: BLOOD SPECIMENOrdering Facility: [facility] Address: [address] [place] [address] Performed By: #### T SPN ####[facility] LABCLIA [id number] [address] [place] Rh Nom (Bld) Negative Normal [facility] Comment on above: Order Comment: Speci men Type: BLOOD SPECIMENOrdering Facility: [facility] Address: [address] [place] [address] Performed By: #### T SPN ####[facility] LABCLIA [id number] [address] [place] OF [facility] TYPE AND SCREEN EXPIRATION 09/25/2025 23:59 Normal [facility] Comment on above: Order Comment: Speci men Type: BLOOD SPECIMENOrdering Facility: [facility] Address: [address] [place] [address] Performed By: #### T SPN ####[facility] LABCLIA [id number] [place] [address] [place] GLUCOSE GESTATIONAL, 1 HOURo n 09-10-2025 Glucose 1 Hr post Unsp challenge [Mass/Vol] 106 mg/dL Normal 74-179 [facility] Comment on above: Order Comment: Speci men Type: BLOOD SPECIMENOrdering Facility: [facility] Address: [address] [place] [address] Result Comment: [facility] Congress of Obstetricians and Gynecologists (Carla/Miguelangel) guidelines state gestational diabetes mellitus is present when 2 or more of the plasma glucose concentrations meet or exceed the following levels: fastin mg/dl, 1 hr: 180 mg/dl, 2 hr: 155 mg/dl, and 3 hr: 140 mg/dl. Performed By: #### G TGST1 ####[facility] [id number] [place] [address] [place] GLUCOSE GESTATIONAL, 2 HOURo n 09-10-2025 Glucose 2 Hr post Unsp challenge [Mass/Vol] 98 mg/dL Normal 74-154 [facility] Comment on above: Order Comment: Speci men Type: BLOOD SPECIMENOrdering Facility: [facility] Address: [address] [place] [address] Result Comment: [facility] Congress of Obstetricians and Gynecologists (Aguirre/Alannaan) guidelines state gestational diabetes mellitus is present when 2 or more of the plasma glucose concentrations meet or exceed the following levels: fastin mg/dl, 1 hr: 180 mg/dl, 2 hr: 155 mg/dl, and 3 hr: 140 mg/dl. Performed By: #### G TGST2 ####[facility] [id number] [place] [address] [place] GLUCOSE GESTATIONAL, 3 HOURo n 09-10-2025 Glucose 3 Hr post Unsp challenge [Mass/Vol] 89 mg/dL Normal 74-139 [facility] Comment on above: Order Comment: Speci men Type: BLOOD SPECIMENOrdering Facility: [facility] Address: [address] [place] [address] Result Comment: [facility] Congress of Obstetricians and Gynecologists ([facility]) guidelines state gestational diabetes mellitus is present when 2 or more of the plasma glucose concentrations meet or exceed the following levels: fastin mg/dl, 1 hr: 180 mg/dl, 2 hr: 155 mg/dl, and 3 hr: 140 mg/dl. Performed By: #### G TGST3 ####[facility] [id number] [place] [address] [place] GLUCOSE GESTATIONAL, FASTING on 09-10-2025 Glucose post fast [Mass/Vol] 83 mg/dL Normal 74-94 [facility] Comment on above: Order Comment: Speci men Type: BLOOD SPECIMENOrdering Facility: [facility] Address: [address] [place] [address] Result Comment: [facility] Congress of Obstetricians and Gynecologists (Aguirre/Coustan) guidelines state gestational diabetes mellitus is present when 2 or more of the plasma glucose concentrations meet or exceed the following levels: fastin mg/dl, 1 hr: 180 mg/dl, 2 hr: 155 mg/dl, and 3 hr: 140 mg/dl. Performed By: #### G TGSTF ####[facility] [id number] [place] [address] [place] ANTIBODY ID PATIENTon 2024 ANTIBODY IDENTIFIED Anti-D Normal [facility] Comment on above: Order Comment: Speci men Type: BLOOD SPECIMENOrdering Facility: [facility] Address: [address] [place] [address] Performed By: #### A SCR, %SHALONDA, TSPN, BBABINT ####[facility] BLOOD BANKCLIA [id number] [address] [place] BLOOD BANK PLACEHOLDER, ANTI BODY INTERPRETATIONon 08-11-2025 BLOOD BANK REPORT, ANTIBODY INTERPRETATION See Pathology Report Normal [facility] Comment on above: Order Comment: Speci men Type: BLOOD SPECIMENOrdering Facility: [facility] Address: [address] [place] [address] Performed By: #### A SCR, %SHALONDA, TSPN, BBABINT ####[facility] MAIN BLOOD BANKCLIA [id number] [address] [place] BLOOD BANK REPORT, ANTIBODY INTERPRETATIONon 08-11-2025 PATHOLOGY INTERPRETATION Normal [facility] Comment on above: Order Comment: Speci men Type: BLOOD SPECIMENOrdering Facility: [facility] Address: [address] [place] [address] Result Comment: Cara ent is . Anti-D is identified. Other common clinically significant RBC alloantibodies are ruled out. The electronic medical record indicates that this patient received Rh Immune Globulin (RhIg) on 06/19/2025. There was not a negative type and screen within immediate close proximity prior to the administration of RhIg. The anti-D detected today could be due to RhIg administration however active alloimmunization cannot be excluded. If the patient's clinical history indicates that she may have immune anti-D, please inform the blood bank. Until the patient's anti-D is determined to be of immune origin, she remains a candidate for RhIg prophylaxis. Units for RBC transfusion must be Rh negative and compatible on the [facility] crossmatch. Please allow about 3-4 hrs for compatibility testing. at 1341 EDT Performed By: #### B BRABI ####[facility] [id number] [place] [address] [place] CBC W Auto Differential pane l (Bld)on 08-11-2025 Basophils (Bld) [#/Vol] 0.05 10*3/uL Normal <0.11 [facility] Comment on above: Order Comment: Speci men Type: BLOOD SPECIMENOrdering Facility: [facility] Address: [address] [place] [address] Performed By: #### 5 7021-8 ####[facility] [id number] [place] [address] [place] Basophils/100 WBC (Bld) 0.5 % Normal [facility] Comment on above: Order Comment: Speci men Type: BLOOD SPECIMENOrdering Facility: [facility] Address: [address] [place] [address] Performed By: #### 5 7021-8 ####[facility] [id number] [place] [address] [place] Differential cell count method Nom (Bld) Auto Normal [facility] Comment on above: Order Comment: Speci men Type: BLOOD SPECIMENOrdering Facility: [facility] Address: [address] [place] [address] Performed By: #### 5 7021-8 ####[facility] [id number] [place] [address] [place] Eosinophils (Bld) [#/Vol] 0.06 10*3/uL Normal <0.46 [facility] Comment on above: Order Comment: Speci men Type: BLOOD SPECIMENOrdering Facility: [facility] Address: [address] [place] [address] Performed By: #### 5 7021-8 ####[facility] [id number] [place] [address] [place] Eosinophils/100 WBC (Bld) 0.6 % Normal [facility] Comment on above: Order Comment: Speci men Type: BLOOD SPECIMENOrdering Facility: [facility] Address: [address] [place] [address] Performed By: #### 5 7021-8 ####[facility] [id number] [place] [address] [place] Erythrocyte distribution width (RBC) [Ratio] 12.1 % Normal 11.5-15.0 [facility] Comment on above: Order Comment: Speci men Type: BLOOD SPECIMENOrdering Facility: [facility] Address: [address] [place] [address] Performed By: #### 5 7021-8 ####[facility] [id number] [place] [address] [place] Hematocrit (Bld) [Volume fraction] 32.1 % Low 36.0-46.0 [facility] Comment on above: Order Comment: Speci men Type: BLOOD SPECIMENOrdering Facility: [facility] Address: [address] [place] [address] Performed By: #### 5 7021-8 ####[facility] [id number] [place] [address] [place] Hemoglobin (Bld) [Mass/Vol] 11.0 g/dL Low 11.5-15.5 [facility] Comment on above: Order Comment: Speci men Type: BLOOD SPECIMENOrdering Facility: [facility] Address: [address] [place] [address] Performed By: #### 5 7021-8 ####[facility] [id number] [place] [address] [place] Immature granulocytes (Bld) [#/Vol] 0.06 10*3/uL Normal <0.10 [facility] Comment on above: Order Comment: Speci men Type: BLOOD SPECIMENOrdering Facility: [facility] Address: [address] [place] [address] Performed By: #### 5 7021-8 ####[facility] [id number] [place] [address] [place] Immature granulocytes/100 WBC (Bld) 0.6 % Normal [facility] Comment on above: Order Comment: Speci men Type: BLOOD SPECIMENOrdering Facility: [facility] Address: [address] [place] [address] Performed By: #### 5 7021-8 ####[facility] [id number] [place] [address] [place] Lymphocytes (Bld) [#/Vol] 2.90 10*3/uL Normal 1.00-4.00 [facility] Comment on above: Order Comment: Speci men Type: BLOOD SPECIMENOrdering Facility: [facility] Address: [address] [place] [address] Performed By: #### 5 7021-8 ####[facility] [id number] [address] [place] Lymphocytes/100 WBC (Bld) 26.6 % Normal [facility] Comment on above: Order Comment: Speci men Type: BLOOD SPECIMENOrdering Facility: [facility] Address: [address] [place] [address] Performed By: #### 5 7021-8 ####[facility] [id number] [place] [address] [place] MCH (RBC) [Entitic mass] 33.3 pg Normal 26.0-34.0 [facility] Comment on above: Order Comment: Speci men Type: BLOOD SPECIMENOrdering Facility: [facility] Address: [address] [place] [address] Performed By: #### 5 7021-8 ####[facility] [id number] [place] [address] [place] MCHC (RBC) [Mass/Vol] 34.3 g/dL Normal 30.5-36.0 [facility] Comment on above: Order Comment: Speci men Type: BLOOD SPECIMENOrdering Facility: [facility] Address: [address] [place] [address] Performed By: #### 5 7021-8 ####[facility] [id number] [place] [address] [place] MCV (RBC) [Entitic vol] 97.3 fL Normal 80.0-100.0 [facility] Comment on above: Order Comment: Speci men Type: BLOOD SPECIMENOrdering Facility: [facility] Address: [address] [place] [address] Performed By: #### 5 7021-8 ####[facility] [id number] [place] [address] [place] Monocytes (Bld) [#/Vol] 0.71 10*3/uL Normal <0.87 [facility] Comment on above: Order Comment: Speci men Type: BLOOD SPECIMENOrdering Facility: [facility] Address: [address] [place] [address] Performed By: #### 5 7021-8 ####[facility] [id number] [place] [address] [place] Monocytes/100 WBC (Bld) 6.5 % Normal [facility] Comment on above: Order Comment: Speci men Type: BLOOD SPECIMENOrdering Facility: [facility] Address: [address] [place] [address] Performed By: #### 5 7021-8 ####[facility] [id number] [place] [address] [place] Neutrophils (Bld) [#/Vol] 7.12 10*3/uL Normal 1.45-7.50 [facility] Comment on above: Order Comment: Speci men Type: BLOOD SPECIMENOrdering Facility: [facility] Address: [address] [place] [address] Performed By: #### 5 7021-8 ####[facility] [id number] [place] [address] [place] Neutrophils/100 WBC (Bld) 65.2 % Normal [facility] Comment on above: Order Comment: Speci men Type: BLOOD SPECIMENOrdering Facility: [facility] Address: [address] [place] [address] Performed By: #### 5 7021-8 ####[facility] [id number] [place] [address] [place] Nucleated RBC (Bld) [#/Vol] 10*3/uL Normal <0.01 [facility] Comment on above: Order Comment: Speci men Type: BLOOD SPECIMENOrdering Facility: [facility] Address: [address] [place] [address] Performed By: #### 5 7021-8 ####[facility] [id number] [place] [address] [place] Nucleated RBC/100 WBC (Bld) [Ratio] 0.0 /100 WBC Normal [facility] Comment on above: Order Comment: Speci men Type: BLOOD SPECIMENOrdering Facility: [facility] Address: [address] [place] [address] Performed By: #### 5 7021-8 ####[facility] [id number] [place] [address] [place] Platelet mean volume (Bld) [Entitic vol] 11.2 fL Normal 9.0-12.7 [facility] Comment on above: Order Comment: Speci men Type: BLOOD SPECIMENOrdering Facility: [facility] Address: [address] [place] [address] Performed By: #### 5 7021-8 ####[facility] [id number] [place] [id number] [place] Platelets (Bld) [#/Vol] 284 10*3/uL Normal 150-400 [facility] Comment on above: Order Comment: Speci men Type: BLOOD SPECIMENOrdering Facility: [facility] Address: [address] [place] [address] Performed By: #### 5 7021-8 ####[facility] [id number] [place] [id number] [place] RBC (Bld) [#/Vol] 3.30 10*6/uL Low 3.90-5.20 [facility] Comment on above: Order Comment: Speci men Type: BLOOD SPECIMENOrdering Facility: [facility] Address: [address] [place] [address] Performed By: #### 5 7021-8 ####[facility] [id number] [address] [address] [place] WBC (Bld) [#/Vol] 10.90 10*3/uL Normal 3.70-11.00 [facility] Comment on above: Order Comment: Speci men Type: BLOOD SPECIMENOrdering Facility: [facility] Address: [address] [place] [address] Performed By: #### 5 7021-8 ####[facility] [id number] [address] [address] [place] GESTATIONAL GLUCOSE SCREEN, 1-HOUR, 50 GRAM, NON-FASTINGon 08-11-2025 Glucose [Mass/Vol] 148 mg/dL High 74-134 [facility] Comment on above: Order Comment: Speci men Type: BLOOD SPECIMENOrdering Facility: [facility] Address: [address] [place] [address] Result Comment: [facility] Congress of Obstetricians and Gynecologists (Carla/Miguelangel) guidelines state a gestational diabetes mellitus positive screen is made, in women not previously diagnosed with overt diabetes, when the 1 hr plasma glucose level is equal to or above 140 mg/dL. The [facility] Biology Instructor and [facility] [place] recommends a 135 mg/dL cutoff. Performed By: #### G LTGST ####[facility] [id number] [place] [address] [place] Reagin and Treponema pallidu m IgG and IgM [Interp]on 08-11-2025 T. pallidum IgG+IgM IA Ql (S) Non-Reactive Normal Nonreactive [facility] Comment on above: Order Comment: Speci men Type: BLOOD SPECIMEN [facility] Address: [address] [place] [address] Performed By: #### 7 3752-8 #### [facility] CLIA [id number] [address] [place] [address] [place] Reagin+T pallidum IgG+IgM Se rPl-Impon 08-11-2025 Reagin and Treponema pallidum IgG and IgM [Interp] Cannot exclude recent Treponemal infection if specimen collected within 7-10 days after appearance of suspect lesions or 2-3 weeks after an exposure. Clinical correlation is required. Normal [facility] Comment on above: Order Comment: Speci clary Type: BLOOD SPECIMEN [facility] Address: [address] [place] [address] Performed By: #### 7 3752-8 #### [facility] CLIA [id number] [address] [place] [address] [place] TYPE + SCREEN PRENATALon ABO O Normal [facility] Comment on above: Order Comment: Speci men Type: BLOOD SPECIMENOrdering Facility: [facility] Address: [address] [place] [address] Performed By: #### A SCR, %SHALONDA, TSPN, BBABINT ####[facility] [id number] [address] Rh Nom (Bld) Negative Normal [facility] Comment on above: Order Comment: Speci men Type: BLOOD SPECIMENOrdering Facility: [facility] Address: [address] [place] [address] Performed By: #### A SCR, %SHALONDA, TSPN, BBABINT ####[facility] [id number] [address] TYPE AND SCREEN EXPIRATION 08/14/2025 23:59 Normal [facility] Comment on above: Order Comment: Speci men Type: BLOOD SPECIMENOrdering Facility: [facility] Address: [address] [place] [address] Performed By: #### A SCR, %SHALONDA, TSPN, BBABINT ####[facility] [id number] [address] CNPEmily 07-02-2025 CNPN Telephone (OBGYWM) MI ORTEZ ([id number]) 1995 F Date Time Provider Department 07/02/25 VALORIE MEZA OBGORGE During your visit today, we recorded the following information about you: Randa Arnett, FER 07/02/2025 9:14 AM Signed 22w4d Pt calls stating she started spotting around 6:30pm after working out-pink when wiping. Around 10:20pm when wiping, more red in color and scared Pt, and called o/c provider and went to [facility]. On exam at [facility] (per documentation), closed cervix-no blood in vaginal vault with exam, c/o left sided mild dull abdominal pain past few days-BM every 2-3 days-advised to take colace, no tenderness to abdomen on palpation, FHR 152bpm. Discharged home with instructions to f/u with OB. At 1:30am still some spotting just with wiping-pink in color. No spotting at this time. Woke up around 7am and noticed right sided pain/ right lower, below pelvis, not consistent, described as sharp/shooting-lasts approx 3-5 seconds. On left side explains as a dull, annoying pain. On belly button states just feels tight. Active FM. Pt does feel constipated-Had BM around 7pm but states still doesn't feel empty. Pt had been taking Metamucil once daily, but stopped taking 2 weeks ago. Recommended Pt take a dose of Metamucil along with apple juice to see if she can fully empty to see if pain improves. Instructed Pt to monitor for bleeding at this time and if bleeding increases, pain increases/changes, or decreased movement (advised want 6-10 in 1 hour) to call office right away or go to ER before we call her back. Informed Pt that message would be sent to O/C To see what she recommends at this time since Pt was just examined at 12:41am at [facility]. Pt voiced understanding. Kick count instructions sent to Pt via [employer]. Please advise. FER Vasquez Deidre, MD 07/02/2025 9:33 AM Signed I agree with advice. Does not need seen at this time since she was just evaluated. Miralax ok too. Giana Nicole RN 07/02/2025 9:39 AM Signed Patient notified. Giana Nicole RN Allergies As of Date: 07/02/2025 Noted Allergy Reaction MELON 05/09/2016 9 - Itching TOMATOES 05/09/2016 9 - Itching Date Reviewed: 07/01/2025 Reviewed by: Cooper, Abdullahi, RN - Fully Assessed Prescriptions as of 07/02/2025 - magnesium oxide 420 mg tablet Take 1 tablet by mouth once daily. - loratadine (CLARITIN) 10 mg tablet Take 10 mg by mouth as needed. - prochlorperazine (COMPAZINE) 10 mg tablet Take 1 tablet by mouth every 6 hours as needed (nausea). - aspirin, enteric coated (ECOTRIN LOW STRENGTH) 81 mg EC tablet Take 1 tablet by mouth once daily. - PNV no.95/ferrous fum/folic ac ( ORAL) Take by mouth. - acyclovir (ZOVIRAX) 400 mg tablet Take 1 tablet by mouth two times a day. 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] Generalized anxiety disorder [F41.1] 01/09/2022 H/O cold sores [Z86.19] 03/15/2025 Encounter for supervision of normal first pregn*03/15/2025 Threatened (HCC) [O20.0] 03/15/2025 04/19/2025 History of induced [Z98.890] 03/15/2025 GBS bacteriuria [R82.71] 03/17/2025 Vaginal bleeding during (HCC) [O46.90]07/01/2025 Abdominal pain affecting (HCC) [O26.8*07/02/2025 Encounter Status:Closed by GIANA NICOLE on 07/02/25 Normal [facility] ED Triage Noteon 07-01-2025 ED Triage Note HNO ID: [id number] Author: GOLD KRISHNA APRN.LEDA Service: Emergency Medicine Author Type: Nurse Practitioner Type: ED Triage Notes Filed: 07/01/2025 23:03 Note Text: ED INTAKE NOTE Patient Name: Mi Ortez Service Date: July 01, 2025 As provider in triage my care is limited to quick triage assessment and initiation of any orders that may be able to be performed in the triage process. BRIEF HPI: The patient is a 30 year old female who presents to the emergency department via private vehicle from home for evaluation of vaginal bleeding. The patient reports vaginal bleeding (x2) and left sided abdominal pain since 6 pm this afternoon. No clots. BRIEF and FOCUSED EXAM in TRIAGE: NAD Awake and Alert Non labored breathing HPI and ED findings discussed with OB attending, patient accepted for OB triage. BP: 134/68 Temp: 36.7 ?C (98.1 ?F) Temp src: Oral Pulse: 67 Resp: 18 O2 Therapy: Room Air SpO2: 99 % INTAKE WORKUP: * No order type specified * No orders of the defined types were placed in this encounter. No diet orders placed this encounter No orders of the defined types were placed in this encounter. Patient was seen initially in triage by myself. Initial history brief examination was performed. Initial work-up is ordered to develop basic plan of care, and patient be taken to the main emergency department for further evaluation and treatment as soon as possible. Patient will be seen by my clinician partner. All results from intake work-up will be evaluated and managed by subsequent provider. Please see subsequent provider notes for further details and disposition. SIGNATURE: Gold Pugh APRN Normal [facility] STEWARTho(D) IGon 06-19-2025 Rho(D) IG Normal [facility] Comment on above: Result Comment: [id number] Rho(D) IG PRSMD TRFSD 06/19/25 3085 Performed By: #### [facility](D) IG #### [facility] Laboratory [address] [place], [place], [address] OB Triage Physician Noteon 0 06-19-2025 OB Triage Physician Note [facility] Medical Records Department [address] [place] [address] OB Triage Physician Note 06/19/25 1617 MR#: [id number] Acct: [id number] Name: MI ORTEZ AULDYN Rep #: [id number] : 1995 30 From: Giana Arboleda MD PCP: Status:DEP CLI Y Location: [facility] HPI - General General Date of Admission: 06/19/25 Date of Service: 06/19/25 Chief Complaint: s/p fall HPI Narrative MI ORTEZ, is a 30 F who presents after a fall. No injuries. Has felt the baby move. No bleeding or contractions. Is known Rh negative. Maternal Data Information Final ESPERANZA: 11/01/25 Gestational age: 21 PFSH PFS Medical History (Updated 06/20/25 @ 17:[address] Giana Arboleda MD) Vaginal candidiasis Home Medications ???Medication ???Instructions ???Recorded ???Last Taken ???Type Lactobacillus acidophilus 10 mg PO DAILY 01/22/24 Unknown Hi story (Acidophilus capsule) acyclovir 200 mg capsule 200 mg PO TID PRN 01/22/24 Unknown History fluconazole 200 mg tablet 200 mg PO DAILY #1 TAB 01/22/24 Un known Rx Allergy/AdvReac Type Severity Reaction Status Date / Time melon Allergy Itching Verified 01/22/24 15:12 tomato Allergy Itching Verified 01/22/24 15:12 Social History (Updated 01/22/24 @ 15:10 by Kavya Penaloza) Smoking Status: Never smoker alcohol intake: never NST FHR Rate Baby A Baseline: FHR by dwayne [facility] Assessment Plan (1) Status post fall: (2) 21 weeks gestation of : (3) Rh negative status during : QUALIFIERS: Trimester: second trimester Qualified Code(s): O26.892 - Other specified related conditions, second trimester; Z67.91 - Unspecified blood type, Rh negative PLAN: Plan No bleeding or pain. FHR confirmed. Rhogam given 06/20/25 175 Date Giana Arboleda MD Cosigner Signature (if applicable): Date _ CC: Dr. Giana Arboleda MD Signed [facility] Rh Negative Mom Workupon ABO and Rh group Nom (Bld) TNP Normal [facility] Comment on above: Order Comment: Comme nts: Age > 13 Weeks 00 0 0 Performed By: #### B RHNM, Sunitha(D) IG #### [facility] [address] [place], [address] DIRECT ANTIGLOB TNP Normal NEGATIVE [facility] Comment on above: Order Comment: Comme nts: Age > 13 Weeks 00 0 0 Performed By: #### B RHNM, BRho(D) IG #### [facility] [address] [place], [place], [address] SCREEN Negative Normal NEGATIVE [facility] Comment on above: Order Comment: Comme nts: Age > 13 Weeks 00 0 0 Performed By: #### B RHNM, BRho(D) IG #### [facility] [address] [place], [address] MOM'S ABS Negative Normal [facility] Comment on above: Order Comment: Comme nts: Age > 13 Weeks 00 0 0 Performed By: #### B RHNM, BRho(D) IG #### [facility] [address] [place], [address] ABO and Rh group Nom (Bld) Blood group O Rh(D) negative Normal [facility] Comment on above: Order Comment: Comme nts: Age > 13 Weeks 00 0 0 Performed By: #### B RHNM, BRho(D) IG #### [facility] [address] [place], [address] Type AND Screenon 06-19-2025 Ab SCREEN GEL Negative Normal [facility] Comment on above: Order Comment: T Performed By: #### B TS #### [facility] [address] [place], [place], [address] Examination level ultrasound on 06-15-2025 Indication Standard [...] 13 oz EFW by: Hadlock (HC-AC-FL) Extended Pillowcase Cleaner 7.0 mm CM 4.3 mm 26% Nicolaides [...] normal LVOT view: normal 3-vessel view: normal 7-wtmikd-ghyhuxt view: normal Heart / Thorax Situs: situs [...] Read By: Tiffanie Dyson M.D. MATERNAL MEDICINE [facility] Radiology Study observation (narrative) [facility] Examination level ultrasound on 04-19-2025 Indication First trimester anatomic survey Impression The patient is referred for a first trimester anatomy scan including nuchal translucency measurement as clinically indicated. - Single, live, intrauterine . - Vamo rump length measurement is consistent with the [...] view: normal 4-chamber view with color: normal 5-rgopbj-atpevfm view: normal Abdominal cord insertion: normal Stomach: [...] ovary Vol 3.3 cm Performed By: Leida Alvarado, DOMINIQUE, RVT Read By: Nanci Anthony M.D. MATERNAL MEDICINE [facility] Radiology Study observation (narrative) [facility] HGB ELECTROPHORESIS FOR EVAL (LAB ORDER)on 04-19-2025 Hemoglobin A (Bld) [Mass fraction] 96.9 % Normal 96.2-98.0 [facility] Comment on above: Order Comment: Speci men Type: BLOOD SPECIMEN [facility] Facility[facility] Address: [address] [place] [address] Performed By: #### L [id number] #### [facility] CLIA [id number] [address] [place] [address] [place] Hemoglobin A2 (Bld) [Mass fraction] 3.1 % Normal 2.0-3.1 [facility] Comment on above: Order Comment: Speci men Type: BLOOD SPECIMEN [facility] Facility: [facility] Address: [address] [place] [address] Performed By: #### L [id number] #### [facility] CLIA [id number] [address] [place] [address] [place] Hemoglobin Unsp Elph (Bld) [Mass fraction] Normal [facility] Comment on above: Order Comment: Speci men Type: BLOOD SPECIMEN [facility] Facility: [facility] Address: [address] [place] [address] Performed By: #### L [id number] #### [facility] CLIA [id number] [address] [place] [address] [place] HGB EVALUATION CASCADE INTER John 04-19-2025 Hemoglobin pattern (Bld) [Interp] Reviewed by Christopher Coello MD Normal [facility] Comment on above: Order Comment: Speci men Type: BLOOD SPECIMEN [facility] Facility: [facility] Address: [address] [place] [address] Performed By: #### L [id number] #### [facility] CLIA [id number] [address] [place] [address] [place] INTERPRETATION (HGB EVAL) Normal [facility] Comment on above: Order Comment: Speci men Type: BLOOD SPECIMEN Ordering Facility: [facility] Address: [address] [place] [address] Result Comment: Hemo globins were analyzed by capillary electrophoresis and CBC red cell parameters were reviewed. No abnormal hemoglobin is identified. There is normal hemoglobin capillary electrophoresis pattern. Performed By: #### L [id number] #### [facility] CLIA [id number] [address] [place] [address] [place] [id number] PLUSon 04-19-2025 Cell-free DNA./Cell-free DNA.total Dosage of chromosome-specific cfDNA (cfDNA) [Molar fraction] 30% Normal [facility] Comment on above: Order Comment: Speci men Type: BLOOD SPECIMENOrdering Facility: [facility] Address: [address] [place] [address] Performed By: #### M AT21 ####[facility] LABCLIA [id number] [place] [address] Chr 13+18+21+X+Y aneuploidy Dosage of chromosome-specific cfDNA Ql (cfDNA) Negative Normal [facility] Comment on above: Order Comment: Speci men Type: BLOOD SPECIMENOrdering Facility: [facility] Address: [address] [place] [address] Performed By: #### M AT21 ####[facility] LABCLIA [id number] [place] [address] Chr 21 trisomy Dosage of chromosome-specific cfDNA Ql (cfDNA) Negative Normal [facility] Comment on above: Order Comment: Speci men Type: BLOOD SPECIMENOrdering Facility: [facility] Address: [address] [place] [address] Performed By: #### M AT21 ####[facility] LABCLIA [id number] [place] [address] Chr X and Y aneuploidy risk Sequencing Ql (cfDNA) [Interp] Not detected Normal [facility] Comment on above: Order Comment: Speci men Type: BLOOD SPECIMENOrdering Facility: [facility] Address: [address] [place] [address] Result Comment: Not Detected Not Detected Performed By: #### M AT21 ####[facility] LABCLIA [id number] [place] [address] Citation David (Reference lab test) Comment Normal [facility] Comment on above: Order Comment: Speci men Type: BLOOD SPECIMENOrdering Facility: [facility] Address: [address] [place] [address] Result Comment: 1. P jamel VALDES, et al. Chandrika Med. 2012;14(3):296-305. 2. Ryan RICE et al. Prenat Diag. 2013;33(6):591-597. 3. Hamlin C, et al. Clin Chem. 2015 Apr;61(4):608-616. 4. Gary VALDES, et al. Chandrika Med. 2011;13(11):913-920. 5. ACOG/SMFM Practice Bulletin No. 226, Sep 2020. Performed By: #### M AT21 ####[facility] LABCLIA [id number] [place] [address] Gestational age Estimated from conception date Wong Normal [facility] Comment on above: Order Comment: Speci men Type: BLOOD SPECIMENOrdering Facility: [facility] Address: [address] [place] [address] Performed By: #### M AT21 ####[facility] LABCLIA [id number] [place] [address] GESTATIONALAGE AGE > OR = 9W Yes Normal [facility] Comment on above: Order Comment: Speci men Type: BLOOD SPECIMENOrdering Facility: [facility] Address: [address] [place] [address] Performed By: #### M AT21 ####[facility] LABCLIA [id number] [place] [address] Laboratory comment David (Report) Comment Normal [facility] Comment on above: Order Comment: Kris means Type: BLOOD SPECIMENOrdering Facility: [facility] Address: [address] [place] [address] Result Comment: The MaterniT(R) 21 PLUS laboratory-developed test (LDT) analyzes circulating cell-free DNA from a maternal blood sample. This test is used for screening purposes and not diagnostic. Clinical correlation is recommended. Validation data on twin pregnancies is limited and the ability of this test to detect aneuploidy in higher multiple gestations has not yet been validated. Performed By: #### M AT21 ####[facility] LABCLIA [id number] [place] [id number] director clinical applications name Nom (Provider) Comment Normal [facility] Comment on above: Order Comment: Kris means Type: BLOOD SPECIMENOrdering Facility: [facility] Address: [address] [place] [address] Result Comment: This specimen showed an expected representation of chromosome 21, 18 and 13 material. Clinical correlation is suggested. Comment Wesley Elizabeth MD, PhD, Director, [employer] Performed By: #### M AT21 ####[email or web address] LABCLIA [id number] [place] [id number] LIMITATIONS OF THE TEST Comment Normal [facility] Comment on above: Order Comment: Kris means Type: BLOOD SPECIMENOrdering Facility: [facility] Address: [address] [place] [address] Result Comment: Bradford stephen the results of [...] Xaparin(R), Clexane(R) and Fragmin(R)). Performed By: #### M AT21 ####[facility] LABCLIA [id number] [place] [address] Monosomy X risk Dosage of chromosome-specific cfDNA Ql (Plasma cell-free+WBC DNA) [Interp] Not detected Normal [facility] Comment on above: Order Comment: Speci men Type: BLOOD SPECIMENOrdering Facility: [facility] Address: [facility] [place] [address] Performed By: #### M AT21 ####[employer] [facility] LABCLIA [id number] [place] [address] NEGATIVE PREDICTIVE VALUE Note Normal [facility] Comment on above: Order Comment: Kris means Type: BLOOD SPECIMENOrdering Facility: [facility] Address: [address] [place] [address] Result Comment: The Negative Predictive Value (NPV) for trisomy 21, 18, and 13 is greater than 99%. The NPV for SCA and ESS cannot be calculated as SCA and ESS are only reported when an abnormality is detected. Performed By: #### M AT21 ####[facility] [facility] LABCLIA [id number] [place] [address] PERFORMANCE CHARACTERISTICS Note Normal [facility] Comment on above: Order Comment: Kris means Type: BLOOD SPECIMENOrdering Facility: [facility] Address: [address] [place] [address] Result Comment: ! Sex ! Accuracy: 99.4% [...] ! ! ! * As reported in ISCA database nstd37 [https://www.ncbi.nlm.nih.gov/dbvar/studies/nstd37/ ] # Estimated Sensitivity. Sensitivity estimated across the observed size distribution of each syndrome [per [facility] database nstd37] and across the range of fractions observed in routine clinical NIPT. Actual sensitivity can also be influenced by other factors such as the size of the event, total sequence counts, amplification bias, or sequence bias. ## Wong gestation only. Performed By: #### M AT21 ####Shirley Mae'sIA [id number] [place] [address] POSITIVE PREDICTIVE VALUE N/A Normal [facility] Comment on above: Order Comment: Speci men Type: BLOOD SPECIMENOrdering Facility: [facility] Address: [address] [place] [address] Performed By: #### M AT21 ####[facility] LABCLIA [id number] [place] [address] Reference Lab Test Method Comment Normal [facility] Comment on above: Order Comment: Speci men Type: BLOOD SPECIMENOrdering Facility: [facility] Address: [address] [place] [address] Result Comment: See Notes Circulating cell-free DNA [...] chromosomes 16 and 22. Performed By: #### M AT21 ####Shirley Mae'sIA [id number] [place] [address] Service comment (Unsp spec) [Interp] Comment Normal [facility] Comment on above: Order Comment: Speci men Type: BLOOD SPECIMENOrdering Facility: [facility] Address: [address] [place] [address] Result Comment: See Notes [employer] is a subsidiary of [employer], using the brand ARI. This test was developed and its performance characteristics determined by [facility]. It has not been cleared or approved by the Food and Drug Administration. This laboratory is certified under the Clinical Laboratory Improvement Amendments (CLIA) as qualified to perform high complexity clinical laboratory testing and accredited by the [employer] (CAP). If there is future clinical need for adding MaterniT GENOME testing, this specimen will be available until term. [facility] samples will not be retained beyond 60 days. [facility] patients will have to send a new sample for re-sequencing ([facility] Test Code: [id number]). Performed By: #### M AT21 ####Shirley Mae'sIA [id number] [place] [address] Sex Dosage of chromosome-specific cfDNA Nom (cfDNA) Comment Normal [facility] Comment on above: Order Comment: Speci men Type: BLOOD SPECIMENOrdering Facility: [facility] Address: [address] [place], [place] [address] Result Comment: Cons istent with Female Performed By: #### M AT21 ####[facility] LABCLIA [id number] [place] [address] Test performance information David (Unsp spec) Comment Normal [facility] Comment on above: Order Comment: Speci men Type: BLOOD SPECIMENOrdering Facility: [facility] Address: [address] [place] [address] Result Comment: The performance characteristics of the MaterniT(R) 21 PLUS laboratory-developed test (LDT) have been determined in a clinical validation study with women at increased risk for chromosomal aneuploidy.[1-4] Performed By: #### M AT21 ####[facility] LABCLIA [id number] [place] [address] Trisomy 13 risk Dosage of chromosome-specific cfDNA Ql (cfDNA) [Interp] Negative Normal [facility] Comment on above: Order Comment: Speci men Type: BLOOD SPECIMENOrdering Facility: [facility] Address: [address] [place] [address] Performed By: #### M AT21 ####[facility] LABCLIA [id number] [place] [address] Trisomy 18 risk Dosage of chromosome-specific cfDNA Ql (Plasma cell-free+WBC DNA) [Interp] Negative Normal [facility] Comment on above: Order Comment: Speci men Type: BLOOD SPECIMENOrdering Facility: [facility] Address: [address] [place] [address] Performed By: #### M AT21 ####[employer] [facility] LABCLIA [id number] [place] [address] RBC PARAMETERS FOR HB IDon 0 - Erythrocyte distribution width (RBC) [Ratio] 12.7 % Normal 11.5-15.0 [facility] Comment on above: Order Comment: Speci men Type: BLOOD SPECIMEN [facility]ing Facility: [facility] Address: [address] [place] [address] Performed By: #### L [id number] #### [facility] CLIA [id number] [address] [place] [address] [place] Hematocrit (Bld) [Volume fraction] 39.4 % Normal 36.0-46.0 [facility] Comment on above: Order Comment: Speci men Type: BLOOD SPECIMEN [facility]ing Facility: [facility] Address: [address] [place] [address] Performed By: #### L [id number] #### [facility] CLIA [id number] [address] [place] [address] [place] Hemoglobin (Bld) [Mass/Vol] 13.3 g/dL Normal 11.5-15.5 [facility] Comment on above: Order Comment: Speci men Type: BLOOD SPECIMEN [facility]ing Facility: [facility] Address: [address] [place] [address] Performed By: #### L [id number] #### [facility] CLIA [id number] [address] [place] [address] [place] MCH (RBC) [Entitic mass] 33.2 pg Normal 26.0-34.0 [facility] Comment on above: Order Comment: Speci men Type: BLOOD SPECIMEN Ordering Facility: [facility] Address: [address] [place] [address] Performed By: #### L [id number] #### [facility] CLIA [id number] [address] [place] [address] [place] MCHC (RBC) [Mass/Vol] 33.8 g/dL Normal 30.5-36.0 [facility] Comment on above: Order Comment: Speci men Type: BLOOD SPECIMEN Ordering Facility: [facility] Address: [address] [place] [address] Performed By: #### L [id number] #### [facility] CLIA [id number] [address] [place] [address] [place] MCV (RBC) [Entitic vol] 98.3 fL Normal 80.0-100.0 [facility] Comment on above: Order Comment: Speci men Type: BLOOD SPECIMEN Ordering Facility: [facility] Address: [address] [place] [address] Performed By: #### L [id number] #### [facility] CLIA [id number] [address] [place] [address] [place] RBC (Bld) [#/Vol] 4.01 10*6/uL Normal 3.90-5.20 [facility] Comment on above: Order Comment: Speci men Type: BLOOD SPECIMEN Ordering Facility: [facility] Address: [address] [place] [address] Performed By: #### L [id number] #### [facility] CLIA [id number] [address] [place] [address] [place] HGB ELECTROPHORESIS FOR EVAL (LAB ORDER)on 03-29-2025 Hemoglobin A (Bld) [Mass fraction] 97.0 % Normal 96.2-98.0 [facility] Comment on above: Order Comment: Speci men Type: BLOOD SPECIMENOrdering Facility: [facility] Address: [address] [place] [address] Performed By: #### L [id number], HGBELEV ####[facility] [id number] [place] [address] [place] Hemoglobin A2 (Bld) [Mass fraction] 3.0 % Normal 2.0-3.1 [facility] Comment on above: Order Comment: Speci men Type: BLOOD SPECIMENOrdering Facility: [facility] Address: [address] [place] [address] Performed By: #### L [id number], HGBELEV ####[facility] [id number] [place] [address] [place] Hemoglobin Unsp Elph (Bld) [Mass fraction] No abnormal hemoglobin identified. Normal No abnormal hemoglobin identified. [facility] Comment on above: Order Comment: Speci men Type: BLOOD SPECIMENOrdering Facility: [facility] Address: [address] [place] [address] Performed By: #### L [id number], HGBELEV ####[facility] [id number] [facility] [address] [place] [address] [place] HGB EVALUATION CASCADE INTER John 03-29-2025 Hemoglobin pattern (Bld) [Interp] Reviewed by Cornelio Stephenson MD Normal [facility] Comment on above: Order Comment: Speci men Type: BLOOD SPECIMENOrdering Facility: [facility] Address: [address] [place] [address] Performed By: #### L [id number], HGBELEV ####[facility] [id number] [address], [place] [address] [place] INTERPRETATION (HGB EVAL) Hemoglobins were analyzed by capillary electrophoresis and CBC red cell parameters were reviewed. No abnormal hemoglobin is identified. There is a normal hemoglobin capillary electrophoresis pattern. Normal [facility] Comment on above: Order Comment: Speci men Type: BLOOD SPECIMENOrdering Facility: [facility] Address: [address] [place] [address] Performed By: #### L [id number], HGBELEV ####[facility] [id number] [place] [address] [place] RBC PARAMETERS FOR HB IDon 0 03-29-2025 Erythrocyte distribution width (RBC) [Ratio] 13.1 % Normal 11.5-15.0 [facility] Comment on above: Order Comment: Speci men Type: BLOOD SPECIMENOrdering Facility: [facility] Address: [address] [place] [address] Performed By: #### L [id number] ####[facility] [id number] [address] [place] [address] [place] Hematocrit (Bld) [Volume fraction] 34.9 % Low 36.0-46.0 [facility] Comment on above: Order Comment: Speci men Type: BLOOD SPECIMENOrdering Facility: [facility] Address: [address] [place] [address] Performed By: #### L [id number] ####[facility] [id number] [place] [address] [place] Hemoglobin (Bld) [Mass/Vol] 11.8 g/dL Normal 11.5-15.5 [facility] Comment on above: Order Comment: Speci men Type: BLOOD SPECIMENOrdering Facility: [facility] Address: [address] [place] [address] Performed By: #### L [id number] ####[facility] [id number] [place] [address] [place] MCH (RBC) [Entitic mass] 32.9 pg Normal 26.0-34.0 [facility] Comment on above: Order Comment: Speci men Type: BLOOD SPECIMENOrdering Facility: [facility] Address: [address] [place] [address] Performed By: #### L [id number] ####[facility] [id number] [place] [address] [place] MCHC (RBC) [Mass/Vol] 33.8 g/dL Normal 30.5-36.0 [facility] Comment on above: Order Comment: Speci men Type: BLOOD SPECIMENOrdering Facility: [facility] Address: [address] [place] [address] Performed By: #### L [id number] ####[facility] [id number] [place] [address] [place] MCV (RBC) [Entitic vol] 97.2 fL Normal 80.0-100.0 [facility] Comment on above: Order Comment: Speci men Type: BLOOD SPECIMENOrdering Facility: [facility] Address: [address] [place], [place] [address] Performed By: #### L [id number] ####[facility] [id number] [place] [address] [place] RBC (Bld) [#/Vol] 3.59 10*6/uL Low 3.90-5.20 [facility] Comment on above: Order Comment: Speci men Type: BLOOD SPECIMENOrdering Facility: [facility] Address: [address] [place] [address] Performed By: #### L [id number] ####[facility] [id number] [address] [place] B-HCG SerPl-aCncon 5 HCG.beta subunit Qn 888260.0 m[IU]/mL High <5.0 [facility] Comment on above: Order Comment: Speci men Type: BLOOD SPECIMENOrdering Facility: [facility] Address: [address] [place] [address] Result Comment: KAMILA TITATIVE HCG NORMAL RANGES Weeks of Gestation (Weeks Since LMP) 3 Weeks (5.8-71.2 mIU/mL) 4 Weeks (9.5-750 mIU/mL) 5 Weeks (217-7138 mIU/mL) 6 Weeks (158-10565 mIU/mL) 7 Weeks (3697-709737 mIU/mL) 8 Weeks (82653-075527 mIU/mL) 9 Weeks (78376-135673 mIU/mL) 10 Weeks (70102-537104 mIU/mL) 12 Weeks (79909-977532 mIU/mL) Referenced to 4th IS of [facility] Performed By: #### 2 1198-7 ####[facility] [id number] [place] [address] [place] B-HCG SerPl-aCncon 5 HCG.beta subunit Qn 385746.0 m[IU]/mL High <5.0 [facility] Comment on above: Order Comment: Speci men Type: BLOOD SPECIMEN [facility]: [facility] Address: [address] [place] [address] Result Comment: KAMILA TITATIVE HCG NORMAL RANGES Weeks of Gestation (Weeks Since LMP) 3 Weeks (5.8-71.2 mIU/mL) 4 Weeks (9.5-750 mIU/mL) 5 Weeks (217-7138 mIU/mL) 6 Weeks (158-32202 mIU/mL) 7 Weeks (3697-724665 mIU/mL) 8 Weeks (30528-678435 mIU/mL) 9 Weeks (27044-837171 mIU/mL) 10 Weeks (66429-609470 mIU/mL) 12 Weeks (67578-269859 mIU/mL) Referenced to 4th IS of BS Performed By: #### L [id number] #### [facility] CLIA [id number] [address] [place] [address] [place] B-HCG SerPl-aCncon 5 HCG.beta subunit Qn 063031.0 m[IU]/mL High <5.0 [facility] Comment on above: Order Comment: Speci men Type: BLOOD SPECIMEN [facility]: [facility] Address: [address] [place] [address] Result Comment: KAMILA TITATIVE HCG NORMAL RANGES Weeks of Gestation (Weeks Since LMP) 3 Weeks (5.8-71.2 mIU/mL) 4 Weeks (9.5-750 mIU/mL) 5 Weeks (217-7138 mIU/mL) 6 Weeks (158-20071 mIU/mL) 7 Weeks (3697-977570 mIU/mL) 8 Weeks (72500-601693 mIU/mL) 9 Weeks (50139-406896 mIU/mL) 10 Weeks (91395-616972 mIU/mL) 12 Weeks (21175-436375 mIU/mL) Referenced to 4th IS of NIBSC Performed By: #### L [id number] #### [facility] CLIA [id number] [address] [place] [address] [place] B-HCG SerPl-aCncon 5 HCG.beta subunit Qn 933542.0 m[IU]/mL High <5.0 [facility] Comment on above: Order Comment: Speci men Type: BLOOD SPECIMEN [facility] Address: [address] [place] [address] Result Comment: KAMILA TITATIVE HCG NORMAL RANGES Weeks of Gestation (Weeks Since LMP) 3 Weeks (5.8-71.2 mIU/mL) 4 Weeks (9.5-750 mIU/mL) 5 Weeks (217-7138 mIU/mL) 6 Weeks (158-26765 mIU/mL) 7 Weeks (3697-030675 mIU/mL) 8 Weeks (92837-394027 mIU/mL) 9 Weeks (09359-871102 mIU/mL) 10 Weeks (07313-290200 mIU/mL) 12 Weeks (77412-368141 mIU/mL) Referenced to 4th IS of [facility] Performed By: #### L [id number] #### [facility] CLIA [id number] [address] [place] [address] [place] Bacteria Ur Culton Bacteria identified Cx Nom (U) ORGANISM ID: 1 <10,000 CFU/ml Streptococcus agalactiae (group b streptococcus) Insignificant colony count. No further workup. Normal [facility] Comment on above: Performed By: #### 6 30-4 ####[facility] [id number] [place] [address] [place] C. trachomatis+N. gonorrhoea e DNA ARIANA+probe Ql (Unsp spec)on 03-15-2025 C. trachomatis rRNA ARIANA+probe Ql (Unsp spec) Not detected Normal Not detected [facility] Comment on above: Order Comment: Speci men Type: SWABOrdering Facility: [facility] Address: [address] [place] [address] Performed By: #### T RVAMP, 69873-8 ####[facility] [id number] [id number] [address] [place] N. gonorrhoeae rRNA ARIANA+probe Ql (Unsp spec) Not detected Normal Not detected [facility] Comment on above: Order Comment: Speci men Type: SWABOrdering Facility: [facility] Address: [address] [place] [address] Performed By: #### T RVAMP, 63322-5 ####[facility] [id number] [place] [address] [place] CBC W Auto Differential pane l (Bld)on 03-15-2025 Basophils (Bld) [#/Vol] 0.05 10*3/uL Normal <0.11 [facility] Comment on above: Order Comment: Speci men Type: BLOOD SPECIMENOrdering Facility: [facility] Address: [address] [place] [address] Performed By: #### 5 7021-8 ####[facility] [id number] [place] [address] [place] Basophils/100 WBC (Bld) 0.6 % Normal [facility] Comment on above: Order Comment: Speci men Type: BLOOD SPECIMENOrdering Facility: [facility] Address: [address] [place] [address] Performed By: #### 5 7021-8 ####[facility] [id number] [place] [address] [place] Differential cell count method Nom (Bld) Auto Normal [facility] Comment on above: Order Comment: Speci men Type: BLOOD SPECIMENOrdering Facility: [facility] Address: [address] [place] [address] Performed By: #### 5 7021-8 ####[facility] [id number] [place] [address] [place] Eosinophils (Bld) [#/Vol] 10*3/uL Normal <0.46 [facility] Comment on above: Order Comment: Speci men Type: BLOOD SPECIMENOrdering Facility: [facility] Address: [address] [place] [address] Performed By: #### 5 7021-8 ####[facility] JASMINE [id number] [place] [address] [place] Eosinophils/100 WBC (Bld) 0.2 % Normal [facility] Comment on above: Order Comment: Speci men Type: BLOOD SPECIMENOrdering Facility: [facility] Address: [address] [place] [address] Performed By: #### 5 7021-8 ####[facility] KRISTINAEGNARNCLAURATanisha [id number] [place] [address] [place] Erythrocyte distribution width (RBC) [Ratio] 13.3 % Normal 11.5-15.0 [facility] Comment on above: Order Comment: Speci men Type: BLOOD SPECIMENOrdering Facility: [facility] Address: [address] [place] [address] Performed By: #### 5 7021-8 ####[facility] HOSPITALNCLAURAA [id number] [place] [address] [place] Hematocrit (Bld) [Volume fraction] 40.0 % Normal 36.0-46.0 [facility] Comment on above: Order Comment: Speci men Type: BLOOD SPECIMENOrdering Facility: [facility] Address: [address] [place] [address] Performed By: #### 5 7021-8 ####[facility] HOSPITALNCLIA [id number] [place] [address] [place] Hemoglobin (Bld) [Mass/Vol] 13.7 g/dL Normal 11.5-15.5 [facility] Comment on above: Order Comment: Speci men Type: BLOOD SPECIMENOrdering Facility: [facility] Address: [address] [place] [address] Performed By: #### 5 7021-8 ####[facility] MILLWNCLIA [id number] [place] [address] [place] Immature granulocytes (Bld) [#/Vol] 10*3/uL Normal <0.10 [facility] Comment on above: Order Comment: Speci men Type: BLOOD SPECIMENOrdering Facility: [facility] Address: [address] [place] [address] Performed By: #### 5 7021-8 ####[facility]ST CAMPUSLIA [id number] [place] [address] [place] Immature granulocytes/100 WBC (Bld) 0.2 % Normal [facility] Comment on above: Order Comment: Speci men Type: BLOOD SPECIMENOrdering Facility: [facility] Address: [address] [place] [address] Performed By: #### 5 7021-8 ####[facility] [id number] [place] [address] [place] Lymphocytes (Bld) [#/Vol] 2.97 10*3/uL Normal 1.00-4.00 [facility] Comment on above: Order Comment: Speci men Type: BLOOD SPECIMENOrdering Facility: [facility] Address: [address] [place] [address] Performed By: #### 5 7021-8 ####[facility] ERA [id number] [place] [address] [place] Lymphocytes/100 WBC (Bld) 33.6 % Normal [facility] Comment on above: Order Comment: Speci men Type: BLOOD SPECIMENOrdering Facility: [facility] Address: [address] [place] [address] Performed By: #### 5 7021-8 ####[facility] [id number] [place] [address] [place] MCH (RBC) [Entitic mass] 32.4 pg Normal 26.0-34.0 [facility] Comment on above: Order Comment: Speci men Type: BLOOD SPECIMENOrdering Facility: [facility] Address: [address] [place] [address] Performed By: #### 5 7021-8 ####[facility]ITALNCVALLEY [facility] [id number] [place] [address] [place] MCHC (RBC) [Mass/Vol] 34.3 g/dL Normal 30.5-36.0 [facility] Comment on above: Order Comment: Speci men Type: BLOOD SPECIMENOrdering Facility: [facility] Address: [address] [place] [address] Performed By: #### 5 7021-8 ####[facility] [id number] [place] [address] [place] MCV (RBC) [Entitic vol] 94.6 fL Normal 80.0-100.0 [facility] Comment on above: Order Comment: Speci men Type: BLOOD SPECIMENOrdering Facility: [facility] Address: [address] [place] [address] Performed By: #### 5 7021-8 ####[facility] HOSPITALNCVALLEY [facility] [id number] [place] [address] [place] Monocytes (Bld) [#/Vol] 0.56 10*3/uL Normal <0.87 [facility] Comment on above: Order Comment: Speci men Type: BLOOD SPECIMENOrdering Facility: [facility] Address: [address] [place] [address] Performed By: #### 5 7021-8 ####[facility] HOSPITALNCVAL[facility] [id number] [place] [address] [place] Monocytes/100 WBC (Bld) 6.3 % Normal [facility] Comment on above: Order Comment: Speci men Type: BLOOD SPECIMENOrdering Facility: [facility] Address: [address] [place] [address] Performed By: #### 5 7021-8 ####[facility] MILLTOWNCLIA [id number] [place] [address] [place] Neutrophils (Bld) [#/Vol] 5.23 10*3/uL Normal 1.45-7.50 [facility] Comment on above: Order Comment: Speci men Type: BLOOD SPECIMENOrdering Facility: [facility] Address: [address] [place] [address] Performed By: #### 5 7021-8 ####[facility] MILLWNCLIA [id number] [place] [address] [place] Neutrophils/100 WBC (Bld) 59.1 % Normal [facility] Comment on above: Order Comment: Speci men Type: BLOOD SPECIMENOrdering Facility: [facility] Address: [address] [place] [address] Performed By: #### 5 7021-8 ####[facility] PEMBROKEWNCLIA [id number] [place] [address] [place] Nucleated RBC (Bld) [#/Vol] 10*3/uL Normal <0.01 [facility] Comment on above: Order Comment: Speci men Type: BLOOD SPECIMENOrdering Facility: [facility] Address: [address] [place] [address] Performed By: #### 5 7021-8 ####[facility] MILLTOWNCLIA [id number] [place] [address] [place] Nucleated RBC/100 WBC (Bld) [Ratio] 0.0 /100 WBC Normal [facility] Comment on above: Order Comment: Speci men Type: BLOOD SPECIMENOrdering Facility: [facility] Address: [address] [place] [address] Performed By: #### 5 7021-8 ####[facility] [id number] [place] [address] [place] Platelet mean volume (Bld) [Entitic vol] 9.4 fL Normal 9.0-12.7 [facility] Comment on above: Order Comment: Speci men Type: BLOOD SPECIMENOrdering Facility: [facility] Address: [address] [place] [address] Performed By: #### 5 7021-8 ####[facility] HOSPITALJAMILAHA [id number] [place] [address] [place] Platelets (Bld) [#/Vol] 308 10*3/uL Normal 150-400 [facility] Comment on above: Order Comment: Speci men Type: BLOOD SPECIMENOrdering Facility: [facility] Address: [address] [place] [address] Performed By: #### 5 7021-8 ####[facility] [id number] [place] [address] [place] RBC (Bld) [#/Vol] 4.23 10*6/uL Normal 3.90-5.20 [facility] Comment on above: Order Comment: Speci men Type: BLOOD SPECIMENOrdering Facility: [facility] Address: [address] [place] [address] Performed By: #### 5 7021-8 ####[facility] CAMPUSLIA [id number] [place] [address] [place] WBC (Bld) [#/Vol] 8.85 10*3/uL Normal 3.70-11.00 [facility] Comment on above: Order Comment: Speci men Type: BLOOD SPECIMENOrdering Facility: [facility] Address: [address] [place] [address] Performed By: #### 5 7021-8 ####[facility] HOSPITALNCLIA [id number] [place] [address] [place] HBV surface Ag Ql (S)on 03-02 Interpretation and review of laboratory results Normal [facility] HBV surface Ag Ser Qlon 03-02 HBV surface Ag Ql (S) Negative Normal Negative [facility] Comment on above: Order Comment: Speci men Type: BLOOD SPECIMENOrdering Facility: [facility] Address: [address] [place] [address] Performed By: #### 5 195-3, 96894-3, 67444-5 ####[facility] LABCL[facility] [id number] [place] [address] [place] HCV Ab Ql (S)on 03-15-2025 Interpretation and review of laboratory results Normal [facility] HCV Ab Ser Qlon 03-15-2025 HCV Ab Ql (S) Negative Normal Negative [facility] Comment on above: Order Comment: Speci men Type: BLOOD SPECIMEN [facility] Address: [address] [place] [address] Result Comment: The result suggests no evidence of infection with Hepatitis C virus. Should recent infection be suspected, repeat testing may be considered 4-6 weeks after this draw. Performed By: #### L [id number] #### [facility] CLIA [id number] [address] [place] [address] [place] HEPATITIS B SURFACE ANTIGENo n 03-15-2025 HBV surface Ag Ql (S) Negative Negative [facility] HEPATITIS C ANTIBODY IA WITH CONFIRMATIONon 03-15-2025 HCV Ab Ql (S) Negative Negative [facility] Comment on above: The result suggests no evidence of infection with Hepatitis C virus. Should recent infection be suspected, repeat testing may be considered 4-6 weeks after this draw. HIV 1+2 Ab IA Qlon HIV 1 and 2 Ab IA.rapid Nom (S/P/Bld) [facility] Comment on above: Test not indicated. HIV 1+2 Ab+HIV1 p24 Ag IA Ql Non-Reactive Nonreactive [facility] HIV immunoassay testing algorithm interpretation (S/P/Bld) [Interp] [facility] Comment on above: No evidence of HIV-1 or HIV-2 infection. Should recent infection be suspected, repeat testing may be considered 2-3 weeks after this draw. [place] Rev. Code 3701.243(E): This information has been [...] release of HIV test results or diagnoses. [facility] HIV 1 and 2 Ab IA.rapid Nom (S/P/Bld) Normal [facility] Comment on above: Order Comment: Speci men Type: BLOOD SPECIMENOrdering Facility: [facility] Address: [address] [place] [address] Result Comment: Test not indicated. Performed By: #### 5 195-3, 01219-0, 40370-6 ####[facility] [id number] [place] [address] [place] HIV 1+2 Ab+HIV1 p24 Ag IA Ql Non-Reactive Normal Nonreactive [facility] Comment on above: Order Comment: Speci men Type: BLOOD SPECIMENOrdering Facility: [facility] Address: [address] [place] [address] Performed By: #### 5 195-3, 22862-0, 57726-9 ####[facility] [id number] [place] [address] [place] HIV immunoassay testing algorithm interpretation (S/P/Bld) [Interp] Normal [facility] Comment on above: Order Comment: Speci men Type: BLOOD SPECIMENOrdering Facility: [facility] Address: [address] [place] [address] Result Comment: No e vidence of HIV-1 or HIV-2 infection. Should recent infection be suspected, repeat testing may be considered 2-3 weeks after this draw. [place] Rev. Code 3701.243(E): This information has been [...] or diagnoses. Performed By: #### 5 195-3, 22826-3, 01868-5 ####[facility]CL[facility] [id number] [address] [address] [place] HbA1c (Bld)on 03-15-2025 Average glucose Estimated from glycated hemoglobin (Bld) [Mass/Vol] 91 mg/dL Normal [facility] Comment on above: Order Comment: Magdalenai men Type: BLOOD SPECIMENOrdering Facility: [facility] Address: [address] [place] [address] Result Comment: eAG: (Estimated average glucose) is a calculated value from HgbA1c and is fuels sales representative of the average blood glucose level in the last 2-3 month period. Performed By: #### 5 5454-3 ####[facility] LABCL[facility] [id number] [address] [address] [place] HbA1c (Bld) [Mass fraction] 4.8 % Normal 4.3-5.6 [facility] Comment on above: Order Comment: Kris means Type: BLOOD SPECIMENOrdering Facility: [facility] Address: [address] [place] [address] Result Comment: Amer [place] Diabetes Association guidelines indicate that patients with HgbA1c in the range 5.7-6.4% are at increased risk for development of diabetes, and intervention by lifestyle modification may be beneficial. HgbA1c greater or equal to 6.5% is considered diagnostic of diabetes. Performed By: #### 5 5454-3 ####[facility]CL[facility] [id number] [address] [address] [place] PAP TESTon 03-15-2025 ADEQUACY Normal [facility] Comment on above: Order Comment: Magdalenai men Type: BLOOD SPECIMEN [facility] Address: [address] [place] [address] Result Comment: Sati sfactory for interpretation. Transformation zone present Performed By: #### L [id number] #### [facility] CLIA [id number] [address] [place] [address] [place] CASE REPORT Normal [facility] Comment on above: Order Comment: Speci men Type: BLOOD SPECIMEN [facility] Address: [address] [place] [address] Result Comment: Gyne cologic Cytology Report Case: [id number] Authorizing Provider: Mikala Baez APRN.CNM Collected: 03/15/2025 10:04 AM Ordering Location: OB/Gynecology Received: 03/15/2025 11:46 AM First Screen: Gmitro, Albaro, CT, ASCP Rescreen: Dannielle, Rachel, CT, ASCP Specimen: Pap Test, ThinPrep, Cervix Performed By: #### L [id number] #### [facility] CLIA [id number] [address] [place] [address] [place] CLINICAL HISTORY, CYTOLOGY, HYDRAULIC CHAIR ASSEMBLER Routine Exam Normal [facility] Comment on above: Order Comment: Speci men Type: BLOOD SPECIMEN [facility] Address: [address] [place] [address] Performed By: #### L [id number] #### [facility] CLIA [id number] [address] [place] [address] [place] FINAL PERFORMING LAB Normal [facility] Comment on above: Order Comment: Speci men Type: BLOOD SPECIMEN [facility] Address: [address] [place], [place] [address] Result Comment: Tech nical component, installer soft top screening performed at [facility], [address] [place] [address] CLIA# [id number] Diagnostic interpretation performed at [facility], [address] [place] [address] CLIA# [id number] Coordinator Volunteer Services: Jodie Elena M.D. Performed By: #### L [id number] #### [facility] CLIA [id number] [address] [place] [address] [place] INTERPRETATION, CYTOLOGY, HYDRAULIC CHAIR ASSEMBLER Normal [facility] Comment on above: Order Comment: Speci men Type: BLOOD SPECIMEN [facility] Address: [address] [place] [address] Result Comment: Nega tive for intraepithelial lesion or malignancy. at 1058 EDT Performed By: #### L [id number] #### [facility] CLIA [id number] [address] [place] [address] [place] LMP 01/13/2025 Normal [facility] Comment on above: Order Comment: Speci men Type: BLOOD SPECIMEN [facility] Address: [address] [place] [address] Performed By: #### L [id number] #### [facility] CLIA [id number] [address] [place] [address] [place] PAP DISCLAIMER COMMENT The Pap Smear is a screening test for cervical cancer. False negative results occur with all screening tests, emphasizing the need for rescreening at recommended intervals, and clinical correlation. Normal [facility] Comment on above: Order Comment: Speci men Type: BLOOD SPECIMEN [facility] Address: [address] [place] [address] Performed By: #### L [id number] #### [facility] CLIA [id number] [address] [place] [address] [place] PAP JEWEL FLAT SURFACER COMMENT This specimen has been analyzed by the ThinPrep Imaging System, an automated imaging and review system, which assists the laboratory in evaluating cells on ThinPrep Pap tests. Following automated imaging, selected alvarenga from every slide are reviewed by a installer soft top. Normal [facility] Comment on above: Order Comment: Speci men Type: BLOOD SPECIMEN [facility] Address: [address] [place] [address] Performed By: #### L [id number] #### [facility] CLIA [id number] [address] [place] [address] OF [place] POC COMPLAINT OPERATOR ULTRASOUNDon 03-15-20 Indication Viability; confirm cardiac activity, Uncertain dates [...] Read By: Mikala Baez CNM MATERNAL MEDICINE [facility] Radiology Study observation (narrative) [facility] RUBELLA IGG ANTIBODYOrdered By: Eva Hwang on 03-15-2025 Interpretation and review of laboratory results Normal [facility] Rubella IgG, Qual Positive Positive [facility] Comment on above: The result suggests recent or past exposure to Rubella virus or history of Rubella vaccination. Positive result may also be seen due to presence of passively-transferred antibodies. Please correlate with patient's history. [facility] RUBELLA IGG ANTIBODYon 03-15 RUBELLA IGG AB, QUAL Positive Normal Positive [facility] Comment on above: Order Comment: Speci men Type: BLOOD SPECIMENOrdering Facility: [facility] Address: [address] [place] [address] Result Comment: The result suggests recent or past exposure to Rubella virus or history of Rubella vaccination. Positive result may also be seen due to presence of passively-transferred antibodies. Please correlate with patient's history. Performed By: #### R UBIGG ####[facility] LAB[facility] [id number] [place] [address] [place] Reagin and Treponema pallidu m IgG and IgM [Interp]on 03-15-2025 T. pallidum IgG+IgM IA Ql (S) Non-Reactive Nonreactive [facility] T. pallidum IgG+IgM IA Ql (S) Non-Reactive Normal Nonreactive [facility] Comment on above: Order Comment: Speci men Type: BLOOD SPECIMENOrdering Facility: [facility] Address: [address] [place] [address] Performed By: #### 5 195-3, 53893-4, 22708-9 ####[facility] [id number] [place] [address] [place] Reagin+T pallidum IgG+IgM Se rPl-Impon 03-15-2025 Reagin and Treponema pallidum IgG and IgM [Interp] Cannot exclude recent Treponemal infection if specimen collected within 7-10 days after appearance of suspect lesions or 2-3 weeks after an exposure. Clinical correlation is required. Normal [facility] Comment on above: Order Comment: Speci men Type: BLOOD SPECIMENOrdering Facility: [facility] Address: [address] [place] [address] Performed By: #### 5 195-3, 62902-4, 54793-0 ####[facility] [id number] [place] [id number] [place] SYPHILIS TREPONEMAL W/REFLEX on 03-15-2025 Reagin and Treponema pallidum IgG and IgM [Interp] Cannot exclude recent Treponemal infection if specimen collected within 7-10 days after appearance of suspect lesions or 2-3 weeks after an exposure. Clinical correlation is required. [facility] TRICHOMONAS VAGINALIS NAATon 03-15-2025 T. vaginalis DNA ARIANA+probe Ql (Unsp spec) Not detected Normal Not detected [facility] Comment on above: Order Comment: Speci men Type: SWABOrdering Facility: [facility] Address: [address] [place] [address] Performed By: #### T RVAMP, 74773-5 ####[facility] [id number] [place] [address] [place] TYPE + SCREEN PRENATALon ABO group Nom (Bld) O [facility] Blood group antibody screen Ql Negative [facility] Rh Nom (Bld) Negative [facility] Type and Screen Expiration 03/18/2025 23:59 [facility] ABO O Normal [facility] Comment on above: Order Comment: Speci men Type: BLOOD SPECIMENOrdering Facility: [facility] Address: [address] [place] [address] Performed By: #### T SPN ####[facility] BLOOD BANKCLIA [id number] [place] [address] [place] Rh Nom (Bld) Negative Normal [facility] Comment on above: Order Comment: Speci men Type: BLOOD SPECIMENOrdering Facility: [facility] Address: [address] [place] [address] Performed By: #### T SPN ####[facility] BLOOD BANKIA [id number] [place] [address] [place] TYPE AND SCREEN EXPIRATION 03/18/2025 23:59 Normal [facility] Comment on above: Order Comment: Speci men Type: BLOOD SPECIMENOrdering Facility: [facility] Address: [address] [place] [address] Performed By: #### T SPN ####[facility] BLOOD BANKIA [id number] [place] [address] [place] CBC W Auto Differential pane l (Bld)on 02-08-2025 Basophils (Bld) [#/Vol] 10*3/uL Normal <0.11 [facility] Comment on above: Order Comment: Speci men Type: BLOOD SPECIMENOrdering Facility: [facility] Address: [address] [place] [address] Performed By: #### 5 7021-8 ####[facility] [id number] [address] [place] [address] [place] Basophils/100 WBC (Bld) 0.4 % Normal [facility] Comment on above: Order Comment: Speci men Type: BLOOD SPECIMENOrdering Facility: [facility] Address: [address] [place] [address] Performed By: #### 5 7021-8 ####[facility] [id number] [address], [place] [address] [place] Differential cell count method Nom (Bld) Auto Normal [facility] Comment on above: Order Comment: Speci men Type: BLOOD SPECIMENOrdering Facility: [facility] Address: [address] [place] [address] Performed By: #### 5 7021-8 ####[facility] [id number] [address], [facility] [place] Eosinophils (Bld) [#/Vol] 0.08 10*3/uL Normal <0.46 [facility] Comment on above: Order Comment: Speci men Type: BLOOD SPECIMENOrdering Facility: [facility] Address: [address] [place] [address] Performed By: #### 5 7021-8 ####[facility] [id number] [address], [facility] [place] Eosinophils/100 WBC (Bld) 1.7 % Normal [facility] Comment on above: Order Comment: Speci men Type: BLOOD SPECIMENOrdering Facility: [facility] Address: [address] [place] [address] Performed By: #### 5 7021-8 ####[facility] [id number] [place] [address] [place] Erythrocyte distribution width (RBC) [Ratio] 12.6 % Normal 11.5-15.0 [facility] Comment on above: Order Comment: Speci men Type: BLOOD SPECIMENOrdering Facility: [facility] Address: [address] [place] [address] Performed By: #### 5 7021-8 ####[facility] [id number] [address], [place] [address] [place] Hematocrit (Bld) [Volume fraction] 41.0 % Normal 36.0-46.0 [facility] Comment on above: Order Comment: Speci men Type: BLOOD SPECIMENOrdering Facility: [facility] Address: [address] [place] [address] Performed By: #### 5 7021-8 ####[facility] [id number] [address], [place] [address] [place] Hemoglobin (Bld) [Mass/Vol] 13.5 g/dL Normal 11.5-15.5 [facility] Comment on above: Order Comment: Speci men Type: BLOOD SPECIMENOrdering Facility: [facility] Address: [address] [place] [address] Performed By: #### 5 7021-8 ####[facility] [id number] [place], [place] [address] [place] Immature granulocytes (Bld) [#/Vol] 10*3/uL Normal <0.10 [facility] Comment on above: Order Comment: Speci men Type: BLOOD SPECIMENOrdering Facility: [facility] Address: [address] [place] [address] Performed By: #### 5 7021-8 ####[facility] [id number] [place] [id number] [place] Immature granulocytes/100 WBC (Bld) 0.4 % Normal [facility] Comment on above: Order Comment: Speci men Type: BLOOD SPECIMENOrdering Facility: [facility] Address: [address] [place] [address] Performed By: #### 5 7021-8 ####[facility] [id number] [place] [address] [place] Lymphocytes (Bld) [#/Vol] 2.06 10*3/uL Normal 1.00-4.00 [facility] Comment on above: Order Comment: Speci men Type: BLOOD SPECIMENOrdering Facility: [facility] Address: [address] [place] [address] Performed By: #### 5 7021-8 ####[facility] [id number] [place] [address] [place] Lymphocytes/100 WBC (Bld) 43.4 % Normal [facility] Comment on above: Order Comment: Speci men Type: BLOOD SPECIMENOrdering Facility: [facility] Address: [address] [place] [address] Performed By: #### 5 7021-8 ####[facility] [id number] [place] [address] [place] MCH (RBC) [Entitic mass] 31.6 pg Normal 26.0-34.0 [facility] Comment on above: Order Comment: Speci men Type: BLOOD SPECIMENOrdering Facility: [facility] Address: [address] [place] [address] Performed By: #### 5 7021-8 ####[facility] [id number] [place] [id number] [place] MCHC (RBC) [Mass/Vol] 32.9 g/dL Normal 30.5-36.0 [facility] Comment on above: Order Comment: Speci men Type: BLOOD SPECIMENOrdering Facility: [facility] Address: [address] [place] [address] Performed By: #### 5 7021-8 ####[facility] [id number] [address], [place] [address] [place] MCV (RBC) [Entitic vol] 96.0 fL Normal 80.0-100.0 [facility] Comment on above: Order Comment: Speci men Type: BLOOD SPECIMENOrdering Facility: [facility] Address: [address] [place] [address] Performed By: #### 5 7021-8 ####[facility] [id number] [address], [place] [address] [place] Monocytes (Bld) [#/Vol] 0.84 10*3/uL Normal <0.87 [facility] Comment on above: Order Comment: Speci men Type: BLOOD SPECIMENOrdering Facility: [facility] Address: [address] [place] [address] Performed By: #### 5 7021-8 ####[facility] [id number] [place] [address] [place] Monocytes/100 WBC (Bld) 17.7 % Normal [facility] Comment on above: Order Comment: Speci men Type: BLOOD SPECIMENOrdering Facility: [facility] Address: [address] [place] [address] Performed By: #### 5 7021-8 ####[facility] [id number] [place] [address] [place] Neutrophils (Bld) [#/Vol] 1.73 10*3/uL Normal 1.45-7.50 [facility] Comment on above: Order Comment: Speci men Type: BLOOD SPECIMENOrdering Facility: [facility] Address: [address] [place] [address] Performed By: #### 5 7021-8 ####[facility] [id number] [place] [address] [place] Neutrophils/100 WBC (Bld) 36.4 % Normal [facility] Comment on above: Order Comment: Speci men Type: BLOOD SPECIMENOrdering Facility: [facility] Address: [address] [place] [address] Performed By: #### 5 7021-8 ####[facility] [id number] [address] [place] [address] [place] Nucleated RBC (Bld) [#/Vol] 10*3/uL Normal <0.01 [facility] Comment on above: Order Comment: Speci men Type: BLOOD SPECIMENOrdering Facility: [facility] Address: [address] [place] [address] Performed By: #### 5 7021-8 ####[facility] [id number] [address], [facility] [place] Nucleated RBC/100 WBC (Bld) [Ratio] 0.0 /100 WBC Normal [facility] Comment on above: Order Comment: Speci men Type: BLOOD SPECIMENOrdering Facility: [facility] Address: [address] [place] [address] Performed By: #### 5 7021-8 ####[facility] [id number] [place] [id number] [place] Platelet mean volume (Bld) [Entitic vol] 10.7 fL Normal 9.0-12.7 [facility] Comment on above: Order Comment: Speci men Type: BLOOD SPECIMENOrdering Facility: [facility] Address: [address] [place] [address] Performed By: #### 5 7021-8 ####[facility] [id number] [place] [id number] [place] Platelets (Bld) [#/Vol] 258 10*3/uL Normal 150-400 [facility] Comment on above: Order Comment: Speci men Type: BLOOD SPECIMENOrdering Facility: [facility] Address: [address] [place] [address] Performed By: #### 5 7021-8 ####[facility] [id number] [place] [id number] [place] RBC (Bld) [#/Vol] 4.27 10*6/uL Normal 3.90-5.20 [facility] Comment on above: Order Comment: Speci men Type: BLOOD SPECIMENOrdering Facility: [facility] Address: [address] [place] [address] Performed By: #### 5 7021-8 ####[facility] [id number] [place] [id number] [place] WBC (Bld) [#/Vol] 4.75 10*3/uL Normal 3.70-11.00 [facility] Comment on above: Order Comment: Speci men Type: BLOOD SPECIMENOrdering Facility: [facility] Address: [address] [place] [address] Performed By: #### 5 7021-8 ####[facility] [id number] [place] [id number] [facility] Rojelio 02-08-2025 [facility] [place] ORTEZ ([id number]) 1995 F Date Time Provider Department 02/08/25 [facility] During your visit today, we recorded the [...] BLOOD COUNT AND DIFFERENTIAL [SQCBCDIF] Order #: [id number] FUTURE COMPREHENSIVE METABOLIC PANEL [SQCMP] Order #: [id number] FUTURE Prescriptions as of 02/08/2025 - doxycycline [...] Status:Closed by JEEVAN LOPEZ on 02/08/25 Normal [facility] Comprehensive metabolic 2000 panelon 02-08-2025 Albumin [Mass/Vol] 4.0 g/dL Normal 3.9-4.9 [facility] Comment on above: Order Comment: Kris means Type: BLOOD SPECIMEN [facility] Address: [address] [place] [address] Performed By: #### L [id number] #### [facility] [id number] [address] [place] [address] [place] ALP [Catalytic activity/Vol] 108 U/L Normal 34-123 [facility] Comment on above: Order Comment: Kris means Type: BLOOD SPECIMEN [facility] Address: [address] [place] [address] Performed By: #### L [id number] #### [facility] CLIA [id number] [address] [place], [place] [address] [place] ALT [Catalytic activity/Vol] 15 U/L Normal 7-38 [facility] Comment on above: Order Comment: Speci men Type: BLOOD SPECIMEN [facility] Address: [address] [place] [address] Performed By: #### L [id number] #### [facility]IA [id number] [address] [place], [place] [address] [place] Anion gap [Moles/Vol] 9 mmol/L Normal 8-15 [facility] Comment on above: Order Comment: Speci men Type: BLOOD SPECIMEN [facility] Address: [address] [place] [address] Performed By: #### L [id number] #### [facility] CLIA [id number] [address] [place] [address] [place] AST [Catalytic activity/Vol] 22 U/L Normal 13-35 [facility] Comment on above: Order Comment: Speci men Type: BLOOD SPECIMEN [facility] Address: [address] [place] [address] Performed By: #### L [id number] #### [facility] CLIA [id number] [address] [place], [place] [address] [place] Bilirubin [Mass/Vol] 0.4 mg/dL Normal 0.2-1.3 [facility] Comment on above: Order Comment: Speci men Type: BLOOD SPECIMEN [facility] Address: [address] [place], [place] [address] Performed By: #### L [id number] #### [facility] CLIA [id number] [address] [place], [place] [address] [place] Calcium [Mass/Vol] 8.9 mg/dL Normal 8.5-10.2 [facility] Comment on above: Order Comment: Speci men Type: BLOOD SPECIMEN [facility] Address: [address] [place] [address] Performed By: #### L [id number] #### [facility] CLIA [id number] [address] [place] [address] [place] Chloride [Moles/Vol] 105 mmol/L Normal 98-107 [facility] Comment on above: Order Comment: Speci men Type: BLOOD SPECIMEN [facility] Address: [address] [place] [address] Performed By: #### L [id number] #### [facility] CLIA [id number] [address] [place] [address] [place] CO2 [Moles/Vol] 25 mmol/L Normal 22-30 [facility] Comment on above: Order Comment: Speci men Type: BLOOD SPECIMEN [facility] Address: [address] [place] [address] Performed By: #### L [id number] #### [facility] CLIA [id number] [address] [place] [address] [place] Creatinine [Mass/Vol] 0.88 mg/dL Normal 0.58-0.96 [facility] Comment on above: Order Comment: Speci men Type: BLOOD SPECIMEN [facility] Address: [address] [place] [address] Performed By: #### L [id number] #### [facility] CLIA [id number] [address] [place] [address] [place] Creatinine and Glomerular filtration rate.predicted panel (S/P/Bld) 93 mL/min/1.73m??? Normal >=60 [facility] Comment on above: Order Comment: Speci men Type: BLOOD SPECIMEN [facility] Address: [address] [place] [address] Result Comment: Francie mated Glomerular Filtration Rate [...] accurately reflect actual GFR. Performed By: #### L [id number] #### [facility] CLIA [id number] [address] [place] [address] [place] Glucose [Mass/Vol] 76 mg/dL Normal 74-99 [facility] Comment on above: Order Comment: Kris means Type: BLOOD SPECIMEN [facility] Address: [address] [place] [address] Result Comment: The [place] [employer] (ADA) provides guidance for cutoff [...] Standards of Medical Care in Diabetes 2016, [place] [employer]. Diabetes Care. 2016.39(Suppl 1). Performed By: #### L [id number] #### [facility] CLIA [id number] [address] [place], [place] [address] [place] Potassium [Moles/Vol] 3.8 mmol/L Normal 3.7-5.1 [facility] Comment on above: Order Comment: Kris means Type: BLOOD SPECIMEN [facility] Address: [address] [place] [address] Performed By: #### L [id number] #### [facility] CLIA [id number] [address] [place] [address] [place] Protein [Mass/Vol] 7.0 g/dL Normal 6.3-8.0 [facility] Comment on above: Order Comment: Speci men Type: BLOOD SPECIMEN [facility] Address: [address] [place] [address] Performed By: #### L [id number] #### [facility] CLIA [id number] [address] [place] [address] [place] Sodium [Moles/Vol] 139 mmol/L Normal 136-144 [facility] Comment on above: Order Comment: Speci men Type: BLOOD SPECIMEN [facility] Address: [address] [place] [address] Performed By: #### L [id number] #### [facility] CLIA [id number] [address] [place] [address] [place] Urea nitrogen [Mass/Vol] 15 mg/dL Normal 7-21 [facility] Comment on above: Order Comment: Speci men Type: BLOOD SPECIMEN [facility] Address: [address] [place] [address] Performed By: #### L [id number] #### [facility] CLIA [id number] [address] [place] [address] [place] CNOVon 01-29-2025 CNOV Office Visit (FAMPWS) [place] ORTEZ ([id number]) 1995 F Date Time Provider Department 01/29/25 3:40 PM [facility] During your visit today, we recorded the [...] not taking: Reported on 01/29/2025) Drospirenone-Ethinyl Estradiol (Nimesh DOE,) 3-0.02 mg per tablet TAKE 1 TABLET [...] soft, non-tender. (more content not included)... Normal [facility] 01-27-2025 [facility] (FAMWS) NEELIMAMI ([id number]) 1995 F Date Time Provider Department 01/27/25 JEEVAN LOPEZ [facility] During your visit today, we [...] Encounter Status:Closed by JEEVAN LOPEZ on 01/27/25 Normal [facility] C. trachomatis+N. gonorrhoea e DNA ARIANA+probe Ql (Unsp spec)on 12-31-2024 C. trachomatis rRNA ARIANA+probe Ql (Unsp spec) Not detected Normal Not detected [facility] Comment on above: Order Comment: Speci men Type: SWABOrdering Facility: [facility] Address: [address] [place] [address] Performed By: #### 3 6902-5 ####[facility] [id number] [place] [address] [place] N. gonorrhoeae rRNA ARIANA+probe Ql (Unsp spec) Not detected Normal Not detected [facility] Comment on above: Order Comment: Speci men Type: SWABOrdering Facility: [facility] Address: [address] [place] [address] Performed By: #### 3 6902-5 ####[facility] [id number] [place] [address] [place] CNOVon 12-31-2024 CNOV Office Visit (OBGYWM) [place] ORTEZ ([id number]) 1995 F Date Time Provider Department 12/31/24 1:20 PM GIANA ARBOLEDA [facility] During your visit today, we recorded the [...] L0 SAB0 IAB0 Ectopic0 Multiple0 Live Births0 Equipment Technician History LMP: 12/04/2024 (Exact Date), Having periods Age at Menarche: 16 Age at First : Age at Menopause: Equipment Technician History Comments: Sexual Activity: Yes; Male Contraception: [...] discussed with the Patient or Patient's Authorized Fish Bin Tender. As applicable, any other physician, advance practice provider, medical student, or other health professional student that will be observing or involved in the sensitive examination for educational or training purposes was discussed with the Patient or Authorized Fish Bin Tender. The Patient or Authorized Fish Bin Tender has agreed to proceed with the sensitive [...] external genitalia normal, normal Bartholin's glands, urethra, [place]'s glands, no vulvar lesions, no cervical lesions, [...] Giana Arboleda MD Referring Provider: VALORIE MEZA [[id number]] Allergies As of Date: 12/31/2024 Noted Allergy Reaction MELON 05/09/2016 9 - Itching TOMATOES 05/09/2016 9 - Itching Date Reviewed: 12/31/2024 Reviewed by: Giana Arboleda MD - Fully Assessed Reason for Visit: Well Woman [1463] Primary Visi (more content not included)... Normal [facility] CNOVon 12-19-2024 CNOV Office Visit (FAMPWS) MI ORTEZ ([id number]) 1995 F Date Time Provider Department 12/19/24 11:40 AM [facility] During your visit today, we recorded the following information about you: Temperature Pulse Blood pressure Weight 97.4 degrees 58/minute 104/62 62.1 kg Height 1.613 m Jeevan Lopez MD 12/19/2024 12:23 PM Signed Patient presents with: Cough HPI: Patient presents today for office visit for cough. Has been sick with a cough since 11/27/24. Her parents tested positive for COVID over hallock. Her covid test was negative. She got [...] refilled meds. (more content not included)... Normal [facility] CNOVon 12-10-2024 CNOV Office Visit (FAMPWS) MI ORTEZ ([id number]) 1995 F Date Time Provider Department 12/10/24 [...] step dad were positive for COVID on . Patient's initial COVID test was negative. Past [...] Screening Co (more content not included)... Normal [facility] CNOVon 12-07-2024 [facility] ([id number]) 1995 F Date Time Provider Department 12/07/24 10:30 AM JONNY IBARRA [facility] During your visit today, we recorded the following information about you: Temperature Pulse Respiration Blood pressure 98.2 degrees 66/minute 18/minute 122/80 Weight 62.8 kg Jonny Ibarra MD 12/07/2024 10:59 AM Signed Patient presents with: Cough: Cough, chest congestion, EHATH and scratchy throat x 10 days HPI: [...] Service: OFFICE/OUTPATIENT ESTABLISHED LOW MDM 20 MIN [92903] Encounter Status:Closed by JONNY IBARRA on 12/07/24 [facility] Dean 12-03-2024 CN Office Visit (UCWSTR) MI ORTEZ ([id number]) 1995 F Date Time Provider Department 12/03/24 9:45 AM KACIE CRUZ [facility] During your visit today, we recorded the following information about you: Temperature Pulse Respiration Blood pressure 97.9 degrees 56/minute 18/minute 119/79 Weight 63.4 kg Kacie Cruz APRN.SEAMLESS TUBE DRAWER 12/03/2024 10:59 AM Signed CC: Patient presents [...] Unremarkable. IMPRESSION IMPRESSION: No acute radiographic abnormality. Logging Tractor Operator Swamp: SHARITA Transcribe Date/Time: Dec 03 2024 10:36A [...] Unremarkable. IMPRESSION IMPRESSION: No acute radiographic abnormality. Logging Tractor Operator Swamp: SHARITA Transcribe Date/Time: Dec 03 2024 10:36A [...] Patient agreeable to treatment plan. Kacie Cruz APRN.SEAMLESS TUBE DRAWER Allergies As of Date: 12/03/2024 Noted Allergy Reaction MELON 05/09/2016 9 - Itching TOMATOES 05/09/2016 9 - Itching Date Reviewed: (more content not included)... Normal [facility] XR CHEST 2V FRONTAL/LATon XR CHEST 2V [...] tissues: Unremarkable. IMPRESSION: No acute radiographic abnormality. Logging Tractor Operator Swamp: [facility] Transcribe Date/Time: Dec 03 2024 10:36A Dictated by : MUKUND WEBSTER MD This examination was interpreted and the report reviewed and electronically signed by: MUKUND WEBSTER MD on Dec 03 2024 10:36AM EST [id number] CN Normal [facility] XR Chest PA and Lateralon IMPRESSION: No acute radiographic abnormality. Logging Tractor Operator Swamp: [facility] Transcribe Date/Time: Dec 03 2024 10:36A [...] soft tissues: Unremarkable. DIVISION OF RADIOLOGY Provider, [facility] [place] - 12/03/2024 * * *Final Report* * [...] Unremarkable. IMPRESSION IMPRESSION: No acute radiographic abnormality. Logging Tractor Operator Swamp: PSCRebel Transcribe Date/Time: Dec 03 2024 10:36A Dictated by : MUKUND WEBSTER MD This examination was interpreted and the report reviewed and electronically signed by: MUKUND WEBSTER MD on Dec 03 2024 10:36AM EST [facility] Radiology Study observation (narrative) [facility] XR Chest PA and LateralOrder ed By: [facility] Provider on 12-03-2024 [facility] C. trachomatis+N. gonorrhoea e DNA ARIANA+probe Ql (Unsp spec)on 11-23-2022 C. trachomatis DNA ARIANA+probe Ql (Unsp spec) Negative Negative for Chlamydia trachomatis by amplificaton [facility] N. gonorrhoeae DNA ARIANA+probe Ql (Unsp spec) Negative Negative for Neisseria gonorrhoeae by amplification [facility] Comprehensive metabolic 2000 panelon 10-13-2022 Albumin [Mass/Vol] 4.2 g/dL 3.9 - 4.9 g/dL [facility] ALP [Catalytic activity/Vol] 79 U/L 34 - 123 U/L [facility] ALT [Catalytic activity/Vol] 19 U/L 7 - 38 U/L [facility] Anion gap [Moles/Vol] 11 mmol/L 9 - 18 mmol/L [facility] AST [Catalytic activity/Vol] 25 U/L 13 - 35 U/L [facility] Bilirubin [Mass/Vol] 0.4 mg/dL 0.2 - 1.3 mg/dL [facility] Calcium [Mass/Vol] 9.8 mg/dL 8.5 - 10.2 mg/dL [facility] Chloride [Moles/Vol] 105 mmol/L 97 - 105 mmol/L [facility] CO2 [Moles/Vol] 21 mmol/L Low 22 - 30 mmol/L [facility] Creatinine [Mass/Vol] 0.95 mg/dL 0.58 - 0.96 mg/dL [facility] Estimated Glomerular Filtration Rate 85 mL/min/1.73m >=60 mL/min/1.73m [facility] Glucose [Mass/Vol] 82 mg/dL 74 - 99 mg/dL [facility] Potassium [Moles/Vol] 5.1 mmol/L 3.7 - 5.1 mmol /L [facility] Protein [Mass/Vol] 6.9 g/dL 6.3 - 8.0 g/dL [facility] Sodium [Moles/Vol] 137 mmol/L 136 - 144 mmol/L [facility] Urea nitrogen [Mass/Vol] 15 mg/dL 7 - 21 mg/dL [facility] LIPID PANEL, NONFASTINGon Cholesterol [Mass/Vol] 177 mg/dL <200 mg/dL [facility] HDL Cholesterol, Nonfasting 71 mg/dL >39 mg/dL [facility] LDL Cholesterol, Nonfasting 93 mg/dL <100 mg/dL [facility] LDL/HDL Ratio, Nonfasting 1.31 mg/dL <2.54 mg/dL [facility] Non HDL Cholesterol, Nonfasting 106 mg/dL <130 mg/dL [facility] Total Chol/HDL Ratio, Nonfasting 2.49 mg/dL <5.10 mg/dL [facility] Triglycerides, Nonfasting 66 mg/dL <150 mg/dL [facility] VLDL Cholesterol, Nonfasting 13 mg/dL <30 mg/dL [facility] CBC panel Auto (Bld)on 10-12 Erythrocyte distribution width (RBC) [Ratio] 12.0 % 11.5 - 15.0 % [facility] Hematocrit (Bld) [Volume fraction] 41.5 % 36.0 - 46.0 % [facility] Hemoglobin (Bld) [Mass/Vol] 13.5 g/dL 11.5 - 15.5 g/dL [facility] MCH (RBC) [Entitic mass] 31.9 pg 26.0 - 34.0 pg [facility] MCHC (RBC) [Mass/Vol] 32.5 g/dL 30.5 - 36.0 g/ dL [facility] MCV (RBC) [Entitic vol] 98.1 fL 80.0 - 100.0 fL [facility] Nucleated RBC (Bld) [#/Vol] <0.01 k/uL [facility] Platelet mean volume (Bld) [Entitic vol] 10.6 fL 9.0 - 12.7 fL [facility] Platelets (Bld) [#/Vol] 287 10*3/uL 150 - 400 k/uL [facility] RBC (Bld) [#/Vol] 4.23 10*6/uL 3.90 - 5.20 m/uL [facility] WBC (Bld) [#/Vol] 8.45 10*3/uL 3.70 - 11. 00 k/uL [facility] STREP A MOLECULAR (POC)on Procedural Control Valid [facility] Strep A (POCT) Negative Negative [facility] No Panel InformationOrdered By: [facility] Provider on 06-22-2022 [facility] No Panel Informationon 06-22 Radiology Study observation (narrative) [facility] XR Cervical spine AP and Lat eral and obliqueon 06-22-2022 IMPRESSION: NO ACUTE VERTEBRAL BODY FRACTURE OR TRAUMATIC SUBLUXATION Logging Tractor Operator Swamp: SHARITA Transcribe Date/Time: Jun 22 2022 12:25P Dictated [...] relevant examinations available for comparison within the [facility] Imaging Archives. RESULT: 4views of the cervical spine demonstrate all seven cervical vertebral bodies. The vertebral body heights and intervertebral disc spaces are well maintained with normal alignment. Bilateral oblique views demonstrate the neural foramina widely patent. The atlantoaxial interval and craniocervical junction are intact. The prevertebral soft tissues are unremarkable. ZZZ_DO_NOT_U SE_DIVISION OF RADIOLOGY Provider, [facility] [place] - 06/22/2022 * * *Final Report* * [...] relevant examinations available for comparison within the [facility] Imaging Archives. RESULT: 4views of the cervical spine demonstrate all seven cervical vertebral bodies. The vertebral body heights and intervertebral disc spaces are well maintained with normal alignment. Bilateral oblique views demonstrate the neural foramina widely patent. The atlantoaxial interval and craniocervical junction are intact. The prevertebral soft tissues are unremarkable. IMPRESSION IMPRESSION: NO ACUTE VERTEBRAL BODY FRACTURE OR TRAUMATIC SUBLUXATION Logging Tractor Operator Swamp: [facility] Transcribe Date/Time: Jun 22 2022 12:25P Dictated by : CONSTANCE NICHOLS MD This examination was interpreted and the report reviewed and electronically signed by: CONSTANCE NICHOLS MD on Jun 22 2022 12:28PM [facility] XR Thoracic spine AP and Lat eral and [place] 06-22-2022 IMPRESSION: MILD SCOLIOSIS. OTHERWISE NORMAL Logging Tractor Operator Swamp: [facility] Transcribe Date/Time: Jun 22 2022 12:27P Dictated by : JOSE A MARIE MD This examination was interpreted and the report reviewed and electronically signed by: JOSE A MARIE MD on Jun 22 2022 12:28PM EST ZZZ_DO_NOT_U _DIVISION OF RADIOLOGY * * *Final Report* * [...] from inferior T8 to superior L1 ZZZ_DO_NOT_U _DIVISION OF RADIOLOGY Provider, [facility] - 06/22/2022 * * *Final Report* * [...] L1 IMPRESSION IMPRESSION: MILD SCOLIOSIS. OTHERWISE NORMAL Logging Tractor Operator Swamp: [facility] Transcribe Date/Time: Jun 22 2022 12:27P Dictated by : JOSE A MARIE MD This examination was interpreted and the report reviewed and electronically signed by: JOSE A MARIE MD on Jun 22 2022 12:28PM EST [facility] XR KNEE GENERAL 4V AP BOTH/P A BOTH/LAT/MERC RIGHTon 05-30-2022 [facility] XR Knee - right 4 Viewson IMPRESSION: No acute osseous abnormality. Logging Tractor Operator Swamp: [facility] Transcribe Date/Time: May 30 2022 2:36P Dictated by : GEORGETTE PANTOJA DO This examination was interpreted and the report reviewed and electronically signed by: GEORGETTE PANTOJA DO on May 30 2022 2:37PM EST ZZZ_DO_NOT_U _DIVISION OF RADIOLOGY * * *Final Report* * [...] joint effusion. Joint spaces are maintained. ZZZ_DO_NOT_U _DIVISION OF RADIOLOGY Provider, [facility] - 05/30/2022 * * *Final Report* * [...] maintained. IMPRESSION IMPRESSION: No acute osseous abnormality. Logging Tractor Operator Swamp: [facility] Transcribe Date/Time: May 30 2022 2:36P Dictated by : GEORGETTE PANTOJA DO This examination was interpreted and the report reviewed and electronically signed by: GEORGETTE PANTOJA DO on May 30 2022 2:37PM EST [facility] Radiology Study observation (narrative) [facility] XR Knee - right 4 ViewsOrder ed By: [facility] Provider on 05-30-2022 [facility] Vital Signs Date Time Vital Sign Value Performing Clinician Yaneth hernandez 08-11-2025 15:13-0400 Body mass index (BMI) [Ratio] 25.94 kg/m2 Mikala Plotts SENIOR ANDROID SOFTWARE ENGINEER.CNM Work Phone: [facility] 08-11-2025 15:13-0400 Body weight 69.76 kg Mikala Plotts SENIOR ANDROID SOFTWARE ENGINEER.CNM Work Phone: [facility] 08-11-2025 15:13-0400 Diastolic blood pressure 62 mm[Hg] Mikala Plotts SENIOR ANDROID SOFTWARE ENGINEER.CNM Work Phone: [facility] 08-11-2025 15:13-0400 Systolic blood pressure 114 mm[Hg] Mikala Plotts SENIOR ANDROID SOFTWARE ENGINEER.CNM Work Phone: [facility] 07-14-2025 08:48-0400 Body mass index (BMI) [Ratio] 25.47 kg/m2 Alex Qureshi SENIOR ANDROID SOFTWARE ENGINEER.SEAMLESS TUBE DRAWER Work Phone: [facility] 07-14-2025 08:48-0400 Body weight 68.49 kg Alex Hatim SENIOR ANDROID SOFTWARE ENGINEER.SEAMLESS TUBE DRAWER Work Phone: [facility] 07-14-2025 08:48-0400 Diastolic blood pressure 60 mm[Hg] Alex Haury SENIOR ANDROID SOFTWARE ENGINEER.SEAMLESS TUBE DRAWER Work Phone: [facility] 07-14-2025 08:48-0400 Systolic blood pressure 110 mm[Hg] Alex Qureshi SENIOR ANDROID SOFTWARE ENGINEER.SEAMLESS TUBE DRAWER Work Phone: [facility] 06-19-2025 15:41-0400 Body temperature 98.2 [degF] Dr. Giana Arboleda MD Work Phone: [facility] 06-19-2025 15:41-0400 Diastolic blood pressure 66 mm[Hg] Dr. Giana Arboleda MD Work Phone: [facility] 06-19-2025 15:41-0400 Heart rate 68 /min Dr. Giana Arboleda MD Work Phone: [facility] 06-19-2025 15:41-0400 Respiratory rate 14 /min Dr. Giana Arboleda MD Work Phone: [facility] 06-19-2025 15:41-0400 SaO2% (BldA) [Mass fraction] 97 % Dr. Giana Arboleda MD Work Phone: [facility] 06-19-2025 15:41-0400 Systolic blood pressure 117 mm[Hg] Dr. Giana Arboleda MD Work Phone: [facility] 06-15-2025 11:08-0400 Body mass index (BMI) [Ratio] 24.79 kg/m2 Tena Cruz MD Work Phone: [facility] 06-15-2025 11:08-0400 Body weight 66.68 kg Tena Cruz MD Work Phone: [facility] 06-15-2025 11:08-0400 Diastolic blood pressure 60 mm[Hg] Tena Cruz MD Work Phone: [facility] 06-15-2025 11:08-0400 Systolic blood pressure 110 mm[Hg] Tena Cruz MD Work Phone: [facility] 05-19-2025 08:04-0400 Body mass index (BMI) [Ratio] 24.45 kg/m2 Valorie Ventura MD Work Phone: [facility] 05-19-2025 08:04-0400 Body weight 65.77 kg Valorie Ventura MD Work Phone: [facility] 05-19-2025 08:04-0400 Diastolic blood pressure 64 mm[Hg] Valorie Ventura MD Work Phone: [facility] 05-19-2025 08:04-0400 Systolic blood pressure 100 mm[Hg] Valorie Ventura MD Work Phone: [facility] 04-19-2025 14:45-0400 Body mass index (BMI) [Ratio] 23.61 kg/m2 Kavya Amezquita SENIOR ANDROID SOFTWARE ENGINEER.CNM Work Phone: [facility] 04-19-2025 14:45-0400 Body weight 63.5 kg Kavya Amezquita SENIOR ANDROID SOFTWARE ENGINEER.CNM Work Phone: [facility] 04-19-2025 14:45-0400 Diastolic blood pressure 62 mm[Hg] Kavya Amezquita SENIOR ANDROID SOFTWARE ENGINEER.CNM Work Phone: [facility] 04-19-2025 14:45-0400 Systolic blood pressure 96 mm[Hg] Kavya Amezquita SENIOR ANDROID SOFTWARE ENGINEER.CNM Work Phone: [facility] 03-15-2025 08:50-0400 Body height 164 cm Mikala Plotts SENIOR ANDROID SOFTWARE ENGINEER.CNM Work Phone: [facility] 03-15-2025 08:50-0400 Body mass index (BMI) [Ratio] 22.77 kg/m2 Mikala Plotts SENIOR ANDROID SOFTWARE ENGINEER.CNM Work Phone: [facility] 03-15-2025 08:50-0400 Body weight 61.24 kg Mikala Plotts SENIOR ANDROID SOFTWARE ENGINEER.CNM Work Phone: [facility] 03-15-2025 08:50-0400 Diastolic blood pressure 60 mm[Hg] Mikala Plotts SENIOR ANDROID SOFTWARE ENGINEER.CNM Work Phone: [facility] 03-15-2025 08:50-0400 Systolic blood pressure 114 mm[Hg] Mikala Plotts SENIOR ANDROID SOFTWARE ENGINEER.CNM Work Phone: [facility] 01-29-2025 15:38-0500 Body height 158.8 cm Jeevan Lopez MD Work Phone: [facility] 01-29-2025 15:38-0500 Body mass index (BMI) [Ratio] 23.76 kg/m2 Jeevan Lopez MD Work Phone: [facility] 01-29-2025 15:38-0500 Body temperature 97.59 [degF] Jeevan Lopez MD Work Phone: [facility] 01-29-2025 15:38-0500 Body weight 59.88 kg Jeevan Lopez MD Work Phone: [facility] 01-29-2025 15:38-0500 Diastolic blood pressure 72 mm[Hg] Jeevan Lopez MD Work Phone: [facility] 01-29-2025 15:38-0500 Heart rate 56 /min Jeevan Lopez MD Work Phone: [facility] 01-29-2025 15:38-0500 SaO2% (BldA) [Mass fraction] 99 % Jeevan Lopez MD Work Phone: [facility] 01-29-2025 15:38-0500 Systolic blood pressure 112 mm[Hg] Jeevan Lopez MD Work Phone: [facility] 12-31-2024 13:23-0500 Body height 158.8 cm Giana Arboleda MD Work Phone: [facility] 12-31-2024 13:23-0500 Body mass index (BMI) [Ratio] 24.84 kg/m2 Giana Arboleda MD Work Phone: [facility] 12-31-2024 13:23-0500 Body weight 62.6 kg Giana Arboleda MD Work Phone: [facility] 12-31-2024 13:23-0500 Diastolic blood pressure 78 mm[Hg] Giana Arboleda MD Work Phone: [facility] 12-31-2024 13:23-0500 Systolic blood pressure 118 mm[Hg] Giana Arboleda MD Work Phone: [facility] 12-19-2024 11:41-0500 Body height 161.3 cm Jeevan Lopez MD Work Phone: [facility] 12-19-2024 11:41-0500 Body mass index (BMI) [Ratio] 23.89 kg/m2 Jeevan Lopez MD Work Phone: [facility] 12-19-2024 11:41-0500 Body temperature 97.39 [degF] Jeevan Lopez MD Work Phone: [facility] 12-19-2024 11:41-0500 Body weight 62.14 kg Jeevan Lopez MD Work Phone: [facility] 12-19-2024 11:41-0500 Diastolic blood pressure 62 mm[Hg] Jeevan Lopez MD Work Phone: [facility] 12-19-2024 11:41-0500 Heart rate 58 /min Jeevan Lopez MD Work Phone: [facility] 12-19-2024 11:41-0500 Systolic blood pressure 104 mm[Hg] Jeevan Lopez MD Work Phone: [facility] 12-10-2024 11:19-0500 Body temperature 97.7 [degF] Timothy Bajwa MD Work Phone: [facility] 12-10-2024 11:19-0500 Diastolic blood pressure 70 mm[Hg] Timothy Bajwa MD Work Phone: [facility] 12-10-2024 11:19-0500 Heart rate 62 /min Timothy Bajwa MD Work Phone: [facility] 12-10-2024 11:19-0500 Respiratory rate 16 /min Timothy Bajwa MD Work Phone: [facility] 12-10-2024 11:19-0500 SaO2% (BldA) [Mass fraction] 99 % Timothy Bajwa MD Work Phone: [facility] 12-10-2024 11:19-0500 Systolic blood pressure 104 mm[Hg] Timothy Bajwa MD Work Phone: [facility] 12-07-2024 10:35-0500 Body mass index (BMI) [Ratio] 24.14 kg/m2 Jonny Ibarra MD Work Phone: [facility] 12-07-2024 10:35-0500 Body temperature 98.2 [degF] Jonny Ibarra MD Work Phone: [facility] 12-07-2024 10:35-0500 Body weight 62.8 kg Jonny Ibarra MD Work Phone: [facility] 12-07-2024 10:35-0500 Diastolic blood pressure 80 mm[Hg] Jonny Ibarra MD Work Phone: [facility] 12-07-2024 10:35-0500 Heart rate 66 /min Jonny Ibarra MD Work Phone: [facility] 12-07-2024 10:35-0500 Respiratory rate 18 /min Jonny Ibarra MD Work Phone: [facility] 12-07-2024 10:35-0500 SaO2% (BldA) [Mass fraction] 98 % Jonny Ibarra MD Work Phone: [facility] 12-07-2024 10:35-0500 Systolic blood pressure 122 mm[Hg] Jonny Ibarra MD Work Phone: [facility] 12-03-2024 10:01-0500 Body mass index (BMI) [Ratio] 24.37 kg/m2 Kacie Cruz APRN.SEAMLESS TUBE DRAWER Work Phone: [facility] 12-03-2024 10:01-0500 Body temperature 97.9 [degF] Kacie Cruz APRN.SEAMLESS TUBE DRAWER Work Phone: [facility] 12-03-2024 10:01-0500 Body weight 63.4 kg Kacie Cruz APRN.SEAMLESS TUBE DRAWER Work Phone: [facility] 12-03-2024 10:01-0500 Diastolic blood pressure 79 mm[Hg] Kacie Cruz APRN.SEAMLESS TUBE DRAWER Work Phone: [facility] 12-03-2024 10:01-0500 Heart rate 56 /min Kacie Cruz APRN.SEAMLESS TUBE DRAWER Work Phone: [facility] 12-03-2024 10:01-0500 Respiratory rate 18 /min Kacie Cruz APRN.SEAMLESS TUBE DRAWER Work Phone: [facility] 12-03-2024 10:01-0500 SaO2% (BldA) [Mass fraction] 99 % Kacie Cruz APRN.SEAMLESS TUBE DRAWER Work Phone: [facility] 12-03-2024 10:01-0500 Systolic blood pressure 119 mm[Hg] Kacie Cruz APRN.SEAMLESS TUBE DRAWER Work Phone: [facility] 11-23-2022 11:08-0500 Body height 161.3 cm Valorie Ventura MD Work Phone: [facility] 11-23-2022 11:08-0500 Body weight 61.24 kg Valorie Ventura MD Work Phone: [facility] 11-23-2022 11:08-0500 Diastolic blood pressure 64 mm[Hg] Valorie Ventura MD Work Phone: [facility] 11-23-2022 11:08-0500 Systolic blood pressure 104 mm[Hg] Valorie Ventura MD Work Phone: [facility] 10-12-2022 10:46-0500 Body height 162.1 cm Timothy Bajwa MD Work Phone: [facility] 10-12-2022 10:46-0500 Body weight 62.78 kg Timothy Bajwa MD Work Phone: [facility] 10-12-2022 10:46-0500 Diastolic blood pressure 66 mm[Hg] Timothy Bajwa MD Work Phone: [facility] 10-12-2022 10:46-0500 Heart rate 77 /min Timothy Bajwa MD Work Phone: [facility] 10-12-2022 10:46-0500 Respiratory rate 16 /min Timothy Bajwa MD Work Phone: [facility] 10-12-2022 10:46-0500 SaO2% (BldA) [Mass fraction] 98 % Timothy Bajwa MD Work Phone: [facility] 10-12-2022 10:46-0500 Systolic blood pressure 104 mm[Hg] Timothy Bajwa MD Work Phone: [facility] 09-16-2022 08:45-0400 Body temperature 97.39 [degF] Kacie Cruz APRN.SEAMLESS TUBE DRAWER Work Phone: [facility] 09-16-2022 08:45-0400 Body weight 64.41 kg Kacie Cruz APRN.SEAMLESS TUBE DRAWER Work Phone: [facility] 09-16-2022 08:45-0400 Diastolic blood pressure 88 mm[Hg] Kacie Cruz SENIOR ANDROID SOFTWARE ENGINEER.SEAMLESS TUBE DRAWER Work Phone: [facility] 09-16-2022 08:45-0400 Heart rate 75 /min Kacie Cruz APRN.SEAMLESS TUBE DRAWER Work Phone: [facility] 09-16-2022 08:45-0400 Respiratory rate 20 /min Kacie Cruz SENIOR ANDROID SOFTWARE ENGINEER.SEAMLESS TUBE DRAWER Work Phone: [facility] 09-16-2022 08:45-0400 SaO2% (BldA) [Mass fraction] 99 % Kacie Cruz SENIOR ANDROID SOFTWARE ENGINEER.SEAMLESS TUBE DRAWER Work Phone: [facility] 09-16-2022 08:45-0400 Systolic blood pressure 128 mm[Hg] Kacie Cruz SENIOR ANDROID SOFTWARE ENGINEER.SEAMLESS TUBE DRAWER Work Phone: [facility] 06-22-2022 11:22-0400 Body weight 63.32 kg Char Xielogkrystal SENIOR ANDROID SOFTWARE ENGINEER.SEAMLESS TUBE DRAWER Work Phone: [facility] 06-22-2022 11:22-0400 Diastolic blood pressure 64 mm[Hg] Char Podlogar SENIOR ANDROID SOFTWARE ENGINEER.SEAMLESS TUBE DRAWER Work Phone: [facility] 06-22-2022 11:22-0400 Heart rate 69 /min Char Podlogar SENIOR ANDROID SOFTWARE ENGINEER.SEAMLESS TUBE DRAWER Work Phone: [facility] 06-22-2022 11:22-0400 Respiratory rate 18 /min Char Podlogar SENIOR ANDROID SOFTWARE ENGINEER.SEAMLESS TUBE DRAWER Work Phone: [facility] 06-22-2022 11:22-0400 SaO2% (BldA) [Mass fraction] 99 % Char Podlogar SENIOR ANDROID SOFTWARE ENGINEER.SEAMLESS TUBE DRAWER Work Phone: [facility] 06-22-2022 11:22-0400 Systolic blood pressure 116 mm[Hg] Char Barrett SENIOR ANDROID SOFTWARE ENGINEER.SEAMLESS TUBE DRAWER Work Phone: [facility] 05-30-2022 14:02-0400 Body temperature 98.01 [degF] Heron Choudhury SENIOR ANDROID SOFTWARE ENGINEER.SEAMLESS TUBE DRAWER Work Phone: [facility] 05-30-2022 14:02-0400 Body weight 62.14 kg Heron Choudhury SENIOR ANDROID SOFTWARE ENGINEER.SEAMLESS TUBE DRAWER Work Phone: [facility] 05-30-2022 14:02-0400 Diastolic blood pressure 64 mm[Hg] Heron Choudhury SENIOR ANDROID SOFTWARE ENGINEER.SEAMLESS TUBE DRAWER Work Phone: [facility] 05-30-2022 14:02-0400 Heart rate 70 /min Heron Choudhury SENIOR ANDROID SOFTWARE ENGINEER.SEAMLESS TUBE DRAWER Work Phone: [facility] 05-30-2022 14:02-0400 Respiratory rate 16 /min Heron Choudhury SENIOR ANDROID SOFTWARE ENGINEER.SEAMLESS TUBE DRAWER Work Phone: [facility] 05-30-2022 14:02-0400 SaO2% (BldA) [Mass fraction] 99 % Heron Choudhury SENIOR ANDROID SOFTWARE ENGINEER.SEAMLESS TUBE DRAWER Work Phone: [facility] 05-30-2022 14:02-0400 Systolic blood pressure 90 mm[Hg] Heron Choudhury SENIOR ANDROID SOFTWARE ENGINEER.SEAMLESS TUBE DRAWER Work Phone: [facility] 04-10-2022 16:57-0400 Body weight 59.24 kg Timothy Bajwa MD Work Phone: [facility] 04-10-2022 16:57-0400 Diastolic blood pressure 68 mm[Hg] Timothy Bajwa MD Work Phone: [facility] 04-10-2022 16:57-0400 Heart rate 67 /min Timothy Bajwa MD Work Phone: [facility] 04-10-2022 16:57-0400 Respiratory rate 20 /min Timothy Bajwa MD Work Phone: [facility] 04-10-2022 16:57-0400 SaO2% (BldA) [Mass fraction] 98 % Timothy Bajwa MD Work Phone: [facility] 04-10-2022 16:57-0400 Systolic blood pressure 116 mm[Hg] Timothy Bajwa MD Work Phone: [facility] Encounters Encounter Date Encounter Type Care Provider Facility Start: 10-11-2025 End: 10-11-2025 ambulatory Valorie JamesLorenzo Facility:[facility] Start: 10-06-2025 End: 10-06-2025 ambulatory [facility] Facility:[facility] Start: 09-22-2025 End: 09-22-2025 ambulatory [facility] Facility:[facility] Start: 09-10-2025 End: 09-10-2025 ambulatory [facility] Facility:[facility] Start: 09-06-2025 End: 09-06-2025 ambulatory [facility] Facility:[facility] Start: 08-25-2025 End: 08-25-2025 ambulatory [facility] Facility:[facility] Start: 08-12-2025 End: 08-12-2025 Follow-up encounter Ronnie Wade MD Work Phone: OB/Gynecology Start: 08-11-2025 End: 08-11-2025 Patient encounter procedure Mikala Baez SENIOR ANDROID SOFTWARE ENGINEER.CNM Work Phone: OB/Gynecology Comment on above: 28 weeks gestation o f (HCC) (Primary Dx); Rh negative state in antepartum period (HCC); Need for vaccination; Encounter for supervision of normal first in second trimester ([facility]) Start: 08-11-2025 End: 08-11-2025 ambulatory [facility] Facility:[facility] Start: 07-31-2025 End: 08-03-2025 ambulatory Tena Cruz MD Work Phone: OB/Gynecology Comment on above: Nausea and [place] H icks Contractions Start: 07-19-2025 ambulatory [facility] Facility :[facility] Start: 07-16-2025 End: 07-16-2025 ambulatory Tena Cruz MD Work Phone: OB/Gynecology Comment on above: Stomach Bug Start: 07-14-2025 End: 07-14-2025 Patient encounter procedure Alex Kiera PALACIOSEAMLESS TUBE DRAWER Work Phone: OB/Gynecology Comment on above: Encounter for superv ision of normal first in second trimester (HCC) (Primary Dx); 24 weeks gestation of ([facility]); Screening for diabetes mellitus; GBS bacteriuria; Rh negative state in antepartum period ([facility]); Herpes simplex virus infection; Vaginal bleeding during ([facility]) Start: 07-14-2025 End: 07-14-2025 ambulatory [facility] Facility:[facility] Start: 07-02-2025 End: 07-02-2025 Telephone encounter Valorie Ventura MD Work Phone: OB/Gynecology Start: 07-01-2025 End: 07-02-2025 Emergency department patient visit [facility] Facility:[facility] Start: 06-19-2025 End: 06-19-[address] Giana Arboleda MD Work Phone: -[facility] Start: 06-19-2025 End: 06-19-[address] Giana Arboleda MD -[facility] Work Phone: Start: 06-15-2025 End: 06-15-2025 Patient encounter procedure Tena Cruz MD Work Phone: OB/Gynecology Comment on above: Encounter for superv ision of normal first in second trimester (HCC) (Primary Dx); GBS bacteriuria; 20 weeks gestation of ([facility]) Encounter for superv ision of normal first in first trimester (HCC) (Primary Dx); Less than 8 weeks gestation of ([facility]) Start: 06-15-2025 End: 06-15-2025 ambulatory [facility] Facility:[facility] Start: 05-30-2025 End: 06-08-2025 ambulatory Mikala Baez APRN.CNM Work Phone: OB/Gynecology Comment on above: Discharge Start: 05-19-2025 End: 05-19-2025 Patient encounter procedure Valorie Ventura MD Work Phone: OB/Gynecology Comment on above: Encounter for superv ision of normal first in second trimester (HCC) (Primary Dx); 16 weeks gestation of (HCC) Start: 05-19-2025 End: 05-19-2025 ambulatory Valorie Ventura MD Work Phone: OB/Gynecology Comment on above: Motion Sickness Start: 04-27-2025 End: 06-27-2025 Follow-up encounter Kavya Amezquita APRN.CNM Work Phone: OB/Gynecology Start: 04-19-2025 End: 04-19-2025 ambulatory [facility] Facility:[facility] Start: 04-19-2025 End: 04-19-2025 Patient encounter procedure Kavya Amezquita APRN.CNM Work Phone: OB/Gynecology Comment on above: Encounter for superv ision of normal first in first trimester (HCC) (Primary Dx); 12 weeks gestation of (HCC); GBS bacteriuria Encounter for antena tonio screening for malformation using ultrasound (HCC) (Primary Dx); 12 weeks gestation of (HCC) Start: 04-19-2025 End: 04-19-2025 ambulatory [facility] Facility:[facility] Start: 04-18-2025 End: 04-18-2025 ambulatory Alex Franks RN NURSE COMMUNITY ASSISTANT Comment on above: Patient Update Start: 04-05-2025 End: 06-05-2025 Follow-up encounter Alex Qureshi APRN.CNP Work Phone: OB/Gynecology Start: 03-29-2025 End: 03-29-2025 ambulatory [facility] Facility:[facility] Start: 03-23-2025 End: 03-23-2025 ambulatory [facility] Facility:[facility] Start: 03-22-2025 End: 03-22-2025 ambulatory [facility] Facility:[facility] Start: 03-19-2025 End: 03-19-2025 ambulatory JEEVAN LOPEZ Facility:[facility] Start: 03-17-2025 End: 03-17-2025 ambulatory JEEVAN LOPEZ Facility:[facility] Start: 03-17-2025 End: 05-17-2025 Follow-up encounter Mikala Baez APRN.CNM Work Phone: OB/Gynecology Start: 03-16-2025 End: 03-18-2025 ambulatory Mikala Baez APRN.CNM Work Phone: OB/Gynecology Comment on above: Abnormal HCG Start: 03-15-2025 End: 03-15-2025 ambulatory JEEVAN LOPEZ Facility:[facility] Start: 03-15-2025 End: 03-15-2025 Patient encounter procedure Mikala Baez APRN.CNM Work Phone: OB/Gynecology Comment on above: Less [...] Start: 02-08-2025 End: 02-08-2025 ambulatory JEEVAN LOPEZ Facility:[facility] Start: 02-08-2025 End: 02-08-2025 Telephone encounter Jeevan Lopez MD Work Phone: Family Medicine [place] Comment on above: Patient Update; Orde rs Start: 01-29-2025 End: 01-29-2025 ambulatory TIMOTHY BAJWA Facility:[facility] Start: 01-29-2025 End: 01-29-2025 Patient encounter procedure Jeevan Lopez MD Work Phone: Family [facility] [place] Comment on above: URI, acute (Primary Dx) Start: 01-27-2025 End: 01-27-2025 Telephone encounter Jeevan Lopez MD Work Phone: [facility] [place] Comment on above: Patient Update Start: 12-31-2024 End: 12-31-2024 ambulatory TIMOTHY BAJWA Facility:[facility] Start: 12-31-2024 End: 12-31-2024 Patient encounter status Giana Arboleda MD Work Phone: [facility] Start: 12-31-2024 End: 12-31-2024 Periodic preventive med est patient 18-39 yrs Giana Arboleda MD Work Phone: OB/Gynecology Comment on above: Encounter for gyneco logical examination (general) (routine) without abnormal findings (Primary Dx); Screening for STD (sexually transmitted disease) Start: 12-19-2024 End: 12-19-2024 Patient encounter procedure Jeevan Lopez MD Work Phone: [facility] [place] Comment on above: Bronchitis (Primary Dx); Recurrent cold sores Start: 12-19-2024 End: 12-19-2024 ambulatory TIMOTHY BAJWA Facility:[facility] Start: 12-10-2024 End: 12-10-2024 ambulatory TIMOTHY BAJWA Facility:[facility] Start: 12-10-2024 End: 12-10-2024 Patient encounter procedure Timothy Bajwa MD Work Phone: [facility] [place] Comment on above: Viral URI with cough (Primary Dx) Start: 12-07-2024 End: 12-07-2024 ambulatory TIMOTHY BAJWA Facility:[facility] Start: 12-07-2024 End: 12-07-2024 Office outpatient visit 15 minutes Jonny Ibarra MD Work Phone: [facility] Comment on above: Bronchitis (Primary Dx) Start: 12-03-2024 End: 12-03-2024 Subsequent hospital visit by physician Xr [facility] [place] Work Phone: Radiology Comment on above: Acute cough [R05.1] Start: 12-03-2024 End: 12-03-2024 ambulatory TIMOTHY BAJWA Facility:[facility] Start: 12-03-2024 End: 12-03-2024 Patient encounter procedure [place] Cruz APRN.SEAMLESS TUBE DRAWER Work Phone: [place] [facility] Comment on above: Acute cough (Primary Dx) Start: 02-25-2023 Patient Update Ariane Allen [facility] Comment on above: Medication [...] Phone: OB/Gynecology Start: 10-19-2022 Chart abstracting Gracia Escamilla [employer]ICE CAPTAIN Work Phone: Adult Psychology Comment on above: Behavioral Health So cial Work Start: 10-19-2022 E-mail encounter paolo m caregiver Gracia Liu POLICE CAPTAIN Work Phone: [facility]ABE MARIANO [facility] Start: 10-19-2022 Follow-up encounter Gracia lucio POLICE CAPTAIN Work Phone: Adult Psychology Comment on above: Behavioral Health Fo llow Up Start: 10-12-2022 Telephone encounter Gracia lucio POLICE CAPTAIN Work Phone: Adult Psychology Comment on above: Behavioral Health So cial Work Start: 10-12-2022 End: 10-12-2022 Patient encounter procedure Timothy Bajwa MD Work Phone: [facility] Comment on above: Annual physical exam (Primary Dx); Anxiety with depression; Herpes labialis; Cervical pain (neck); Closed head injury, initial encounter; Need for influenza vaccination; Need for COVID-19 vaccine Start: 09-16-2022 End: 09-16-2022 Patient encounter procedure [place] Cruz APRN.SEAMLESS TUBE DRAWER Work Phone: [facility] Comment on above: Sore throat (Primary Dx); At increased risk of exposure to COVID-19 virus Start: 06-22-2022 Telephone encounter Char corley APRN.SEAMLESS TUBE DRAWER Work Phone: [facility] Comment on above: Results Start: 06-22-2022 End: 06-22-2022 Subsequent hospital visit by physician Sejal [facility] [place] Work Phone: Radiology Comment on above: Acute bilateral thor acic back pain [M54.6] Start: 06-22-2022 End: 06-22-2022 Patient encounter procedure Char Barrett APRN.SEAMLESS TUBE DRAWER Work Phone: [facility] Comment on above: Closed head injury, initial encounter (Primary Dx); Cervical pain (neck); Acute bilateral thoracic back pain Start: 06-21-2022 End: 06-21-2022 Patient encounter procedure Selam Jauregui PA-C Work Phone: [place] [facility] Comment on above: Closed head injury, initial encounter (Primary Dx) Start: 05-30-2022 End: 05-30-2022 Subsequent hospital visit by physician Sejal [facility] [place] Work Phone: Radiology Comment on above: Injury of right knee , initial encounter [S89.91XA] Start: 05-30-2022 End: 05-30-2022 Patient encounter procedure Heron Choudhury APRN.SEAMLESS TUBE DRAWER Work Phone: [facility] Comment on above: Injury of right knee , initial encounter (Primary Dx) Start: 04-10-2022 End: 04-10-2022 Patient encounter procedure Timothy Bajwa MD Work Phone: Family Medicine [place] Comment on above: Anxiety with depress ion (Primary Dx); Recurrent cold sores Procedures Date Procedure Procedure Detail Performing Clinician Start: 09-22-2025 Antibody screen DEISI BAJWA Comment on above: Order Comment: Speci men Type: BLOOD SPECIMENOrdering Facility: [facility] Address: [address] [place] [address] Performed By: #### T SPN ####[facility] LABCLIA [id number] [address] Start: 08-11-2025 Antibody screen DEISI BAJWA Comment on above: Order Comment: Speci men Type: BLOOD SPECIMENOrdering Facility: [facility] Address: [address] [place] [address] Performed By: #### A SCR, %SHALONDA, TSPN, BBABINT ####[facility] MAIN BLOOD BANKCLIA [id number] [address] [place] Start: 06-15-2025 Us preg uterus after 1st trimest 1/ gestation Mikala Plotemilia SENIOR ANDROID SOFTWARE ENGINEER.CNM Work Phone: Start: 04-19-2025 Us preg uterus after 1st trimest 1/1st gestation Mikala Plotemilia SENIOR ANDROID SOFTWARE ENGINEER.CNM Work Phone: Start: 03-15-2025 Antibody screen DEISI BAJWA Comment on above: Order Comment: Speci men Type: BLOOD SPECIMENOrdering Facility: [facility] Address: [address] [place] [address] Performed By: #### T SPN ####[facility] MAIN BLOOD BANKCLIA [id number] [place] [address] [place] Start: 03-15-2025 Us uterus l imited 1/> fetuses Mikala Baez SENIOR ANDROID SOFTWARE ENGINEER.CNM Work Phone: Start: 12-03-2024 Radiologic exam ches t 2 views [place] Cruz SENIOR ANDROID SOFTWARE ENGINEER.SEAMLESS TUBE DRAWER Work Phone: Start: 11-23-2022 Iadna chlamydia trac homatis amplified probe tq Valorie Ventura MD Work Phone: Start: 10-12-2022 Fuzz-ParQnow COVI D-19 BIVALENT BOOSTER VACCINE, AGE 12+ YR Timothy Bajwa MD Work Phone: Start: 10-12-2022 INFLUENZA VACCINE QUADRIVALENT 6 MO - 64 YRS IM Timothy Bajwa MD Work Phone: Start: 09-16-2022 STREP A MOLECULAR (POC) Kacie Cruz SENIOR ANDROID SOFTWARE ENGINEER.SEAMLESS TUBE DRAWER Work Phone: Start: 06-22-2022 Radex spine cervical 4 or 5 views Char Podlogkrystal SENIOR ANDROID SOFTWARE ENGINEER.SEAMLESS TUBE DRAWER Work Phone: Start: 05-30-2022 Radiologic exam knee complete 4/more views Heron Choudhury SENIOR ANDROID SOFTWARE ENGINEER.SEAMLESS TUBE DRAWER Work Phone: Start: 01-09-2022 Adult depression scr eening assessment Timothy Bajwa MD Work Phone: Plan of Treatment Date Care Activity Detail Author Start: 12-07-2030 Urine microalbumin profile [facility] Start: 03-15-2028 Screening for malign ant neoplasm of cervix Cervical Cancer Screening [facility] Start: 01-03-2026 End: 01-03-2026 Patient encounter procedure 01/03/2026 4:00 PM EST Office Visit OB/Gynecology [address] [place] [address] Valorie Meza MD [address] [place] [address] Annual OB/Gynecology Comment on above: Annual Start: 11-23-2025 PAP TESTING PAP TESTING [facility] Start: 11-23-2025 Screening for malign ant neoplasm of cervix Cervical Cancer Screening [facility] Start: 09-06-2025 RSV Vaccine (1 - Ris k 1-dose series) RSV Vaccine (1 - Risk 1-dose series) [facility] Start: 09-05-2025 RSV Vaccine (1 - Ris k 1-dose series) RSV Vaccine (1 - Risk 1-dose series) [facility] Start: 08-25-2025 End: 08-25-2025 Patient encounter procedure 08/25/2025 2:50 PM EDT Routine Office Visit OB/Gynecology [address] [place] [address] Giana Arboleda MD [address] [place] [address] Ob OB/Gynecology Comment on above: Ob Start: 08-12-2025 End: 11-11-2025 GEST GLUC TIM, 3-HR, 100 GM, FASTING GEST GLUC TIM, 3-HR, 100 GM, FASTING Lab Routine Abnormal glucose complicating (HCC) Expected: 08/12/2025, Expires: 11/11/2025 [facility] Work Phone: Comment on above: Expected: 08/12/2025 , Expires: 11/11/2025 Start: 08-11-2025 End: 08-11-2025 Patient encounter procedure 08/11/2025 3:15 PM EDT Routine Office Visit OB/Gynecology [address] [place] [address] Mikala Baez APRN.CN [address] [place] [address] OB OB/Gynecology Comment on above: OB Start: 08-02-2025 Influenza vaccination [facility] Start: 07-19-2025 End: 07-19-2025 ambulatory 07/19/2025 1:15 PM EDT Results Only [place] [facility] [address] [place] [address] [place] [facility] Start: 07-14-2025 End: 10-12-2025 ANEMIA REFLEX PANEL ANEMIA REFLEX PANEL Lab Routine Encounter for supervision of normal first in second trimester (HCC) 24 weeks gestation of (HCC) Screening for diabetes mellitus GBS bacteriuria Expected: 07/14/2025, Expires: 10/12/2025 [facility] Comment on above: Expected: 07/14/2025 , Expires: 10/12/2025 Start: 07-14-2025 End: 07-14-2026 GESTATIONAL GLUCOSE SCREEN, 1-HOUR, 50 GRAM, NON-FASTING GESTATIONAL GLUCOSE SCREEN, 1-HOUR, 50 GRAM, NON-FASTING Lab Routine Encounter for supervision of normal first in second trimester (HCC) 24 weeks gestation of ([facility]) Screening for diabetes mellitus GBS bacteriuria Expected: 07/14/2025, Expires: 07/14/2026 [facility] Work Phone: Comment on above: Expected: 07/14/2025 , Expires: 07/14/2026 Start: 07-14-2025 End: 07-14-2026 SYPHILIS TREPONEMAL W/REFLEX SYPHILIS TREPONEMAL W/REFLEX Lab Routine Encounter for supervision of normal first in second trimester ([facility]) 24 weeks gestation of ([facility]) Screening for diabetes mellitus GBS bacteriuria Expected: 07/14/2025, Expires: 07/14/2026 [facility] Comment on above: Expected: 07/14/2025 , Expires: 07/14/2026 Start: 07-14-2025 End: 10-12-2025 TYPE + SCREEN TYPE + SCREEN Blood Bank Routine Encounter for supervision of normal first in second trimester (HCC) 24 weeks gestation of ([facility]) Expected: 07/14/2025, Expires: 10/12/2025 [facility] Comment on above: Expected: 07/14/2025 , Expires: 10/12/2025 Start: 07-14-2025 End: 07-14-2025 Patient encounter procedure 07/14/2025 8:45 AM EDT Routine Office Visit OB/Gynecology [address] [place], [place] [id number] Alex Qureshi APRN.SEAMLESS TUBE DRAWER [address] [place] [address] OB OB/Gynecology Comment on above: OB Start: 06-19-2025 Nonstress test [facility] Start: 06-19-2025 End: 06-19-2025 [facility] Start: 06-19-2025 Administration of bl ood product [facility] Start: 06-19-2025 Obstetric monitoring [facility] Start: 06-19-2025 Vital signs measurements [facility] Start: 06-15-2025 End: 06-15-2025 Patient encounter procedure [facility]aternal Medicine Comment on above: Anatomy Anatomy/OB Start: 05-18-2025 End: 05-18-2025 Patient encounter procedure 05/18/2025 10:10 AM EDT Routine Office Visit OB/Gynecology [address] [place] [address] Ronnie Wade MD [address] [place] [address] OB OB/Gynecology Comment on above: OB Start: 04-19-2025 End: 07-19-2025 Chromosome 21 trisomy [Presence] in Blood or Tissue by Cytogenetics [facility] Work Phone: Comment on above: Expected: 04/19/2025 , Expires: 07/19/2025 Start: 04-19-2025 End: 07-19-2025 HEMOGLOBIN EVALUATION CASCADE [facility] Comment on above: Expected: 04/19/2025 , Expires: 07/19/2025 Start: 04-19-2025 End: 04-19-2025 Patient encounter procedure Maternal Medicine Comment on above: Nuchal Nuchal/OB - discuss GBS in urine Start: 04-14-2025 End: 04-14-2025 Patient encounter procedure 04/14/2025 10:20 AM EDT Routine Office Visit OB/Gynecology [address] [place] [address] Valorie Meza MD [address] [place] [id number] initial , lmp 2/12, cramping and pink discharage OB/Gynecology Comment on above: initial , l mp 2/12, cramping and pink discharage Start: 03-30-2025 End: 03-30-2025 Patient encounter procedure Maternal Medicine Comment on above: Dating Dating/OB Start: 03-23-2025 End: 03-23-2025 Patient encounter procedure 03/23/2025 9:00 AM EDT Routine Office Visit OB/Gynecology [address] [place] [address] Dating OB/Gynecology Comment on above: Dating Start: 03-22-2025 End: 03-22-2025 ambulatory 03/22/2025 2:45 PM EDT Results Only [place] [facility] [address] [place] [address] [place] [facility] Start: 03-19-2025 End: 03-19-2025 ambulatory 03/19/2025 10:15 AM EDT Results Only [place] [facility] [address] [place] [address] [place] [facility] Start: 03-17-2025 End: 03-17-2025 ambulatory 03/17/2025 2:30 PM EDT Results Only [place] [facility] [address] [place] [address] [place] [facility] Start: 03-15-2025 End: 06-14-2025 ANEMIA REFLEX PANEL [facility] Work Phone: Comment on above: Expected: 03/15/2025 , Expires: 06/14/2025 Start: 03-15-2025 End: 06-14-2025 Choriogonadotropin.beta subunit [Units/volume] in Serum or Plasma [facility] Comment on above: Expected: 03/15/2025 , Expires: 06/14/2025 Start: 03-15-2025 End: 06-14-2025 Hemoglobin A1c in Blood [facility] Comment on above: Expected: 03/15/2025 , Expires: 06/14/2025 Start: 03-15-2025 End: 03-15-2026 OBSTETRIC ULTRASOUND [facility] Comment on above: Expected: 03/15/2025 , Expires: 03/15/2026 Start: 02-08-2025 End: 05-10-2025 CBC W Auto Differential panel - Blood [facility] Work Phone: Comment on above: Expected: 02/08/2025 , Expires: 05/10/2025 Start: 02-08-2025 End: 05-10-2025 Comprehensive metabolic 2000 panel - Serum or Plasma [facility] Comment on above: Expected: 02/08/2025 , Expires: 05/10/2025 Start: 01-29-2025 End: 01-29-2025 Patient encounter procedure 01/29/2025 3:40 PM EST Office Visit Family Medicine [place] [address] [place], [place] [address] Jeevan Lopez MD [address] [place] [address] On going congestion/head cold. Family Medicine [place] Comment on above: On going congestion/ head cold. Start: 12-31-2024 End: 12-31-2024 Patient encounter procedure 12/31/2024 1:20 PM EST Office Visit OB/Gynecology [address] [place] [address] Giana Arboleda MD [address] [place] [address] ANNUAL OB/Gynecology Comment on above: ANNUAL Start: 12-08-2024 End: 12-08-2024 Patient encounter procedure 12/08/2024 1:20 PM EST Office Visit OB/Gynecology [address] [place] [address] Giana Arboleda MD [address] [place] [address] ANNUAL OB/Gynecology Comment on above: ANNUAL Start: 11-14-2024 PAP TESTING PAP TESTING [facility] Start: 08-02-2024 Covid-19 Vaccine () Covid-19 Vaccine () [facility] Start: 08-02-2024 Influenza vaccination Influenza Vacc ine (#1) [facility] Start: 11-23-2023 Screening for malign ant neoplasm of cervix Cervical Cancer Screening [facility] Start: 01-09-2023 Adult depression screening assessment DEPRESSION SCREENING [facility] Start: 09-16-2022 End: 09-30-2022 Influenza virus A and B RNA and SARS-CoV-2 (COVID-19) N gene panel - Respiratory specimen by RAIANA with probe detection COVID WITH FLUA+B, ROUTINE Microbiology Routine Sore throat At increased risk of exposure to COVID-19 virus Expected: 09/16/2022, Expires: 09/30/2022 [facility] Work Phone: Comment on above: Expected: 09/16/2022 , Expires: 09/30/2022 Start: 08-02-2022 Influenza vaccination INFLUENZA (#1) [facility] Start: 12-19-2021 COVID-19 VACCINE (4 - Booster for Moderna series) COVID-19 VACCINE (4 - Booster for Moderna series) [facility] Start: 2015 Depression Screening Depression Scre ening [facility] Start: 2013 MENINGOCOCCAL B: Consider based on risk (2 of 2 - Risk Bexsero 2-dose series) MENINGOCOCCAL B: Consider based on risk (2 of 2 - Risk Bexsero 2-dose series) [facility] Start: 2011 PEDS TO ADULT TRANSI TION ANNUAL ASSESSMENT PEDS TO ADULT TRANSITION ANNUAL ASSESSMENT [facility] Start: 2009 PEDS TO ADULT TRANSI TION INITIAL DISCUSSION PEDS TO ADULT TRANSITION INITIAL DISCUSSION [facility] Bacteria identified in Urine by Culture BACTERIAL CULTURE, URINE Microbiology Routine Less than 8 weeks gestation of (HCC) 03/15/2025 10:04 AM EDT [facility] Chlamydia trachomatis+Neisseria gonorrhoeae DNA [Presence] in Unspecified specimen by ARIANA with probe detection GONORRHEA/CHLAMYDIA NAAT Lab Routine Encounter for gynecological examination (general) (routine) without abnormal findings Screening for STD (sexually transmitted disease) 12/31/2024 3:05 PM EST [facility] Work Phone: Chlamydia trachomatis+Neisseria gonorrhoeae DNA [Presence] in Unspecified specimen by ARIANA with probe detection GONORRHEA/CHLAMYDIA NAAT Lab Routine Less than 8 weeks gestation of (HCC) Screen for STD (sexually transmitted disease) 03/15/2025 10:04 AM EDT [facility] End: 03-15-2026 Choriogonadotropin.beta subunit [Units/volume] in Serum or Plasma HCG QUANTITATIVE Lab Routine Less than 8 weeks gestation of (HCC) Threatened (HCC) 2x per week for 8 Occurrences starting 03/15/2025 until 03/15/2026 [facility] Comment on above: 2x per week for 8 Oc currences starting 03/15/2025 until 03/15/2026 PAP FLUID CERVICAL SCREENING PAP FLUID CERVICAL SCREENING Lab Routine Screening for cervical cancer 11/23/2022 12:02 PM [facility] Work Phone: PAP TEST PAP TEST Lab Rou jered Less than 8 weeks gestation of (HCC) Screening for cervical cancer 03/15/2025 10:04 AM EDT [facility] TRICHOMONAS VAGINALI S NAAT TRICHOMONAS VAGINALIS NAAT Lab Routine Less than 8 weeks gestation of (HCC) Screen for STD (sexually transmitted disease) 03/15/2025 10:04 AM EDT [facility] Immunizations Immunization Date Immunization Notes Care Provider Fa [facility] 10-12-2022 COVID-19 booster vaccine, age 12+ yr, bivalent (Fuzz-BIONTCharitybuzz) Gracia Liu [facility] Work Phone: [facility] 10-12-2022 influenza, injectabl e, quadrivalent, contains preservative Gracia Liu [facility] Work Phone: [facility] 10-12-2022 influenza virus vaccine, unspecified formulation Xr [place] Work Phone: [facility] 10-24-2021 COVID-19 vaccine, fu ll dose (MODERNA) Timothy Bajwa MD Work Phone: [facility] 10-03-2021 Influenza, injectabl e, Madin Delmita Canine Kidney, preservative free, quadrivalent Jeevan Lopez MD Work Phone: [facility] 12-07-2020 tetanus and diphther ia toxoids, adsorbed, preservative free, for adult use (5 Lf of tetanus toxoid and 2 Lf of diphtheria toxoid) Timothy Bajwa MD Work Phone: [facility] 10-01-2020 influenza, injectabl e, quadrivalent, preservative free Timothy Bajwa MD Work Phone: [facility] 12-30-2009 human papilloma viru s vaccine, quadrivalent Timothy Bajwa MD Work Phone: [facility] 12-30-2009 Human Papillomavirus 9-valent vaccine Timothy Bajwa MD Work Phone: [facility] Work Phone: 08-31-2009 human papilloma viru s vaccine, quadrivalent Timothy Bajwa MD Work Phone: [facility] 08-31-2009 Human Papillomavirus 9-valent vaccine Timothy Bajwa MD Work Phone: [facility] Work Phone: 07-01-2009 meningococcal ACWY vaccine, unspecified formulation Timothy Bajwa MD Work Phone: [facility] 07-01-2009 Meningococcal, MCV4, unspecified conjugate formulation(groups A, C, Y and W-135) Timothy Bajwa MD Work Phone: [facility] Work Phone: 06-29-2009 human papilloma viru s vaccine, quadrivalent Timothy Bajwa MD Work Phone: [facility] 06-29-2009 Human Papillomavirus 9-valent vaccine Timothy Bajwa MD Work Phone: [facility] Work Phone: 06-29-2009 tetanus toxoid, reduced diphtheria toxoid, and acellular pertussis vaccine, adsorbed Timothy Bajwa MD Work Phone: [facility] 08-17-2002 poliovirus vaccine, inactivated Timothy Bajwa MD Work Phone: [facility] 07-17-2002 diphtheria, tetanus toxoids and acellular pertussis vaccine, unspecified formulation Timothy Bajwa MD Work Phone: [facility] 07-17-2002 measles, mumps and rubella virus vaccine Timothy Bajwa MD Work Phone: [facility] 07-17-2002 poliovirus vaccine, inactivated Timothy Bajwa MD Work Phone: [facility] 1999 diphtheria, tetanus toxoids and acellular pertussis vaccine, 5 pertussis antigens Timothy Bajwa MD Work Phone: [facility] Work Phone: 1999 diphtheria, tetanus toxoids and acellular pertussis vaccine, unspecified formulation Timothy Bajwa MD Work Phone: [facility] 1999 hepatitis B vaccine, pediatric or pediatric/adolescent dosage Timothy Bajwa MD Work Phone: [facility] 1999 poliovirus vaccine, inactivated Timothy Bajwa MD Work Phone: [facility] 08-17-1998 measles, mumps and rubella virus vaccine Timothy Bajwa MD Work Phone: [facility] 05-14-1998 haemophilus influenz ae type b vaccine, conjugate unspecified formulation Timothy Bajwa MD Work Phone: [facility] 05-03-1998 diphtheria, tetanus toxoids and acellular pertussis vaccine, 5 pertussis antigens Timothy Bajwa MD Work Phone: [facility] Work Phone: 05-03-1998 diphtheria, tetanus toxoids and acellular pertussis vaccine, unspecified formulation Timothy Bajwa MD Work Phone: [facility] 05-03-1998 haemophilus influenz ae type b vaccine, HbOC conjugate Timothy Bajwa MD Work Phone: [facility] 05-03-1998 hepatitis B vaccine, pediatric or pediatric/adolescent dosage Timothy Bajwa MD Work Phone: [facility] 01-14-1998 diphtheria, tetanus toxoids and acellular pertussis vaccine, 5 pertussis antigens Timothy Bajwa MD Work Phone: [facility] Work Phone: 01-14-1998 diphtheria, tetanus toxoids and acellular pertussis vaccine, unspecified formulation Timothy Bajwa MD Work Phone: [facility] 01-14-1998 haemophilus influenz ae type b vaccine, HbOC conjugate Timothy Bajwa MD Work Phone: [facility] 01-14-1998 hepatitis B vaccine, pediatric or pediatric/adolescent dosage Timothy Bajwa MD Work Phone: [facility] 01-14-1998 poliovirus vaccine, inactivated Timothy Bajwa MD Work Phone: [facility] 1997 diphtheria, tetanus toxoids and acellular pertussis vaccine, 5 pertussis antigens Timothy Bajwa MD Work Phone: [facility] Work Phone: 1997 diphtheria, tetanus toxoids and acellular pertussis vaccine, unspecified formulation Timothy Bajwa MD Work Phone: [facility] 1997 haemophilus influenz ae type b vaccine, conjugate unspecified formulation Timothy Bajwa MD Work Phone: [facility] Work Phone: 1997 haemophilus influenz ae type b vaccine, HbOC conjugate Timothy Bajwa MD Work Phone: [facility] 1997 hepatitis B vaccine, pediatric or pediatric/adolescent dosage Timothy Bajwa MD Work Phone: [facility] 1997 poliovirus vaccine, inactivated Timothy Bajwa MD Work Phone: [facility] 1997 hepatitis B vaccine, pediatric or pediatric/adolescent dosage Timothy Bajwa MD Work Phone: [facility] Payers Date Payer Category Payer Self-pay 2025 Unknown [id number] 2025 Medicaid [id number] 2025 Unknown [id number] 2024 Unknown MMO MMO [employer] PPO [id number] 2024-Present [phone] [address] [place] [address] PPO [id number] 2024 Unknown [id number] 2021 Private Health Insurance EHP AET NA EHP STAFF/NON STAFF / EHP [facility] [id number] 2021-2023 [address] [place] [address] EPO [id number] 2021 Private Health Insurance [id number] Unknown [id number] Unknown [id number] Unknown [id number] Social History Date Type Detail Facility Start: 03-22-2015 End: 09-16-2022 Tobacco smoking status NHIS Never smoked tobacco [facility] Start: 03-22-2015 End: 09-16-2022 Tobacco use and exposure Smokeless tobacco non-user [facility] Start: 04-10-2022 End: 01-29-2025 Alcohol intake Current drinker of alcohol (finding) [facility] Start: 01-08-2022 History SDOH Alcohol Frequency 2 [facility] Start: 01-08-2022 History SDOH Alcohol Std Drinks 1 [facility] Start: 12-07-2020 History SDOH Alcohol Comment rarely [facility] Start: 01-08-2022 History SDOH Social Connections Phone 5 [facility] Start: 01-08-2022 History SDOH Social Connections Get Together 4 [facility] Start: 01-08-2022 History SDOH Social Connections Meetings 3 [facility] Start: 01-08-2022 History SDOH Social Connections Living 7 [facility] Start: 01-08-2022 History SDOH Physica l Activity DPW 6 [facility] Start: 1995 Sex Assigned At Female C [facility] Start: 04-22-2022 End: 10-12-2022 Exposure to SARS-CoV-2 (event) Not sure [facility] Start: 01-07-2022 End: 12-08-2024 [facility] Start: 01-07-2022 End: 12-08-2024 Social connection and isolation panel [facility] Do you belong to any clubs or organizations such as druze groups, unions, fraternal or athletic groups, or school groups? Yes [facility] Are you now , , , , never or living with a partner? Never [facility] How often to you hav e a drink containing alcohol? Monthly or less [facility] How many standard dr inks containing alcohol do you have on a typical day? 1 or 2 [facility] How often do you hav e 6 or more drinks on 1 occasion? Never [facility] Start: 03-22-2015 How hard is it for y ou to pay for the very basics like food, housing, medical care, and heating Not hard at all [facility] Do you feel stress - tense, restless, nervous, or anxious, or unable to sleep at night because your mind is troubled all the time - these days [OSQ] To some extent [facility] (I/We) worried wheth er (my/our) food would run out before (I/we) got money to buy more. Never true [facility] In the past 12 month s, was there a time when you were not able to pay the mortgage or rent on time? No [facility] Start: 11-13-2021 Gender identity Identifies as female gender (finding) [facility] Start: 11-13-2021 Sexual orientation Heterosexual (kehinde gallardo) [facility] Do you feel stress - tense, restless, nervous, or anxious, or unable to sleep at night because your mind is troubled all the time - these days [OSQ] Not at all [facility] Start: 03-15-2025 End: 08-11-2025 Alcoholic beverage intake Ex-drinker (finding) [facility] Start: 02-07-2025 [facility] Functional Status Date Assessment Result Facility 07-02-2025 Are you deaf, or do you have serious difficulty hearing No 07/02/2025 1:12 AM EDT Kia Bosch RN No [facility] 07-02-2025 Are you blind, or do you have serious difficulty seeing, even when wearing glasses No 07/02/2025 1:12 AM EDT Kia Bosch RN No [facility] 07-02-2025 Do you have serious difficulty walking or climbing stairs No 07/02/2025 1:12 AM EDT Kia Bosch RN No [facility] 07-02-2025 Do you have difficul ty dressing or bathing No 07/02/2025 1:12 AM EDT Kia Bosch, FER No [facility] 07-02-2025 Because of a physica l, mental, or emotional condition, do you have difficulty doing errands alone such as visiting a physician's office or shopping No 07/02/2025 1:12 AM EDT Kia Bosch RN No [facility] 03-22-2015 Are you deaf, or do you have serious difficulty hearing No 03/22/2015 4:20 PM EDT Gabriela Peralta LPN No [facility] 03-22-2015 Are you blind, or do you have serious difficulty seeing, even when wearing glasses No 03/22/2015 4:20 PM EDT Gabriela Peralta LPN No [facility] 03-22-2015 Do you have serious difficulty walking or climbing stairs No 03/22/2015 4:20 PM EDT Gabriela Peralta LPN No [facility] 03-22-2015 Do you have difficul ty dressing or bathing No 03/22/2015 4:20 PM EDT Gabriela Peralta LPN No [facility] 03-22-2015 Because of a physica l, mental, or emotional condition, do you have difficulty doing errands alone such as visiting a physician's office or shopping No 03/22/2015 4:20 PM EDT Gabriela Peralta LPN No [facility] Mental Status Date Assessment Result Facility 07-02-2025 Because of a physica l, mental, or emotional condition, do you have serious difficulty concentrating, remembering, or making decisions No 07/02/2025 1:12 AM EDT Kia Bosch RN No [facility] 03-22-2015 Because of a physica l, mental, or emotional condition, do you have serious difficulty concentrating, remembering, or making decisions No 03/22/2015 4:20 PM EDT Gabriela Peralta LPN [facility] Clinical Notes 04-10-2022 to 09-22-2025 Quick Notes - Mikala Baez APRN.[facility] - 08/11/2025 4:02 PM EDTPrenatal Quick Notes - Mikala Baez APRN.[facility] - 08/11/2025 4:02 PM EDTPatient InstructionsPatient Instructions Note Date & Type Note Facility 09-22-2025 Note HNO ID: [id number] Author: SHARONDA MEDINA RN Service: ? Author Type: Registered Nurse Type: Progress Notes Filed: 09/22/2025 16:50 Note Text: Mi Ortez 30 year old is here for her injection of Rhophylac. Mi Ortez Antibody Screen (no units) Date Value 08/11/2025 Positive 08/11/2025 Positive Antibody Identified (no units) Date Value 08/11/2025 Anti-D Mi Ortez is RH Negative Rhophylac was given without incident. See immunizations for details of immunizations administered today. Provider Dr. Arboleda was present in office at time of injection Mi Ortez was given her Rhophylac pocket card. Sharonda Medina RN [facility] 08-25-2025 Note HNO ID: [id number] Author: SANDRA ORDONEZ LPN Service: ? Author Type: Licensed Nurse Type: Progress Notes Filed: 08/25/2025 15:24 Note Text: Patient identified by name and date of . Mi Ortez presents today for a vaccination of Tdap. Patient denies an allergy to latex: yes Patient denies a severe (life-threatening) allergy to a previous dose of Tdap, DTP, DTaP, DT or Td vaccine. Yes Patient denies history of epilepsy or neurological problems: Yes Patient is afebrile and denies being moderately or severely ill: Yes Patient denies history of Guillain-Richmond Syndrome (a severe paralytic illness): No Tdap Adacel injection was given without incident. See immunizations for details of immunizations administered today. VIS sheet provided: Yes Provider Giana Arboleda MD was present in office at time of injection. Sandra Ordonez LPN [facility] 08-11-2025 Progress note Formatting of t his note might be different from the original. S: Mi Ortez is a 30 year old female who presents at 28 weeks gestation for routine visit. Positive movements. Just completed 1 hour GCT. Would like TDAP next visit. Denies headache, visual changes, chest pain, shortness of breath, vaginal bleeding, leakage of fluid, or dysuria. Feeling well, no complaints. O: See flow sheet Gen: No apparent distress Abd: Gravid, nontender ASSESSMENT/PLAN: 1. 28 weeks gestation of 2. Rh negative state in antepartum period 3. Encounter for supervision of normal first in second trimester - 1 hour GCT, CBC, and RPR today - Rh negative- Rhogam given at 22 weeks of and will need repeated at 34 weeks gestation - TDAP next visit - LARC form reviewed and signed. Patient declines - Depression screen negative - Opioid screen negative - plan form discussed and given to patient. Patient desires epidural and - Attending classes at [facility] - PTL precautions and kick counts reviewed - RTO- 2 weeks or sooner if needed Mikala Baez APRN.CNM [facility] 08-11-2025 Miscellaneous Notes S: Mi Ortez is a 30 year old female who presents at 28 weeks gestation for routine visit. Positive movements. Just completed 1 hour GCT. Would like TDAP next visit. Denies headache, visual changes, chest pain, shortness of breath, vaginal bleeding, leakage of fluid, or dysuria. Feeling well, no complaints. O: See flow sheet Gen: No apparent distress Abd: Gravid, nontender ASSESSMENT/PLAN: 1. 28 weeks gestation of 2. Rh negative state in antepartum period 3. Encounter for supervision of normal first in second trimester - 1 hour GCT, CBC, and RPR today - Rh negative- Rhogam given at 22 weeks of and will need repeated at 34 weeks gestation - TDAP next visit - LARC form reviewed and signed. Patient declines - Depression screen negative - Opioid screen negative - plan form discussed and given to patient. Patient desires epidural and - Attending classes at [facility] - PTL precautions and kick counts reviewed - RTO- 2 weeks or sooner if needed Mikala Baez APRN.CNM documented in this encounter [facility] 08-11-2025 Instructions Claire Rothman LPN - 08/11/2025 3:04 PM EDT SEQUENTIAL SCREENINGS The [facility] offers sequential screenings for women who are [...] It will require an appointment with our hot cell technician. This is not an ultrasound performed [...] the above symptoms, contact our office at [phone] and ask to speak with a nurse. After hours, you can call [facility] at [phone] OR call [facility] at [phone] and ask to have the doctor worksite wellness practitioner paged. If you consider this an emergency, dial [phone]- or go to your nearest emergency department. NEED HELP? Are you dealing with a violent or abusive relationship? Are you a victim of rape or sexual assult? Call [facility] ([place]) 24 hour Crisis Hotline: 873.955.1590 or 084-423-5674. MANUAL Your Guide to a Healthy manual is now on-line. Visit [email or web address] ancyGuide to download your free copy documented in this encounter [facility] 07-16-2025 Telephone encounter Note I called patient back and informed her that she can take Imodium. If diarrhea persists, develops vomiting (especially if she is unable to keep food or fluids down for 24 hours) or develops a fever she should see family doctor, urgent care or go to hospital for fluids [facility] 07-16-2025 Miscellaneous Notes I called patient back and informed her that she can take Imodium. If diarrhea persists, develops vomiting (especially if she is unable to keep food or fluids down for 24 hours) or develops a fever she should see family doctor, urgent care or go to hospital for fluids Agree with Imodium as listed in guide. Stay hydrated. 24w4d documented in this encounter [facility] 07-16-2025 Telephone encounter Note Agree with Imodium as listed in guide. Stay hydrated. [facility] Work Phone: 07-16-2025 Telephone encounter Note 24w4d [facility] 07-14-2025 Progress note Formatting of t his note might be different from the original. EH - S: Mi is a 30 year old female who presents at 24w2d for a routine visit. Feeling movement. Denies headache, visual changes, chest pain, shortness of breath, vaginal bleeding, leakage of fluid, or dysuria. Had some bleeding on 07/01 - was evaluated in [place]. No issues since. O: See flow sheet Gen: No apparent distress Abd: Gravid, nontender, S=D ASSESSMENT/PLAN: Encounter for supervision of normal first in second trimester ([facility]) - ICD9: V22.0, ICD10: Z34.02 (primary diagnosis) - Continue PNV and LDA 24 weeks gestation of ([facility]) - ICD9: V22.2, ICD10: Z3A.24 - Anatomy ultrasound reviewed - GTT, CBC, RPR next visit GBS bacteriuria - ICD9: 599.0, 041.02, ICD10: R82.71 - See 03/15 urine culture - Plan for prophylaxis during labor Rh negative state in antepartum period ([facility]) - ICD9: 646.83, ICD10: O26.899, Z67.91 - Plan for Rhogam at 28 weeks and PTL precautions reviewed. RTO in 4 weeks or sooner as needed. Alex Qureshi APRN.[employer] [facility] 07-14-2025 Miscellaneous Notes EH - S: Mi is a 30 year old female who presents at 24w2d for a routine visit. Feeling movement. Denies headache, visual changes, chest pain, shortness of breath, vaginal bleeding, leakage of fluid, or dysuria. Had some bleeding on 07/01 - was evaluated in [place]. No issues since. O: See flow sheet Gen: No apparent distress Abd: Gravid, nontender, S=D ASSESSMENT/PLAN: Encounter for supervision of normal first in second trimester ([facility]) - ICD9: V22.0, ICD10: Z34.02 (primary diagnosis) - Continue PNV and LDA 24 weeks gestation of (H[facility]) - ICD9: V22.2, ICD10: Z3A.24 - Anatomy ultrasound reviewed - GTT, CBC, RPR next visit GBS bacteriuria - ICD9: 599.0, 041.02, ICD10: R82.71 - See 03/15 urine culture - Plan for prophylaxis during labor Rh negative state in antepartum period (H[facility]) - ICD9: 646.83, ICD10: O26.899, Z67.91 - Plan for Rhogam at 28 weeks and PTL precautions reviewed. RTO in 4 weeks or sooner as needed. Alex Qureshi APRN.[employer] documented in this encounter [facility] 07-14-2025 Instructions Deborah Brand MA - 07/14/2025 8:45 AM EDT SEQUENTIAL SCREENINGS The [facility] offers sequential screenings for women who are [...] It will require an appointment with our hot cell technician. This is not an ultrasound performed [...] the above symptoms, contact our office at [phone] and ask to speak with a nurse. After hours, you can call [facility] at [phone] OR call [facility] at [phone] and ask to have the doctor worksite wellness practitioner paged. If you consider this an emergency, dial -- or go to your nearest emergency department. NEED HELP? Are you dealing with a violent or abusive relationship? Are you a victim of rape or sexual assult? Call [facility] ([place]) 24 hour Crisis Hotline: 705.562.8478 or 165-732-9904. MANUAL Your Guide to a Healthy manual is now on-line. Visit [email or web address] ancyGuide to download your free copy Oral Glucose Tolerance Test During Your provider has ordered an oral glucose tolerance test. For more information: My [facility] Oral Glucose Tolerance Test How do I prepare for my one-hour glucose test? You don t need to prepare for your one-hour glucose screening. Most care providers recommend avoiding foods high in sugar for breakfast. For example, pancakes, donuts or juice. If you re testing later in the day, be aware that eating large amounts of sugar for lunch may affect your results. Can you eat before a glucose screening test? Yes, you can eat normally before your glucose screening test. What can I expect on the day of the glucose screening? On the day of your glucose screening, follow instructions given to you by your care provider or the lab (if applicable). Be sure to know exactly where to go for the screening and if you need an appointment. Safe Sleep for [place] For more information: [email or web address] Safe Sleep Healthy babies are safest when sleeping on their backs at nighttime and during naps. Side sleeping is not as safe as back sleeping and is not advised. documented in this encounter [facility] 07-02-2025 Telephone encounter Note Patient notified. Giana Nicole RN [facility] 07-02-2025 Miscellaneous Notes Patient notified. Giana Highman, RN I agree with advice. Does not need seen at this time since she was just evaluated. Miralax ok too. 22w4d Pt calls stating she started spotting around 6:30pm after working out-pink when wiping. Around 10:20pm when wiping, more red in color and scared Pt, and called o/c provider and went to [facility]. On exam at [facility] (per documentation), closed cervix-no blood in vaginal vault with exam, c/o left sided mild dull abdominal pain past few days-BM every 2-3 days-advised to take colace, no tenderness to abdomen on palpation, FHR 152bpm. Discharged home with instructions to f/u with OB. At 1:30am still some spotting just with wiping-pink in color. No spotting at this time. Woke up around 7am and noticed right sided pain/ right lower, below pelvis, not consistent, described as sharp/shooting-lasts approx 3-5 seconds. On left side explains as a dull, annoying pain. On belly button states just feels tight. Active FM. Pt does feel constipated-Had BM around 7pm but states still doesn't feel empty. Pt had been taking Metamucil once daily, but stopped taking 2 weeks ago. Recommended Pt take a dose of Metamucil along with apple juice to see if she can fully empty to see if pain improves. Instructed Pt to monitor for bleeding at this time and if bleeding increases, pain increases/changes, or decreased movement (advised want 6-10 in 1 hour) to call office right away or go to ER before we call her back. Informed Pt that message would be sent to O/C To see what she recommends at this time since Pt was just examined at 12:41am at [facility]. Pt voiced understanding. Kick count instructions sent to Pt via [employer]. Please advise. Randa Arnett RN documented in this encounter [facility] 07-02-2025 Telephone encounter Note I agree with advice. Does not need seen at this time since she was just evaluated. Miralax ok too. [facility] 07-02-2025 Telephone encounter Note 22w4d Pt calls stating she started spotting around 6:30pm after working out-pink when wiping. Around 10:20pm when wiping, more red in color and scared Pt, and called o/c provider and went to [facility]. On exam at [facility] (per documentation), closed cervix-no blood in vaginal vault with exam, c/o left sided mild dull abdominal pain past few days-BM every 2-3 days-advised to take colace, no tenderness to abdomen on palpation, FHR 152bpm. Discharged home with instructions to f/u with OB. At 1:30am still some spotting just with wiping-pink in color. No spotting at this time. Woke up around 7am and noticed right sided pain/ right lower, below pelvis, not consistent, described as sharp/shooting-lasts approx 3-5 seconds. On left side explains as a dull, annoying pain. On belly button states just feels tight. Active FM. Pt does feel constipated-Had BM around 7pm but states still doesn't feel empty. Pt had been taking Metamucil once daily, but stopped taking 2 weeks ago. Recommended Pt take a dose of Metamucil along with apple juice to see if she can fully empty to see if pain improves. Instructed Pt to monitor for bleeding at this time and if bleeding increases, pain increases/changes, or decreased movement (advised want 6-10 in 1 hour) to call office right away or go to ER before we call her back. Informed Pt that message would be sent to O/C To see what she recommends at this time since Pt was just examined at 12:41am at [facility]. Pt voiced understanding. Kick count instructions sent to Pt via [employer]. Please advise. Randa Arnett, RN [facility] 07-01-2025 Note HNO ID: [id number] Author: JODIE VOGEL MD Service: Obstetrics Author Type: Resident Type: Progress Notes Filed: 07/02/2025 06:14 Note Text: Attestation signed by Jodie Vogel MD at 07/02/2025 6:14 AM Attending Note I evaluated the patient and personally participated in the valerio components. I agree with the resident's findings and plan as documented and have discussed the case and management of the patient's care with the resident. Plan of care discussed with: Provider, RN, Patient. Signature: Jodie Vogel MD Date: July 02, 2025 Time: 6:13 AM OBSTETRICS OB ED PROGRESS NOTE SERVICE DATE: July 01, 2025 SERVICE TIME: 12:41 AM Subjective Patient's stated reason for arrival: vaginal bleeding CHIEF COMPLAINT: Vaginal bleeding HISTORY OF THE PRESENT ILLNESS: The patient is a 30 year old female, , who is at 22w4d with an ESPERANZA of 11/01/2025, by Ultrasound dating method. Patient is here complaining of vaginal bleeding that she describes as light pink spotting once at 6:30pm after she worked out, she had one more episode of light pink spotting around 10pm and decided to come in. She reports having intercourse yesterday. She denies any heavy vaginal bleeding or passing of clots. She has mild dull abdominal pain along the left side of her abdomen. She reports some constipation for the past few weeks, she was taking Colace regularly but has been forgetting to take it recently. Good movement. has been uncomplicated. 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 PAST MEDICAL HISTORY Diagnosis Date Depression, major, recurrent, in partial remission 04/17/2019 Depressive disorder Generalized anxiety disorder Herpes labialis [...] Paternal Grandmother Diabetes Paternal Uncle Autism Brother OB History Gravida2 Para0 Term0 Preterm0 AB1 Living0 SAB0 IAB1 Ectopic0 Multiple0 Live Births0 REVIEW OF SYSTEMS: The remainder of the review of systems is negative. Objective LAST VITALS: Pulse: 67 BP: 134/68 Resp: 18 Temp: 36.7 ?C (98.1 ?F) SpO2: 99 % Weight: 66.7 kg (147 lb) BMI: 0 SENSITIVE EXAMINATION CONSENT: Participation of a fellow, resident, medical student, or advanced practice provider student in performing the sensitive examination was discussed with the patient or authorized fuels sales representative. The patient or authorized fuels sales representative has agreed to proceed with the sensitive examination. PHYSICAL EXAM: General: WD, WN, comfortable Heart: RR Lungs: normal respiratory effort on room air Abdomen: soft, nontender SSE: no bleeding visualized in the vaginal vault, normal physiologic discharge visualized, cervix appears closed without active bleeding CERVICAL EXAM: Dilation: Closed (07/02/25 0046 : Carmelina Ordaz DO) MONITORING/ASSESSMENT: heart rate present and appropriate Ultrasound: N/A LABS Diagnostic tests reviewed for today's visit: Most recent labs and imaging results. 30 year old EGA:22w4d presenting with vaginal bleeding Assessment AND Plan Vaginal bleeding during (HCC) -Patient reports light pink spotting twice today after exercising -Denies heavy vaginal bleeding or passing clots -Doppler tones 152bpm -SSE showed no blood in the vaginal vault, no active bleeding from the cervix -Cervix closed on exam -Patient given return precautions including increasing vaginal bleeding, soaking more than a 1-2 pads in 1-2 hours or passing large clots -Recommended follow up with OB provider as scheduled Abdominal pain affecting (HCC) -Patient has been having mild dull abdominal pain on her left side for the past few days -Also endorses constipation, has a bowel movement every 2-3 days -No tenderness to palpation on exam -Patient has Colace at home but has forgotten to take it the the past few weeks -Recommended patient to continue taking colace for her constipation and increase water intake Discussed with Dr. Vogel. Plan of care discussed with: Provider, RN, Patient. SIGNATURE: Carmelina Ordaz DO PATIENT NAME: Mi Ortez DATE: July 01, 2025 TIME: 11:23 PM PAGER/CONTACT #: [phone] [facility] 06-15-2025 Progress note Formatting of t his note might be different from the original. KJ - S: Mi denies LOF, contractions or vaginal bleeding. She reports increased headaches. O: 20w1d, see flow sheet SENSITIVE EXAM: Sensitive exam not performed. A/P: Assessment & Plan Encounter for supervision of normal first in second trimester (HCC) GBS bacteriuria 20 weeks gestation of ([facility]) Anatomy US today Headaches - advised on magnesium & hydration. Tena Cruz MD [facility] 06-15-2025 Miscellaneous Notes KJ - S: Mi denies LOF, contractions or vaginal bleeding. She reports increased headaches. O: 20w1d, see flow sheet SENSITIVE EXAM: Sensitive exam not performed. A/P: Assessment & Plan Encounter for supervision of normal first in second trimester (HCC) GBS bacteriuria 20 weeks gestation of ([facility]) Anatomy US today Headaches - advised on magnesium & hydration. Tena Cruz MD documented in this encounter [facility] 06-15-2025 Instructions Deborah Brand MA - 06/15/2025 11:06 AM EDT SEQUENTIAL SCREENINGS The [facility] offers sequential screenings for women who are [...] It will require an appointment with our hot cell technician. This is not an ultrasound performed [...] the above symptoms, contact our office at [phone] and ask to speak with a nurse. After hours, you can call doctors registry at [phone] OR call [facility] at [phone] and ask to have the doctor worksite wellness practitioner paged. If you consider this an emergency, dial 1-1-5 or go to your nearest emergency department. NEED HELP? Are you dealing with a violent or abusive relationship? Are you a victim of rape or sexual assult? Call [facility] ([place]) 24 hour Crisis Hotline: 179.594.8425 or 629-444-2016. MANUAL Your Guide to a Healthy manual is now on-line. Visit [email or web address] [email or web address] to download your free copy documented in this encounter [facility] 05-19-2025 Telephone encounter Note Please advise. Planned to recommend Sea-bands. Other options? Thank you. [facility] 05-19-2025 Miscellaneous Notes Please advise. Planned to recommend Sea-bands. Other options? Thank you. documented in this encounter [facility] 05-19-2025 Progress note Formatting of t his [...] Anatomy us scheduled Continue MARLENE Luna MD [facility] 05-19-2025 Miscellaneous Notes DM-Pt doing well. Denies vaginal Bleeding, Leaking fluid, or regular Contractions. Pt reports good movement Physical Exam: Gen: female in no apparent distress Abd: soft, Gravid. Non tender to palpation. See flow sheet @ 16.2 weeks Assessment & Plan Encounter for supervision of normal first in second trimester (HCC) 16 weeks gestation of ([facility]) RTO 4 wks Anatomy us scheduled Continue MARLENE Luna MD documented in this encounter [facility] 05-19-2025 Instructions Lori Lloyd MA - 05/19/2025 8:03 AM EDT SEQUENTIAL SCREENINGS The [facility] offers sequential screenings for women who are [...] It will require an appointment with our hot cell technician. This is not an ultrasound performed [...] the above symptoms, contact our office at [phone] and ask to speak with a nurse. After hours, you can call doctors registry at [phone] OR call [facility] at [phone] and ask to have the doctor worksite wellness practitioner paged. If you consider this an emergency, dial 9-7 or go to your nearest emergency department. NEED HELP? Are you dealing with a violent or abusive relationship? Are you a victim of rape or sexual assult? Call [facility] ([place]) 24 hour Crisis Hotline: 627.517.8462 or 520-281-3376. MANUAL Your Guide to a Healthy manual is now on-line. Visit [email or web address] [email or web address] to download your free copy documented in this encounter [facility] 04-19-2025 Progress note Formatting of t his [...] of normal first in first trimester - [id number] PLUS - HEMOGLOBIN EVALUATION CASCADE - PN labs reviewed - Declines carrier screening today - Anatomy US at 20wk 2. 12 weeks gestation of 3. GBS bacteriuria -Reviewed treatment during labor PTL precautions reviewed and when to call RTO in 4 weeks Kavya Amezquita APRN.CNM [facility] 04-19-2025 Miscellaneous Notes STEPHIE-S: Mi Ortez is [...] of normal first in first trimester - [id number] PLUS - HEMOGLOBIN EVALUATION CASCADE - PN labs reviewed - Declines carrier screening today - Anatomy US at 20wk 2. 12 weeks gestation of 3. GBS bacteriuria -Reviewed treatment during labor PTL precautions reviewed and when to call RTO in 4 weeks Kavya Amezquita APRN.CNM documented in this encounter [facility] 04-19-2025 Sandra Barnard MA - 04/19/2025 2:43 PM EDT SEQUENTIAL SCREENINGS The [facility] offers sequential screenings for women who are [...] It will require an appointment with our hot cell technician. This is not an ultrasound performed [...] the above symptoms, contact our office at [phone] and ask to speak with a nurse. After hours, you can call doctors registry at [phone] OR call [facility] at [phone] and ask to have the doctor worksite wellness practitioner paged. If you consider this an emergency, dial 9-1-3 or go to your nearest emergency department. NEED HELP? Are you dealing with a violent or abusive relationship? Are you a victim of rape or sexual assult? Call [facility] ([place]) 24 hour Crisis Hotline: 814.804.8502 or 415-648-9477. MANUAL Your Guide to a Healthy manual is now on-line. Visit [email or web address] [email or web address] to download your free copy documented in this encounter [facility] 04-18-2025 Telephone encounter Note Patient calling regarding having constipation for 3 days, took metamucil this morning and noticed blood when she urinated a few minutes ago. Patient is 11 weeks .Conferenced to Answering Service [phone] to speak with provider worksite wellness practitioner for Dr. Baez. GO TO THE EMERGENCY ROOM OR CALL 911 IF: * You develop any new symptoms * Your condition worsens * You are concerned or anxious about your condition for any other reason. If you have any questions, you can call Nurse employment consultant back. [facility] 04-18-2025 Miscellaneous Notes Patient calling regarding having constipation for 3 days, took metamucil this morning and noticed blood when she urinated a few minutes ago. Patient is 11 weeks .Conferenced to Answering Service [phone] to speak with provider worksite wellness practitioner for Dr. Plotts. GO TO THE EMERGENCY ROOM OR CALL 911 IF: * You develop any new symptoms * Your condition worsens * You are concerned or anxious about your condition for any other reason. If you have any questions, you can call Nurse employment consultant back. documented in this encounter [facility] 03-25-2025 Note HNO ID: [id number] Author: SHANAE FLORES MD Service: ? 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 Encounter Diagnosis ICD-10-CM 1. Less than 8 weeks gestation of (HCC) Z3A.01 2. Threatened (HCC) O20.0 Please see report under imaging tab. Shanae Flores MD March 25, 2025 8:10 AM [facility] 03-23-2025 Note HNO ID: [id number] Author: KAVYA AMEZQUITA APRN.CNM Service: ? Author Type: Boat Outboard Engine Mechanic Type: Progress Notes Filed: 03/29/2025 08:40 Note [...] further serum quants needed. Kavya Amezquita APRN.CNM [facility] 03-18-2025 Telephone encounter Note Patient called and notified of information below. Ultrasound rescheduled for early next week. Leida George RN [facility] 03-18-2025 Miscellaneous Notes Patient called and notified of information below. Ultrasound rescheduled for early next week. Leida George RN HCG levels slight decrease. I would recommend she have another level drawn tomorrow. If possible, can we get her scheduled for ultrasound early next week instead of visit on 03/30/25. Thank you. Mikala Baez APRN.CNM hCG Quantitative, Blood (mIU/mL) Date Value 03/17/2025 106,048.0 03/15/2025 112,042.0 Please review. Patient 7w4d, seen in office on 03/15 for New OB. Leida George RN hCG Quantitative, Blood (mIU/mL) Date Value 03/15/2025 112,042.0 documented in this encounter [facility] 03-18-2025 Telephone encounter Note HCG levels slight decrease. I would recommend she have another level drawn tomorrow. If possible, can we get her scheduled for ultrasound early next week instead of visit on 03/30/25. Thank you. Mikala Baez APRN.CNM [facility] 03-18-2025 Telephone encounter Note hCG Quantitative, Blood (mIU/mL) Date Value 03/17/2025 106,048.0 03/15/2025 112,042.0 Please review. Patient 7w4d, seen in office on 03/15 for New OB. Leida George RN [facility] 03-16-2025 Telephone encounter Note hCG Quantitative, Blood (mIU/mL) Date Value 03/15/2025 112,042.0 [facility] 03-15-2025 Progress note Formatting of t his note might be different from the original. Patient is here for NOB. LMP 01/13/25 which makes gestational age at 8 weeks. [facility] and [facility] confirmed IUP but measurements were 1 week earlier. TVUS today shows IUP measurements of 7 weeks 1 day. Positive cardiac activity. Mikala Baez APRN.CNM [facility] 03-15-2025 Miscellaneous Notes Patient is here for NOB. LMP 01/13/25 which makes gestational age at 8 weeks. She was seen [facility] last week and TVUS confirmed IUP but measurements were 1 week earlier. TVUS today shows IUP measurements of 7 weeks 1 day. Positive cardiac activity. Mikala Baez APRN.CNM documented in this encounter [facility] 03-15-2025 Instructions Deborah Brand MA - 03/15/2025 8:21 AM EDT Please select the following link to access the [facility] Your Guide to a Healthy . [email or web address] documented in this encounter [facility] 03-15-2025 Note HNO ID: [id number] Author: MIKALA BAEZ APRN.CNM Service: ? Author Type: Boat Outboard Engine Mechanic Type: Progress Notes Filed: 03/15/2025 10:56 Note Text: Community Relations Representative offered: Patient declines. INITIAL OB ASSESSMENT HPI: [...] the following (please check all that apply)? 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 As applicable, any other physician, advance practice provider, medical student, or other health professional student that will be observing or involved in the sensitive examination for educational or training purposes was discussed with the Patient or Authorized Fish Bin Tender. The Patient or Authorized Fish Bin Tender has agreed to proceed with the sensitive examination. (Sensitive examination includes inspection and/or palpation of the breasts, pelvis, prostate and anorectal regions). PHYSICAL EXAM: BP 114/60 Ht 5' 4.567 (1.64m) Wt 135 lb (61.2kg) LMP 01/13/2025 BMI 22.77 kg/(m2). GENERAL: pleasant in no apparent distress DERMATOLOGY: No (more content not included)... [facility] 03-15-2025 History of Presen t illness Narrative Community Relations Representative offered: Patient declines. INITIAL OB ASSESSMENT HPI: [...] the following (please check all that apply)? 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 As applicable, any other physician, advance practice provider, medical student, or other health professional student that will be observing or involved in the sensitive examination for educational or training purposes was discussed with the Patient or Authorized Fish Bin Tender. The Patient or Authorized Fish Bin Tender has agreed to proceed with the sensitive [...] Your guide to a health and the Paint Preparer. Reviewed midwifery and cylinder inspector services that are available. 2) Screening: Hemoglobin [...] 2 weeks for dating US or sooner prn. Mikala Baez APRN.CNM documented in this encounter [facility] 02-12-2025 Telephone encounter Note Please see pt message. Can you give her Diflucan for a yeast infection. Please advise. Cheryl Steel MA [facility] 02-12-2025 Miscellaneous Notes Please see pt message. Can you give her Diflucan for a yeast infection. Please advise. Cheryl Steel MA documented in this encounter [facility] 02-08-2025 Telephone encounter Note Was sick again over weekend. Will get labs. [facility] 02-08-2025 Miscellaneous Notes Was sick again over weekend. Will get labs. documented in this encounter [facility] 01-29-2025 Note HNO ID: [id number] Author: JEEVAN LOPEZ MD Service: ? Author [...] - Symptomatic treatme (more content not included)... [facility] 01-29-2025 History of Presen t illness Narrative [...] Jeevan Lopez MD documented in this encounter [facility] 01-27-2025 Telephone encounter Note Has been ill again. Had augmentin that she was using but is giving diarrhea. Likely may have been exposed to flu. Sees me Saturday. Will call in prednisone to cover units until then. [facility] 01-27-2025 Miscellaneous Notes Has been ill again. Had augmentin that she was using but is giving diarrhea. Likely may have been exposed to flu. Sees me Saturday. Will call in prednisone to cover units until then. documented in this encounter [facility] 12-31-2024 Note HNO ID: [id number] Author: GIANA ARBOLEDA MD Service: ? Author [...] L0 SAB0 IAB0 Ectopic0 Multiple0 Live Births0 Equipment Technician History LMP: 12/04/2024 (Exact Date), Having periods Age at Menarche: 16 Age at First : Age at Menopause: Equipment Technician History Comments: Sexual Activity: Yes; Male Contraception: [...] discussed with the Patient or Patient's Authorized Fish Bin Tender. As applicable, any other physician, advance practice provider, medical student, or other health professional student that will be observing or involved in the sensitive examination for educational or training purposes was discussed with the Patient or Authorized Fish Bin Tender. The Patient or Authorized Fish Bin Tender has agreed to proceed with the sensitive [...] external genitalia normal, normal Bartholin's glands, urethra, [place]'s glands, no vulvar lesions, no cervical lesions, [...] or sooner as needed Giana Arboleda MD [facility] 12-31-2024 History of Presen t illness Narrative [...] L0 SAB0 IAB0 Ectopic0 Multiple0 Live Births0 Equipment Technician History LMP: 12/04/2024 (Exact Date), Having periods Age at Menarche: 16 Age at First : Age at Menopause: Equipment Technician History Comments: Sexual Activity: Yes; Male Contraception: [...] discussed with the Patient or Patient's Authorized Fish Bin Tender. As applicable, any other physician, advance practice provider, medical student, or other health professional student that will be observing or involved in the sensitive examination for educational or training purposes was discussed with the Patient or Authorized Fish Bin Tender. The Patient or Authorized Fish Bin Tender has agreed to proceed with the sensitive [...] external genitalia normal, normal Bartholin's glands, urethra, [place]'s glands, no vulvar lesions, no cervical lesions, [...] Giana Arboleda MD documented in this encounter [facility] 12-19-2024 Note HNO ID: [id number] Author: JEEVAN LOPEZ MD Service: ? Author [...] Take 1 tablet by mouth twice daily. Edacqlpivnovlnn-Luklpvgyf-ZU (BROMFED DM) 2-30-10 mg/5 mL syrup Take [...] ACYCLOVIR 400 MG TABLET Jeevan Lopez MD [facility] 12-19-2024 History of Presen t illness Narrative [...] Take 1 tablet by mouth twice daily. Ycpaidrgfscadkt-Bswckfbli-HR (BROMFED DM) 2-30-10 mg/5 mL syrup Take [...] Jeevan Lopez MD documented in this encounter [facility] 12-10-2024 Note HNO ID: [id number] Author: TIMOTHY BAJWA MD Service: ? Author [...] on File Prior to Visit Medication Sig Rxubrjyvpxyqfii-Gbydazoic-ZU (BROMFED DM) 2-30-10 mg/5 mL syrup Take [...] as needed, w (more content not included)... [facility] 12-10-2024 History of Presen t illness Narrative [...] on File Prior to Visit Medication Sig Kvbhutwsbyylppv-Evckxhjfg-XJ (BROMFED DM) 2-30-10 mg/5 mL syrup Take [...] Timothy Bajwa MD documented in this encounter [facility] 12-07-2024 Note HNO ID: [id number] Author: JONNY IBARRA MD Service: ? Author [...] mild MEDICATIONS: Current Outpatient Medications Medication Sig Gofcbqlwdqydtbr-Vqfdkkxmm-LG (BROMFED DM) 2-30-10 mg/5 mL syrup Take 5 mL by mouth four times a day as needed. albuterol HFA (PROVENTIL HFA, VENTOLIN HFA) 90 mcg/actuation inhaler Inhale 2 Puffs as instructed every 6 hours as needed for wheezing/shortness of breath. Drospirenone-Ethinyl Estradiol (NADER, Nimesh,) 3-0.02 mg per [...] or late onset fever. Jonny Ibarra MD [facility] 12-07-2024 History of Presen t illness Narrative Patient [...] mild MEDICATIONS: Current Outpatient Medications Medication Sig Nmxlxkssklpimgu-Uwbdkkqps-GA (BROMFED DM) 2-30-10 mg/5 mL syrup Take [...] Jonny Ibarra MD documented in this encounter [facility] 12-03-2024 History of Presen t illness Narrative [...] PATIENT PRESENTS WITH AN IMPLANTABLE OR ATTACHED HABITAT MANAGEMENT COORDINATOR: No RADIOLOGY DEPARTMENT: General X-ray: Exam(s) Completed: Chest X-Ray PERIPHERAL IV DATA: Not applicable SIGNED BY: RT Cedric(Brenda) December 03, 2024 10:22 AM documented in this encounter [facility] 12-03-2024 Note HNO ID: [id number] Author: LINA CRUZ RT(R) Service: Radiology Author [...] PATIENT PRESENTS WITH AN IMPLANTABLE OR ATTACHED HABITAT MANAGEMENT COORDINATOR: No RADIOLOGY DEPARTMENT: General X-ray: Exam(s) Completed: Chest X-Ray PERIPHERAL IV DATA: Not applicable SIGNED BY: RT Cedric(R) December 03, 2024 10:22 AM [facility] 12-03-2024 Note HNO ID: [id number] Author: KACIE CRUZ APRN.SEAMLESS TUBE DRAWER Service: ? Author Type: Nurse Practitioner Type: [...] Unremarkable. IMPRESSION IMPRESSION: No acute radiographic abnormality. Logging Tractor Operator Swamp: SHARITA Transcribe Date/Time: Dec 03 2024 10:36A [...] Unremarkable. IMPRESSION IMPRESSION: No acute radiographic abnormality. Logging Tractor Operator Swamp: SHARITA Transcribe Date/Time: Dec 03 2024 10:36A [...] Patient agreeable to treatment plan. Kacie Cruz APRN.[facility] 01-02-2025 History of Presen t illness Narrative CC: [...] Unremarkable. IMPRESSION IMPRESSION: No acute radiographic abnormality. Logging Tractor Operator Swamp: SHARITA Transcribe Date/Time: Dec 03 2024 10:36A [...] Unremarkable. IMPRESSION IMPRESSION: No acute radiographic abnormality. Logging Tractor Operator Swamp: [facility] Transcribe Date/Time: Dec 03 2024 10:36A Dictated [...] Patient agreeable to treatment plan. Kacie Cruz APRN.SEAMLESS TUBE DRAWER documented in this encounter [facility] 02-25-2023 History of Presen t illness Narrative Refill Authorization Consent Mi Ortez was encountered by text or mychart message to obtain consent for pharmacist managed refill authorization. Patient gives consent to the authorization of prescriptions by a pharmacist. Brie Arana RN 02/25/2023 documented in this encounter [facility] 12-04-2022 Miscellaneous Notes See pended medication order below. Pt calling and stated that this was sent to local pharmacy but it needs to be sent to [facility]. Call only if problems. Pooja Hidalgo LPN documented in this encounter [facility] 11-23-2022 History of Presen t illness Narrative Community Relations Representative offered: Patient declines. Mi is a 27 year old who presents for an annual gynecologic exam without complaints. 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 [employer] Menses: cycles every 28 days and 4 [...] L0 SAB0 IAB0 Ectopic0 Multiple0 Live Births0 Equipment Technician History LMP: 11/20/2022, Having periods Age at Menarche: Age at First : Age at Menopause: Equipment Technician History Comments: Sexual Activity: Not Currently; Male [...] external genitalia normal, normal Bartholin's glands, urethra, [place]'s glands, no vulvar lesions, no cervical lesions, [...] Valorie Luna MD documented in this encounter [facility] 10-19-2022 History of Presen t illness Narrative Behavioral Health Social Work Progress Note Patient identified for [facility] from: PCP Reason for referral: [facility] Resources: Psychology - talk therapy [facility] encounter type: [employer] Message Attempts to Outreach: 3 attempts Referral made: Psychology - Internal;Psychology - External Psychology-Internal referral type: Therapy;EAP Psychology-External referral type: Therapy Reason for external referral: Wait times at [facility] too long Final Disposition: Resources given Patient Discharged?: Yes Patient reported that caregiver was able to meet their needs today?: N/A Patient read [employer] message with requested resources by PCP. SW sent follow-up message to see if any additional questions or concerns exist. CARLOS Guerra October 19, 2022 documented in this encounter [facility] 10-12-2022 Miscellaneous Notes Reviewed. Behavioral Health Social Work Progress Note Patient identified for [facility] from: PCP Reason for referral: [facility] Resources: Psychology - talk therapy [facility] encounter type: Telephone Encounter Attempts to Outreach: 1 attempt Referral made: Psychology - Internal;Psychology - External Psychology-Internal referral type: Therapy;EAP Psychology-External referral type: Therapy Reason for external referral: Wait times at [facility] too long Final Disposition: Unable to reach Patient Discharged?: No Patient reported that caregiver was able to meet their needs today?: N/A Phone call placed today that went to [employer]. Left my contact information and brief nature of call. Initial outreach also completed via [employer] sending list of in network providers with insurance. These include: [facility] Caregivers Program: - Available for [facility] insurance card holders. - Includes 6 free sessions per calendar year- this is not billed through your insurance. - If you are interested these services, please call [phone] to schedule an appointment. [facility] [phone] *counseling and psychiatry [facility] [address] [facility] [address] [place] [address] *counseling and psychiatry [facility] (MULTIPLE LOCATIONS AND VIRTUAL) [address] [place] [address] [place] [address] *counseling and psychiatry [facility] Psychiatry ([facility]) [address] [place] [address] *counseling and psychiatry [facility] [address] [facility] [address] [place] [address] *counseling [facility] [address] [place] [address] *counseling and psychiatry [facility] [address] [facility] [place], [place] [phone] *counseling and psychiatry [facility] [address] [facility] [address] [place] [address] *counseling and psychiatry [facility] [address] [place] [address] *counseling [facility] [address] [place] [address] *counseling CARLOS Guerra October 12, 2022 documented in this encounter [facility] 10-12-2022 History of Presen t illness Narrative Chief Complaint Patient presents with: Physical HPI Mi Ortez is a 27 year old female who presents here today for annual physical. Has been in good health without hospitalizations or ER visits. Depression/anxiety: Requesting new referral to counseling since she never followed up. Has had both good and bad stress lately. 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 Will be working in one [...] No history of dysuria, frequency or incontinence [employer]SEM[employer]ER: Negative for abnormal vaginal bleeding, abnormal vaginal [...] diet of 1000 mg/day for under 50, [id number] mg/day for 50+ - Follow up for [...] Timothy Bajwa MD documented in this encounter [facility] 09-16-2022 History of Presen t illness Narrative [...] Kacie Cruz APRN.CNP documented in this encounter [facility] 06-22-2022 Miscellaneous Notes Phoned patient and updated her with results. Patient voiced understanding. Please call patient and let her know her xrays are normal. Char Barrett APRN.CNP documented in this encounter [facility] 06-22-2022 Instructions Char Barrett APRN.CNP - 06/22/2022 11:50 AM EDT Concussion in children and adolescents (The Basics) Written by the doctors and editors at [facility] (Ammended by Dr. Davis 07/2016) What is [...] sports most often linked to concussions are [place] football, ice hockey, and lacrosse. Among girls, [...] wake your child documented in this encounter [facility] 06-22-2022 History of Presen t illness Narrative [...] finger apple 1 1 0 paper monkey adrling carpet 1 1 0 sugar perfume blanket [...] Order (1 point for entire sequence correct) Fut-Lsv-Qap-Uzfm-Wju-Bwn-May-April -Pml-Mth-Zct-Dec 1 Concentration Score 3 of 5 SAC [...] - XR THORACIC GENERAL 3V AP/LAT/SWIMMERS Char Barrett APRN.CNP Prescription instructions reviewed with patient as applicable. [...] which included preparing to see the patient, [id number] patient care, completing clinical documentation, performing a medically appropriate examination, counseling and educating the patient/family/caregiver and ordering medications, tests, or procedures. documented in this encounter [facility] 06-21-2022 History of Presen t illness Narrative Patient presents to express care triage with a head injury and mid back pain since yesterday. She was doing a head stand at [employer] when she slipped and fell straight down [...] we do not evaluate head injuries at [facility] and would recommend being seen in the ER. I did check family medicine and there are no available visits today. She will talk to her mom and decide which er to go to. documented in this encounter [facility] 05-30-2022 Instructions Heron Choudhury APRN.CNP - 05/30/2022 2:51 PM EDT [facility] [...] when lying down. documented in this encounter [facility] 05-30-2022 History of Presen t illness Narrative [...] 2022 2:23 PM documented in this encounter [facility] 05-30-2022 History of Presen t illness Narrative Subjective HPI Nontoxic-appearing female presents urgent care chief complaint right knee pain. Duration of symptoms 4 days. Associated symptoms right knee pain decreased range of motion due to discomfort. Patient states was doing box jumps at [employer] when she felt a pop in her [...] of care. This note was generated using City Notes software. It may contain errors in wording, punctuation, or spelling. Heron Choudhury APRN.LEDA documented in this encounter [facility] 04-10-2022 History of Presen t illness Narrative [...] Timothy Bajwa MD documented in this encounter [facility] Evaluation note Diagnosis Anxiety with depression- Primary Recurrent cold sores Herpes simplex without mention of complication [facility] Diagnosis Injury of right knee, initial encounter- Primary [facility] Diagnosis Closed head injury, initial encounter- Primary [facility]* Diagnosis Closed head injury, initial encounter- Primary Cervical pain (neck) Cervicalgia Acute bilateral thoracic back pain [facility]* Diagnosis Sore throat- Primary Acute pharyngitis At increased risk of exposure to COVID-19 virus [facility]* Diagnosis Annual physical exam- Primary Routine general medical examination at a health care facility Anxiety with depression Herpes labialis Herpes simplex without mention of complication Cervical pain (neck) Cervicalgia Closed head injury, initial encounter Need for influenza vaccination Need for prophylactic vaccination and inoculation against influenza Need for COVID-19 vaccine [facility] Diagnosis Encounter for gynecological examination (general) (routine) without abnormal findings- Primary Surveillance for control, oral contraceptives Surveillance of previously prescribed contraceptive pill Screening for cervical cancer Screening for malignant neoplasm of the cervix Screen for STD (sexually transmitted disease) Screening examination for venereal disease documented in this encounter [facility] note* Diagnosis Surveillance for control, oral contraceptives Surveillance of previously prescribed contraceptive pill [facility]* Diagnosis Acute bilateral thoracic back pain Cervical pain (neck) Cervicalgia [facility]* Diagnosis Injury of right knee, initial encounter documented in this encounter [facility] note* Diagnosis Acute cough- Primary Acute cough [facility] Diagnosis Acute cough [facility]* Diagnosis Bronchitis- Primary Bronchitis, not specified as acute or chronic [facility]* Diagnosis Viral URI with cough- Primary Acute upper respiratory infections of unspecified site [facility]* Diagnosis Bronchitis- Primary Bronchitis, not specified as acute or chronic Recurrent cold sores Herpes simplex without mention of complication [facility] Diagnosis Encounter for gynecological examination (general) (routine) without abnormal findings- Primary Screening for STD (sexually transmitted disease) Screening examination for venereal disease [facility]* Diagnosis URI, acute- Primary Acute upper respiratory infections of unspecified site documented in this encounter [facility] note* Diagnosis Fever, unspecified fever cause- Primary [facility]* Diagnosis Vaginal irritation Unspecified noninflammatory disorder of vagina [facility] Diagnosis Less than 8 weeks gestation of (HCC)- Primary state, incidental Screening for cervical cancer Screening for malignant neoplasm of the cervix Screen for STD (sexually transmitted disease) Screening examination for venereal disease H/O cold sores Personal history of other infectious and parasitic disease Threatened ([facility]) Threatened , unspecified as to episode of care Generalized anxiety disorder Encounter for supervision of normal first in first trimester ([facility]) Supervision of normal first History of induced Personal history of other genital system and obstetric disorders [facility]* Diagnosis Encounter for supervision of normal first in first trimester ([facility])- Primary Supervision of normal first 12 weeks gestation of (HCC) state, incidental GBS bacteriuria [facility]* Diagnosis Encounter for screening for malformation using ultrasound ([facility])- Primary 12 weeks gestation of ([facility]) state, incidental [facility]* Diagnosis GBS bacteriuria- Primary documented in this encounter [facility] note* Diagnosis Encounter for supervision of normal first in second trimester ([facility])- Primary Supervision of normal first 16 weeks gestation of ([facility]) state, incidental * Assessment & Plan Note - Valorie Meza MD - 05/19/2025 8:10 AM EDT Associated Problem(s): Encounter for supervision of normal first in first trimester ([facility]) documented in this encounter [facility] note* Diagnosis Encounter for supervision of normal first in second trimester ([facility])- Primary Supervision of normal first 16 weeks gestation of ([facility]) state, incidental Encounter for supervision of normal first in second trimester ([facility])- Primary Supervision of normal first GBS bacteriuria 20 weeks gestation of ([facility]) state, incidental * Assessment & Plan Note - Tena Cruz MD - 06/15/2025 11:25 AM EDTAssociated Problem(s): GBS bacteriuria documented in this encounter [facility] note* Diagnosis Encounter for supervision of normal first in second trimester (HCC)- Primary Supervision of normal first 16 weeks gestation of ([facility]) state, incidental Encounter for supervision of normal first in first trimester ([facility])- Primary Supervision of normal first Less than 8 weeks gestation of ([facility]) state, incidental Encounter for supervision of normal first in second trimester ([facility])- Primary Supervision of normal first GBS bacteriuria 20 weeks gestation of ([facility]) state, incidental documented in this encounter [facility] noteNo assessment information availableWMarion Hospital Work Phone: Evaluation note* Diagnosis Encounter for supervision of normal first in second trimester ([facility])- Primary Supervision of normal first 16 weeks gestation of ([facility]) state, incidental Encounter for supervision of normal first in second trimester ([facility])- Primary Supervision of normal first GBS bacteriuria 20 weeks gestation of ([facility]) state, incidental Abdominal pain affecting ([facility]) Encounter for supervision of normal first in second trimester ([facility])- Primary Supervision of normal first 24 weeks gestation of ([facility]) state, incidental Screening for diabetes mellitus GBS bacteriuria Rh negative state in antepartum period ([facility]) Rhesus isoimmunization affecting management of mother, antepartum condition Herpes simplex virus infection Herpes simplex without mention of complication Vaginal bleeding during ([facility]) [facility] Diagnosis Encounter for supervision of normal first in second trimester ([facility])- Primary Supervision of normal first 16 weeks gestation of ([facility]) state, incidental Encounter for supervision of normal first in second trimester ([facility])- Primary Supervision of normal first GBS bacteriuria 20 weeks gestation of ([facility]) state, incidental Abdominal pain affecting ([facility]) 28 weeks gestation of ([facility])- Primary state, incidental Rh negative state in antepartum period ([facility]) Rhesus isoimmunization affecting management of mother, antepartum condition Need for vaccination Need for prophylactic vaccination and inoculation against unspecified single disease Encounter for supervision of normal first in second trimester ([facility]) Supervision of normal first [facility] Diagnosis Encounter for supervision of normal first in second trimester ([facility])- Primary Supervision of normal first 16 weeks gestation of ([facility]) state, incidental Encounter for supervision of normal first in second trimester ([facility])- Primary Supervision of normal first GBS bacteriuria 20 weeks gestation of ([facility]) state, incidental Abdominal pain affecting ([facility]) Abnormal glucose complicating ([facility])- Primary Abnormal maternal glucose tolerance, complicating , childbirth, or the puerperium, unspecified as to episode of care [facility] Diagnostic Procedure Only (Routine) - Closed Specialty Diagnoses / Procedures Referred By Devin t Referred To Contact XR IMAGING Diagnoses Acute bilateral thoracic back pain Procedures XR THORACIC GENERAL 3V AP/LAT/SWIMMERS RADEX SPINE THORACIC 3 VIEWS Podlogar, SHANTAL Pardo.SEAMLESS TUBE DRAWER [address] [place] [address] Xr Imaging Referral ID Status Reason Start Date Expiration Date V isits Requested Visits Authorized [id number] Closed Auto-Generate d Referral 06/22/2022 07/22/2023 1 1 * Diagnostic Procedure Only (Routine) - Closed Specialty Diagnoses / Procedures Referred By Contac t Referred To Contact XR IMAGING Diagnoses Cervical pain (neck) Procedures XR CERV OTHER 4V AP/LAT/OBL RADEX SPINE CERVICAL 4 OR 5 VIEWS PodlogChar rice APRN.SEAMLESS TUBE DRAWER [address] [place] [address] Xr Imaging Referral ID Status Reason Start Date Expiration Date V isits Requested Visits Authorized [id number] Closed Auto-Generate d Referral 06/22/2022 07/22/2023 1 1 [facility] for referral (narrative)* Diagnostic Procedure Only (Routine) - Closed Specialty Diagnoses / Procedures Referred By Contac t Referred To Contact XR IMAGING Diagnoses Cervical pain (neck) Procedures XR CERV OTHER 4V AP/LAT/OBL RADEX SPINE CERVICAL 4 OR 5 VIEWS PodlogarChar APRN.SEAMLESS TUBE DRAWER [address] [place] [address] [place] [id number] Referral ID Status Reason Start Date Expiration Date V isits Requested Visits Authorized [id number] Closed Auto-Generate d Referral 06/22/2022 07/22/2023 1 1 * Diagnostic Procedure Only (Routine) - Closed Specialty Diagnoses / Procedures Referred By Contac t Referred To Contact XR IMAGING Diagnoses Acute bilateral thoracic back pain Procedures XR THORACIC GENERAL 3V AP/LAT/SWIMMERS RADEX SPINE THORACIC 3 VIEWS PodlogChar rice APRN.SEAMLESS TUBE DRAWER [address] [place] [address] [place] [address] Referral ID Status Reason Start Date Expiration Date V isits Requested Visits Authorized [id number] Closed Auto-Generate d Referral 06/22/2022 07/22/2023 1 1 [facility] for referral (narrative)* Diagnostic Procedure Only (Urgent) - Closed Specialty Diagnoses / Procedures Referred By Contac t Referred To Contact XR IMAGING Diagnoses Injury of right knee, initial encounter Procedures XR KNEE GENERAL 4V AP BOTH/PA BOTH/LAT/MERC RIGHT RADIOLOGIC EXAM KNEE COMPLETE 4/MORE VIEWS Heron Choudhury APRN.SEAMLESS TUBE DRAWER [address] [place] [address] [place] [address] Referral ID Status Reason Start Date Expiration Date V isits Requested Visits Authorized [id number] Closed Auto-Generate d Referral 05/30/2022 06/29/2023 1 1 [facility] for referral (narrative)No reason for referral information availableWMarion Hospital Work Phone: Reason for visit Narrative* Diagnostic Procedure Only (Routine) - Closed Specialty Diagnoses / Procedures Referred By Contac t Referred To Contact XR IMAGING Diagnoses Acute bilateral thoracic back pain Procedures XR THORACIC GENERAL 3V AP/LAT/SWIMMERS RADEX SPINE THORACIC 3 VIEWS Char Barrett APRN.SEAMLESS TUBE DRAWER [address] [place] [address] [place] [address] Referral ID Status Reason Start Date Expiration Date V isits Requested Visits Authorized [id number] Closed Auto-Generate d Referral 06/22/2022 07/22/2023 1 1 [facility] for visit Narrative* Diagnostic Procedure Only (Urgent) - Closed Specialty Diagnoses / Procedures Referred By Contac t Referred To Contact XR IMAGING Diagnoses Injury of right knee, initial encounter Procedures XR KNEE GENERAL 4V AP BOTH/PA BOTH/LAT/MERC RIGHT RADIOLOGIC EXAM KNEE COMPLETE 4/MORE VIEWS Heron Choudhury APRN.SEAMLESS TUBE DRAWER [address] [place] [address] [place] [id number] Referral ID Status Reason Start Date Expiration Date V isits Requested Visits Authorized [id number] Closed Auto-Generate d Referral 05/30/2022 06/29/2023 1 1 [facility] Advance Directives No Advanced Directives Records FoundDocuments on File Type Date Recorded 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 Advance Directive(s) 01/19/2018 1:54 PM Documents on File Type Date Recorded 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 Advance Directive(s) 01/19/2018 1:54 PM Reason for Referral Specialty Diagnoses / Procedures Referred By Contac t Referred To Contact Orthopedics Diagnoses Injury of right knee, initial encounter Procedures CONSULT TO ORTHOPAEDICS OFFICE/OUTPATIENT [facility] 60-74 MINUTES Heron Choudhury, SHANTAL.SEAMLESS TUBE DRAWER [address] [place] [address] Referral ID Status Reason Start Date Expiration Date Visits Requested Visits Authorized [id number] Authorized PCP Requested Referral 05/30/2022 05/30/2023 1 1 Specialty Diagnoses / Procedures Referred By Contac t Referred To Contact XR IMAGING Diagnoses Injury of right knee, initial encounter Procedures XR KNEE GENERAL 4V AP BOTH/PA BOTH/LAT/MERC RIGHT RADIOLOGIC EXAM KNEE COMPLETE 4/MORE VIEWS Heron Choudhury, SHANTAL.SEAMLESS TUBE DRAWER [address] [facility] [place] [address] Xr Imaging Referral ID Status Reason Start Date Expiration Date V isits Requested Visits Authorized [id number] Closed Auto-Generate d Referral 05/30/2022 06/29/2023 1 1 Health Concerns Infection Onset Date Last Indicated Resolved Time COVID-19 Rule-Out 09/16/2022 09/16/2022 Chief Complaint and Reason for Visit Chief Complaint Admit Date fallJune 19, 2025 3:16 pm Summary Purpose Family History No Family History Records FoundNo Family History Records FoundNo Family History Records Found Additional Source Comments Source Comments (unrecognize d section and content) In the event this informatio n is protected by the Federal Confidentiality of Alcohol and Drug Abuse Patient Records regulations: The Federal rules restrict any use of the information to criminally investigate or prosecute any alcohol or drug abuse patient.[facility] the event this information is protected by the Federal Confidentiality of Alcohol and Drug Abuse Patient Records regulations: The Federal rules restrict any use of the information to criminally investigate or prosecute any alcohol or drug abuse patient.[facility] Rehabilitation[facility] the event this information is protected by the Federal Confidentiality of Alcohol and Drug Abuse Patient Records regulations: The Federal rules restrict any use of the information to criminally investigate or prosecute any alcohol or drug abuse patient.[facility] RehabilitationIn the event this information is protected by the Federal Confidentiality of Alcohol and Drug Abuse Patient Records regulations: The Federal rules restrict any use of the information to criminally investigate or prosecute any alcohol or drug abuse patient.[facility] RehabilitationIn the event this information is protected by the Federal Confidentiality of Alcohol and Drug Abuse Patient Records regulations: The Federal rules restrict any use of the information to criminally investigate or prosecute any alcohol or drug abuse patient.[facility] RehabilitationIn the event this information is protected by the Federal Confidentiality of Alcohol and Drug Abuse Patient Records regulations: The Federal rules restrict any use of the information to criminally investigate or prosecute any alcohol or drug abuse patient.[facility] RehabilitationIn the event this information is protected by the Federal Confidentiality of Alcohol and Drug Abuse Patient Records regulations: The Federal rules restrict any use of the information to criminally investigate or prosecute any alcohol or drug abuse patient.[facility] RehabilitationIn the event this information is protected by [...] or prosecute any alcohol or drug abuse patient.[facility] RehabilitationIn the event this information is protected by the Federal Confidentiality of Alcohol and Drug Abuse Patient Records regulations: The Federal rules restrict any use of the information to criminally investigate or prosecute any alcohol or drug abuse patient.[facility] RehabilitationIn the event this information is protected by the Federal Confidentiality of Alcohol and Drug Abuse Patient Records regulations: The Federal rules restrict any use of the information to criminally investigate or prosecute any alcohol or drug abuse patient.[facility] RehabilitationIn the event this information is protected by the Federal Confidentiality of Alcohol and Drug Abuse Patient Records regulations: The Federal rules restrict any use of the information to criminally investigate or prosecute any alcohol or drug abuse patient.[facility] RehabilitationIn the event this information is protected by the Federal Confidentiality of Alcohol and Drug Abuse Patient Records regulations: The Federal rules restrict any use of the information to criminally investigate or prosecute any alcohol or drug abuse patient.[facility] RehabilitationIn the event this information is protected by the Federal Confidentiality of Alcohol and Drug Abuse Patient Records regulations: The Federal rules restrict any use of the information to criminally investigate or prosecute any alcohol or drug abuse patient.[facility] RehabilitationIn the event this information is protected by the Federal Confidentiality of Alcohol and Drug Abuse Patient Records regulations: The Federal rules restrict any use of the information to criminally investigate or prosecute any alcohol or drug abuse patient.[facility] RehabilitationIn the event this information is protected by the Federal Confidentiality of Alcohol and Drug Abuse Patient Records regulations: The Federal rules restrict any use of the information to criminally investigate or prosecute any alcohol or drug abuse patient.[facility] RehabilitationIn the event this information is protected by the Federal Confidentiality of Alcohol and Drug Abuse Patient Records regulations: The Federal rules restrict any use of the information to criminally investigate or prosecute any alcohol or drug abuse patient.[facility] RehabilitationIn the event this information is protected by the Federal Confidentiality of Alcohol and Drug Abuse Patient Records regulations: The Federal rules restrict any use of the information to criminally investigate or prosecute any alcohol or drug abuse patient.[facility] RehabilitationIn the event this information is protected by the Federal Confidentiality of Alcohol and Drug Abuse Patient Records regulations: The Federal rules restrict any use of the information to criminally investigate or prosecute any alcohol or drug abuse patient.[facility] RehabilitationIn the event this information is protected by the Federal Confidentiality of Alcohol and Drug Abuse Patient Records regulations: The Federal rules restrict any use of the information to criminally investigate or prosecute any alcohol or drug abuse patient.[facility] RehabilitationIn the event this information is protected by the Federal Confidentiality of Alcohol and Drug Abuse Patient Records regulations: The Federal rules restrict any use of the information to criminally investigate or prosecute any alcohol or drug abuse patient.[facility] RehabilitationIn the event this information is protected by the Federal Confidentiality of Alcohol and Drug Abuse Patient Records regulations: The Federal rules restrict any use of the information to criminally investigate or prosecute any alcohol or drug abuse patient.[facility] RehabilitationIn the event this information is protected by the Federal Confidentiality of Alcohol and Drug Abuse Patient Records regulations: The Federal rules restrict any use of the information to criminally investigate or prosecute any alcohol or drug abuse patient.[facility] RehabilitationIn the event this information is protected by the Federal Confidentiality of Alcohol and Drug Abuse Patient Records regulations: The Federal rules restrict any use of the information to criminally investigate or prosecute any alcohol or drug abuse patient.[facility] RehabilitationIn the event this information is protected by the Federal Confidentiality of Alcohol and Drug Abuse Patient Records regulations: The Federal rules restrict any use of the information to criminally investigate or prosecute any alcohol or drug abuse patient.[facility] RehabilitationIn the event this information is protected by the Federal Confidentiality of Alcohol and Drug Abuse Patient Records regulations: The Federal rules restrict any use of the information to criminally investigate or prosecute any alcohol or drug abuse patient.[facility] RehabilitationIn the event this information is protected by the Federal Confidentiality of Alcohol and Drug Abuse Patient Records regulations: The Federal rules restrict any use of the information to criminally investigate or prosecute any alcohol or drug abuse patient.[facility] RehabilitationIn the event this information is protected by the Federal Confidentiality of Alcohol and Drug Abuse Patient Records regulations: The Federal rules restrict any use of the information to criminally investigate or prosecute any alcohol or drug abuse patient.[facility] RehabilitationIn the event this information is protected by the Federal Confidentiality of Alcohol and Drug Abuse Patient Records regulations: The Federal rules restrict any use of the information to criminally investigate or prosecute any alcohol or drug abuse patient.[facility] RehabilitationIn the event this information is protected by the Federal Confidentiality of Alcohol and Drug Abuse Patient Records regulations: The Federal rules restrict any use of the information to criminally investigate or prosecute any alcohol or drug abuse patient.[facility] RehabilitationIn the event this information is protected by the Federal Confidentiality of Alcohol and Drug Abuse Patient Records regulations: The Federal rules restrict any use of the information to criminally investigate or prosecute any alcohol or drug abuse patient.[facility] RehabilitationIn the event this information is protected by the Federal Confidentiality of Alcohol and Drug Abuse Patient Records regulations: The Federal rules restrict any use of the information to criminally investigate or prosecute any alcohol or drug abuse patient.[facility] RehabilitationIn the event this information is protected by the Federal Confidentiality of Alcohol and Drug Abuse Patient Records regulations: The Federal rules restrict any use of the information to criminally investigate or prosecute any alcohol or drug abuse patient.[facility] RehabilitationIn the event this information is protected by the Federal Confidentiality of Alcohol and Drug Abuse Patient Records regulations: The Federal rules restrict any use of the information to criminally investigate or prosecute any alcohol or drug abuse patient.[facility] RehabilitationIn the event this information is protected by the Federal Confidentiality of Alcohol and Drug Abuse Patient Records regulations: The Federal rules restrict any use of the information to criminally investigate or prosecute any alcohol or drug abuse patient.[facility] RehabilitationIn the event this information is protected by the Federal Confidentiality of Alcohol and Drug Abuse Patient Records regulations: The Federal rules restrict any use of the information to criminally investigate or prosecute any alcohol or drug abuse patient.[facility] RehabilitationIn the event this information is protected by the Federal Confidentiality of Alcohol and Drug Abuse Patient Records regulations: The Federal rules restrict any use of the information to criminally investigate or prosecute any alcohol or drug abuse patient.[facility] RehabilitationIn the event this information is protected by the Federal Confidentiality of Alcohol and Drug Abuse Patient Records regulations: The Federal rules restrict any use of the information to criminally investigate or prosecute any alcohol or drug abuse patient.[facility] RehabilitationIn the event this information is protected by the Federal Confidentiality of Alcohol and Drug Abuse Patient Records regulations: The Federal rules restrict any use of the information to criminally investigate or prosecute any alcohol or drug abuse patient.[facility] RehabilitationIn the event this information is protected by the Federal Confidentiality of Alcohol and Drug Abuse Patient Records regulations: The Federal rules restrict any use of the information to criminally investigate or prosecute any alcohol or drug abuse patient.[facility] RehabilitationIn the event this information is protected by the Federal Confidentiality of Alcohol and Drug Abuse Patient Records regulations: The Federal rules restrict any use of the information to criminally investigate or prosecute any alcohol or drug abuse patient.[facility] RehabilitationIn the event this information is protected by the Federal Confidentiality of Alcohol and Drug Abuse Patient Records regulations: The Federal rules restrict any use of the information to criminally investigate or prosecute any alcohol or drug abuse patient.[facility] RehabilitationIn the event this information is protected by the Federal Confidentiality of Alcohol and Drug Abuse Patient Records regulations: The Federal rules restrict any use of the information to criminally investigate or prosecute any alcohol or drug abuse patient.[facility] RehabilitationIn the event this information is protected by the Federal Confidentiality of Alcohol and Drug Abuse Patient Records regulations: The Federal rules restrict any use of the information to criminally investigate or prosecute any alcohol or drug abuse patient.[facility] RehabilitationIn the event this information is protected by the Federal Confidentiality of Alcohol and Drug Abuse Patient Records regulations: The Federal rules restrict any use of the information to criminally investigate or prosecute any alcohol or drug abuse patient.[facility] RehabilitationIn the event this information is protected by the Federal Confidentiality of Alcohol and Drug Abuse Patient Records regulations: The Federal rules restrict any use of the information to criminally investigate or prosecute any alcohol or drug abuse patient.[facility] Reason for Visit (unrecogniz ed section and [...] Referred By Contac t Referred To Contact [facility] Diagnoses 8 weeks gestation of ([facility]) Procedures OBSTETRIC ULTRASOUND [facility] US PREG UTERUS AFTER 1ST TRIMEST GESTATION Mikala Baez APRN.CN [address] [place] [address] Phone: tel: fax: [facility] [address] [place] [address] Referral ID Status Reason Start Date Expiration Date V isits Requested Visits Authorized [id number] Closed Auto-Generate d Referral 03/15/2025 03/15/2026 1 1 Reason Onset Date Comments Care 05/19/2025 Specialty Diagnoses / Procedures Referred By Contac t Referred To Contact Biology Instructor / HEALTHCARE MANAGEMENT Diagnoses Encounter for supervision of normal first in first trimester ([facility]) OB Procedures OFFICE/OUTPATIENT ESTABLISHED MOD MDM 30 MIN EST [facility] OB Self Ronnie Wade MD [address] [place] [address] Phone: tel: fax: Referral ID Status Reason Start Date Expiration Date Visits Requested Visits Authorized [id number] Pending Review Financial Clearance Required - OON Payor OON Notification Letter Clearance Not Met - Pt Rescheduled/Canc elled/Chose Not to Proceed 5 08/16/2025 1 1 Reason Onset Date Comments Care 06/15/2025 Specialty Diagnoses / Procedures Referred By Contac t Referred To Contact Biology Instructor / HEALTHCARE MANAGEMENT Diagnoses Less than 8 weeks gestation of (HCC) Anatomy/OB Procedures OFFICE/OUTPATIENT ESTABLISHED MOD MDM 30 MIN EST I OB Mikala Baez APRN.SCARLETT [address] [place] [address] Phone: tel: fax: Tena Cruz MD [address] [place] [address] Phone: tel: fax: Referral ID Status Reason Start Date Expiration Date Visits Requested Visits Authorized [id number] Authorized Financial Clearance Required - OON Payor 06/01/2025 12/01/2025 99 99 Specialty Diagnoses / Procedures Referred By Devin t Referred To Contact [facility] Diagnoses 8 weeks gestation of (HCC) Encounter for supervision of normal , unspecified, unspecified trimester ([facility]CC) Procedures OBSTETRIC ULTRASOUND [facility] US PREG UTERUS AFTER 1ST TRIMEST GESTATION Mikala Baez APRN.SCARLETT [address] [place] [address] Phone: tel: fax: [facility] [address] [place] [address] Referral ID Status Reason Start Date Expiration Date Visits Requested Visits Authorized [id number] Closed Auto-Generated Referral Financial Clearance Required - OON Payor OON Notification Letter 05/24/2025 12/01/2025 1 1 Reason Onset Date Comments Care 07/14/2025 Reason Onset Date Comments Care 08/11/2025 Care Teams (unrecognized sec tion and content) Dry Cleaner Presser Relationship Specialty Start Date End Date Timothy Bajwa MD [address], [place] [id number] PCP - General Family Practice 12/07/20 Dry Cleaner Presser Relationship Specialty Start Date End Date Timothy Bajwa MD [address], [place] [id number] PCP - General Family Practice 12/07/20 Dry Cleaner Presser Relationship Specialty Start Date End Date Timothy Bajwa MD [address] [place] [place] [address] PCP - General Family Practice 12/07/20 Dry Cleaner Presser Relationship Specialty Start Date End Date Timothy Bajwa MD [address] [place] [address] PCP - General Family Practice 12/07/20 Dry Cleaner Presser Relationship Specialty Start Date End Date Timothy Bajwa MD [facility] [place] [place] [address] PCP - General Family Practice 12/07/20 Dry Cleaner Presser Relationship Specialty Start Date End Date Timothy Bajwa MD [facility] [place] [place] [address] PCP - General Family Medicine 12/07/20 Dry Cleaner Presser Relationship Specialty Start Date End Date Timothy Bajwa MD [facility] [place] [place] [address] PCP - General Family Medicine 12/07/20 Dry Cleaner Presser Relationship Specialty Start Date End Date Timothy Bajwa MD [facility] [place] [place] [address] PCP - General Family Medicine 12/07/20 Dry Cleaner Presser Relationship Specialty Start Date End Date Timothy Bajwa MD [facility] [place] [place] [address] PCP - General Family Medicine 12/07/20 Dry Cleaner Presser Relationship Specialty Start Date End Date Timothy Bajwa MD [facility] [place] [place] [address] PCP - General Family Medicine 12/07/20 Dry Cleaner Presser Relationship Specialty Start Date End Date Timothy Bajwa MD [facility] [place] [place] [address] PCP - General Family Medicine 12/07/20 Dry Cleaner Presser Relationship Specialty Start Date End Date Timothy Bajwa MD [address] [place] [address] PCP - General Family Medicine 12/07/20 Dry Cleaner Presser Relationship Specialty Start Date End Date Timothy Bajwa MD [address] [place] [address] PCP - General Family Medicine 12/07/20 Dry Cleaner Presser Relationship Specialty Start Date End Date Timothy Bajwa MD [address] [place] [address] PCP - General Family Medicine 12/07/20 Podlogar, MARK PardoN.SEAMLESS TUBE DRAWER [address] [place] [address] Foxing Cutting Machine Operator Family Medicine 11/07/24 Dry Cleaner Presser Relationship Specialty Start Date End Date Timothy Bajwa MD [address] [place] [address] PCP - General Family Medicine 12/07/20 Podlogar, Char, SENIOR ANDROID SOFTWARE ENGINEER.SEAMLESS TUBE DRAWER [address] [place] [address] Foxing Cutting Machine Operator Family Medicine 11/07/24 Dry Cleaner Presser Relationship Specialty Start Date End Date Timothy Bajwa MD [address] [place] [address] PCP - General Family Medicine 12/07/20 Podlogar, Char, SENIOR ANDROID SOFTWARE ENGINEER.SEAMLESS TUBE DRAWER [address] [place] [address] Foxing Cutting Machine Operator Family Medicine 11/07/24 Dry Cleaner Presser Relationship Specialty Start Date End Date Timothy Bajwa MD [address] [facility] [place], [place] [address] [phone] PCP - General Family Medicine 12/07/20 Podlogar, Char, SENIOR ANDROID SOFTWARE ENGINEER.SEAMLESS TUBE DRAWER [address] [facility] [address] Foxing Cutting Machine Operator Family Medicine 11/07/24 Dry Cleaner Presser Relationship Specialty Start Date End Date Timothy Bajwa MD [address] [place] [address] PCP - General Family Medicine 12/07/20 Podlogar, Char, SENIOR ANDROID SOFTWARE ENGINEER.SEAMLESS TUBE DRAWER [address] [place] [address] [employer] Cutting Machine [facility] 11/07/24 Dry Cleaner Presser Relationship Specialty Start Date End Date Timothy Bajwa MD [address] [place] [address] PCP - General Family Medicine 12/07/20 Podlogar, Char, SENIOR ANDROID SOFTWARE ENGINEER.SEAMLESS TUBE DRAWER [address] [place] [address] Foxing Cutting Machine Operator Family Medicine 11/07/24 Dry Cleaner Presser Relationship Specialty Start Date End Date Timothy Bajwa MD [address] [facility] [address] PCP - General Family Medicine 12/07/20 Podlogar, Char, SENIOR ANDROID SOFTWARE ENGINEER.SEAMLESS TUBE DRAWER [address] [place] [address] Foxing Cutting Machine Operator Family Medicine 11/07/24 Dry Cleaner Presser Relationship Specialty Start Date End Date Jeevan Lopez MD [address] [facility] [place], [place] [address] PCP - General Family Medicine 01/29/25 Podlogar, SHANTAL Pardo.SEAMLESS TUBE DRAWER [address] [facility] [place], [place] [address] Foxing Cutting Machine Operator Family Medicine 11/07/24 Dry Cleaner Presser Relationship Specialty Start Date End Date Jeevan Lopez MD [address] [facility] [place], [place] [address] PCP - General Family Medicine 01/29/25 Podlogar, SHANTAL Pardo.SEAMLESS TUBE DRAWER [address] [place] [address] Foxing Cutting Machine Operator Family Medicine 11/07/24 Dry Cleaner Presser Relationship Specialty Start Date End Date Jeevan Lopez MD [address], [place] [address] PCP - General Family Medicine 01/29/25 PodlogarChar SENIOR ANDROID SOFTWARE ENGINEER.SEAMLESS TUBE DRAWER [address] [place] [address] Foxing Cutting Machine Operator Family Medicine 11/07/24 Dry Cleaner Presser Relationship Specialty Start Date End Date Jeevan Lopez MD [address] [place] [address] PCP - General Family Medicine 01/29/25 PodlogarChar APRN.SEAMLESS TUBE DRAWER [address] [place] [place] [address] Foxing Cutting Machine Operator Family Medicine 11/07/24 Valerie Felix APRN.SEAMLESS TUBE DRAWER [address] [facility] [address] Foxing Cutting Machine Operator Family Medicine 02/12/25 Michelle Leos APRN.SEAMLESS TUBE DRAWER [address] [facility] [place] [address] Foxing Cutting Machine Operator Family Medicine 02/12/25 Dry Cleaner Presser Relationship Specialty Start Date End Date Jeevan Lopez MD [address] [place] [address] PCP - General Family Medicine 01/29/25 Valerie Felix APRN.SEAMLESS TUBE DRAWER [address] [place] [address] Foxing Cutting Machine Operator Family Medicine 02/12/25 Michelle Leos APRN.SEAMLESS TUBE DRAWER [address] [place] [address] Foxing Cutting Machine Operator Family Medicine 02/12/25 Dry Cleaner Presser Relationship Specialty Start Date End Date Jeevan Lopez MD [address] [place] [address] PCP - General Family Medicine 01/29/25 Valerie Felix APRN.SEAMLESS TUBE DRAWER [address] [place] [address] Foxing Cutting Machine Operator Family Medicine 02/12/25 Michelle Leos APRN.SEAMLESS TUBE DRAWER [address] [place] [address] Foxing Cutting Machine Operator Family Medicine 02/12/25 Dry Cleaner Presser Relationship Specialty Start Date End Date Jeevan Lopez MD [address] [place] [address] PCP - General Family Medicine 01/29/25 Char Barrett APRN.SEAMLESS TUBE DRAWER [address] [facility] [place] [address] Foxing Cutting Machine Operator Family Medicine 11/07/24 02/19/25 Valerie Felix APRN.SEAMLESS TUBE DRAWER [address] [facility] [place] [address] Foxing Cutting Machine Operator Family Medicine 02/12/25 Michelle Leos APRN.SEAMLESS TUBE DRAWER [address] [facility] [place] [address] Foxing Cutting Machine Operator Family Medicine 02/12/25 Dry Cleaner Presser Relationship Specialty Start Date End Date Jeevan Lopez MD [address] [facility] [place] [address] PCP - General Family Medicine 01/29/25 Valerie Felix APRN.SEAMLESS TUBE DRAWER [address] [facility] [place] [address] Foxing Cutting Machine Operator Family Medicine 02/12/25 Michelle Leos SENIOR ANDROID SOFTWARE ENGINEER.SEAMLESS TUBE DRAWER [address] [facility] [place] [address] Foxing Cutting Machine Operator Family Medicine 02/12/25 Dry Cleaner Presser Relationship Specialty Start Date End Date Jeevan Lopez MD [address] [facility] [place] [place] [address] PCP - General Family Medicine 01/29/25 Valerei Felix APRN.SEAMLESS TUBE DRAWER [address] [place] [address] Foxing Cutting Machine Operator Family [facility] 02/12/25 Michelle Leos APRN.SEAMLESS TUBE DRAWER [address] [facility] [place] [address] [facility] 02/12/25 Dry Cleaner Presser Relationship Specialty Start Date End Date Jeevan Lopez MD [address] [facility] [place] [address] PCP - General Family Medicine 01/29/25 Valerie Felix APRN.SEAMLESS TUBE DRAWER [address] [place] [address] [facility] 02/12/25 Michelle Leos APRN.SEAMLESS TUBE DRAWER [address] [place] [address] [facility] 02/12/25 Dry Cleaner Presser Relationship Specialty Start Date End Date Jeevan Lopez MD [address] [facility] [address] PCP - General Family Medicine 01/29/25 Valerie Felix APRN.SEAMLESS TUBE DRAWER [address] [place] [address] [facility] 02/12/25 Michelle Leos SENIOR ANDROID SOFTWARE ENGINEER.SEAMLESS TUBE DRAWER [address] [facility] [place] [address] [facility] 02/12/25 Dry Cleaner Presser Relationship Specialty Start Date End Date Jeevan Lopez MD [address] [place] [place] [address] PCP - General Family Medicine 01/29/25 Valerie Felix APRN.SEAMLESS TUBE DRAWER [address] [facility] [place] [address] [employer] Machine Operator Family Medicine 02/12/25 Michelle Leos APRN.SEAMLESS TUBE DRAWER [address] [facility] [place] [address] [employer] Cut[employer] Machine Operator Family Medicine 02/12/25 Dry Cleaner Presser Relationship Specialty Start Date End Date Jeevan Lopez MD [address] [facility] [place] [address] PCP - General Family Medicine 01/29/25 Valerie Felix APRN.SEAMLESS TUBE DRAWER [address] [facility] [place] [address] [employer] Machine Operator Family Medicine 02/12/25 Michelle Leos APRN.SEAMLESS TUBE DRAWER [address] [facility] [place] [address] [employer] Machine Operator Family Medicine 02/12/25 Dry Cleaner Presser Relationship Specialty Start Date End Date Jeevan Lopez MD [address] [facility] [place] [address] PCP - General Family Medicine 01/29/25 Valerie Felix APRN.SEAMLESS TUBE DRAWER [address] [facility] [place] [address] [employer] Machine Operator Family Medicine 02/12/25 Michelle Leos APRN.SEAMLESS TUBE DRAWER [address] [facility] [place] [address] [employer] Machine Operator Family Medicine 02/12/25 Dry Cleaner Presser Relationship Specialty Start Date End Date Jeevan Lopez MD [address] [place] [address] PCP - General Family Medicine 01/29/25 Valerie Felix APRN.SEAMLESS TUBE DRAWER [address] [place] [address] [employer] Machine Operator Family Medicine 02/12/25 Michelle Leos APRN.SEAMLESS TUBE DRAWER [address] [place] [address] [employer] [facility] [facility]25 Team Status: Inactive Member Role/Relationship Status Dates Dr. Giana Arboleda MD Attending Provider Active Start: June 19, 2025 End: June 19, 2025 Dr. Giana Arboleda MD Referring Provider Active Start: June 19, 2025 End: June 19, 2025 Dry Cleaner Presser Relationship Specialty Start Date End Date Jeevan Lopez MD [address] [place], [place] [id number] PCP - General Family Medicine 01/29/25 Valerie Felix APRN.SEAMLESS TUBE DRAWER [address] [place] [address] [employer] Machine Operator Family Medicine 02/12/25 Michelle Leos SENIOR ANDROID SOFTWARE ENGINEER.SEAMLESS TUBE DRAWER [address] [place] [address] [employer] Machine Operator Family Medicine 02/12/25 Dry Cleaner Presser Relationship Specialty Start Date End Date Jeevan Lopez MD [address] [place], [place] [address] PCP - General Family Medicine 01/29/25 Valerie Felix APRN.SEAMLESS TUBE DRAWER [address] [place] [address] [employer] Operator Family Medicine 02/12/25 Michelle Leos SENIOR ANDROID SOFTWARE ENGINEER.SEAMLESS TUBE DRAWER [address] [facility] [place] [address] [facility] 02/12/25 Dry Cleaner Presser Relationship Specialty Start Date End Date Jeevan Lopez MD [address] [facility] [place] [address] PCP - General Family Medicine 01/29/25 Valerie Felix APRN.SEAMLESS TUBE DRAWER [address] [place] [address] [employer] [facility] 02/12/25 Michelle Leos SENIOR ANDROID SOFTWARE ENGINEER.SEAMLESS TUBE DRAWER [address] [facility] [place] [address] [facility] 02/12/25 Dry Cleaner Presser Relationship Specialty Start Date End Date Jeevan Lopez MD [address] [facility] [place] [address] PCP - General Family Medicine 01/29/25 Valerie Felix, SENIOR ANDROID SOFTWARE ENGINEER.SEAMLESS TUBE DRAWER [address] [place] [address] [employer] Machine Operator Family Medicine 02/12/25 Michelle Leos SENIOR ANDROID SOFTWARE ENGINEER.SEAMLESS TUBE DRAWER [address] [facility] [place] [address] [facility] 02/12/25 Dry Cleaner Presser Relationship Specialty Start Date End Date Jeevan Lopez MD [address] [facility] [place] [place] [address] [phone] PCP - General Family Medicine 01/29/25 Valerie Felix APRN.SEAMLESS TUBE DRAWER [address] [place], [place] [address] [facility] 02/12/25 Michelle Leos APRN.SEAMLESS TUBE DRAWER [address] [place], [place] [address] [facility] 02/12/25 Goals (unrecognized section and content) Goals may be documented in a n alternate section INFORMATION SOURCE (unrecogn ized section and content) DATE CREATED AUTHOR 07/04/2025 [facility] DATE CREATED AUTHOR AUTHOR'S ORGANIZ ATION 10/12/2025 [facility] DATE CREATED AUTHOR AUTHOR'S ORGANIZ ATION 10/12/2025 [facility] FOR RECORDS PERTAINING TO PATIENTS WHO ARE [...] BE BASED ON THE PRIMARY CLINICAL RECORDS. [facility]. provides no warranty or guarantee of the accuracy or completeness of information in this document.
[2025-10-21 23:43] VITALS: BP 128/77; PULSE 67; RESP 14; TEMP 36.4
--- OUTSIDE RECORDS SUMMARY | 2025-10-21 23:59 | XMS RPT_ITS | CCD ---
Author Organization [facility] Care Team Providers Care Automobile Parker Name Role Phone Timothy Bajwa MD Primary Care Provider Timothy Bajwa MD Primary Care Provider Podlogar SCOUT.Char TOMPKINS Unavailable Isma Sabillon MD Primary Care Provider Haagen SCOUT.Valerie TOMPKINS Unavailable Suppan SCOUT.Michelle TOMPKINS Unavailable Podlogar SCOUT.Char TOMPKINS Unavailable Robles [place], Dr. Faria Attending Provider Dr. Giana Arboleda MD Referring Provider DESIREE GREGG Attending Unavailable DESIREE GREGG Admitting Unavailable ISMA SABILLON Primary Care Unavailable Chepe Luna Attending Unavail able Chepe Luna Referring Unavail able Giana Arboleda Referring Unavailable Giana Arboleda Attending Unavailable TIMOTHY BAJWA Primary Care Unavailab TIMOTHY Ramey Primary Care Unavailab IVONNE Estes Referring Unavailable TIMOTHY BAJWA Primary Care Unavailab TIMOTHY Ramey Primary Care Unavailab TIMOTHY Ramey Attending Unavailab ISMA Serrano Primary Care Unavailable MIKALA COATES Attending Unavailable ISMA SABILLON Primary Care Unavailable MIKALA COATES Referring Unavailable ISMA SABILLON Primary Care Unavailable MIKALA COATES Referring Unavailable ISMA SABILLON Primary Care Unavailable ISMA SABILLON Referring Unavailable ISMA SABILLON Primary Care Unavailable MIKALA COATES Referring Unavailable JOHN, ISMA Quigley Primary Care Unavailable GIANA ARBOLEDA Attending Unavailable JOHN, ISMA Quigley Primary Care Unavailable GIANA ARBOLEDA Referring Unavailable JOHN, ISMA Quigley Primary Care Unavailable ALEX COY Attending Unavailable JOHN, ISMA Quigley Primary Care Unavailable SELF Referring Unavailable CHEPE ROSS Attending Unavail able JOHN, ISMA Quigley Primary Care Unavailable MIKALA COATES Referring Unavailable JOHN, ISMA Quigley Primary Care Unavailable MIKALA COATES Referring Unavailable TENA CRUZ Attending Unavailable JOHN, ISMA Quigley Primary Care Unavailable CHEPE ROSS Attending Unavail able JOHN, ISMA Quigley Primary Care Unavailable ALEX COY Referring Unavailable JOHN, ISMA Quigley Primary Care Unavailable MIKALA COATES Attending Unavailable JOHN, ISMA Quigley Primary Care Unavailable ALEX COY Referring Unavailable JOHN, ISMA Quigley Primary Care Unavailable GIANA ARBOLEDA Attending Unavailable JOHN, ISMA Quigley Primary Care Unavailable RONNIE WADE Attending Unavailable TIMOTHY BAJWA Primary Care Unavailab le ISMA SABILLON Attending Unavailable JOHN, ISMA Quigley Primary Care Unavailable MIKALA COATES Referring Unavailable JOHN, ISMA Quigley Primary Care Unavailable WENDY ZIMMERMAN Referring Unavailable JOHN, ISMA Quigley Primary Care Unavailable MIKALA COATES Referring Unavailable JOHN, ISMA Quigley Primary Care Unavailable MIKALA COATES Referring Unavailable WENDY ZIMMERMAN Attending Unavailable TIMOTHY BAJWA Primary Care Unavailab le ISAM SABILLON Attending Unavailable TIMOTHY BAJWA Primary Care Unavailab le CHEPE ROSS Referring Unavail able GIANA ARBOLEDA Attending Unavailable JOHN, ISMA Quigley Primary Care Unavailable MIKALA COATES Referring Unavailable JOHN, ISMA Qugiley Primary Care Unavailable MIKALA COATES Referring Unavailable JOHN, ISMA Quigley Primary Care Unavailable WENDY ZIMMERMAN Referring Unavailable JOHN, ISMA Quigley Primary Care Unavailable MIKALA COATES Referring Unavailable WENDY ZIMMERMAN Attending Unavailable Allergies Allergy Classification Reported Allergen(s) Allergy Type Date of Onset Reaction(s) Facility (20 sources) Melon; Translations: [MELON] Drug Allergy 05-09-2016 Itching [facility] Work Phone: (20 sources) Tomatoes; Translations: [TOMATOES] Food Allergy 05-09-2016 [facility] Work Phone: (1 source) tomato allergenic extract Drug Allergy 01-22-2024 Itching [facility] (1 source) Melon Drug allergy (disorder) 10-11-2025 [facility] Repository (1 source) tomato allergenic extract Drug Allergy 10-11-2025 [facility] Repository Medications Current Medications Medication [...] Comment on above: Take 1 tablet by yenny twice daily. amoxicillin 875 mg / clavulanate [...] Active Start: 01-22-2024 take 1 tablet by yenny th once daily Fluconazole 200 mg tablet Active 200 mg PO DAILY 1 0 January 22, 2024 1:00am Inhalational Spacing Device (1 source) Start: 12-03-2024 End: 12-03-2024 Inhalational Spacing Device Indications: Acute cough 1 Device one time only for 1 dose. 1 Each 12/03/2024 12/03/2024 Active lactobacillus acidophilus [id number] unt oral capsule (1 source) Start: 01-22-2024 [...] tablet by mouth once daily predniSONE (DELTASONE) improvement. Still using bromfed occasionally and takes [...] on File Prior to Visit Medication Sig Hsnbgcfgqlfyuig-Cigexmmtz-EG (BROMFED DM) 2-30-10 mg/5 mL syrup Take [...] List Influenza Vaccine(1) due on 08/02/2024 Covid-19 Vaccine(2023- season) due on 08/02/2024 Cervical Cancer Screening [...] as needed, w (more content not included)... [facility] 12-10-2024 History of Presen t illness Narrative Chief Complaint Patient presents with: Cough: Over 2 weeks with difficulty expectorating phlegm. Reports green tinged when able to get it up. Chest Congestion Head Congestion: No sinus pain HPI Roman Oliva is a 29 year old female who [...] on File Prior to Visit Medication Sig Dsxtkhxualaqphu-Msbmopmpr-EW (BROMFED DM) 2-30-10 mg/5 mL syrup Take [...] Timothy Bajwa MD documented in this encounter [facility] 12-07-2024 Note HNO ID: [id number] Author: JONNY RUCKER MD Service: ? Author Type: Physician Type: [...] mild MEDICATIONS: Current Outpatient Medications Medication Sig Kkkdwepawhaxsxd-Vbioixzzf-KC (BROMFED DM) 2-30-10 mg/5 mL syrup Take [...] chest pain, or late onset fever. Jonny Rucker MD [facility] 12-07-2024 History of Presen t illness [...] mild MEDICATIONS: Current Outpatient Medications Medication Sig Emozgmnbwwjhzuv-Xlnfjclwo-EZ (BROMFED DM) 2-30-10 mg/5 mL syrup Take [...] chest pain, or late onset fever. Jonny Rucker MD documented in this encounter [facility] 12-03-2024 History of Presen t illness Narrative Radiology Service Progress Note PATIENT NAME: Roman Oliva DATE OF SERVICE: December 03, 2024 TIME: [...] PATIENT PRESENTS WITH AN IMPLANTABLE OR ATTACHED CANVAS GOODS MAKER: No RADIOLOGY DEPARTMENT: General X-ray: Exam(s) Completed: Chest X-Ray PERIPHERAL IV DATA: Not applicable SIGNED BY: RT Cedric(Brenda) December 03, 2024 10:22 AM documented in this encounter [facility] 12-03-2024 Note HNO ID: [id number] Author: GISSELL CRUZ RT (R) Service: Radiology Author Type: Technologist Type: Progress Notes Filed: 12/03/2024 10:32 Note Text: Radiology Service Progress Note PATIENT NAME: Roman Oliva DATE OF SERVICE: December 03, 2024 TIME: [...] PATIENT PRESENTS WITH AN IMPLANTABLE OR ATTACHED CANVAS GOODS MAKER: No RADIOLOGY DEPARTMENT: General X-ray: Exam(s) Completed: Chest X-Ray PERIPHERAL IV DATA: Not applicable SIGNED BY: RT Cedric(Brenda) December 03, 2024 10:22 AM [facility] 12-03-2024 Note HNO ID: [id number] Author: IVONNE CRUZ APRN.GEAR REPAIR SUPERVISOR Service: ? Author Type: Nurse Practitioner Type: Progress Notes Filed: 12/03/2024 10:59 Note Text: CC: Patient presents with: Cough: Chest congestion, HEATH x1 week HPI: Roman Oliva is a 29 year old female who [...] Unremarkable. IMPRESSION IMPRESSION: No acute radiographic abnormality. Athletic Field Custodian: [employer] Transcribe Date/Time: Dec 03 2024 10:36A Dictated [...] Unremarkable. IMPRESSION IMPRESSION: No acute radiographic abnormality. Athletic Field Custodian: [employer] Transcribe Date/Time: Dec 03 2024 10:36A Dictated [...] symptoms occur. Patient agreeable to treatment plan. Ivonne Cruz APRN.[facility] 12-03-2024 History of Presen t illness Narrative CC: Patient presents with: Cough: Chest congestion, HEATH x1 week HPI: Roman Oliva is a 29 year old female who [...] Unremarkable. IMPRESSION IMPRESSION: No acute radiographic abnormality. Athletic Field Custodian: [facility] Transcribe Date/Time: Dec 03 2024 10:36A Dictated [...] Unremarkable. IMPRESSION IMPRESSION: No acute radiographic abnormality. Athletic Field Custodian: [facility] Transcribe Date/Time: Dec 03 2024 10:36A [...] symptoms occur. Patient agreeable to treatment plan. Ivonne Cruz APRN.GEAR REPAIR SUPERVISOR documented in this encounter [facility] 02-25-2023 History of Presen t illness Narrative Refill Authorization Consent Roman Weaver Pj was encountered by text or mychart message to obtain consent for pharmacist managed refill authorization. Patient gives consent to the authorization of prescriptions by a pharmacist. Brie Arana RN 02/25/2023 documented in this encounter [facility] 12-04-2022 Miscellaneous Notes See pended medication order below. Pt calling and stated that this was sent to local pharmacy but it needs to be sent to [facility] Home Delivery Pharmacy. Call only if problems. Pooja Hidalgo LPN documented in this encounter [facility] 11-23-2022 History of Presen t illness Narrative Sensitometrist offered: Patient declines. Roman is a 27 year old who presents for an annual gynecologic exam without complaints. 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 Comments: Sexual Activity: Not Currently; Male [...] external genitalia normal, normal Bartholin's glands, urethra, Carnegie's glands, no vulvar lesions, no cervical lesions, [...] up one year or sooner as needed Chepe Luna MD documented in this encounter [facility] 10-19-2022 History of Presen t illness Narrative Behavioral Health Social Work Progress Note Patient identified for [facility] from: PCP Reason for referral: BH Resources Behavioral Health Resources: Psychology - talk therapy [facility] encounter type: [employer] Message Attempts to Outreach: 3 attempts Referral made: Psychology - Internal;Psychology - External Psychology-Internal referral type: Therapy;EAP Psychology-External referral type: Therapy Reason for external referral: Wait times at [facility] too long Final Disposition: Resources given Patient Discharged?: Yes Patient reported that caregiver was able to meet their needs today?: N/A Patient read [employer] message with requested resources by PCP. SW sent follow-up message to see if any additional questions or concerns exist. CARLOS Guerra October 19, 2022 documented in this encounter [facility] 10-12-2022 Miscellaneous Notes Reviewed. Behavioral Health Social Work Progress Note Patient identified for [facility] from: PCP Reason for referral: [facility] Behavioral Health Resources: Psychology - talk therapy [facility] encounter type: Telephone Encounter Attempts to Outreach: 1 attempt Referral made: Psychology - Internal;Psychology - External Psychology-Internal referral type: Therapy;EAP Psychology-External referral type: Therapy Reason for external referral: Wait times at [facility] too long Final Disposition: Unable to reach Patient Discharged?: No Patient reported that caregiver was able to meet their needs today?: N/A Phone call placed today that went to [employer]. Left my contact information and brief nature of call. Initial outreach also completed via [employer] sending list of in network providers with insurance. These include: [facility] Caregivers Program: - Available for [facility] insurance card holders. - Includes 6 free sessions per calendar year- this is not billed through your insurance. - If you are interested these services, please call [phone] to schedule an appointment. [facility] [phone] *counseling and psychiatry [facility] [address] [place] [phone] *counseling and psychiatry [facility] (MULTIPLE LOCATIONS AND VIRTUAL) [address] [place], [place] [phone] *counseling and psychiatry [facility] Psychiatry ([facility]) [address] [place] [address] *counseling and psychiatry [facility] [address] [place] [address] *counseling [facility] [address] [place] [address] *counseling and psychiatry [facility] [address] [facility] [place], [place] [phone] *counseling and psychiatry [facility] [address] [facility] [address] [place] [address] *counseling and psychiatry [facility] [address] [place] [address] *counseling [facility] [address] [place] [address] *counseling CARLOS Guerra October 12, 2022 documented in this encounter [facility] 10-12-2022 History of Presen t illness Narrative Chief Complaint Patient presents with: Physical HPI Roman Oliva is a 27 year old female who presents here today for annual physical. Has been in good health without hospitalizations or ER visits. Depression/anxiety: Requesting new referral to counseling since she never followed up. Has had both good and bad stress lately. 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 Patient agreeable to treatment plan. Ivonne Cruz APRN.LEDA documented in this encounter [facility] 06-22-2022 Miscellaneous Notes Phoned patient and updated her with results. Patient voiced understanding. Please call patient and let her know her xrays are normal. Char Barrett APRN.CNP documented in this encounter [facility] 06-22-2022 Instructions Char Barrett APRN.LEDA - 06/22/2022 11:50 AM EDT Concussion in children and adolescents (The Basics) Written by the doctors and editors at [facility] (Ammended by Dr. Davis 07/2016) What [...] sports most often linked to concussions are [place]one[place] football, ice hockey, and lacrosse. Among girls, [...] wake your child documented in this encounter [facility] 06-22-2022 History of Presen t illness [...] Order (1 point for entire sequence correct) Bqn-Adi-Mcv-Jtyn-Zaa-Noj-May-April -Rsm-Mpo-Lik-Dec 1 Concentration Score 3 of 5 SAC [...] 2019. Multiple joint pain Paronychia of toe ALLERGIES [...] XR THORACIC GENERAL 3V AP/LAT/SWIMMERS Char Barrett APRN.LEDA Prescription instructions reviewed with patient as applicable. [...] which included preparing to see the patient, exny-rx-amle patient care, completing clinical documentation, performing a medically appropriate examination, counseling and educating the patient/family/caregiver and ordering medications, tests, or procedures. documented in this encounter [facility] 06-21-2022 History of Presen t illness Narrative Patient [facility] to [facility] with a head injury and mid back pain since yesterday. 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 I did check family medicine and there are no available visits today. She will talk to her mom and decide which er to go to. documented in this encounter [facility] 05-30-2022 Instructions Heron Choudhury APRN.CNP - 05/30/2022 [...] when lying down. documented in this encounter [facility] 05-30-2022 History of Presen t illness Narrative Radiology Service Progress Note PATIENT NAME: Roman Oliva DATE OF SERVICE: May 30, 2022 TIME: [...] 2022 2:23 PM documented in this encounter [facility] 05-30-2022 History of Presen t illness [...] of care. This note was generated using [employer] software. It may contain errors in wording, punctuation, or spelling. Heron Choudhury APRN.GEAR REPAIR SUPERVISOR documented in this encounter [facility] 04-10-2022 History of Presen t illness Narrative Chief Complaint Patient presents with: F/U 3 Month HPI Roman Oliva is a 26 year old female who [...] Timothy Bajwa MD documented in this encounter [facility] Evaluation note Diagnosis Anxiety with depression- Primary Recurrent cold sores Herpes simplex without mention of complication [facility] Injury of right knee, initial encounter- Primary [facility] Closed head injury, initial encounter- Primary [facility] Diagnosis Closed head injury, initial encounter- Primary Cervical pain (neck) Cervicalgia Acute bilateral thoracic back pain [facility]* Diagnosis Sore throat- Primary Acute pharyngitis At increased risk of exposure to COVID-19 virus [facility]* Diagnosis Annual physical exam- Primary Routine general medical examination at a health care facility Anxiety with depression Herpes labialis Herpes simplex without mention of complication Cervical pain (neck) Cervicalgia Closed head injury, initial encounter Need for influenza vaccination Need for prophylactic vaccination and inoculation against influenza Need for COVID-19 vaccine [facility] Diagnosis Encounter for gynecological examination (general) (routine) without abnormal findings- Primary Surveillance for control, oral contraceptives Surveillance of previously prescribed contraceptive pill Screening for cervical cancer Screening for malignant neoplasm of the cervix Screen for STD (sexually transmitted disease) Screening examination for venereal disease [facility] Diagnosis Surveillance for control, oral contraceptives Surveillance of previously prescribed contraceptive pill [facility]* Diagnosis Acute bilateral thoracic back pain Cervical pain (neck) Cervicalgia [facility] Diagnosis Injury of right knee, initial encounter [facility] Diagnosis Acute cough- Primary Acute cough [facility] Diagnosis Acute cough [facility] Diagnosis Bronchitis- Primary Bronchitis, not specified as acute or chronic [facility] Diagnosis Viral URI with cough- Primary Acute upper respiratory infections of unspecified site [facility] Diagnosis Bronchitis- Primary Bronchitis, not specified as acute or chronic Recurrent cold sores Herpes simplex without mention of complication [facility] Diagnosis Encounter for gynecological examination (general) (routine) without abnormal findings- Primary Screening for STD (sexually transmitted disease) Screening examination for venereal disease [facility] Diagnosis URI, acute- Primary Acute upper respiratory infections of unspecified site [facility] Diagnosis Fever, unspecified fever cause- Primary [facility] Diagnosis Vaginal irritation Unspecified noninflammatory disorder of vagina [facility] Diagnosis Less than 8 weeks gestation of ([facility])- Primary state, incidental Screening for cervical cancer Screening for malignant neoplasm of the cervix Screen for STD (sexually transmitted disease) Screening examination for venereal disease H/O cold sores Personal history of other infectious and parasitic disease Threatened (HCC) Threatened , unspecified as to episode of care Generalized anxiety disorder Encounter for supervision of normal first in first trimester ([facility]) Supervision of normal first History of induced Personal history of other genital system and obstetric disorders [facility] Diagnosis Encounter for supervision of normal first in first trimester ([facility])- Primary Supervision of normal first 12 weeks gestation of ([facility]) state, incidental GBS bacteriuria [facility] Diagnosis Encounter for screening for malformation using ultrasound ([facility])- Primary 12 weeks gestation of ([facility]) state, incidental [facility] Diagnosis GBS bacteriuria- Primary [facility] Diagnosis Encounter for supervision of normal first in second trimester (HCC)- Primary Supervision of normal first 16 weeks gestation of ([facility]) state, incidental * Assessment & Plan Note - Chepe Ross MD - 05/19/2025 8:10 AM EDT Associated Problem(s): Encounter for supervision of normal first in first trimester (HCC) documented in this encounter [facility] note* Diagnosis Encounter for supervision of normal first in second trimester ([facility])- Primary Supervision of normal first 16 weeks gestation of ([facility]) state, incidental Encounter for supervision of normal first in second trimester ([facility])- Primary Supervision of normal first GBS bacteriuria 20 weeks gestation of ([facility]) state, incidental * Assessment & Plan Note - Tena Cruz MD - 06/15/2025 11:25 AM EDTAssociated Problem(s): GBS bacteriuria documented in this encounter [facility] note* Diagnosis Encounter for supervision of normal first in second trimester ([facility])- Primary Supervision of normal first 16 weeks gestation of ([facility]) state, incidental Encounter for supervision of normal first in first trimester ([facility])- Primary Supervision of normal first Less than 8 weeks gestation of ([facility]) state, incidental Encounter for supervision of normal first in second trimester ([facility])- Primary Supervision of normal first GBS bacteriuria 20 weeks gestation of ([facility]) state, incidental documented in this encounter [facility] noteNo assessment information availableWBrecksville [facility] Work Phone: Evaluation note* Diagnosis Encounter for supervision of normal first in second trimester (HCC)- Primary Supervision of normal first 16 weeks gestation of ([facility]) state, incidental Encounter for supervision of normal first in second trimester ([facility])- Primary Supervision of normal first GBS bacteriuria 20 weeks gestation of ([facility]) state, incidental Abdominal pain affecting ([facility]) Encounter for supervision of normal first in second trimester ([facility])- Primary Supervision of normal first 24 weeks gestation of ([facility]) state, incidental Screening for diabetes mellitus GBS bacteriuria Rh negative state in antepartum period ([facility]) Rhesus isoimmunization affecting management of mother, antepartum condition Herpes simplex virus infection Herpes simplex without mention of complication Vaginal bleeding during ([facility]) documented in this encounter [facility] note* Diagnosis Encounter for supervision of normal first in second trimester ([facility])- Primary Supervision of normal first 16 weeks gestation of ([facility]) state, incidental Encounter for supervision of normal first in second trimester ([facility])- Primary Supervision of normal first GBS bacteriuria 20 weeks gestation of ([facility]) state, incidental Abdominal pain affecting ([facility]) 28 weeks gestation of ([facility])- Primary state, incidental Rh negative state in antepartum period ([facility]) Rhesus isoimmunization affecting management of mother, antepartum condition Need for vaccination Need for prophylactic vaccination and inoculation against unspecified single disease Encounter for supervision of normal first in second trimester ([facility]) Supervision of normal first documented in this encounter [facility] note* Diagnosis Encounter for supervision of normal first in second trimester ([facility])- Primary Supervision of normal first 16 weeks gestation of ([facility]) state, incidental Encounter for supervision of normal first in second trimester ([facility])- Primary Supervision of normal first GBS bacteriuria 20 weeks gestation of ([facility]) state, incidental Abdominal pain affecting ([facility]) Abnormal glucose complicating ([facility])- Primary Abnormal maternal glucose tolerance, complicating , childbirth, or the puerperium, unspecified as to episode of care documented in this encounter [facility] for referral (narrative)* Diagnostic Procedure Only (Routine) - Closed Specialty Diagnoses / Procedures Referred By Devin weber Referred To Contact XR IMAGING Diagnoses Acute bilateral thoracic back pain Procedures XR THORACIC GENERAL 3V AP/LAT/SWIMMERS RADEX SPINE THORACIC 3 VIEWS PodlogarChar APRN.GEAR REPAIR SUPERVISOR [address] [place] [address] Xr Imaging Referral ID Status Reason Start Date Expiration Date V isits Requested Visits Authorized [id number] Closed Auto-Generate d Referral 06/22/2022 07/22/2023 1 1 * Diagnostic Procedure Only (Routine) - Closed Specialty Diagnoses / Procedures Referred By Contac t Referred To Contact XR IMAGING Diagnoses Cervical pain (neck) Procedures XR CERV OTHER 4V AP/LAT/OBL RADEX SPINE CERVICAL 4 OR 5 VIEWS PodlogChar rice APRN.GEAR REPAIR SUPERVISOR [address] [place] [address] Xr Imaging Referral ID Status Reason Start Date Expiration Date V isits Requested Visits Authorized [id number] Closed Auto-Generate d Referral 06/22/2022 07/22/2023 1 1 [facility] for referral (narrative)* Diagnostic Procedure Only (Routine) - Closed Specialty Diagnoses / Procedures Referred By Contac t Referred To Contact XR IMAGING Diagnoses Cervical pain (neck) Procedures XR CERV OTHER 4V AP/LAT/OBL RADEX SPINE CERVICAL 4 OR 5 VIEWS Podlogar, SHANTAL Pardo.GEAR REPAIR SUPERVISOR [address] [place] [address] [place] [address] Referral ID Status Reason Start Date Expiration Date V isits Requested Visits Authorized [id number] Closed Auto-Generate d Referral 06/22/2022 07/22/2023 1 1 * Diagnostic Procedure Only (Routine) - Closed Specialty Diagnoses / Procedures Referred By Contac t Referred To Contact XR IMAGING Diagnoses Acute bilateral thoracic back pain Procedures XR THORACIC GENERAL 3V AP/LAT/SWIMMERS RADEX SPINE THORACIC 3 VIEWS PodlogChar rice APRN.GEAR REPAIR SUPERVISOR [address] [place] [address] [place] [address] Referral ID Status Reason Start Date Expiration Date V isits Requested Visits Authorized [id number] Closed Auto-Generate d Referral 06/22/2022 07/22/2023 1 1 [facility] for referral (narrative)* Diagnostic Procedure Only (Urgent) - Closed Specialty Diagnoses / Procedures Referred By Contac t Referred To Contact XR IMAGING Diagnoses Injury of right knee, initial encounter Procedures XR KNEE GENERAL 4V AP BOTH/PA BOTH/LAT/MERC RIGHT RADIOLOGIC EXAM KNEE COMPLETE 4/MORE VIEWS Heron Choudhury, SHANTAL.GEAR REPAIR SUPERVISOR [address] [place] [address] [place] [address] Referral ID Status Reason Start Date Expiration Date V isits Requested Visits Authorized [id number] Closed Auto-Generate d Referral 05/30/2022 06/29/2023 1 1 [facility] for referral (narrative)No reason for referral information availableWBrecksville [facility] Work Phone: [facility] N[facility]* Diagnostic Procedure Only (Routine) - Closed Specialty Diagnoses / Procedures Referred By Contac t Referred To Contact XR IMAGING Diagnoses Acute bilateral thoracic back pain Procedures XR THORACIC GENERAL 3V AP/LAT/SWIMMERS RADEX SPINE THORACIC 3 VIEWS PodlogarChar APRN.GEAR REPAIR SUPERVISOR [address] [place] [address] [place] [address] Referral ID Status Reason Start Date Expiration Date V isits Requested Visits Authorized [id number] Closed Auto-Generate d Referral 06/22/2022 07/22/2023 1 1 [facility] for visit Narrative* Diagnostic Procedure Only (Urgent) - Closed Specialty Diagnoses / Procedures Referred By Contac t Referred To Contact XR IMAGING Diagnoses Injury of right knee, initial encounter Procedures XR KNEE GENERAL 4V AP BOTH/PA BOTH/LAT/MERC RIGHT RADIOLOGIC EXAM KNEE COMPLETE 4/MORE VIEWS Heron Choudhury APRN.GEAR REPAIR SUPERVISOR [address] [place] [address] [place] [address] Referral ID Status Reason Start Date Expiration Date V isits Requested Visits Authorized [id number] Closed Auto-Generate d Referral 05/30/2022 06/29/2023 1 1 [facility] Advance Directives No Advanced Directives Records FoundDocuments on File Type Date Recorded 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 Joiner Expl anation Advance Directive(s) 01/19/2018 1:54 PM Documents on File Type Date Recorded 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 Coupling Joiner Expl anation Advance Directive(s) 01/19/2018 1:54 PM Reason for Referral Specialty Diagnoses / Procedures Referred By Contac t Referred To Contact Orthopedics Diagnoses Injury of right knee, initial encounter Procedures CONSULT TO ORTHOPAEDICS OFFICE/OUTPATIENT [facility] HIGH MDM 60-74 MINUTES Heron Choudhury APRN.GEAR REPAIR SUPERVISOR [address] [place] [address] Referral ID Status Reason Start Date Expiration Date Visits Requested Visits Authorized [id number] Authorized PCP Requested Referral 05/30/2022 05/30/2023 1 1 Specialty Diagnoses / Procedures Referred By Devin weber Referred To Contact XR IMAGING Diagnoses Injury of right knee, initial encounter Procedures XR KNEE GENERAL 4V AP BOTH/PA BOTH/LAT/MERC RIGHT RADIOLOGIC EXAM KNEE COMPLETE 4/MORE VIEWS Heron Choudhury APRN.GEAR REPAIR SUPERVISOR [address] [place] [address] Xr Imaging Referral ID Status Reason Start Date Expiration Date V isits Requested Visits Authorized [id number] Closed Auto-Generate d Referral 05/30/2022 06/29/2023 1 [...] or prosecute any alcohol or drug abuse patient.[facility] HospitalIn the event this information is protected by the Federal Confidentiality of Alcohol and Drug Abuse Patient Records regulations: The Federal rules restrict any use of the information to criminally investigate or prosecute any alcohol or drug abuse patient.[facility] HospitalIn the event this information is protected by the Federal Confidentiality of Alcohol and Drug Abuse Patient Records regulations: The Federal rules restrict any use of the information to criminally investigate or prosecute any alcohol or drug abuse patient.[facility] HospitalIn the event this information is protected by the Federal Confidentiality of Alcohol and Drug Abuse Patient Records regulations: The Federal rules restrict any use of the information to criminally investigate or prosecute any alcohol or drug abuse patient.[facility] HospitalIn the event this information is protected by the Federal Confidentiality of Alcohol and Drug Abuse Patient Records regulations: The Federal rules restrict any use of the information to criminally investigate or prosecute any alcohol or drug abuse patient.[facility] HospitalIn the event this information is protected by the Federal Confidentiality of Alcohol and Drug Abuse Patient Records regulations: The Federal rules restrict any use of the information to criminally investigate or prosecute any alcohol or drug abuse patient.[facility] HospitalIn the event this information is protected by the Federal Confidentiality of Alcohol and Drug Abuse Patient Records regulations: The Federal rules restrict any use of the information to criminally investigate or prosecute any alcohol or drug abuse patient.[facility] HospitalIn the event this information is protected by the Federal Confidentiality of Alcohol and Drug Abuse Patient Records regulations: The Federal rules restrict any use of the information to criminally investigate or prosecute any alcohol or drug abuse patient.[facility] HospitalIn the event this information is protected by the Federal Confidentiality of Alcohol and Drug Abuse Patient Records regulations: The Federal rules restrict any use of the information to criminally investigate or prosecute any alcohol or drug abuse patient.[facility] HospitalIn the event this information is protected by the Federal Confidentiality of Alcohol and Drug Abuse Patient Records regulations: The Federal rules restrict any use of the information to criminally investigate or prosecute any alcohol or drug abuse patient.[facility] HospitalIn the event this information is protected by the Federal Confidentiality of Alcohol and Drug Abuse Patient Records regulations: The Federal rules restrict any use of the information to criminally investigate or prosecute any alcohol or drug abuse patient.[facility] HospitalIn the event this information is protected by the Federal Confidentiality of Alcohol and Drug Abuse Patient Records regulations: The Federal rules restrict any use of the information to criminally investigate or prosecute any alcohol or drug abuse patient.[facility] HospitalIn the event this information is protected by the Federal Confidentiality of Alcohol and Drug Abuse Patient Records regulations: The Federal rules restrict any use of the information to criminally investigate or prosecute any alcohol or drug abuse patient.[facility] HospitalIn the event this information is protected by the Federal Confidentiality of Alcohol and Drug Abuse Patient Records regulations: The Federal rules restrict any use of the information to criminally investigate or prosecute any alcohol or drug abuse patient.[facility] HospitalIn the event this information is protected by the Federal Confidentiality of Alcohol and Drug Abuse Patient Records regulations: The Federal rules restrict any use of the information to criminally investigate or prosecute any alcohol or drug abuse patient.[facility] HospitalIn the event this information is protected by the Federal Confidentiality of Alcohol and Drug Abuse Patient Records regulations: The Federal rules restrict any use of the information to criminally investigate or prosecute any alcohol or drug abuse patient.[facility] HospitalIn the event this information is protected by the Federal Confidentiality of Alcohol and Drug Abuse Patient Records regulations: The Federal rules restrict any use of the information to criminally investigate or prosecute any alcohol or drug abuse patient.[facility] HospitalIn the event this information is protected by the Federal Confidentiality of Alcohol and Drug Abuse Patient Records regulations: The Federal rules restrict any use of the information to criminally investigate or prosecute any alcohol or drug abuse patient.[facility] HospitalIn the event this information is protected by the Federal Confidentiality of Alcohol and Drug Abuse Patient Records regulations: The Federal rules restrict any use of the information to criminally investigate or prosecute any alcohol or drug abuse patient.[facility] HospitalIn the event this information is protected by the Federal Confidentiality of Alcohol and Drug Abuse Patient Records regulations: The Federal rules restrict any use of the information to criminally investigate or prosecute any alcohol or drug abuse patient.[facility] HospitalIn the event this information is protected by the Federal Confidentiality of Alcohol and Drug Abuse Patient Records regulations: The Federal rules restrict any use of the information to criminally investigate or prosecute any alcohol or drug abuse patient.[facility] HospitalIn the event this information is protected by the Federal Confidentiality of Alcohol and Drug Abuse Patient Records regulations: The Federal rules restrict any use of the information to criminally investigate or prosecute any alcohol or drug abuse patient.[facility] HospitalIn the event this information is protected by the Federal Confidentiality of Alcohol and Drug Abuse Patient Records regulations: The Federal rules restrict any use of the information to criminally investigate or prosecute any alcohol or drug abuse patient.[facility] HospitalIn the event this information is protected by the Federal Confidentiality of Alcohol and Drug Abuse Patient Records regulations: The Federal rules restrict any use of the information to criminally investigate or prosecute any alcohol or drug abuse patient.[facility] HospitalIn the event this information is protected by the Federal Confidentiality of Alcohol and Drug Abuse Patient Records regulations: The Federal rules restrict any use of the information to criminally investigate or prosecute any alcohol or drug abuse patient.[facility] HospitalIn the event this information is protected by the Federal Confidentiality of Alcohol and Drug Abuse Patient Records regulations: The Federal rules restrict any use of the information to criminally investigate or prosecute any alcohol or drug abuse patient.[facility] HospitalIn the event this information is protected by the Federal Confidentiality of Alcohol and Drug Abuse Patient Records regulations: The Federal rules restrict any use of the information to criminally investigate or prosecute any alcohol or drug abuse patient.[facility] HospitalIn the event this information is protected by the Federal Confidentiality of Alcohol and Drug Abuse Patient Records regulations: The Federal rules restrict any use of the information to criminally investigate or prosecute any alcohol or drug abuse patient.[facility] HospitalIn the event this information is protected by the Federal Confidentiality of Alcohol and Drug Abuse Patient Records regulations: The Federal rules restrict any use of the information to criminally investigate or prosecute any alcohol or drug abuse patient.[facility] HospitalIn the event this information is protected by the Federal Confidentiality of Alcohol and Drug Abuse Patient Records regulations: The Federal rules restrict any use of the information to criminally investigate or prosecute any alcohol or drug abuse patient.[facility] HospitalIn the event this information is protected by the Federal Confidentiality of Alcohol and Drug Abuse Patient Records regulations: The Federal rules restrict any use of the information to criminally investigate or prosecute any alcohol or drug abuse patient.[facility] HospitalIn the event this information is protected by the Federal Confidentiality of Alcohol and Drug Abuse Patient Records regulations: The Federal rules restrict any use of the information to criminally investigate or prosecute any alcohol or drug abuse patient.[facility] HospitalIn the event this information is protected by the Federal Confidentiality of Alcohol and Drug Abuse Patient Records regulations: The Federal rules restrict any use of the information to criminally investigate or prosecute any alcohol or drug abuse patient.[facility] HospitalIn the event this information is protected by the Federal Confidentiality of Alcohol and Drug Abuse Patient Records regulations: The Federal rules restrict any use of the information to criminally investigate or prosecute any alcohol or drug abuse patient.[facility] HospitalIn the event this information is protected by the Federal Confidentiality of Alcohol and Drug Abuse Patient Records regulations: The Federal rules restrict any use of the information to criminally investigate or prosecute any alcohol or drug abuse patient.[facility] HospitalIn the event this information is protected by the Federal Confidentiality of Alcohol and Drug Abuse Patient Records regulations: The Federal rules restrict any use of the information to criminally investigate or prosecute any alcohol or drug abuse patient.[facility] HospitalIn the event this information is protected by the Federal Confidentiality of Alcohol and Drug Abuse Patient Records regulations: The Federal rules restrict any use of the information to criminally investigate or prosecute any alcohol or drug abuse patient.[facility] HospitalIn the event this information is protected by the Federal Confidentiality of Alcohol and Drug Abuse Patient Records regulations: The Federal rules restrict any use of the information to criminally investigate or prosecute any alcohol or drug abuse patient.[facility] HospitalIn the event this information is protected by the Federal Confidentiality of Alcohol and Drug Abuse Patient Records regulations: The Federal rules restrict any use of the information to criminally investigate or prosecute any alcohol or drug abuse patient.[facility] HospitalIn the event this information is protected by the Federal Confidentiality of Alcohol and Drug Abuse Patient Records regulations: The Federal rules restrict any use of the information to criminally investigate or prosecute any alcohol or drug abuse patient.[facility] HospitalIn the event this information is protected by the Federal Confidentiality of Alcohol and Drug Abuse Patient Records regulations: The Federal rules restrict any use of the information to criminally investigate or prosecute any alcohol or drug abuse patient.[facility] HospitalIn the event this information is protected by the Federal Confidentiality of Alcohol and Drug Abuse Patient Records regulations: The Federal rules restrict any use of the information to criminally investigate or prosecute any alcohol or drug abuse patient.[facility] HospitalIn the event this information is protected by the Federal Confidentiality of Alcohol and Drug Abuse Patient Records regulations: The Federal rules restrict any use of the information to criminally investigate or prosecute any alcohol or drug abuse patient.[facility] HospitalIn the event this information is protected by the Federal Confidentiality of Alcohol and Drug Abuse Patient Records regulations: The Federal rules restrict any use of the information to criminally investigate or prosecute any alcohol or drug abuse patient.[facility] HospitalIn the event this information is protected by the Federal Confidentiality of Alcohol and Drug Abuse Patient Records regulations: The Federal rules restrict any use of the information to criminally investigate or prosecute any alcohol or drug abuse patient.[facility] HospitalIn the event this information is protected by the Federal Confidentiality of Alcohol and Drug Abuse Patient Records regulations: The Federal rules restrict any use of the information to criminally investigate or prosecute any alcohol or drug abuse patient.[facility] Reason for Visit (unrecogniz ed section [...] [place] Specialty Diagnoses / Procedures Referred By Devin t Referred To Contact [facility] Diagnoses 8 weeks gestation of (HCC) Procedures OBSTETRIC ULTRASOUND WHI US PREG UTERUS AFTER 1ST TRIMEST GESTATION Mikala Coates APRN.SCARLETT [address] [place] [address] Phone: tel: fax: [facility] [address] [place] [address] Referral ID Status Reason Start Date Expiration Date V isits Requested Visits Authorized [id number] Closed Auto-Generate d Referral 03/15/2025 03/15/2026 1 1 Reason Onset Date Comments Care 05/19/2025 Specialty Diagnoses / Procedures Referred By Contac t Referred To Contact Party Host/Hostess / DECORATOR INSPECTOR Diagnoses Encounter for supervision of normal first in first trimester (HCC) OB Procedures OFFICE/OUTPATIENT ESTABLISHED MOD MDM 30 MIN EST [facility] OB Self Ronnie Wade MD [address] [place] [address] Phone: tel: fax: Referral ID Status Reason Start Date Expiration Date Visits Requested Visits Authorized [id number] Pending Review Financial Clearance Required - OON Payor OON Notification Letter Clearance Not Met - Pt Rescheduled/Canc elled/Chose Not to Proceed 5 08/16/2025 1 1 Reason Onset Date Comments Care 06/15/2025 Specialty Diagnoses / Procedures Referred By Contac t Referred To Contact Party Host/Hostess / DECORATOR INSPECTOR Diagnoses Less than 8 weeks gestation of (HCC) Anatomy/OB Procedures OFFICE/OUTPATIENT ESTABLISHED MOD MDM 30 MIN EST I OB Mikala Coates APRN.CNM [address] [place] [address] Phone: tel: fax: Tena Cruz MD [address] [place] [address] Phone: tel: fax: Referral ID Status Reason Start Date Expiration Date Visits Requested Visits Authorized [id number] Authorized Financial Clearance Required - OON Payor 06/01/2025 12/01/2025 99 99 Specialty Diagnoses / Procedures Referred By Contac t Referred To Contact [facility] Diagnoses 8 weeks gestation of (HCC) Encounter for supervision of normal , unspecified, unspecified trimester (HCC) Procedures OBSTETRIC ULTRASOUND WHI US PREG UTERUS AFTER 1ST TRIMEST GESTATION Mikala Coates APRN.[facility] [address] [place] [address] Phone: tel: fax: [facility] [address] [place] [address] Referral ID Status Reason Start Date Expiration Date Visits Requested Visits Authorized [id number] Closed Auto-Generated Referral Financial Clearance Required - OON Payor OON Notification Letter 05/24/2025 12/01/2025 1 1 Reason Onset Date Comments Care 07/14/2025 Reason Onset Date Comments Care 08/11/2025 Care Teams (unrecognized sec tion and content) [employer] Parker Relationship Specialty Start Date End Date Timothy Bajwa MD [facility] [place], [place] [id number] PCP - General Family Practice 12/07/20 Automobile Parker Relationship Specialty Start Date End Date Timothy Bajwa MD [address] [place] [address] PCP - General Family Practice 12/07/20 Automobile Parker Relationship Specialty Start Date End Date Timothy Bajwa MD [facility] [place] [address] PCP - General Family Practice 12/07/20 Automobile Parker Relationship Specialty Start Date End Date Timothy Bajwa MD [facility] [place] [address] PCP - General Family Practice 12/07/20 Automobile Parker Relationship Specialty Start Date End Date Timothy Bajwa MD [address] [facility] [place] [address] PCP - General Family Practice 12/07/20 Automobile Parker Relationship Specialty Start Date End Date Timothy Bajwa MD [address] [place] [place] [address] PCP - General Family Medicine 12/07/20 Automobile Parker Relationship Specialty Start Date End Date Timothy Bajwa MD [address] [place] [place] [address] PCP - General Family Medicine 12/07/20 Automobile Parker Relationship Specialty Start Date End Date Timothy Bajwa MD [address] [place] [place] [address] PCP - General Family Medicine 12/07/20 Automobile Parker Relationship Specialty Start Date End Date Timothy Bajwa MD [address] [place] [place] [address] PCP - General Family Medicine 12/07/20 Automobile Parker Relationship Specialty Start Date End Date Timothy Bajwa MD [address] [place] [place] [address] PCP - General Family Medicine 12/07/20 Automobile Parker Relationship Specialty Start Date End Date Timothy Bajwa MD [address] [place] [place] [address] PCP - General Family Medicine 12/07/20 Automobile Parker Relationship Specialty Start Date End Date Timothy Bajwa MD [address] [place] [address] PCP - General Family Medicine 12/07/20 Automobile Parker Relationship Specialty Start Date End Date Timothy Bajwa MD [address] [place] [address] PCP - General Family Medicine 12/07/20 Automobile Parker Relationship Specialty Start Date End Date Timothy Bajwa MD [address] [place] [place] [address] PCP - General Family Medicine 12/07/20 Podlogar, Char, SCOUT.GEAR REPAIR SUPERVISOR [address] [place] [place] [address] Pediatrician Family Medicine 11/07/24 Automobile Parker Relationship Specialty Start Date End Date Timothy Bajwa MD [address] [place] [place] [address] PCP - General Family Medicine 12/07/20 Podlogar, Char, SCOUT.GEAR REPAIR SUPERVISOR [address] [place] [address] Pediatrician Family Medicine 11/07/24 Automobile Parker Relationship Specialty Start Date End Date Timothy Bajwa MD [address] [place] [address] PCP - General Family Medicine 12/07/20 Podlogar, Char, SCOUT.GEAR REPAIR SUPERVISOR [address] [place] [address] Pediatrician Family Medicine 11/07/24 Automobile Parker Relationship Specialty Start Date End Date Timothy Bajwa MD [address] [place] [address] PCP - General Family Medicine 12/07/20 Podlogar, Char, SCOUT.GEAR REPAIR SUPERVISOR [address] [place] [address] Pediatrician Family Medicine 11/07/24 Automobile Parker Relationship Specialty Start Date End Date Timothy Bajwa MD [address] [place] [address] PCP - General Family Medicine 12/07/20 Podlogar, Char, SCOUT.GEAR REPAIR SUPERVISOR [address] [place] [address] Pediatrician Family Medicine 11/07/24 Automobile Parker Relationship Specialty Start Date End Date Timothy Bajwa MD [address] [place] [address] PCP - General Family Medicine 12/07/20 Podlogar, Char, SCOUT.GEAR REPAIR SUPERVISOR [address] [place] [address] Pediatrician Family Medicine 11/07/24 Automobile Parker Relationship Specialty Start Date End Date Timothy Bajwa MD [address] [place] [address] PCP - General Family Medicine 12/07/20 Podlogar, Char, SCOUT.GEAR REPAIR SUPERVISOR [address] [place] [address] Pediatrician Family Medicine 11/07/24 Automobile Parker Relationship Specialty Start Date End Date Isma Sabillon MD [address] [place] [address] PCP - General Family Medicine 01/29/25 Podlogar, Char, SCOUT.GEAR REPAIR SUPERVISOR [address] [place] [address] Pediatrician Family Medicine 11/07/24 Automobile Parker Relationship Specialty Start Date End Date Isma Sabillon MD [address] [place] [address] PCP - General Family Medicine 01/29/25 PodlogarChar APRN.GEAR REPAIR SUPERVISOR [address] [place] [address] Pediatrician Family Medicine 11/07/24 Automobile Parker Relationship Specialty Start Date End Date Isma Sabillon MD [address] [place] [address] PCP - General Family Medicine 01/29/25 PodlogarChar APRN.GEAR REPAIR SUPERVISOR [address] [place] [address] Pediatrician Family Medicine 11/07/24 Automobile Parker Relationship Specialty Start Date End Date Isma Sabillon MD [address] [place] [address] PCP - General Family Medicine 01/29/25 PodlogarChar SCOUT.GEAR REPAIR SUPERVISOR [address] [place] [address] Pediatrician Family Medicine 11/07/24 Valerie Felix SCOUT.GEAR REPAIR SUPERVISOR [address] [place] [address] Pediatrician Family Medicine 02/12/25 Michelle Leos SCOUT.GEAR REPAIR SUPERVISOR [address] [place] [address] Pediatrician Family Medicine 02/12/25 Automobile Parker Relationship Specialty Start Date End Date Isma Sabillon MD [address] [place] [address] PCP - General Family Medicine 01/29/25 Valerie Felix, SCOUT.GEAR REPAIR SUPERVISOR [address] [facility] [place] [address] Pediatrician Family Medicine 02/12/25 Michelle Leos SCOUT.GEAR REPAIR SUPERVISOR [address] [place] [address] Pediatrician Family Medicine 02/12/25 Automobile Parker Relationship Specialty Start Date End Date Isma Sabillon MD [address] [place] [address] PCP - General Family Medicine 01/29/25 Valerie Felix, SCOUT.GEAR REPAIR SUPERVISOR [address] [facility] [place] [address] Pediatrician Family Medicine 02/12/25 Michelle Leos SCOUT.GEAR REPAIR SUPERVISOR [address] [place] [address] Pediatrician Family Medicine 02/12/25 Automobile Parker Relationship Specialty Start Date End Date Isma Sabillon MD [address] [place] [address] PCP - General Family Medicine 01/29/25 Char Barrett APRN.GEAR REPAIR SUPERVISOR [address] [place] [address] Pediatrician Family [facility] 11/07/24 02/19/25 Valerie Felix APRN.GEAR REPAIR SUPERVISOR [address] [place] [address] [facility] Michelle Leos SCOUT.GEAR REPAIR SUPERVISOR [address] [facility] [place] [address] [facility] 02/12/25 Automobile Parker Relationship Specialty Start Date End Date Isma Sabillon MD [address] [place] [address] PCP - General Family Medicine 01/29/25 Valerie Felix SCOUT.GEAR REPAIR SUPERVISOR [address] [place] [address] [facility] 02/12/25 Michelle Leos SCOUT.GEAR REPAIR SUPERVISOR [address] [place] [address] [facility] 02/12/25 Automobile Parker Relationship Specialty Start Date End Date Isma Sabillon MD [address] [place] [address] PCP - General Family Medicine 01/29/25 Valerie Felix SCOUT.GEAR REPAIR SUPERVISOR [address] [place] [address] [facility] 02/12/25 Michelle Leos SCOUT.GEAR REPAIR SUPERVISOR [address] [place] [address] [facility] 02/12/25 Automobile Parker Relationship Specialty Start Date End Date Isma Sabillon MD [address] [place] [address] PCP - General Family Medicine 01/29/25 Valerie Felix APRN.GEAR REPAIR SUPERVISOR [address] [facility] [place] [address] Pediatrician Family Medicine 02/12/25 Michelle Leos APRN.GEAR REPAIR SUPERVISOR [address] [place] [address] Pediatrician Family Medicine 02/12/25 Automobile Parker Relationship Specialty Start Date End Date Isma Sabillon MD [address] [place] [address] PCP - General Family Medicine 01/29/25 Valerie Felix APRN.GEAR REPAIR SUPERVISOR [address] [facility] [place] [address] Pediatrician Family Medicine 02/12/25 Michelle Leos SCOUT.GEAR REPAIR SUPERVISOR [address] [place] [address] Pediatrician Family Medicine 02/12/25 Automobile Parker Relationship Specialty Start Date End Date Isma Sabillon MD [address] [place] [address] PCP - General Family Medicine 01/29/25 Valerie Felix APRN.GEAR REPAIR SUPERVISOR [address] [facility] [place] [address] Pediatrician Family Medicine 02/12/25 Michelle Leos APRN.GEAR REPAIR SUPERVISOR [address] [place] [address] Pediatrician Family Medicine 02/12/25 Automobile Parker Relationship Specialty Start Date End Date Isma Sabillon MD [address] [place] [address] PCP - General Family Medicine 01/29/25 Valerie Felix, SCOUT.GEAR REPAIR SUPERVISOR [address] [place] [address] Pediatrician Family Medicine 02/12/25 Michelle Leos SCOUT.GEAR REPAIR SUPERVISOR [address] [place] [address] Pediatrician Family Medicine 02/12/25 Automobile Parker Relationship Specialty Start Date End Date Isma Sabillon MD [address] [place] [address] PCP - General Family Medicine 01/29/25 Valerie Felix, SCOUT.GEAR REPAIR SUPERVISOR [address] [place] [address] Pediatrician Family Medicine 02/12/25 Michelle Leos SCOUT.GEAR REPAIR SUPERVISOR [address] [place] [address] Pediatrician Family Medicine 02/12/25 Automobile Parker Relationship Specialty Start Date End Date Isma Sabillon MD [address] [place] [address] PCP - General Family Medicine 01/29/25 Valerie Felix, SCOUT.GEAR REPAIR SUPERVISOR [address] [place] [address] Pediatrician Family Medicine 02/12/25 Michelle Leos APRN.GEAR REPAIR SUPERVISOR [address] [facility], [place] [address] [facility] 02/12/25 Team Status: Inactive Member Role/Relationship Status Dates Dr. Giana Arboleda MD Attending Provider Active Start: June 19, 2025 End: June 19, 2025 Dr. Giana Arboleda MD Referring Provider Active Start: June 19, 2025 End: June 19, 2025 Automobile Parker Relationship Specialty Start Date End Date Isma Sabillon MD [address] [facility] [place] [address] PCP - General Family Medicine 01/29/25 Valerie Felix APRN.GEAR REPAIR SUPERVISOR [address] [place] [address] [facility] Medicine 02/12/25 Michelle Leos APRN.GEAR REPAIR SUPERVISOR [address] [place] [address] [facility] 02/12/25 Automobile Parker Relationship Specialty Start Date End Date Isma Sabillon MD [address] [place] [address] PCP - General Family Medicine 01/29/25 Valerie Felix SCOUT.GEAR REPAIR SUPERVISOR [address] [place] [address] [facility] Family Medicine 02/12/25 Michelle Leos SCOUT.GEAR REPAIR SUPERVISOR [address] [place], [place] [address] [phone] [facility] 02/12/25 Automobile Parker Relationship Specialty Start Date End Date Isma Sabillon MD [address] [place] [address] PCP - General Family Medicine 01/29/25 Valerie Felix SCOUT.GEAR REPAIR SUPERVISOR [address] [facility] [place] [address] Pediatrician Family Medicine 02/12/25 Michelle Leos SCOUT.GEAR REPAIR SUPERVISOR [address] [place] [address] [facility] 02/12/25 Automobile Parker Relationship Specialty Start Date End Date Isma Sabillon MD [address] [place] [address] PCP - General Family Medicine 01/29/25 Valerie Felix SCOUT.GEAR REPAIR SUPERVISOR [address] [facility] [place] [address] [facility] 02/12/25 Michelle Leos SCOUT.GEAR REPAIR SUPERVISOR [address] [place] [address] [facility] Medicine 02/12/25 Automobile Parker Relationship Specialty Start Date End Date Isma Sabillon MD [address] [place] [address] PCP - General Family Medicine 01/29/25 Valerie Felix SCOUT.GEAR REPAIR SUPERVISOR [address] [facility] [address] Pediatrician Family Medicine 02/12/25 Michelle Leos APRN.GEAR REPAIR SUPERVISOR [address] [place] [address] Pediatrician Family Medicine 02/12/25 Goals (unrecognized section and content) Goals may be documented in a n alternate section INFORMATION SOURCE (unrecogn ized section and content) DATE CREATED AUTHOR 07/04/2025 [facility] DATE CREATED AUTHOR AUTHOR'S ORGANIZ ATION 10/12/2025 [facility] DATE CREATED AUTHOR AUTHOR'S ORGANIZ ATION 10/12/2025 [facility] FOR RECORDS PERTAINING TO PATIENTS WHO [...] BE BASED ON THE PRIMARY CLINICAL RECORDS. [employer] [facility]. provides no warranty or guarantee of the accuracy or completeness of information in this document.
[2025-10-22] VITALS (61 sets, daily range): BP systolic 94–143; BP diastolic 56–93; PULSE 57–106; RESP 14–18; TEMP 35.8–38.2; O2SAT 96–100
[2025-10-22] MEDS: Lactated Ringers 1,000 ML 50 ML IV (00:30)
[2025-10-22] MEDS: Penicillin G Pot 5,000,000 UNITS in 0.9% Normal Saline (100mL MB+) 100 ML 150 UNITS IV (00:36)
[2025-10-22 00:43] LABS: Hematocrit 32.7 % (37-47); Hemoglobin 10.8 g/dL (12.0-15.0); Immature Granulocytes Count 0.040 X10^3/uL (0.0-0.0); Mean Corp Hgb Conc 33.0 g/dL (32-36); Mean Corpuscular Volume 93.2 fL (81-99); Mean Platelet Vol. 11.2 fl (6.2-12.0); NRBC Flagged by Analyzer 0 % (0-5); Platelet Count 255 K/mm3 (150-450); RBC Distribution Width CV 12.1 % (11.6-14.6); RBC Distribution Width SD 41.4 fl (35.1-43.9); Red Blood Count 3.51 M/mm3 (4.2-5.4); White Blood Count 10.0 K/mm3 (4.4-11.0)
[2025-10-22 01:43] LABS: Syphilis Antibodies Nonreactive (Nonreactive)
[2025-10-22] MEDS: fentaNYL 100 MCG/2 ML Ampul IV (04:19)
[2025-10-22] MEDS: Penicillin G 3,000,000 Units 50 ML 100 UNITS IV ×3 (04:21→12:56)
[2025-10-22] MEDS: Oxytocin 15 Units/NS 250ml 15 UNITS/250 ML IV.SOLN 2 UNITS IV (05:30)
[2025-10-22] MEDS: Lactated Ringers 1,000 ML 200 ML IV ×2 (07:50→11:28)
--- NOTE | 2025-10-22 07:54 | PCM.HP.OB ---
HPI - General General Date of Admission: 10/21/25 HPI Narrative ROMAN ORTEZ, is a 30 F who presents with loss of fluid. Maternal Data Information ESPERANZA Calculator Estimated Delivery Date Method Current WG Current Estimate 11/01/25 Manual 38w 4d PFSH PFS Medical History (Updated 10/22/25 @ 07:57 by Mikala Baez CNM) H/O cold sores Anxiety Scoliosis Vaginal candidiasis Home Medications ?Medication ?Instructions ?Recorded ?Last Taken ?Type acyclovir 200 mg capsule 200 mg PO TID PRN HSV 01/22/24 10/20/25 History aspirin 81 mg capsule 81 mg PO DAILY 10/11/25 10/20/25 History calcium carbonate (Esme-Brenton 300 mg PO PRN heartburn 10/11/25 10/20/25 History Heartburn Chew) magnesium oxide 400 mg PO DAILY 10/11/25 10/20/25 History vit no.95-ferrous 1 tab PO DAILY 10/11/25 10/20/25 History fumarate 28 mg-folic acid 800 mcg tablet () Allergy/AdvReac Type Severity Reaction Status Date / Time melon Allergy Itching Verified 10/21/25 23:36 tomato Allergy Itching Verified 10/21/25 23:36 Social History (Updated 01/22/24 @ 15:10 by Kavya Penaloza) Smoking Status: Never smoker alcohol intake: never History Elective abortions Hx Para 0 Spontaneous abortions Hx # Term Pregnancies Ectopic pregnancies Hx # Pregnancies Multiple births # of living children NST FHR Rate Baby A Baseline: 140 Variability:: Moderate Accelerations:: 15 x 15 Decelerations:: None NST Reactive:: Yes FHR Category:: Category I Uterine Activity:: TOCO reading every 2-3 minutes ROS Eyes Eyes: Denies blurry vision, change in vision or spots in vision ENT HEENT: Denies dizziness or headache(s) Cardiovascular Cardiovascular: Denies abdominal pain, chest pain or dyspnea Respiratory/Chest Respiratory/Chest: Denies cough, dyspnea, shortness of breath at rest or shortness of breath with exertion Gastrointestinal Gastrointestinal: Denies abdominal pain, diarrhea or vomiting Genitourinary Genitourinary: Denies change in urinary stream, difficulty urinating or dysuria Musculoskeletal Musculoskeletal: Reports none Integumentary Integumentary: Denies rash Neurologic Neurologic: Denies dizziness, headache(s), memory loss or weakness Psychiatric Psychiatric: Reports none Vital Signs Vital Signs Vital Signs: 10/21/25 23:43 10/21/25 23:43 10/21/25 23:43 Temperature Temperature Source Temporal Pulse Rate 67 Respiratory Rate Blood Pressure 128/77 H BP Systolic 128 BP Diastolic 77 Pulse Ox 10/21/25 23:43 10/21/25 23:43 10/21/25 23:43 Temperature 97.5 F L Temperature Source Temporal Pulse Rate Respiratory Rate 14 Blood Pressure BP Systolic BP Diastolic Pulse Ox 10/21/25 23:43 10/21/25 23:43 10/22/25 01:15 Temperature 97.5 F L Temperature Source Pulse Rate Respiratory Rate 14 Blood Pressure 119/73 BP Systolic 119 BP Diastolic 73 Pulse Ox 10/22/25 01:15 10/22/25 01:15 10/22/25 01:15 Temperature Temperature Source Temporal Pulse Rate 57 L Respiratory Rate 14 Blood Pressure BP Systolic BP Diastolic Pulse Ox 10/22/25 01:15 10/22/25 03:00 10/22/25 03:00 Temperature 97.5 F L Temperature Source Pulse Rate 62 Respiratory Rate Blood Pressure 134/80 H BP Systolic 134 BP Diastolic 80 Pulse Ox 10/22/25 03:00 10/22/25 03:00 10/22/25 03:00 Temperature 97.5 F L Temperature Source Temporal Pulse Rate Respiratory Rate 16 Blood Pressure BP Systolic BP Diastolic Pulse Ox 10/22/25 05:00 10/22/25 05:00 10/22/25 05:00 Temperature 98.0 F Temperature Source Temporal Pulse Rate Respiratory Rate 16 Blood Pressure BP Systolic BP Diastolic Pulse Ox 10/22/25 06:08 10/22/25 06:08 10/22/25 06:08 Temperature Temperature Source Temporal Pulse Rate 58 L Respiratory Rate Blood Pressure 124/83 H BP Systolic 124 BP Diastolic 83 Pulse Ox 10/22/25 06:08 10/22/25 06:08 10/22/25 07:21 Temperature 97.9 F Temperature Source Pulse Rate Respiratory Rate 16 Blood Pressure 129/84 H BP Systolic 129 BP Diastolic 84 Pulse Ox 10/22/25 07:21 10/22/25 07:22 10/22/25 07:22 Temperature Temperature Source Temporal Pulse Rate 59 L Respiratory Rate 16 Blood Pressure BP Systolic BP Diastolic Pulse Ox 10/22/25 07:22 10/22/25 07:22 10/22/25 07:47 Temperature 96.5 F L Temperature Source Pulse Rate 95 Respiratory Rate Blood Pressure BP Systolic BP Diastolic Pulse Ox 100 10/22/25 07:47 10/22/25 07:52 10/22/25 07:52 Temperature Temperature Source Pulse Rate 70 Respiratory Rate Blood Pressure BP Systolic BP Diastolic Pulse Ox 100 100 10/22/25 07:53 10/22/25 07:53 Temperature Temperature Source Pulse Rate 76 Respiratory Rate Blood Pressure 143/93 H BP Systolic 143 BP Diastolic 93 Pulse Ox Weight Weight: 160 lb 12.8 oz Body Mass Index (BMI) 29.4 PRE- weight 135 lb PRE- Body Mass Index 24.7 (BMI) Physical Exam Const alert, oriented x3 and no apparent distress General Appearance: cooperative Orientation / Consciousness: awake Exam Limitations: no limitations HEENT normocephalic Head and Scalp: normal to inspection Eyes General Eye: normal appearance of both eyes Neck full ROM and no lymphadenopathy Lymph Lymphatic: no lymphadenopathy noted Chest inspection of chest normal Resp normal respiratory effort, normal air movement and clear to auscultation bilaterally Effort and Inspection: able to speak in complete sentences and symmetric chest movement Cardio regular rate and regular rhythm GI normal to inspection, nondistended, normoactive bowel sounds Manual OB Exam: presentation cephalic Back/Spine normal ROM Extremity full ROM and no calf tenderness Skin no rashes or lesions noted General Skin Exam: no breakdown Neuro oriented x3 and CN's II-XII intact bilaterally Psych mental status grossly normal and thought process normal Labs Labs Labs: Blood Type O NEGATIVE Antibody Screen NEGATIVE Hct, (37-47) 32.7 % L Hgb, (12.0-15.0) 10.8 g/dL L Syphilis Total Ab, (Nonreactive) Nonreactive Assessment & Plan (1) Rh negative status during : QUALIFIERS: Trimester: second trimester Qualified Code(s): O26.892 - Other specified related conditions, second trimester; Z67.91 - Unspecified blood type, Rh negative (2) Anxiety: (3) H/O cold sores: (4) Spontaneous rupture of amniotic membranes: (5) 38 weeks gestation of : (6) GBS bacteriuria: PLAN: Plan Admit to labor and delivery Routine labs Start PCN 5 million units IV x1 then PCN 3 million units IV every 4 hours until delivery Epidural when indicated Dr. Machado aware of admission and is collaborating physicain
[2025-10-22] MEDS: fentaNYL-bupivacaine (epidural) 100 ML BAG EPIDURAL ×2 (08:10→12:23)
--- NOTE | 2025-10-22 08:49 | PCM.PN.CNM ---
Subjective Subjective Patient seen at bedside. Comfortable with epidural. Objective Data Objective Data Vital Signs: Vital Signs Temp Pulse Resp BP Pulse Ox 96.5 F L 63 16 109/58 L 100 10/22/25 07:22 10/22/25 08:29 10/22/25 08:29 10/22/25 08:29 10/22/25 08:27 Weight: 160 lb 12.8 oz Body Mass Index (BMI) 29.4 Intake & Output: Intake and Output for Last 24 Hours 10/20/25 10/21/25 10/22/25 23:59 23:59 23:59 Intake Total 1160.00 / 1160.00 Balance 1160.00 / 1160.00 Lab / Micro Data 10/21/25 00:25 Labs: Laboratory Results - last 24 hr 10/21/25 00:25: WBC 10.0, RBC 3.51 L, Hgb 10.8 L, Hct 32.7 L, MCV 93.2, MCH 30.8, MCHC 33.0, RDW Std Deviation 41.4, RDW Coeff of Hallie 12.1, Plt Count 255, MPV 11.2, Immature Gran % (Auto) 0.400, Neut % (Auto) 61.8, Lymph % (Auto) 29.0, Russell % (Auto) 8.0, Eos % (Auto) 0.5, Baso % (Auto) 0.3, Absolute Neuts (auto) 6.2, Absolute Lymphs (auto) 2.90, Nucleated RBC % 0, Syphilis Total Ab Nonreactive, Blood Type O NEGATIVE, Antibody Screen NEGATIVE Assessment & Plan (1) GBS bacteriuria: (2) 38 weeks gestation of : (3) Spontaneous rupture of amniotic membranes: (4) Anxiety: (5) H/O cold sores: PLAN: Plan CE /-3 Continue Pitocin IV at 2 mu/min Continue position changes Place villeda catheter
--- NOTE | 2025-10-22 16:42 | EX.PCM.OBVAG ---
Assessment & Plan (1) Anxiety: (2) (spontaneous vaginal delivery): (3) Care and examination of lactating mother: Maternal Data Information ESPERANZA Calculator Estimated Delivery Date Method Current WG Current Estimate 11/01/25 Manual 38w 4d Vaginal Delivery Maternal Presentation Maternal Presentation: Spontaneous Rupture of Membranes Type of Induction: Pitocin (Augmentation) Vaginal Delivery Information Procedure Performed: Spontaneous Vaginal Delivery Surgeon/Practitioner: Mikala Baez Date of Procedure: 10/22/25 Pre-Procedure Diagnosis: Term gestation, spontaneous rupture of membranes Post-Procedure Diagnosis: , Live female infant Type of anesthesia: Epidural Estimated Blood Loss: 150 Time of Delivery: 16:19 Findings Description of procedure: Patient progressed to complete dilation. With good maternal effort, head delivered followed by anterior shoulder and remainder of body without any force, delay, or traction. Vigorous female was delivered atraumatically and placed on maternal abdomen. Pitocin IV started for active management of the third stage of labor. 3 vessel cord clamped and cut by FOB after delay and infant placed immediately skin to skin with patient. Cord blood collected. Placenta delivered spontaneously and intact. After inspection, vagina and perineum are intact. Vaginal sweep performed. Fundus is firm 2 below U and bleeding is hemostatic. Sponge and sharps counts correct. Patient and infant bonding well at this time. Dr. Machado notified of delivery. Routine post orders placed. Presentation: Vertex Amniotic Membrane Rupture Type: Spontaneous Amniotic Fluid Description: Clear Placental Delivery Description: Spontaneous Placenta Disposition: [facility] Specimen collected: No Cord Vessel Description: 3 Vessels Cord Entanglement: None Nuchal Cord Compression: Without compression Infant A Gender: Female (1 minute): 8 (5 minute): 9 Delayed Cord Clamping: Yes Car Installations Supervisor obstetrics teacher: No Post Vaginal Deli Medications given after delivery: IV Pitocin Episiotomy Description: None Laceration: None Complication Complications: No
[2025-10-22] MEDS: Oxytocin 15 Units/NS 250ml 15 UNITS/250 ML IV.SOLN 83 UNITS IV (16:55)
--- NOTE | 2025-10-22 18:14 | PCM.PN.CNM ---
Subjective Subjective Per nursing patient's most recent temperatures orally were 100.8 F, Denies any pain or tenderness. Objective Data Objective Data Vital Signs: Vital Signs Temp Pulse Resp BP Pulse Ox 100.8 F H 60 16 119/59 L 98 10/22/25 16:31 10/22/25 18:05 10/22/25 17:20 10/22/25 18:05 10/22/25 17:41 Weight: 160 lb 12.8 oz Body Mass Index (BMI) 29.4 Intake & Output: Intake and Output for Last 24 Hours 10/20/25 10/21/25 10/22/25 23:59 23:59 23:59 Intake Total 3470.89 / 3470.89 Output Total 1250 / 1250 Balance 2220.89 / 2220.89 Lab / Micro Data 10/21/25 00:25 Labs: Laboratory Results - last 24 hr 10/21/25 00:25: WBC 10.0, RBC 3.51 L, Hgb 10.8 L, Hct 32.7 L, MCV 93.2, MCH 30.8, MCHC 33.0, RDW Std Deviation 41.4, RDW Coeff of Hallie 12.1, Plt Count 255, MPV 11.2, Immature Gran % (Auto) 0.400, Neut % (Auto) 61.8, Lymph % (Auto) 29.0, [place] % (Auto) 8.0, Eos % (Auto) 0.5, Baso % (Auto) 0.3, Absolute Neuts (auto) 6.2, Absolute Lymphs (auto) 2.90, Nucleated RBC % 0, Syphilis Total Ab Nonreactive, Blood Type O NEGATIVE, Antibody Screen NEGATIVE Assessment & Plan (1) Fever: (2) (spontaneous vaginal delivery): (3) Care and examination of lactating mother: PLAN: Plan Dr. Machado involved with plan of care Ampicillin 2gm IV q6 hours Clindamycin 900 mg IV q 8 hours Gentamicin IV x 1 now (q 24 hours) - Dose to be mixed per pharmacy CBC with diff in AM
[2025-10-22] MEDS: Ampicillin 2 GM in 0.9% Normal Saline (100mL MB+) 100 ML IV (19:50)
[2025-10-22] MEDS: Gentamicin IV 300 MG in Dextrose 5%-Water (50mL Bag) 50 ML 100 MG IVPB (20:40)
[2025-10-22] MEDS: Clindamycin 900 MG/50 ML BAG 75 MG IV (22:15)
[2025-10-23] VITALS (10 sets, daily range): BP systolic 108–124; BP diastolic 58–79; PULSE 55–75; RESP 14–16; TEMP 36.6–36.8; O2SAT 95–98
[2025-10-23] MEDS: Rho(D) Immune Globulin 300 MCG (1500 Unit) Syringe IV (00:07)
[2025-10-23] MEDS: Ampicillin 2 GM in 0.9% Normal Saline (100mL MB+) 100 ML IV ×2 (01:58→16:12)
[2025-10-23] MEDS: Clindamycin 900 MG/50 ML BAG 75 MG IV ×3 (06:05→22:11)
[2025-10-23 06:13] LABS: Hematocrit 28.8 % (37-47); Hemoglobin 9.5 g/dL (12.0-15.0); Immature Granulocytes Count 0.090 X10^3/uL (0.0-0.0); Mean Corp Hgb Conc 33.0 g/dL (32-36); Mean Corpuscular Volume 93.5 fL (81-99); Mean Platelet Vol. 10.7 fl (6.2-12.0); NRBC Flagged by Analyzer 0 % (0-5); Platelet Count 208 K/mm3 (150-450); RBC Distribution Width CV 12.5 % (11.6-14.6); RBC Distribution Width SD 42.0 fl (35.1-43.9); Red Blood Count 3.08 M/mm3 (4.2-5.4); White Blood Count 15.4 K/mm3 (4.4-11.0)
[2025-10-23] MEDS: 0.9% Saline Lock 10 ML Syringe IV ×2 (07:26→16:12)
--- NOTE | 2025-10-23 07:31 | PN.OBGYN_ITS ---
Subjective Subjective Patient seen at bedside. Denies any pain. Ambulating and voiding without difficulty. Lochia decreasing. Afebrile since yesterday Objective Data Objective Data Vital Signs: Vital Signs Temp Pulse Resp BP Pulse Ox O2 Del Method 98.3 F 65 14 116/64 98 Room Air 10/23/25 04:40 10/23/25 04:40 10/23/25 04:40 10/23/25 04:40 10/23/25 04:40 10/23/25 04:40 Oxygen Delivery Method Room Air Weight: 160 lb 12.8 oz Body Mass Index (BMI) 29.4 Intake & Output: Intake and Output for Last 24 Hours 10/21/25 10/22/25 10/23/25 23:59 23:59 23:59 Intake Total 3928.39 / 3928.39 150 / 150 Output Total 1800 / 1800 Balance 2128.39 / 2128.39 150 / 150 Lab / Micro Data Attestation: I reviewed the patient's lab results. 10/23/25 06:01 10/23/25 07:45 Labs: Laboratory Results - last 24 hr 10/22/25 19:45: Screen NEGATIVE, Baby's Blood Type A POSITIVE, Baby's ELSA POSITIVE 10/23/25 06:01: WBC 15.4 H, RBC 3.08 L, Hgb 9.5 L, Hct 28.8 L, MCV 93.5, MCH 30.8, MCHC 33.0, RDW Std Deviation 42.0, RDW Coeff of Hallie 12.5, Plt Count 208, MPV 10.7, Immature Gran % (Auto) 0.600, Neut % (Auto) 74.6 H, Lymph % (Auto) 16.9 L, [place] % (Auto) 7.3, Eos % (Auto) 0.3, Baso % (Auto) 0.3, Absolute Neuts (auto) 11.5 H, Absolute Lymphs (auto) 2.59, Nucleated RBC % 0 ROS Eyes Eyes: Denies blurry vision, change in vision or spots in vision ENT HEENT: Denies dizziness or headache(s) Cardiovascular Cardiovascular: Denies abdominal pain, chest pain or dyspnea Respiratory/Chest Respiratory/Chest: Denies cough, dyspnea, shortness of breath at rest or shortness of breath with exertion Gastrointestinal Gastrointestinal: Denies abdominal pain, diarrhea or vomiting Genitourinary Genitourinary: Denies change in urinary stream, difficulty urinating or dysuria Musculoskeletal Musculoskeletal: Reports none Integumentary Integumentary: Denies rash Neurologic Neurologic: Denies dizziness, headache(s), memory loss or weakness Physical Exam Const alert and no apparent distress General Appearance: cooperative and comfortable Exam Limitations: no limitations HEENT normocephalic Eyes General Eye: normal appearance of both eyes Neck full ROM General: normal visual inspection Chest Chest: symmetrical chest wall rise Resp normal respiratory effort and normal air movement Effort and Inspection: symmetric chest movement Auscultation: clear to auscultation bilaterally Cardio regular rate and regular rhythm GI normal to inspection, nondistended, normoactive bowel sounds Back/Spine normal ROM Extremity full ROM and no calf tenderness General Extremity: normal exam except as noted Skin no rashes or lesions noted Neuro oriented x3 Speech: speech normal Psych mental status grossly normal Thought Process: normal thought process Assessment & Plan (1) Care and examination of lactating mother: (2) (spontaneous vaginal delivery): PLAN: Plan PPD 1 Afebrile 12 hours Continue Ancef 2 gm IV q8 and Clindamycin 900 mg IV q 6 support WBC today 15 Anticipate discharge home tomorrow if remains afebrile
[2025-10-23 08:40] LABS: Estimated Creatinine Clearance 100.41 ml/min (50-250); Gentamicin, Random 0.8 ug/mL
--- NOTE | 2025-10-23 08:57 | PCM.RX.CS ---
Consult Antibiotic Management Pharmacy has been consulted to manage selected antibiotic: Vancomycin Type of Intervention Type of Consult: Follow-up Suspected Infection Suspected Infection: Other (FEVER/) Prior Doses of Antibiotics Prior Doses of Antibiotics Received/Current Regimen: Gentamicin 300 mg IV Q24H giving 10/22/25 @ 2040 Labs Labs: Creatinine 0.78 mg/dL (0.70-1.20) 10/23/25 07:45 Est GFR (MDRD) Non-Af 107 (>60) 10/23/25 07:45 Random Gentamicin 0.8 ug/mL 10/23/25 07:45 Dosing Weight Weight used for dosin kg Estimated Creatinine Clearance Estimated Creatinine Clearance: ~ 100 Goal Trough Goal Trough: Other (gentamicin) Pharmacy Plan for Drug Dosing Pharmacy Plan for Drug Dosing: Gentamicin random level = 0.8, continue 300 mg Q24H dosing Pharmacy Service will continue to monitor and adjust dosing as required. Date/Time Labs Ordered Labs to be done on [date and time ordered]: pending duration
[2025-10-23] MEDS: Gentamicin IV 300 MG in Dextrose 5%-Water (50mL Bag) 50 ML 100 MG IVPB (20:30)
[2025-10-24 01:48] VITALS: BP 124/79; PULSE 53; O2SAT 96
[2025-10-24 01:50] VITALS: BP 124/79; PULSE 57; RESP 18; TEMP 36.3; O2SAT 96
--- NOTE | 2025-10-24 08:11 | PCM.DC.SUM ---
Providers Date of Admission: 10/21/25 Reason For Visit: VAGINAL DELIVERY Diagnosis Discharge Diagnosis (1) Care and examination of lactating mother: Status: Acute Code(s): Z39.1 - Encounter for care and examination of lactating mother (2) (spontaneous vaginal delivery): Status: Acute Code(s): O80 - Encounter for full-term uncomplicated delivery Plan PPD 2 Afebrile 24 hours support Desires discharge home today Medications at Discharge Home Medications acyclovir 200 mg capsule 200 mg PO TID PRN HSV 01/22/24 aspirin 81 mg capsule 81 mg PO DAILY 10/11/25 calcium carbonate (Esme-[place] Heartburn Chew) 300 mg PO PRN heartburn 10/11/25 magnesium oxide 400 mg PO DAILY 10/11/25 vit no.95-ferrous fumarate 28 mg-folic acid 800 mcg tablet () 1 tab PO DAILY 10/11/25 Hospital Course Operations None Procedures None Summary of Care Provided Minutes Spent on Discharge: 15 Hospital Course: Patient had vaginal delivery. Hospital course was uneventful. Physical Exam Narrative Patient seen at bedside. Denies pain. Ambulating and voiding without difficulty. Lochia decreased. Desires discharge home today. Const alert and oriented x3 General Appearance: Negative for in distress HEENT normocephalic Eyes General Eye: normal appearance of both eyes Neck General: normal visual inspection Chest Chest: symmetrical chest wall rise Resp normal respiratory effort and normal air movement Effort and Inspection: symmetric chest movement; Negative for tachypneic Auscultation: clear to auscultation bilaterally Cardio regular rate and regular rhythm Peripheral Pulses: pulses 2+ throughout GI normal to inspection, nondistended, normoactive bowel sounds Narrative: Ice to perineum OB / External & Speculum: vaginal bleeding and other Lochia decreasing Uterus Palpation: uterus fundus firm (Below U) Extremity normal to inspection, full ROM and normal capillary refill Skin no rashes or lesions noted Neuro oriented x3, CN's II-XII intact bilaterally and gait normal Psych mental status grossly normal, thought process normal and activity/motor behavior normal Weight / BMI Weight Weight: 160 lb 12.8 oz Body Mass Index (BMI) 29.4 PRE- weight 135 lb PRE- Body Mass Index 24.7 (BMI) ABG / Lab / Microbiology Data 10/23/25 06:10/23/25 07:45 Laboratory: Laboratory Results - last 24 hr 10/23/25 07:45: Creatinine 0.78, Estim Creat Clear Calc 100.41, Est GFR (MDRD) Non-Af 107, Random Gentamicin 0.8 D/C Instructions Discharge Activity: Return to Normal Activity, No Restrictions, May Drive, May Shower and May Take a Tub Bath (Warm water only. No bath salts, soaps, bubbles) May resume sexual activity in: 6-8 weeks Weight Bearing Status: Weight bearing as tolerated Call your doctor if you observe: Fever of 101 or Higher, Inability to urinate, Using more than 1 pad per hour, Shortness of breath, Dizziness, Chest pain, Calf discomfort and Uncontrolled pain DC O2, CPAP, BIPAP Needs Home O2 Discharge instructions: No Please Follow Up With: [facility] Tracie CARLOS When: 2 weeks in office or virtual Meaningful Use Info Meaningful Use Meaningful Use Diagnoses (Choose all that apply): None applicable Discharge Plan Admission Admit Date/Time: 10/21/25 23:52 Attending Provider: Mikala Baez Discharge Orders/Prescriptions Prescriptions: No Action acyclovir 200 mg capsule 200 mg PO TID PRN (Reason: HSV) PNV no.95-ferrous fumarate-FA [] 28 mg iron- 800 mcg tablet 1 tab PO DAILY aspirin 81 mg capsule 81 mg PO DAILY magnesium oxide 400 mg magnesium capsule 400 mg PO DAILY Esme-Alex Heartburn Chew 300 mg (750 mg) tablet,chewable 300 mg PO PRN
[2025-10-24 08:46] VITALS: BP 124/75; BP 134/79; PULSE 52; PULSE 55; RESP 16; TEMP 36.3; O2SAT 98
[2025-10-24 08:47] VITALS: BP 124/75; PULSE 51
--- NOTE | 2025-10-24 10:47 | CASEMGMT ---
Social Work Assessment Labor and Delivery Unit Patient Address: [address] [place] [address] Phone number: [phone] Date of Referral: 10/23/2025 Time of Referral: 07:14 Referred By: Mikala Baez Date of Intervention: 10/24/25 Time of Intervention: 10:47 Reason for Referral: Mental Health/Anxiety History obtained from: Mother of baby (MOB), father of baby (FOB/Nick Cline, age 33) and review of medical records. ?? Household composition: MOB, FOB and their daughter, Michelle Cline, born on 10/22/25. Patient's parent/guardian status: ??MOB and FOB have been together for a little over a year and a half and are not . MOB denied any previous or current issues of domestic violence and described a positive relationship with the FOB. Medical History: : 2, Para, now 1. MOB had 1 SAB. MOB received care through [facility], beginning at 7 weeks and 0 days. Visits were observed to be routine. Apgars: 8 and 9. Weight:3080 grams. Bed Machine Operator: Dr. Sotero Braswell in [place]. Educational Status: MOB and FOB denied any issues with reading, writing or learning comprehension. MOB and FOB have both earned a bachelor?s degree. Financial Status: MOB and FOB reported that their income is sufficient to meet the needs of their family at this time. MOB is currently employed part-time at the [employer] in [place] and the FOB is employed full-time as a radio personality. Supplies: MOB and FOB reported they have the supplies they need for baby at this time including but not limited to: Car seat, bassinet, crib, pack-n-play, diapers, bottles, breast pump and clothing. Childcare/Caregiver(s): MOB reported that during the time she is working, the FOB will be able to provide care due to his flexible schedule as well as MOB?s father, and stepmother. MOB and FOB denied any barriers/needs related to childcare/caregiving. Transportation: Both MOB and FOB are licensed drivers and have a reliable vehicle to get baby to and from all medical appointments. MOB and FOB denied any issues/barriers to transportation at this time. Programs/Agencies Involvement: [employer] for Medicaid. MATEO is going to apply for WIC. MOB used to be involved in counseling when in High School due to parent divorce. MOB and FOB denied any other agency involvement. Children Services/Legal Issues: MOB and FOB denied any previous or current Children Services and/or legal involvement. Behavioral Health Issues: None reported/denied. ? Mental Health History: ?MOB has a history of anxiety. MOB is not on any medication at this time. MOB reported she works out at a gym which is her ?medication?. MOB reported her symptoms are managed at this time. ?FOB denied any MH history. Substance Use History:? MOB and FOB denied any history or current drug and/or alcohol abuse. MOB and FOB reported they drink alcohol on occasion. ? Family History: MOB reported anxiety runs on the maternal side of her family. FOB denied any family history of mental health issues. MOB denied any family history of drug and/or alcohol abuse. ANAID reported he lost his little brother 5 years ago due to addiction. FOB denied any other family history. Drug Screens: None obtained for the MOB or baby during this admission. Family/Social Stressors:?? Denied. Support Systems: MATEO identified her biggest support as the FOB, family as well as her ?mom, dad and step-mom?. Depression/Shaken Baby/Safe Sleeping: Senior Clinician provided verbal and written education on PPD, increased risk factors for PPD, Safe Sleeping and Shaken Baby.? MOB and FOB both verbalized an understanding.??? ASSESSMENT: MOB and FOB provided consent to social work visit. Upon arrival, the MOB was sitting ?in the hospital bed, the nurse was express feeding the and the FOB was in the shower. Shortly after social research assistant arrived, the nurse left the room, handed to the MOB and the FOB got out of the shower and was able to participate in the assessment. MOB and FOB were both verbally engaged, and cooperative. Senior Clinician observed positive interaction between the MOB and FOB. Senior Clinician observed positive interaction between the MOB and and the MOB appeared to be attached and bonded to . MOB was observed to be very gentle and attentive to . ?At the end of the assessment, social research assistant requested to speak with the MOB alone, which MOB and FOB were both agreeable to. MOB reported feeling safe in her home and denied any previous or current domestic violence, unmanaged mental health issues either with herself or with the FOB, and also denied any concerns with any drug or alcohol abuse either with herself or with the FOB. Safe Plan of Care for related to substance use: N/A PLAN: For MOB and baby to be discharged when medically ready. No other services requested or indicated. Giana Rouse, BIOSOLIDS MANAGEMENT TECHNICIAN, CAPACITOR INSPECTOR
--- NOTE | 2025-10-24 12:18 | PCM.DC.SUM ---
Providers Date of Admission: 10/21/25 Reason For Visit: VAGINAL DELIVERY Diagnosis Discharge Diagnosis (1) Care and examination of lactating mother: Status: Acute Code(s): Z39.1 - Encounter for care and examination of lactating mother (2) (spontaneous vaginal delivery): Status: Acute Code(s): O80 - Encounter for full-term uncomplicated delivery Plan PPD 2 Afebrile 24 hours support Desires discharge home today Medications at Discharge Home Medications calcium carbonate (Esme-[place] Heartburn Chew) 300 mg PO PRN heartburn 10/11/25 magnesium oxide 400 mg PO DAILY 10/11/25 vit no.95-ferrous fumarate 28 mg-folic acid 800 mcg tablet () 1 tab PO DAILY 10/11/25 acetaminophen 500 mg tablet 1,000 mg (2 x 500 mg) PO Q6H PRN PRN Pain 1-10 Or Fever #0 tabs 10/24/25 ibuprofen 600 mg tablet 600 mg PO Q6H PRN PRN Pain Score 1-10 #0 tabs 10/24/25 Hospital Course Operations None Procedures None Summary of Care Provided Minutes Spent on Discharge: 15 Hospital Course: Patient had vaginal delivery. Hospital course was uneventful. Physical Exam Narrative Patient seen at bedside. Denies pain. Ambulating and voiding without difficulty. Lochia decreased. Desires discharge home today. Const alert and oriented x3 General Appearance: Negative for in distress HEENT normocephalic Eyes General Eye: normal appearance of both eyes Neck General: normal visual inspection Chest Chest: symmetrical chest wall rise Resp normal respiratory effort and normal air movement Effort and Inspection: symmetric chest movement; Negative for tachypneic Auscultation: clear to auscultation bilaterally Cardio regular rate and regular rhythm Peripheral Pulses: pulses 2+ throughout GI normal to inspection, nondistended, normoactive bowel sounds Narrative: Ice to perineum OB / External & Speculum: vaginal bleeding and other Lochia decreasing Uterus Palpation: uterus fundus firm (Below U) Extremity normal to inspection, full ROM and normal capillary refill Skin no rashes or lesions noted Neuro oriented x3, CN's II-XII intact bilaterally and gait normal Psych mental status grossly normal, thought process normal and activity/motor behavior normal Weight / BMI Weight Weight: 160 lb 12.8 oz Body Mass Index (BMI) 29.4 PRE- weight 135 lb PRE- Body Mass Index 24.7 (BMI) ABG / Lab / Microbiology Data 10/23/25 06:01 10/23/25 07:45 D/C Instructions Discharge Activity: Return to Normal Activity, No Restrictions, May Drive, May Shower and May Take a Tub Bath (Warm water only. No bath salts, soaps, bubbles) May resume sexual activity in: 6-8 weeks Weight Bearing Status: Weight bearing as tolerated Call your doctor if you observe: Fever of 101 or Higher, Inability to urinate, Using more than 1 pad per hour, Shortness of breath, Dizziness, Chest pain, Calf discomfort and Uncontrolled pain DC O2, CPAP, BIPAP Needs Home O2 Discharge instructions: No Please Follow Up With: [facility] Tracie CARLOS When: 2 weeks in office or virtual Meaningful Use Info Meaningful Use Meaningful Use Diagnoses (Choose all that apply): None applicable Discharge Plan Admission Admit Date/Time: 10/21/25 23:52 Primary Reason for Your Visit: Labor and Delivery Attending Provider: Mikala Baez Discharge Orders/Prescriptions Prescriptions: New acetaminophen 500 mg Tablet 1,000 mg PO Q6H PRN PRN (Reason: Pain 1-10 Or Fever) Qty: 0 0RF ibuprofen 600 mg Tablet 600 mg PO Q6H PRN PRN (Reason: Pain Score 1-10) Qty: 0 0RF Discontinued acyclovir 200 mg capsule 200 mg PO TID PRN (Reason: HSV) aspirin 81 mg capsule 81 mg PO DAILY No Action PNV no.95-ferrous fumarate-FA [] 28 mg iron- 800 mcg tablet 1 tab PO DAILY magnesium oxide 400 mg magnesium capsule 400 mg PO DAILY Esme-[place] Heartburn Chew 300 mg (750 mg) tablet,chewable 300 mg PO PRN Referrals / Follow Up: Mikala Baez CNM [Med Staff - Adv Practice Prof, Obstetrics] Disposition Disposition (needs filled in before D/C Order can be placed): Home, Self Care
[2025-10-24 12:33] VITALS: BP 134/83; PULSE 73; RESP 16; TEMP 36.4; O2SAT 99
== END 2025-10-24 12:55 | disposition home or self-care (01) | DRG 560 ==
LOC: WPOUT 23:56 → WP 23:56
PROVIDERS: Obstetrics & Gynecology; Admitting Provider Advanced Practice Midwife; Referring Provider Advanced Practice Midwife; Visit Provider Advanced Practice Midwife
DX: O99.344 Other mental disorders complicating childbirth (principal); Z37.0 Single live birth; F41.9 Anxiety disorder, unspecified; Z3A.38 38 weeks gestation of pregnancy; Z67.91 Unspecified blood type, Rh negative; O99.892 Other specified diseases and conditions complicating childbirth; R82.71 Bacteriuria; Z86.19 Personal history of other infectious and parasitic diseases
CPT/HCPCS: 59025; 59050; 80170; 82565; 85025; 85461; 86780; 86850; 86900; 86901; 90384; 99221; A4216; G0378; J2790; J2791